=== PATIENT | female | born 1970 | race Caucasian/White ===

== ENCOUNTER 2016-11-02 14:28 | Outpatient (CLI) | payer OTHER ==
[2016-11-02 15:59] LABS: PROLACTIN 6.04 ng/mL
[2016-11-02 16:22] LABS: FOLLICLE STIMULATING HORMONE 4.46 mIU/mL
== END 2016-11-02 14:29 | disposition home or self-care (01) ==
LOC: LAB 14:28
PROVIDERS: ATTEND Obstetrics & Gynecology
DX: N64.3 Galactorrhea not associated with childbirth (principal)
CPT/HCPCS: 36415; 83001; 84146

== ENCOUNTER 2017-02-10 14:18 | Outpatient (CLI) | payer OTHER | END 2017-02-10 14:19 | disposition home or self-care (01) | LOC: LAB.R 14:18 | PROVIDERS: ATTEND Obstetrics & Gynecology | DX: N89.8 Other specified noninflammatory disorders of vagina (principal) | CPT/HCPCS: 87480; 87510; 87660 ==

== ENCOUNTER 2017-02-10 14:24 | Outpatient (CLI) | payer OTHER ==
[2017-02-10 14:45] LABS: BASOPHILS % (AUTO) 0.6 %; EOSINOPHILS # (AUTO) 0.2 10^3/uL (0.0-0.7); EOSINOPHILS % (AUTO) 3.3 %; HCT - HEMATOCRIT 40.3 % (37.0-47.0); HGB - HEMOGLOBIN 13.6 g/dL (12.0-16.0); LYMPHOCYTES # (AUTO) 1.7 10^3/uL (1.5-3.5); LYMPHOCYTES % (AUTO) 30.1 %; MEAN CORPUSCULAR HEMOGLOBIN 33.5 pg (27.0-31.0); MEAN CORPUSCULAR HGB CONC 33.8 g/dL (32.0-36.0); MONOCYTES # (AUTO) 0.4 10^3/uL (0.0-1.0); MONOCYTES % (AUTO) 6.8 %; NEUTROPHILS # (AUTO) 3.3 10^3/uL (1.5-6.6); NEUTROPHILS % (AUTO) 59.2 %; RED BLOOD COUNT 4.07 10^6/uL (4.20-5.40); RED CELL DISTRIBUTION WIDTH 13.5 % (12.0-15.0); UNCORRECTED WHITE BLOOD COUNT 5.6 x10^3/uL; WHITE BLOOD COUNT 5.6 x10^3/uL (4.8-10.8)
[2017-02-10 15:22] LABS: HEMOGLOBIN A1C 0.39 g/dL
== END 2017-02-10 14:25 | disposition home or self-care (01) ==
LOC: LAB 14:24
PROVIDERS: ATTEND Obstetrics & Gynecology
DX: Z13.0 Encounter for screening for diseases of the blood and blood-forming organs and certain disorders involving the immune mechanism (principal); O92.6 Galactorrhea; N89.8 Other specified noninflammatory disorders of vagina
CPT/HCPCS: 36415; 83036; 84146; 85025; 87480; 87510; 87660

== ENCOUNTER 2017-05-07 15:01 | Emergency (ER) | payer OTHER ==
[2017-05-07 17:43] VITALS: BP 122/65
[2017-05-07] MEDS ORDERED: DOXYCYCLINE 100 MG TABLET PO STA (18:10)
[2017-05-07] MEDS ORDERED: ACETAMINOPHEN 325 MG TABLET PO STA (18:10)
--- NOTE | 2017-05-07 18:16 | ED Physician Documentation ---
History of Present Illness - Stated complaint Stated Complaint: RIGHT SIDE PAIN - Chief complaint Chief Complaint: General - Additonal information Additional information: hx from pt and 47 female with recurrent mastitis s/p hyst per believed to be related to her menstrual cycles and she is due to have a oopeherectomy soon has had mammo CT and MRi breast this year Review of Systems Skin: reports: Other (R breast) PD PAST MEDICAL HISTORY - Past Medical History Cardiovascular: Hypertension Musculoskeletal: Chronic back pain - Past Surgical History Past Surgical History: Yes General: Cholecystectomy, 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 - Present Medications Home Medications: Ambulatory Orders Medication Instructions Recorded Confirmed Escitalopram Oxalate [Lexapro] 20 mg PO DAILY 12/31/14 01/18/17 [place] 450 mg PO DAILY 12/31/14 01/18/17 [place] 900 mg PO QPM 12/31/14 01/18/17 Ondansetron HCl [Zofran] 8 mg PO TID 12/31/14 01/18/17 Promethazine [Phenergan] 50 mg PO TID 12/31/14 01/18/17 Sumatriptan Succinate [Imitrex] 6 mg SQ DAILY PRN 12/31/14 01/18/17 Topiramate 100 mg PO BID 12/31/14 01/18/17 clonazePAM [KlonoPIN] 1 mg PO TID 12/31/14 01/18/17 lamoTRIgine [LaMICtal] 100 mg PO DAILY 12/31/14 01/18/17 lamoTRIgine [LaMICtal] 200 mg PO QPM 12/31/14 01/18/17 raNITIdine [Zantac] 150 mg PO BID 12/31/14 01/18/17 Prazosin [Minipress] 6 mg PO QPM 04/22/15 01/18/17 Lidocaine Ointment 5% [Xylocaine 5 each TOP QPM 07/22/15 01/18/17 Ointment 5%] Gabapentin 1,200 mg PO ONCE 01/20/16 01/18/17 Gabapentin 600 mg PO TID 01/20/16 01/18/17 Lidocaine Patch 5% [Lidoderm Patch] 1 each TOP ONCE PRN 01/20/16 01/18/17 cloNIDine [Catapres] 0.1 mg PO TID 03/04/16 01/18/17 Diphenoxylate/Atropine [Lomotil] 1 - 2 each PO Q6H PRN 07/28/16 01/18/17 Doxycycline Hyclate 100 mg PO BID #20 capsule 05/07/17 - Allergies Allergies/Adverse Reactions: Allergies Allergy/AdvReac Type Severity Reaction Status Date / Time pineapple Allergy Severe Edema Verified 01/10/15 15:25 diphenhydramine HCl * Allergy Intermediate Itching Verified 01/10/15 15:22 [From Benadryl] Cephalosporins AdvReac Severe Respiratory Verified 01/10/15 15:21 iron dextran complex AdvReac Intermediate Emesis Verified 01/10/15 15:24 prochlorperazine AdvReac Intermediate Emesis Verified 01/10/15 15:23 [From Compazine] prochlorperazine edisylate * AdvReac Intermediate Emesis Verified 01/10/15 15:23 [From Compazine] prochlorperazine maleate * AdvReac Intermediate Emesis Verified 01/10/15 15:23 [From Compazine] kiwi AdvReac Itching Verified 01/10/15 15:26 - Social History Does the pt smoke?: No Smoking Status: Never smoker PD ED PE NORMAL - Vitals Vital signs reviewed: Yes - Cardiac Cardiac: RRR - Respiratory Respiratory: No respiratory distress, Clear bilaterally, Other (R breast with sig erythema and TTP in lower medial quadrant, nipple peircing s infection, no nipple dc, small axillary adenopathy) Results - Vitals Vitals: Vital Signs - 24 hr 05/07/17 05/07/17 15:09 17:42 Temperature 36.3 C L 36.2 C L Heart Rate 76 62 Respiratory 18 16 Rate Blood Pressure 110/77 122/65 O2 Saturation 100 100 Oxygen O2 Source Room air PD MEDICAL DECISION MAKING - ED course ED course: pt states she has been on numerous diff ab for mastitis and doxy works the best Departure - Departure Disposition: Home, Self Care Clinical Impression: Mastitis Condition: Good Instructions: ED Breast Infec Follow-Up: Randolph Silva MD [Provider Admit Priv/Credential] - (Tuesday for a recheck ) Prescriptions: Doxycycline Hyclate 100 mg PO BID #20 capsule
== END 2017-05-07 18:24 | disposition home or self-care (01) ==
LOC: ED 15:01
DX: N61.0 Mastitis without abscess (principal); I10 Essential (primary) hypertension
CPT/HCPCS: 99283; A9270

== ENCOUNTER 2017-05-31 11:55 | Outpatient (CLI) | payer OTHER ==
[2017-05-31 12:35] LABS: BASOPHILS % (AUTO) 0.6 %; EOSINOPHILS # (AUTO) 0.2 10^3/uL (0.0-0.7); HGB - HEMOGLOBIN 13.3 g/dL (12.0-16.0); LYMPHOCYTES # (AUTO) 1.5 10^3/uL (1.5-3.5); LYMPHOCYTES % (AUTO) 33.8 %; MEAN CORPUSCULAR HEMOGLOBIN 33.8 pg (27.0-31.0); MEAN CORPUSCULAR HGB CONC 33.8 g/dL (32.0-36.0); MEAN CORPUSCULAR VOLUME 100.1 fL (81.0-99.0); MEAN PLATELET VOLUME 8.1 fL (7.9-10.8); MONOCYTES # (AUTO) 0.2 10^3/uL (0.0-1.0); MONOCYTES % (AUTO) 5.6 %; NEUTROPHILS # (AUTO) 2.4 10^3/uL (1.5-6.6); PLT - PLATELET COUNT 205 10^3/uL (130-450); RED BLOOD COUNT 3.93 10^6/uL (4.20-5.40); RED CELL DISTRIBUTION WIDTH 14.1 % (12.0-15.0); WHITE BLOOD COUNT 4.3 x10^3/uL (4.8-10.8)
[2017-05-31 13:01] LABS: CALCIUM 8.9 mg/dL (8.5-10.3); CREATININE 0.7 mg/dL (0.4-1.0)
== END 2017-05-31 11:56 | disposition home or self-care (01) ==
LOC: LAB 11:55
PROVIDERS: ATTEND Obstetrics & Gynecology
DX: Z01.812 Encounter for preprocedural laboratory examination (principal); N83.209 Unspecified ovarian cyst, unspecified side
CPT/HCPCS: 36415; 80048; 85025; 86850; 86900; 86901

== ENCOUNTER 2017-06-01 09:22 | Day surgery (SDC) | payer OTHER ==
--- NOTE | 2017-05-31 18:16 | PREOP HISTORY & PHYSICAL ---
DATE OF SERVICE: 06/01/2017 Physician: Randolph Silva MD PREOPERATIVE H & P ON 05/31/2017 FOR ANTICIPATED DATE [facility] 06/01/2017 IDENTIFICATION: Patient is a 47-year-old, G3, P2, AB1 female who is post hysterectomy, thus does not have any regular periods. CHIEF COMPLAINT: Recurrent ovarian cysts bilaterally. HISTORY OF PRESENT ILLNESS: Patient states over the last 18 months, she has had difficulty with ovarian cysts, which come and go. These can give her pain when they rupture and have become quite uncomfortable. She has been tried on OCP for suppression with out success. For this reason, she is requesting a laparoscopic removal. PAST MEDICAL HISTORY: Patient denies any hypertensive, diabetic, or cardiac disease. She does have some difficulty with bipolar. PAST SURGICAL HISTORY: Positive for hysterectomy, gastric bypass surgery, as well as abdominoplasty, arm plasty, and thigh plasty. ALLERGIES 1. BENADRYL. 2. CEFAZOLIN. 3. DOXYCYCLINE. 4. COMPAZINE. CURRENT MEDICATIONS 1. Prazosin 2 mg 4 capsules at bedtime. 2. Escitalopram 20 mg 1 tablet by mouth daily. 3. Topiramate 100 mg 1 tablet b.i.d. 4. [place] 450 mg 1 tablet in the morning and 2 tablets at bedtime. 5. Lamotrigine 100 mg 1 tablet in the morning and 2 tablets in the evening. 6. Gabapentin 600 mg 1 tablet t.i.d. 7. Clonidine 0.1 mg 1 tablet t.i.d. 8. Clonazepam 1 mg 1 tablet t.i.d. p.r.n. anxiety. 9. Promethazine 25 mg 1 tablet by mouth at bedtime. 10. Zofran 4 mg over a day. HABITS: Patient smokes 20 cigarettes per day. She has been counseled about this. Ethanol use, 1-2 drinks weekly, as well as MJ once every 2 weeks. SOCIAL HISTORY: Patient is and lives with spouse and daughter. She is retired at this time. PHYSICAL EXAMINATION GENERAL: Well-developed, well-nourished white female. She is in no acute distress. She is somewhat anxious about the upcoming surgery. VITAL SIGNS: Her blood pressure is 136/84. HEENT: Pupils round. Extraocular muscles are intact. Thyroid is not palpably enlarged. Mouth is clear. HEART: Regular rate and rhythm without murmurs. LUNGS: [place] are clear without rales or wheezes. ABDOMEN: Well-healed abdominoplasty. There are no masses. There is no tenderness. IMPRESSION: A 47-year-old G3, P2 female who has recurrent ovarian cysts. She is requesting removal of the ovaries. She is aware at this particular point when she has this performed that she will go into menopause. This can be treated with transdermal estrogen. PLAN: Laparoscopic BSO. Possible laparotomy. Risks and benefits have been explained to the patient including those, but not limited to bleeding, infection into the pelvic organs, which include the bowel, bladder and ureters as her uterus has been removed and her tubes and ovaries will be removed. She is aware of the potential for DVT, as well as PE, as well as postoperative adhesions, which could cause pain and bowel obstruction. TD: 05/31/2017 12:19 EMILY
[~2017-06-01 09:22] MED LIST: BUPIVACAINE 0.25%-EPI 1:200000 PF 30 ML VIAL SUBQ ONE
[2017-06-01] MEDS ORDERED: LACTATED RINGERS 1,000 ML IV ONE (09:28)
[2017-06-01] MEDS ORDERED: SCOPOLAMINE PATCH TOP ONE (10:06)
[2017-06-01] MEDS ORDERED: DEXAMETHASONE 4 MG/ML VIAL IVP ONE (10:30)
[2017-06-01] MEDS ORDERED: KETOROLAC 30 MG/ML VIAL IVP ONE (10:30)
[2017-06-01] MEDS ORDERED: ONDANSETRON 4 MG/2 ML VIAL IVP ONE (10:30)
[2017-06-01] MEDS ORDERED: MIDAZOLAM 2 MG/2 ML VIAL IVP ONE (10:30)
[2017-06-01] MEDS ORDERED: fentaNYL 100 MCG/2 ML VIAL IVP ONE (10:30)
[2017-06-01] MEDS ORDERED: ACETAMINOPHEN 1,000 MG/100 ML 100 ML IV ONE (10:30)
[2017-06-01] MEDS ORDERED: SUCCINYLCHOLINE 200 MG/10 ML VIAL IVP ONE (10:30)
[2017-06-01] MEDS ORDERED: ROCURONIUM 50 MG/5 ML VIAL IVP ONE (10:30)
[2017-06-01] MEDS ORDERED: GLYCOPYRROLATE 1 MG/5 ML VIAL IVP ONE (10:30)
[2017-06-01] MEDS ORDERED: PROPOFOL 200 MG/20 ML VIAL IVP ONE (10:30)
[2017-06-01] MEDS ORDERED: LIDOCAINE-MPF 2% 5 ML VIAL IM ONE (10:30)
[2017-06-01] MEDS ORDERED: NEOSTIGMINE 1 MG/1 ML 10 ML MDV IVP ONE (10:30)
[2017-06-01] MEDS ORDERED: CLINDAMYCIN 600 MG/50 ML 50 ML IV ONE (10:34)
[2017-06-01] MEDS: fentaNYL 100 MCG/2 ML VIAL ONE ×2 (11:55→12:00)
[2017-06-01] MEDS ORDERED: ONDANSETRON 4 MG/2 ML VIAL ONE (12:03)
[2017-06-01] MEDS ORDERED: HYDROmorphone 1 MG/ML SYRINGE ONE (12:19)
--- NOTE | 2017-06-01 12:35 | OPERATIVE REPORT ---
DATE OF SERVICE: 06/01/2017 Physician: Randolph Silva MD DATE OF SURGERY: 06/01/2017 PREOPERATIVE DIAGNOSIS: Recurrent ovarian cysts, failure of suppression with OCPs. POSTOPERATIVE DIAGNOSIS: Recurrent ovarian cysts, failure of suppression with OCPs. NAME OF PROCEDURE: Laparoscopic bilateral salpingo-oophorectomy. SURGEON: Randolph Silva MD PHYSICAL THERAPY PROFESSOR: Dr. Cony Burks DO. ANESTHESIA: General via endotracheal tube with LOIS Collier. FINDINGS: Upon entering the abdominal cavity, there was no evidence of any adhesions. She was status post hysterectomy. The appendix appeared to be normal as well as the edge of the liver. There was a small phlebolith, which was roughly 1 cm in diameter. The tubes and ovaries appeared to be free of disease. There was a cyst on the right ovary felt to be functional. PROCEDURE: Following adequate endotracheal anesthesia, the patient was placed in the dorsal lithotomy position in [facility]. At this point, she was prepped and draped in the usual fashion. A timeout was performed, at which time, the patient was identified, allergies identified as well as concerns. Because of an ALLERGY TO CEFOXITIN, she was given clindamycin 600 mg IV. At this point, a speculum was placed in vagina. The cervix was surgically absent. A sponge stick was placed for manipulation. The web press operator assistant's gloves were changed and following local anesthesia with 0.25% Marcaine with epinephrine, an incision was made in subumbilical region with a #11 blade. A 5 mm port was placed on the first pass. The abdominal cavity was entered. There was no evidence of injury at the site of entry. CO2 was then used to insufflate the abdominal cavity. The pelvis was inspected. There were no adhesions from her previous surgery. Two lower quadrant incisions, both were placed, both in the left and right side, following local anesthesia with 0.25% Marcaine, 5 mm incisions were made with a #11 blade and then 5 mm ports were then placed under direct visualization. The pelvis was inspected. The right tube and ovary were easily identified. The left tube and ovary took some time, but was eventually identified. There was a free phlebolith noted on the left side in the deep cul-de-sac. This was removed. At this point, the right tube and ovary were grasped and then the infundibulopelvic ligament was doubly cauterized and transected. Then, the mesovarium was cauterized, transected, and the tube was freed from its attachments. This was then placed in the cul-de-sac. The right tube and ovary were treated in the same fashion. At this point, the left tube and ovary were grasped and it was felt that this could not be removed through the port, so the right lower port was extended and a 1 cm port was placed under direct visualization. The ovary was then removed through the port. This was done after transection. The ovary appeared to be totally free of disease. The right tube and ovary were then placed in an Endopouch and then brought out through the incision without difficulty. The pelvis was inspected for bleeding, none was noted. At this point, a Vasyl-West was placed in the right lower port where the 10 mm port had been placed and the incision was closed deep with 0 Vicryl. The pelvis was then suctioned free of any fluid. This was to minimize for postop pain. The left lower quadrant port was then removed under direct visualization and following this, the subumbilical port was removed after allowing as much gas to escape as possible. The incisions were all closed using 4-0 Monocryl subcuticular. This was then dressed with Dermabond. The sponge stich was removed fro the vagina. The patient tolerated the procedure well and was taken to recovery in stable condition. Sponge and needle counts were correct. TD: 06/01/2017 13:34 EMILY
[2017-06-01 13:28] VITALS: BP 123/84
== END 2017-06-01 09:23 | disposition home or self-care (01) ==
LOC: SDS 09:22
PROVIDERS: ATTEND Obstetrics & Gynecology
PROC: 0UT74ZZ Resection of Bilateral Fallopian Tubes, Percutaneous Endoscopic Approach (ICD-10-PCS; 2017-06-01)
PROC: 0UT24ZZ Resection of Bilateral Ovaries, Percutaneous Endoscopic Approach (ICD-10-PCS; principal; 2017-06-01 10:30)
DX: N83.02 Follicular cyst of left ovary (principal); N83.01 Follicular cyst of right ovary; N70.11 Chronic salpingitis; N83.11 Corpus luteum cyst of right ovary; F17.210 Nicotine dependence, cigarettes, uncomplicated; F31.9 Bipolar disorder, unspecified
CPT/HCPCS: 58661; J0131; J1170; J3490; J7120

== ENCOUNTER 2017-07-26 08:00 | Outpatient (CLI) | payer OTHER | END 2017-07-26 08:01 | disposition home or self-care (01) | LOC: LAB.R 08:00 | PROVIDERS: ATTEND Obstetrics & Gynecology | DX: R82.99 Other abnormal findings in urine (principal) | CPT/HCPCS: 87086 ==

== ENCOUNTER 2017-09-09 17:51 | Emergency (ER) | payer OTHER ==
[2017-09-09] MEDS ORDERED: IOPAMIDOL-300 100 ML VIAL IVP ONE ×2 (17:52→20:46)
[2017-09-09] MEDS ORDERED: MORPHINE 2 MG/ML SYRINGE IVP STA ×3 (18:51→21:47)
--- NOTE | 2017-09-09 18:53 | ED Physician Documentation ---
History of Present Illness - Stated complaint Stated Complaint: LT SIDE SWELL/PX - Chief complaint Chief Complaint: General - History obtained from History obtained from: Patient - History of Present Illness Timing: Other (47-year-old woman without personal history of DVT or PE but with a strong family history of same and is also on estrogen therapy and smokes. She recently took a car trip to [place] and on her way back developed swollen left leg. 2 days ago she felt a pop or a burst in the left side of her chest and ever since then has been short of breath and has had chest pain which is terrible if she takes a deep breath and some numbness and tingling in the left arm. She also had a slight amount of hemoptysis today.) Review of Systems Ten Systems: 10 systems reviewed and negative Constitutional: denies: Fever, Chills Cardiac: reports: Chest pain / pressure, Pedal edema, Calf pain. 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 HEENT: Tonsil/Adenoidectomy - Present Medications Home Medications: Ambulatory Orders Medication Instructions Recorded Confirmed Escitalopram Oxalate [Lexapro] 20 mg PO DAILY 12/31/14 06/21/17 [place] 450 mg PO TID 12/31/14 06/21/17 Ondansetron HCl [Zofran] 8 mg PO TID 12/31/14 06/21/17 Promethazine [Phenergan] 75 mg PO TID 12/31/14 06/21/17 Sumatriptan Succinate [Imitrex] 6 mg SQ DAILY PRN 12/31/14 06/21/17 Topiramate 100 mg PO BID 12/31/14 06/21/17 clonazePAM [KlonoPIN] 1 mg PO TID 12/31/14 06/21/17 lamoTRIgine [LaMICtal] 100 mg PO TID 12/31/14 06/21/17 raNITIdine [Zantac] 150 mg PO BID 12/31/14 06/21/17 Prazosin [Minipress] 8 mg PO QPM 04/22/15 06/21/17 Gabapentin 1,200 mg PO ONCE 01/20/16 06/21/17 Gabapentin 600 mg PO TID 01/20/16 06/21/17 cloNIDine [Catapres] 0.1 mg PO TID 03/04/16 06/21/17 Estradiol [Vivelle-Dot] 0.075 patch TD Q7D 06/21/17 06/21/17 Oxycodone HCl/Acetaminophen 1 - 2 tab PO Q4H PRN #15 tablet 09/09/17 [Percocet 5-325 mg Tablet] Progesterone,Micronized 200 mg PO 09/09/17 [Progesterone] - Allergies Allergies/Adverse Reactions: Allergies Allergy/AdvReac Type Severity Reaction Status Date / Time pineapple Allergy Severe Edema Verified 05/31/17 13:52 diphenhydramine HCl * Allergy Intermediate Itching Verified 05/31/17 13:52 [From Benadryl] Cephalosporins AdvReac Severe Respiratory Verified 05/31/17 13:52 doxycycline AdvReac Intermediate Emesis Verified 05/31/17 13:52 iron dextran complex AdvReac Intermediate Emesis Verified 05/31/17 13:52 prochlorperazine AdvReac Intermediate Emesis Verified 05/31/17 13:52 [From Compazine] prochlorperazine edisylate * AdvReac Intermediate Emesis Verified 05/31/17 13:52 [From Compazine] prochlorperazine maleate * AdvReac Intermediate Emesis Verified 05/31/17 13:52 [From Compazine] kiwi AdvReac Itching Verified 09/09/17 18:04 - Social History Does the pt smoke?: Yes Smoking Status: Current every day smoker PD ED PE NORMAL - Vitals Vital signs reviewed: Yes - General General: Alert and oriented X 3, No acute distress - HEENT HEENT: PERRL, EOMI - Neck Neck: Supple, no meningeal sign, No bony TTP - Cardiac Cardiac: RRR, No murmur - Respiratory Respiratory: Other (She is really splinting her breath so I am not able to make much out with breath sounds, she is nonlabored otherwise.) - Abdomen Abdomen: Soft, Non tender - Back Back: No CVA TTP, No spinal TTP - Extremities Extremities: Other (No real edema but the left calf is tender.) - Neuro Neuro: Alert and oriented X 3, Normal speech - Psych Psych: Normal mood, Normal affect Results - Vitals Vitals: Vital Signs - 24 hr 09/09/17 09/09/17 09/09/17 18:00 21:00 21:47 Temperature 36.1 C L 36.3 C L Heart Rate 79 64 62 Respiratory 18 16 16 Rate Blood Pressure 120/85 H 125/76 141/90 H O2 Saturation 100 94 99 Oxygen O2 Source Room air - EKG (time done) 2003 Rate: Rate (enter#) (62) Rhythm: NSR [place]: Normal Intervals: Prolonged [place] (borderline = 220msec) QRS: Normal Ischemia: Non specific changes (flat Ts). No: ST elevation c/w ischemia Computer interpretation: Agree with computer - Labs Labs: Laboratory Tests 09/09/17 09/09/17 09/09/17 19:10 19:10 19:10 WBC 3.9 L RBC 4.17 L Hgb 13.8 Hct 43.0 MCV 103.1 H MCH 33.1 H MCHC 32.1 RDW 14.0 Plt Count 257 MPV 7.6 L Neut # 1.9 Lymph # 1.6 [place] # 0.2 Eos # 0.2 Baso # 0.0 Absolute Nucleated RBC 0.00 Nucleated RBC % 0.0 PT INR Sodium 139 Potassium 3.5 Chloride 106 Carbon Dioxide 25 Anion Gap 8.0 BUN 7 Creatinine 0.6 Estimated GFR (MDRD) 108 Glucose 87 Calcium 8.8 Total Bilirubin 0.7 AST 39 ALT 32 Alkaline Phosphatase 65 Troponin I Total Protein 6.8 Albumin 4.4 Globulin 2.4 Albumin/Globulin Ratio 1.8 Lipase 35 Last Dose Date UNKNOWN Last Dose Time UNKNOWN [place] 0.87 09/09/17 09/09/17 19:10 19:25 WBC RBC Hgb Hct MCV MCH MCHC RDW Plt Count MPV Neut # Lymph # [place] # Eos # Baso # Absolute Nucleated RBC Nucleated RBC % PT 11.0 INR 1.0 Sodium Potassium Chloride Carbon Dioxide Anion Gap BUN Creatinine Estimated GFR (MDRD) Glucose Calcium Total Bilirubin AST ALT Alkaline Phosphatase Troponin I < 0.04 Total Protein Albumin Globulin Albumin/Globulin Ratio Lipase Last Dose Date Last Dose Time [place] - Rads (name of study) CTA Chest Radiology: EMP read contemporaneously (neg) LLE DVT duples Radiology: EMP read contemporaneously (negative) PD MEDICAL DECISION MAKING - ED course ED course: 47-year-old woman with history and physical there is actually very concerning for DVT/PE. Workup for this negative for same and she admits to being under a lot of stress and having a lot of family drama making that more likely to be causative. Departure - Departure Disposition: 01 Home, Self Care Clinical Impression: Pleurisy without effusion, Leg pain, left Condition: Good Record reviewed to determine appropriate education?: Yes Instructions: ED Chest Pain Pleurisy Prescriptions: Oxycodone HCl/Acetaminophen [Percocet 5-325 mg Tablet] 1 - 2 tab PO Q4H PRN #15 tablet PRN Reason: Pain Comments: Call your doctor to arrange a follow-up appointment, make the next available appointment. In the interim, return anytime if worse or if new symptoms develop. Discharge Date/Time: 09/09/17 22:00
[2017-09-09 19:18] LABS: BASOPHILS % (AUTO) 0.7 %; EOSINOPHILS # (AUTO) 0.2 10^3/uL (0.0-0.7); EOSINOPHILS % (AUTO) 4.2 %; HGB - HEMOGLOBIN 13.8 g/dL (12.0-16.0); LYMPHOCYTES # (AUTO) 1.6 10^3/uL (1.5-3.5); LYMPHOCYTES % (AUTO) 41.7 %; MEAN CORPUSCULAR HEMOGLOBIN 33.1 pg (27.0-31.0); MEAN CORPUSCULAR HGB CONC 32.1 g/dL (32.0-36.0); MEAN CORPUSCULAR VOLUME 103.1 fL (81.0-99.0); MEAN PLATELET VOLUME 7.6 fL (7.9-10.8); MONOCYTES # (AUTO) 0.2 10^3/uL (0.0-1.0); MONOCYTES % (AUTO) 5.5 %; NEUTROPHILS # (AUTO) 1.9 10^3/uL (1.5-6.6); NEUTROPHILS % (AUTO) 47.9 %; PLT - PLATELET COUNT 257 10^3/uL (130-450); RED BLOOD COUNT 4.17 10^6/uL (4.20-5.40); WHITE BLOOD COUNT 3.9 x10^3/uL (4.8-10.8)
[2017-09-09] MEDS ORDERED: IOPAMIDOL-300 100 ML VIAL ONE (19:31)
[2017-09-09 19:34] LABS: ALBUMIN 4.4 g/dL (3.2-5.5); ALBUMIN/GLOBULIN RATIO 1.8 (1.0-2.2); BILIRUBIN,TOTAL 0.7 mg/dL (0.2-1.0); CALCIUM 8.8 mg/dL (8.5-10.3); CREATININE 0.6 mg/dL (0.4-1.0); TOTAL PROTEIN 6.8 g/dL (6.7-8.2)
[2017-09-09 20:20] LABS: LITHIUM 0.87 mmol/L
--- NOTE | 2017-09-09 20:49 | Ultrasound Report ---
EXAM: LEFT LOWER EXTREMITY VENOUS ULTRASOUND EXAM DATE: 09/09/2017 08:22 PM. CLINICAL HISTORY: Leg pain. COMPARISON: None. TECHNIQUE: Real-time sonographic vascular imaging was performed by the college basketball coach through the lower extremity utilizing both color-flow and Doppler spectral analysis. Multiple logistics service representative static christelle ges were saved for review. FINDINGS: Common Femoral Vein (CFV): Normal. CFV-GSV Junction: Normal. Profunda Femoral Vein (PFV): Normal. Femoral Vein (FV) Prox: Normal. Femoral Vein (FV) Mid: Normal. Femoral Vein (FV) Dist: Normal. Popliteal Vein: Normal. Posterior Tibial Veins: Normal. Peroneal Veins: Normal. Contralateral Side CFV: Normal. Other: None. IMPRESSION: No evidence for deep venous thrombosis. [facility] Referring Provider Line: [phone] SITE ID: [id number]
[2017-09-09] MEDS ORDERED: KETOROLAC 60 MG/2 ML VIAL IVP STA (20:50)
--- NOTE | 2017-09-09 21:26 | CT Preliminary Report ---
Exam: CT CHEST ANGIO (PE) IMPRESSION: Normal pulmonary CT angiogram. No pulmonary emboli. No acute pulmonary process. [facility] SITE ID: [id number]
[2017-09-09] MEDS ORDERED: oxyCODONE/ACET 5/325 Prepack 4 PO STA (21:28)
--- NOTE | 2017-09-09 21:35 | CT Report ---
EXAM: CT ANGIOGRAM CHEST EXAM DATE: 09/09/2017 08:49 PM. CLINICAL HISTORY: Chest pain. COMPARISON: None. TECHNIQUE: Routine helical imaging was performed through the chest in the pulmonary arterial phase. I V Contrast: 80 mL Isovue 300. Reconstructions: Coronal 3-D MIP reconstructions.Sagittal and coronal. In accordance with CT protocol optimization, one or more of the following dose reduction techniques w ere utilized for this exam: automated exposure control, adjustment of mA and/or KV based on patient s ize, or use of iterative reconstructive technique. FINDINGS: Pulmonary Arteries: Diagnostic quality: Adequate through the segmental arteries. No evidence for acute or chronic pulmona ry emboli. RV/LV is within normal limits. There is no interventricular septal bowing. There is mild reflux of co ntrast material in the IVC. Lungs/Pleura: No consolidation, nodules, or edema. No effusions or pneumothorax. Mild dependent atele ctasis is noted. Mediastinum: Normal. No cardiac enlargement or adenopathy. Thoracic Aorta: Unremarkable. Upper Abdomen: Status post gastric bypass procedure. Fluid is present in the mid to lower esophagus. Small esophageal hernia is noted. Coarse calcifications are noted in the liver dome. Other: Bilateral breast implants are noted. No thyroid nodule or mass noted. IMPRESSION: Normal pulmonary CT angiogram. No pulmonary emboli. No acute pulmonary process. [facility] Referring Provider Line: [phone] SITE ID: [id number]
[2017-09-09 21:47] VITALS: BP 141/90
== END 2017-09-09 22:00 | disposition home or self-care (01) ==
LOC: ED 17:51
DX: R09.1 Pleurisy (principal); M79.605 Pain in left leg; I10 Essential (primary) hypertension; F17.200 Nicotine dependence, unspecified, uncomplicated; Z79.818 Long term (current) use of other agents affecting estrogen receptors and estrogen levels
CPT/HCPCS: 36415; 71275; 80053; 80178; 83690; 84484; 85025; 85610; 93005; 93971; 96374; 96375; 96376; 99283; 99284; J2270; Q9967

== ENCOUNTER 2017-09-14 13:26 | Emergency (ER) | payer OTHER ==
[2017-09-14] MEDS ORDERED: KETOROLAC 60 MG/2 ML VIAL IVP STA (16:22)
--- NOTE | 2017-09-14 16:30 | ED Physician Documentation ---
History of Present Illness - Stated complaint Stated Complaint: PAIN - Chief complaint Chief Complaint: MHE - History obtained from History obtained from: Patient, Family - History of Present Illness Timing: How many weeks ago (1) Pain level max: 9 Pain level now: 8 Improved by: rest Worsened by: movement - Additonal information Additional information: Patient is a 47-year-old female who presents to the emergency department with left-sided chest pain that radiates up to the neck and down to her side. Worse with movement and palpation. Better with rest. Pain was controlled well with Percocet, but she ran out of this. Attempted to see her PCP but was unable to be seen that day. She is now out of the pain medication. States that the pain is worsening. Thinks she may have had fevers at home but is unsure. They state that she is having difficulty walking as well because of the pain. Is not taking anything for pain other than Percocet. Patient was seen here recently and had a negative CT pulmonary angiogram as well as a negative duplex ultrasound for similar symptoms. There was concern for pulmonary embolism and DVT after recent travel. Review of Systems Constitutional: reports: Fever (unsure) Ears: denies: Ear pain Nose: denies: Rhinorrhea / runny nose, Congestion Throat: denies: Sore throat Cardiac: denies: Chest pain / pressure Respiratory: reports: Cough (mild, dry) GI: denies: Nausea, Vomiting, Diarrhea : denies: Dysuria Skin: denies: Rash Musculoskeletal: reports: Neck pain (L sided neck pain, similar to may of this year). denies: Back pain, Extremity pain, Joint pain, Extremity swelling Neurologic: denies: Focal weakness, Numbness, Syncope, Seizure, Confused, Altered mental status, Headache, Head injury, LOC PD PAST MEDICAL HISTORY - Past Medical History Past Medical History: Yes Cardiovascular: Hypertension Respiratory: None Endocrine/Autoimmune: None GI: GERD, Chronic diarrhea, Cholelithiasis, Other : Other HEENT: Chronic vision loss Psych: Depression, Anxiety, Bipolar disorder, Panic attacks Musculoskeletal: Chronic back pain Derm: None - Past Surgical History Past Surgical History: Yes General: Cholecystectomy, Gastric surgery 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 HEENT: Tonsil/Adenoidectomy - Present Medications Home Medications: Ambulatory Orders Medication Instructions Recorded Confirmed Escitalopram Oxalate [Lexapro] 20 mg PO DAILY 12/31/14 06/21/17 [place] 450 mg PO TID 12/31/14 06/21/17 Ondansetron HCl [Zofran] 8 mg PO TID 12/31/14 06/21/17 Promethazine [Phenergan] 75 mg PO TID 12/31/14 06/21/17 Sumatriptan Succinate [Imitrex] 6 mg SQ DAILY PRN 12/31/14 06/21/17 Topiramate 100 mg PO BID 12/31/14 06/21/17 clonazePAM [KlonoPIN] 1 mg PO TID 12/31/14 06/21/17 lamoTRIgine [LaMICtal] 100 mg PO TID 12/31/14 06/21/17 raNITIdine [Zantac] 150 mg PO BID 12/31/14 06/21/17 Prazosin [Minipress] 8 mg PO QPM 04/22/15 06/21/17 Gabapentin 1,200 mg PO ONCE 01/20/16 06/21/17 Gabapentin 600 mg PO TID 01/20/16 06/21/17 cloNIDine [Catapres] 0.1 mg PO TID 03/04/16 06/21/17 Estradiol [Vivelle-Dot] 0.075 patch TD Q7D 06/21/17 06/21/17 Oxycodone HCl/Acetaminophen 1 - 2 tab PO Q4H PRN #15 tablet 09/09/17 [Percocet 5-325 mg Tablet] Progesterone,Micronized 200 mg PO 09/09/17 [Progesterone] Cyclobenzaprine [Flexeril] 10 mg PO TID PRN #20 tablet 09/14/17 Meloxicam [Mobic] 15 mg PO DAILY PRN #20 tablet 09/14/17 Oxycodone HCl/Acetaminophen 1 - 2 each PO Q6H PRN #20 tablet 09/14/17 [Percocet 5-325 mg Tablet] - Allergies Allergies/Adverse Reactions: Allergies Allergy/AdvReac Type Severity Reaction Status Date / Time pineapple Allergy Severe Edema Verified 05/31/17 13:52 diphenhydramine HCl * Allergy Intermediate Itching Verified 05/31/17 13:52 [From Benadryl] Cephalosporins AdvReac Severe Respiratory Verified 05/31/17 13:52 doxycycline AdvReac Intermediate Emesis Verified 05/31/17 13:52 iron dextran complex AdvReac Intermediate Emesis Verified 05/31/17 13:52 prochlorperazine AdvReac Intermediate Emesis Verified 05/31/17 13:52 [From Compazine] prochlorperazine edisylate * AdvReac Intermediate Emesis Verified 05/31/17 13:52 [From Compazine] prochlorperazine maleate * AdvReac Intermediate Emesis Verified 05/31/17 13:52 [From Compazine] kiwi AdvReac Itching Verified 09/09/17 18:04 - Social History Does the pt smoke?: Yes Smoking Status: Current every day smoker PD ED PE NORMAL - Vitals Vital signs reviewed: Yes - General General: Alert and oriented X 3, No acute distress - HEENT HEENT: Atraumatic, PERRL, Ears normal, Moist mucous membranes - Neck Neck: Supple, no meningeal sign, No bony TTP, No JVD, No bruit - Cardiac Cardiac: RRR, No murmur, Strong equal pulses - Respiratory Respiratory: No respiratory distress, Clear bilaterally - Abdomen Abdomen: Soft, Non tender, Non distended - Derm Derm: Warm and dry - Extremities Extremities: No edema, No calf tenderness / cord, Other (TTP across the L anterior chest wall and ribs on the L side. no crepitus. no redness, no swelling.) - Neuro Neuro: Alert and oriented X 3 - Psych Psych: Normal mood, Normal affect Results - Vitals Vitals: Vital Signs - 24 hr 09/14/17 09/14/17 09/14/17 13:52 18:10 18:21 Temperature 36.0 C L Heart Rate 75 61 61 Respiratory 16 14 20 Rate Blood Pressure 109/71 121/69 119/67 O2 Saturation 98 96 100 Oxygen O2 Source Room air - EKG (time done) 1651 Rate: Rate (enter#) (60) Rhythm: NSR [place]: Normal Intervals: Normal [place] QRS: Normal, LVH Ischemia: Normal ST segments - Labs Labs: Laboratory Tests 09/14/17 09/14/17 16:37 16:37 WBC 4.0 L RBC 4.08 L Hgb 13.8 Hct 42.3 MCV 103.7 H MCH 33.9 H MCHC 32.7 RDW 14.5 Plt Count 230 MPV 8.4 Neut # 2.2 Lymph # 1.5 [place] # 0.2 Eos # 0.2 Baso # 0.0 Absolute Nucleated RBC 0.00 Nucleated RBC % 0.0 Sodium 136 Potassium 4.0 Chloride 100 L Carbon Dioxide 26 Anion Gap 10.0 BUN 7 Creatinine 0.7 Estimated GFR (MDRD) 90 Glucose 86 Calcium 9.1 Total Bilirubin 0.7 AST 39 ALT 57 Alkaline Phosphatase 123 H Total Protein 7.1 Albumin 4.5 Globulin 2.6 Albumin/Globulin Ratio 1.7 Lipase 25 - Rads (name of study) cxr Radiology: Prelim report reviewed, EMP read contemporaneously, See rad report ( normal) PD MEDICAL DECISION MAKING - ED course Complexity details: reviewed old records, reviewed results, re-evaluated patient , considered differential, d/w patient, d/w family ED course: Patient is a 47-year-old female who presents to the emergency department with what appears to be musculoskeletal pain of the left chest wall. No lymphadenopathy in the axilla. Normal chest x-ray. No acute findings on EKG or laboratory testing. Pain well controlled in the emergency department. Will place on pain medication for home and follow-up closely with her doctor. Negative CT pulmonary angiogram and duplex ultrasound a few days ago. No hypoxia. No respiratory distress. Patient and family counseled regarding signs and symptoms for which I believe and urgent re-evaluation would be necessary. Patient with good understanding of and agreement to plan and is comfortable going home at this time This document was made in part using voice recognition software. While efforts are made to proofread this document, sound alike and grammatical errors may occur. Departure - Departure Disposition: 01 Home, Self Care Clinical Impression: Chest wall pain Condition: Good Instructions: ED Strain Chest Wall Follow-Up: SONG SIMON [Primary Care Provider] - Within 1 week Prescriptions: Cyclobenzaprine [Flexeril] 10 mg PO TID PRN #20 tablet PRN Reason: Spasms Meloxicam [Mobic] 15 mg PO DAILY PRN #20 tablet PRN Reason: pain Oxycodone HCl/Acetaminophen [Percocet 5-325 mg Tablet] 1 - 2 each PO Q6H PRN # 20 tablet PRN Reason: pain Comments: Return if you worsen. You can also try heating pads or ice packs at home. This should improve over the next week or so. Do not drink alcohol or drive while on narcotic pain medicine. Note that many narcotic pain relievers also contain tylenol/acetaminophen. Please ensure that your total dose of acetaminophen from all sources does not exceed 3 grams (3000mg) per day. You may constipated on this medication, take a stool softener such as "Colace" twice a day while you are on it. Also recommend a ptqq-cyc-[id number] laxative such as senna or MiraLAX any day that you do not have a bowel movement. If you received narcotic pain medication in the emergency department, do not drive or operate machinery for the next 24 hours. Discharge Date/Time: 09/14/17 18:21
[2017-09-14 16:55] LABS: BASOPHILS % (AUTO) 0.5 %; EOSINOPHILS # (AUTO) 0.2 10^3/uL (0.0-0.7); EOSINOPHILS % (AUTO) 3.9 %; HGB - HEMOGLOBIN 13.8 g/dL (12.0-16.0); LYMPHOCYTES # (AUTO) 1.5 10^3/uL (1.5-3.5); LYMPHOCYTES % (AUTO) 36.5 %; MEAN CORPUSCULAR HEMOGLOBIN 33.9 pg (27.0-31.0); MEAN CORPUSCULAR HGB CONC 32.7 g/dL (32.0-36.0); MEAN CORPUSCULAR VOLUME 103.7 fL (81.0-99.0); MEAN PLATELET VOLUME 8.4 fL (7.9-10.8); MONOCYTES # (AUTO) 0.2 10^3/uL (0.0-1.0); MONOCYTES % (AUTO) 5.5 %; NEUTROPHILS # (AUTO) 2.2 10^3/uL (1.5-6.6); NEUTROPHILS % (AUTO) 53.6 %; PLT - PLATELET COUNT 230 10^3/uL (130-450); RED BLOOD COUNT 4.08 10^6/uL (4.20-5.40); RED CELL DISTRIBUTION WIDTH 14.5 % (12.0-15.0)
[2017-09-14 17:11] LABS: ALBUMIN 4.5 g/dL (3.2-5.5); ALBUMIN/GLOBULIN RATIO 1.7 (1.0-2.2); BILIRUBIN,TOTAL 0.7 mg/dL (0.2-1.0); CALCIUM 9.1 mg/dL (8.5-10.3); CREATININE 0.7 mg/dL (0.4-1.0); TOTAL PROTEIN 7.1 g/dL (6.7-8.2)
[2017-09-14] MEDS ORDERED: oxyCOD/ACETAMIN 5 MG/325 MG TABLET PO STA (17:17)
--- NOTE | 2017-09-14 17:31 | XRAY Preliminary Report ---
Exam: XR CHEST 2 VIEW X-RAY IMPRESSION: Normal 2-view chest radiography. [facility] SITE ID: [id number]
--- NOTE | 2017-09-14 17:32 | XRAY Report ---
EXAM: CHEST RADIOGRAPHY EXAM DATE: 09/14/2017 05:10 PM. CLINICAL HISTORY: L sided chest pain. COMPARISON: 02/05/2018 chest x-ray. TECHNIQUE: 2 views. FINDINGS: Lungs/Pleura: No focal opacities evident. No pleural effusion. No pneumothorax. Normal volumes. Mediastinum: Heart and mediastinal contours are unremarkable. Other: None. IMPRESSION: Normal 2-view chest radiography. [facility] Referring Provider Line: [phone] SITE ID: [id number]
[2017-09-14 18:22] VITALS: BP 119/67
== END 2017-09-14 18:21 | disposition home or self-care (01) ==
LOC: ED 13:26
DX: R07.89 Other chest pain (principal); I10 Essential (primary) hypertension; K21.9 Gastro-esophageal reflux disease without esophagitis; F17.200 Nicotine dependence, unspecified, uncomplicated; F41.9 Anxiety disorder, unspecified; F32.9 Major depressive disorder, single episode, unspecified
CPT/HCPCS: 36415; 71046; 80053; 83690; 85025; 93005; 96374; 99283; 99284; A9270

== ENCOUNTER 2018-02-21 15:05 | Outpatient (CLI) | payer OTHER ==
[2018-02-21 15:29] LABS: BASOPHILS % (AUTO) 0.5 %; EOSINOPHILS # (AUTO) 0.1 10^3/uL (0.0-0.7); EOSINOPHILS % (AUTO) 2.3 %; HGB - HEMOGLOBIN 12.8 g/dL (12.0-16.0); LYMPHOCYTES # (AUTO) 1.7 10^3/uL (1.5-3.5); LYMPHOCYTES % (AUTO) 31.4 %; MEAN CORPUSCULAR HGB CONC 34.5 g/dL (32.0-36.0); MEAN CORPUSCULAR VOLUME 101.5 fL (81.0-99.0); MEAN PLATELET VOLUME 7.2 fL (7.9-10.8); MONOCYTES # (AUTO) 0.3 10^3/uL (0.0-1.0); NEUTROPHILS # (AUTO) 3.2 10^3/uL (1.5-6.6); NEUTROPHILS % (AUTO) 59.8 %; PLT - PLATELET COUNT 244 10^3/uL (130-450); RED BLOOD COUNT 3.65 10^6/uL (4.20-5.40); RED CELL DISTRIBUTION WIDTH 13.3 % (12.0-15.0); WHITE BLOOD COUNT 5.3 x10^3/uL (4.8-10.8)
[2018-02-21 15:39] LABS: ALBUMIN/GLOBULIN RATIO 1.5 (1.0-2.2); BILIRUBIN,TOTAL 0.7 mg/dL (0.2-1.0); CALCIUM 8.6 mg/dL (8.5-10.3); CREATININE 0.8 mg/dL (0.4-1.0); TOTAL PROTEIN 6.6 g/dL (6.7-8.2)
[2018-02-21 15:42] LABS: BILIRUBIN,URINE NEGATIVE (NEGATIVE); GLUCOSE, URINE (UA) NEGATIVE (NEGATIVE); KETONES,URINE (UA) NEGATIVE (NEGATIVE); LEUKOCYTE ESTERASE, URINE NEGATIVE (NEGATIVE); NITRITE,URINE NEGATIVE (NEGATIVE); OCCULT BLOOD,URINE NEGATIVE (NEGATIVE); PROTEIN,URINE NEGATIVE (NEGATIVE); UROBILINOGEN,URINE 0.2 (NORMAL) E.U./dL (NORMAL)
[2018-02-21 15:48] LABS: CLARITY,URINE CLEAR (CLEAR)
== END 2018-02-21 15:06 | disposition home or self-care (01) ==
LOC: LAB 15:05
PROVIDERS: ATTEND Specialist
DX: R11.2 Nausea with vomiting, unspecified (principal); R19.7 Diarrhea, unspecified
CPT/HCPCS: 36415; 80053; 81003; 82150; 83690; 85025

== ENCOUNTER 2018-03-09 12:54 | Emergency (ER) | payer OTHER ==
[2018-03-09 13:15] VITALS: BP 162/99
--- NOTE | 2018-03-09 13:59 | XRAY Report ---
Reason: pain since GLF Procedure Date: 03/09/2018 Accession Number: [id number] / [id number] Procedure: XR - Shoulder 3 View RT CPT Code: FULL RESULT: EXAM: RIGHT SHOULDER RADIOGRAPHY EXAM DATE: 03/09/2018 01:40 PM. CLINICAL HISTORY: Pain since GLF. COMPARISON: None. TECHNIQUE: 3 views. FINDINGS: Bones: No acute fracture. Joints: No dislocation or subluxation. Minimal spurring present at the acromioclavicular joint. Soft tissues: No focal soft tissue swelling demonstrated. No periarticular calcifications. Visualized portions of the right lung are clear. IMPRESSION: 1. No acute fracture or malalignment. 2. Minimal DJD at the right acromioclavicular joint. [facility]
--- NOTE | 2018-03-09 15:00 | ED Physician Documentation ---
PD HPI Fall - Stated complaint Stated Complaint: GLF - Chief complaint Chief Complaint: Ext Problem - History obtained from History obtained from: Patient - History of Present Illness Mechanism of injury: Tripped Fall distance: Standing position Where injury occurred: Home Timing - onset: Last night Injury(ies) location: Head, Right Upper Extremity (shoulder) Pain level max: 9 Pain level now: 9 Quality of pain: Pain, Throbbing, Aching Associated symptoms: No: LOC, AMS, Amnesia, Seizures, Ear drainage, Nasal drainage, Neck pain, Weakness, Paresthesias, Dyspnea, Nausea / vomiting, Hematemesis, Abdominal distension Symptoms improve with: Rest Worsens with: Movement, Palpation Contributing factors: No: Anticoagulated, Intoxicated Recently seen: Not recently seen - Additional information Additional information: pt is right handed Patient tripped and fell last night, landing on her right shoulder and striking the right forehead. No loss of consciousness. No vomiting. No nausea. Now has right shoulder pain today. Worse with movement and better with rest. States cannot take NSAIDs because of her gastric bypass. States Tylenol did not provide relief. Review of Systems Constitutional: denies: Fever GI: denies: Vomiting Skin: denies: Rash Musculoskeletal: denies: Neck pain Neurologic: denies: Focal weakness, Numbness, Syncope, Seizure, Confused, LOC PD PAST MEDICAL HISTORY - Past Medical History Cardiovascular: Hypertension Respiratory: None Endocrine/Autoimmune: None GI: GERD, Chronic diarrhea, Cholelithiasis, Other : Other HEENT: Chronic vision loss Psych: Depression, Anxiety, Bipolar disorder, Panic attacks Musculoskeletal: Chronic back pain Derm: None - Past Surgical History Past Surgical History: Yes General: Cholecystectomy, Gastric surgery 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 HEENT: Tonsil/Adenoidectomy - Present Medications Home Medications: Ambulatory Orders Medication Instructions Recorded Confirmed Escitalopram Oxalate [Lexapro] 20 mg PO DAILY 12/31/14 06/21/17 [place] 450 mg PO TID 12/31/14 06/21/17 Ondansetron HCl [Zofran] 8 mg PO TID 12/31/14 06/21/17 Promethazine [Phenergan] 75 mg PO TID 12/31/14 06/21/17 Sumatriptan Succinate [Imitrex] 6 mg SQ DAILY PRN 12/31/14 06/21/17 Topiramate 100 mg PO BID 12/31/14 06/21/17 clonazePAM [KlonoPIN] 1 mg PO TID 12/31/14 06/21/17 lamoTRIgine [LaMICtal] 100 mg PO TID 12/31/14 06/21/17 raNITIdine [Zantac] 150 mg PO BID 12/31/14 06/21/17 Prazosin [Minipress] 8 mg PO QPM 04/22/15 06/21/17 Gabapentin 1,200 mg PO ONCE 01/20/16 06/21/17 Gabapentin 600 mg PO TID 01/20/16 06/21/17 cloNIDine [Catapres] 0.1 mg PO TID 03/04/16 06/21/17 Estradiol [Vivelle-Dot] 0.075 patch TD Q7D 06/21/17 06/21/17 Oxycodone HCl/Acetaminophen 1 - 2 tab PO Q4H PRN #15 tablet 09/09/17 [Percocet 5-325 mg Tablet] Progesterone,Micronized 200 mg PO 09/09/17 [Progesterone] Cyclobenzaprine [Flexeril] 10 mg PO TID PRN #20 tablet 09/14/17 Meloxicam [Mobic] 15 mg PO DAILY PRN #20 tablet 09/14/17 Oxycodone HCl/Acetaminophen 1 - 2 each PO Q6H PRN #20 tablet 09/14/17 [Percocet 5-325 mg Tablet] Oxycodone HCl/Acetaminophen 1 - 2 each PO Q6H PRN #14 tablet 03/09/18 [Percocet 5-325 mg Tablet] - Allergies Allergies/Adverse Reactions: Allergies Allergy/AdvReac Type Severity Reaction Status Date / Time pineapple Allergy Severe Edema Verified 03/09/18 14:45 diphenhydramine HCl * Allergy Intermediate Itching Verified 03/09/18 14:45 [From Benadryl] Cephalosporins AdvReac Severe Respiratory Verified 03/09/18 14:45 doxycycline AdvReac Intermediate Emesis Verified 03/09/18 14:45 iron dextran complex AdvReac Intermediate Emesis Verified 03/09/18 14:45 prochlorperazine AdvReac Intermediate Emesis Verified 03/09/18 14:45 [From Compazine] prochlorperazine edisylate * AdvReac Intermediate Emesis Verified 03/09/18 14:45 [From Compazine] prochlorperazine maleate * AdvReac Intermediate Emesis Verified 03/09/18 14:45 [From Compazine] kiwi AdvReac Itching Verified 03/09/18 14:45 - Social History Does the pt smoke?: Yes Smoking Status: Current every day smoker PD ED PE NORMAL - Vitals Vital signs reviewed: Yes - General General: Alert and oriented X 3, No acute distress - HEENT HEENT: Atraumatic, PERRL, EOMI, Ears normal, Moist mucous membranes, Pharynx benign - Neck Neck: Supple, no meningeal sign, No bony TTP (No step-off or deformity) - Cardiac Cardiac: RRR, Strong equal pulses - Respiratory Respiratory: No respiratory distress, Clear bilaterally - Abdomen Abdomen: Soft, Non tender, Non distended - Back Back: No spinal TTP (No step-off or deformity) - Derm Derm: Warm and dry - Extremities Extremities: No deformity, Other (Tender to palpation diffusely around the right glenohumeral joint. No gross deformity. Limited range of motion secondary to pain.) - Neuro Neuro: Alert and oriented X 3 Results - Vitals Vitals: Vital Signs - 24 hr 03/09/18 13:13 Temperature 36.5 C Heart Rate 86 Respiratory 18 Rate Blood Pressure 162/99 H O2 Saturation 100 Oxygen O2 Source Room air - Rads (name of study) Right shoulder x-ray Radiology: Prelim report reviewed, EMP read contemporaneously, See rad report (No acute bony abnormality) PD MEDICAL DECISION MAKING - ED course Complexity details: reviewed results, re-evaluated patient, considered differential, d/w patient ED course: Patient is a 48-year-old female with a right shoulder contusion versus sprain. Will place on pain medication for home. No evidence of skull fracture or intracranial hemorrhage that would require repair. GCS 15. Head injury instructions given at bedside. Placed in a sling for comfort. Patient counseled regarding signs and symptoms for which I believe and urgent re- evaluation would be necessary. Patient with good understanding of and agreement to plan and is comfortable going home at this time This document was made in part using voice recognition software. While efforts are made to proofread this document, sound alike and grammatical errors may occur. Departure - Departure Disposition: 01 Home, Self Care Clinical Impression: Head injury Qualifiers: Encounter type: initial encounter Qualified Code(s): S09.90XA - Unspecified injury of head, initial encounter Sprain of shoulder, right Qualifiers: Encounter type: initial encounter Shoulder sprain type: unspecified sprain Qualified Code(s): S43.401A - Unspecified sprain of right shoulder joint, initial encounter Condition: Good Instructions: ED Head Injury Closed, ED Sprain Shoulder Follow-Up: SONG SIMON [Primary Care Provider] - Within 1 week Prescriptions: Oxycodone HCl/Acetaminophen [Percocet 5-325 mg Tablet] 1 - 2 each PO Q6H PRN #14 tablet PRN Reason: pain Comments: Use the medications as needed for pain. Return if you worsen. Wear the sling for the next 2-3 days to help heal your shoulder. Do not drink alcohol or drive while on narcotic pain medicine. Note that many narcotic pain relievers also contain tylenol/acetaminophen. Please ensure that your total dose of acetaminophen from all sources does not exceed 3 grams (3000mg) per day. You may constipated on this medication, take a stool softener such as "Colace" twice a day while you are on it. Also recommend a sntv-kwn-cdrvgac laxative such as senna or MiraLAX any day that you do not have a bowel movement. If you received narcotic pain medication in the emergency department, do not drive or operate machinery for the next 24 hours. Discharge Date/Time: 03/09/18 15:21
== END 2018-03-09 15:21 | disposition home or self-care (01) ==
LOC: ED 12:54
DX: S09.90XA Unspecified injury of head, initial encounter (principal); I10 Essential (primary) hypertension; F17.200 Nicotine dependence, unspecified, uncomplicated; S43.401A Unspecified sprain of right shoulder joint, initial encounter; W10.9XXA Fall (on) (from) unspecified stairs and steps, initial encounter; Y92.009 Unspecified place in unspecified non-institutional (private) residence as the place of occurrence of the external cause
CPT/HCPCS: 99283

== ENCOUNTER 2018-05-15 17:26 | Outpatient (CLI) | payer OTHER ==
--- NOTE | 2018-05-15 21:54 | XRAY Report ---
Reason: PNEUMONIA, UNSPECIFIED ORGANISM Procedure Date: 05/15/2018 Accession Number: [id number] / [id number] Procedure: XR - Chest 2 View X-Ray CPT Code: 21021 FULL RESULT: EXAM: CHEST RADIOGRAPHY EXAM DATE: 05/15/2018 05:59 PM. CLINICAL HISTORY: Productive cough and shortness of breath x5 days. Possible pneumonia. COMPARISON: 09/14/2017. TECHNIQUE: 2 views. FINDINGS: Lungs/Pleura: Interval patchy irregular opacities in the left base on the frontal view corresponds to opacities mainly in the region of the lingula on the lateral view. Otherwise clear upper left lung and right lung. No pneumothorax or pleural effusion. Mediastinum: Normal cardiomediastinal silhouette. Other: Relatively gassy visualized upper abdomen. Cholecystectomy clips. No fracture evident. IMPRESSION: 1. Consistent with left basilar pneumonia predominantly involving lingula. Follow-up recommended to ensure resolution. [facility] The call report notification system was initiated by Dr. Byron Oneal at 18:50 hrs on 05/15/18. The above findings were discussed with Dr. Randolph Sue by Dr. Byron Oneal at 21:52 hrs on 05/15/18.
== END 2018-05-15 17:27 | disposition home or self-care (01) ==
LOC: DI 17:26
PROVIDERS: ATTEND Specialist
DX: J18.9 Pneumonia, unspecified organism (principal)
CPT/HCPCS: 36415; 71046; 80048; 82728; 85025

== ENCOUNTER 2018-05-15 17:27 | Outpatient (CLI) | payer OTHER ==
[2018-05-15 17:54] LABS: BASOPHILS % (AUTO) 0.3 %; EOSINOPHILS # (AUTO) 0.1 10^3/uL (0.0-0.7); EOSINOPHILS % (AUTO) 1.6 %; HGB - HEMOGLOBIN 13.4 g/dL (12.0-16.0); LYMPHOCYTES # (AUTO) 0.7 10^3/uL (1.5-3.5); LYMPHOCYTES % (AUTO) 22.1 %; MEAN CORPUSCULAR HEMOGLOBIN 34.2 pg (27.0-31.0); MEAN CORPUSCULAR HGB CONC 33.3 g/dL (32.0-36.0); MEAN CORPUSCULAR VOLUME 102.8 fL (81.0-99.0); MEAN PLATELET VOLUME 8.5 fL (7.9-10.8); MONOCYTES # (AUTO) 0.1 10^3/uL (0.0-1.0); MONOCYTES % (AUTO) 4.3 %; NEUTROPHILS # (AUTO) 2.3 10^3/uL (1.5-6.6); NEUTROPHILS % (AUTO) 71.7 %; PLT - PLATELET COUNT 163 10^3/uL (130-450); RED BLOOD COUNT 3.91 10^6/uL (4.20-5.40); RED CELL DISTRIBUTION WIDTH 13.9 % (12.0-15.0); WHITE BLOOD COUNT 3.2 x10^3/uL (4.8-10.8)
[2018-05-15 18:10] LABS: CALCIUM 8.8 mg/dL (8.5-10.3); CREATININE 0.6 mg/dL (0.4-1.0)
== END 2018-05-15 17:28 | disposition home or self-care (01) ==
LOC: LAB 17:27
PROVIDERS: ATTEND Specialist
DX: J18.9 Pneumonia, unspecified organism (principal)
CPT/HCPCS: 36415; 80048; 82728; 85025

== ENCOUNTER 2018-05-30 12:58 | Outpatient (CLI) | payer OTHER ==
[2018-05-30 13:15] LABS: BASOPHILS % (AUTO) 0.8 %; EOSINOPHILS # (AUTO) 0.2 10^3/uL (0.0-0.7); EOSINOPHILS % (AUTO) 4.5 %; HGB - HEMOGLOBIN 12.7 g/dL (12.0-16.0); LYMPHOCYTES # (AUTO) 1.2 10^3/uL (1.5-3.5); LYMPHOCYTES % (AUTO) 30.6 %; MEAN CORPUSCULAR HEMOGLOBIN 34.5 pg (27.0-31.0); MEAN CORPUSCULAR HGB CONC 33.8 g/dL (32.0-36.0); MEAN PLATELET VOLUME 7.7 fL (7.9-10.8); MONOCYTES # (AUTO) 0.3 10^3/uL (0.0-1.0); NEUTROPHILS # (AUTO) 2.3 10^3/uL (1.5-6.6); NEUTROPHILS % (AUTO) 57.1 %; PLT - PLATELET COUNT 314 10^3/uL (130-450); RED CELL DISTRIBUTION WIDTH 14.1 % (12.0-15.0)
[2018-05-30 13:27] LABS: ALBUMIN 4.2 g/dL (3.2-5.5); ALBUMIN/GLOBULIN RATIO 1.4 (1.0-2.2); BILIRUBIN,TOTAL 0.5 mg/dL (0.2-1.0); CALCIUM 9.4 mg/dL (8.5-10.3); CREATININE 0.8 mg/dL (0.4-1.0); TOTAL PROTEIN 7.2 g/dL (6.7-8.2)
== END 2018-05-30 12:59 | disposition home or self-care (01) ==
LOC: LAB 12:58
PROVIDERS: ATTEND Specialist
DX: J18.9 Pneumonia, unspecified organism (principal)
CPT/HCPCS: 36415; 80053; 85025

== ENCOUNTER 2018-05-30 13:34 | Outpatient (CLI) | payer OTHER ==
--- NOTE | 2018-05-30 14:19 | XRAY Report ---
Reason: PNEUMONIA, UNSPECIFIED ORGANISM Procedure Date: 05/30/2018 Accession Number: [id number] / [id number] Procedure: XR - Chest 2 View X-Ray CPT Code: 67994 FULL RESULT: EXAM: CHEST RADIOGRAPHY EXAM DATE: 05/30/2018 02:03 PM. CLINICAL HISTORY: Pneumonia, unspecified organism. COMPARISON: Chest 2 view 05/15/2018 5:46 PM. TECHNIQUE: 2 views. FINDINGS: Lungs/Pleura: No focal opacities evident. No pleural effusion. No pneumothorax. Normal volumes. Mediastinum: Heart and mediastinal contours are unremarkable. Other: None. IMPRESSION: No pneumonia. [facility]
== END 2018-05-30 13:35 | disposition home or self-care (01) ==
LOC: DI 13:34
PROVIDERS: ATTEND Specialist
DX: J18.9 Pneumonia, unspecified organism (principal)
CPT/HCPCS: 36415; 71046; 80053; 85025

== ENCOUNTER 2018-11-07 19:33 | Emergency (ER) | payer OTHER ==
--- NOTE | 2018-11-07 20:10 | ED Physician Documentation ---
PD HPI ALTERED MENTAL STATUS - Stated complaint Stated Complaint: ALTERED/MHE - Chief complaint Chief Complaint: Neuro - History obtained from History obtained from: Patient, Family (spouse) - History of Present Illness Timing - onset: Today (tonight) Timing - details: Gradual onset Quality / character: Less responsive, Confused, Hallucinating Contributing factors: Intoxicated Basline status: Alert and oriented X 3, Ambulatory Recently seen: Not recently seen - Additional information Additional information: patient says daughter was recently released from [facility]; per patient, her daughter was being treated for psychiatric issue. Patient was upset about this, and then got into verbal argument with spouse. Because she was feeling upset about these issues, she then took 2 edibles. She then was using listerine and decided to swallow the listerine instead of spit it out, and then took three more "shots" of Listerine since there was no alcohol in the house. She denies SI. got patient into car to drive her to ED, but before the vehicle started moving, patient fell out of the vehicle and was trying to crawl away. She has left knee and right elbow pain due to hitting the ground but denies head injury or LOC. when she fell, the had briefly gone back into the house and so he did not witness the fall. Review of Systems Constitutional: reports: Reviewed and negative Eyes: reports: Reviewed and negative Cardiac: reports: Reviewed and negative Respiratory: reports: Reviewed and negative GI: reports: Reviewed and negative Musculoskeletal: reports: Extremity pain, Joint pain. denies: Neck pain, Back pain Neurologic: reports: Confused, Altered mental status. denies: Generalized weakness, Focal weakness, Numbness, Headache, Head injury, LOC Psychiatric: reports: Anxiety. 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 HEENT: Tonsil/Adenoidectomy - Present Medications Home Medications: Ambulatory Orders Medication Instructions Recorded Confirmed Escitalopram Oxalate [Lexapro] 20 mg PO DAILY 12/31/14 11/07/18 [place] 450 mg PO BID 12/31/14 11/07/18 Ondansetron HCl [Zofran] 8 mg PO TID 12/31/14 11/07/18 Promethazine [Phenergan] 75 mg PO TID 12/31/14 11/07/18 Sumatriptan Succinate [Imitrex] 6 mg SQ DAILY PRN 12/31/14 11/07/18 Topiramate 100 mg PO BID 12/31/14 11/07/18 clonazePAM [KlonoPIN] 1 mg PO TID 12/31/14 11/07/18 lamoTRIgine [LaMICtal] 2 tab PO BID 12/31/14 11/07/18 raNITIdine [Zantac] 2 tab PO BID 12/31/14 11/07/18 Prazosin [Minipress] 8 mg PO QPM 04/22/15 11/07/18 Gabapentin 1,200 mg PO ONCE 01/20/16 11/07/18 Gabapentin 600 mg PO TID 01/20/16 11/07/18 cloNIDine [Catapres] 0.1 mg PO TID 03/04/16 11/07/18 Progesterone,Micronized 200 mg PO DAILY 09/09/17 11/07/18 [Progesterone] Cyclobenzaprine [Flexeril] 10 mg PO TID PRN #20 tablet 09/14/17 11/07/18 Lamotrigine [Lamotrigine ER] 1 mg PO DAILY 03/28/18 11/07/18 Estradiol 2 mg PO DAILY 11/07/18 11/07/18 - Allergies Allergies/Adverse Reactions: Allergies Allergy/AdvReac Type Severity Reaction Status Date / Time pineapple Allergy Severe Edema Verified 11/07/18 15:08 diphenhydramine HCl * Allergy Intermediate Itching Verified 11/07/18 15:08 [From Benadryl] Cephalosporins AdvReac Severe Respiratory Verified 11/07/18 15:08 doxycycline AdvReac Intermediate Emesis Verified 11/07/18 15:08 iron dextran complex AdvReac Intermediate Emesis Verified 11/07/18 15:08 prochlorperazine AdvReac Intermediate Emesis Verified 11/07/18 15:08 [From Compazine] prochlorperazine edisylate * AdvReac Intermediate Emesis Verified 11/07/18 15:08 [From Compazine] prochlorperazine maleate * AdvReac Intermediate Emesis Verified 11/07/18 15:08 [From Compazine] kiwi AdvReac Itching Verified 11/07/18 15:08 - Social History Does the pt smoke?: Yes Smoking Status: Current every day smoker PD ED PE NORMAL - Vitals Vital signs reviewed: Yes - General General: Alert and oriented X 3, No acute distress, Well developed/nourished, Other (slurred speech (mild; she is intelligible and able to articulate and converse, although she is verbose at times)) - HEENT HEENT: Atraumatic, PERRL, EOMI - Neck Neck: No bony TTP - Cardiac Cardiac: RRR, No murmur - Respiratory Respiratory: No respiratory distress, Clear bilaterally - Abdomen Abdomen: Soft, Non tender - Back Back: No spinal TTP - Derm Derm: Normal color, Warm and dry - Extremities Extremities: Normal ROM s pain, No edema, Other (left knee abrasion without bony tenderness and with FROM; right elbow with faint echymosis posterior aspect (over olecranon) without bony tenderness and with FROM ) - Neuro Neuro: Alert and oriented X 3, 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, No motor deficit, No sensory deficit Eye Opening: Spontaneous Motor: Obeys Commands Verbal: Oriented GCS Score: 15 Results - Vitals Vitals: Vital Signs - 24 hr 11/07/18 11/07/18 11/07/18 19:35 20:04 22:03 Temperature 36.6 C 36.5 C Heart Rate 88 74 Respiratory 25 H 16 15 Rate Blood Pressure 137/92 H 127/89 H O2 Saturation 96 99 11/08/18 00:13 Temperature Heart Rate 77 Respiratory 16 Rate Blood Pressure 130/91 H O2 Saturation 99 Oxygen O2 Source Room air - Labs Labs: Laboratory Tests 11/07/18 11/07/18 11/07/18 20:09 20:22 20:22 WBC 5.6 RBC 3.66 L Hgb 12.5 Hct 38.4 MCV 104.9 H MCH 34.2 H MCHC 32.6 RDW 13.8 Plt Count 213 MPV 10.2 Neut # (Auto) 3.2 Lymph # (Auto) 1.8 [place] # (Auto) 0.4 Eos # (Auto) 0.2 Baso # (Auto) 0.0 Absolute Nucleated RBC 0.00 Nucleated RBC % 0.0 Sodium 138 Potassium 3.4 L Chloride 110 Carbon Dioxide 19 L Anion Gap 9.0 BUN 16 Creatinine 0.8 Estimated GFR (MDRD) 77 L Glucose 104 H Calcium 9.0 Total Bilirubin 0.4 AST 33 ALT 34 Alkaline Phosphatase 37 L Total Protein 6.5 L Albumin 3.9 Globulin 2.6 Albumin/Globulin Ratio 1.5 Lipase 37 TSH Urine Color YELLOW Urine Clarity CLEAR Urine pH 5.0 Ur Specific [place] 1.010 Urine Protein NEGATIVE Urine Glucose (UA) NEGATIVE Urine Ketones NEGATIVE Urine Occult Blood NEGATIVE Urine Nitrite NEGATIVE Urine Bilirubin NEGATIVE Urine Urobilinogen 0.2 (NORMAL) Ur Leukocyte Esterase NEGATIVE Ur Microscopic Review NOT INDICATED Urine Culture Comments NOT INDICATED Last Dose Date Last Dose Time Salicylates < 6.0 Urine Opiates Screen NEGATIVE Ur Oxycodone Screen NEGATIVE Urine Methadone Screen NEGATIVE Ur Propoxyphene Screen NEGATIVE Acetaminophen < 10 L Ur Barbiturates Screen NEGATIVE Ur Tricyclics Screen NEGATIVE Ur Phencyclidine Scrn NEGATIVE Ur Amphetamine Screen NEGATIVE U Methamphetamines Scrn NEGATIVE U Benzodiazepines Scrn POSITIVE H [place] Urine Cocaine Screen NEGATIVE U Cannabinoids Screen POSITIVE H Ethyl Alcohol 170.0 11/07/18 11/07/18 20:22 20:22 WBC RBC Hgb Hct MCV MCH MCHC RDW Plt Count MPV Neut # (Auto) Lymph # (Auto) [place] # (Auto) Eos # (Auto) Baso # (Auto) Absolute Nucleated RBC Nucleated RBC % Sodium Potassium Chloride Carbon Dioxide Anion Gap BUN Creatinine Estimated GFR (MDRD) Glucose Calcium Total Bilirubin AST ALT Alkaline Phosphatase Total Protein Albumin Globulin Albumin/Globulin Ratio Lipase TSH 1.82 Urine Color Urine Clarity Urine pH Ur Specific [place] Urine Protein Urine Glucose (UA) Urine Ketones Urine Occult Blood Urine Nitrite Urine Bilirubin Urine Urobilinogen Ur Leukocyte Esterase Ur Microscopic Review Urine Culture Comments Last Dose Date UNKNOWN Last Dose Time UNKNOWN Salicylates Urine Opiates Screen Ur Oxycodone Screen Urine Methadone Screen Ur Propoxyphene Screen Acetaminophen Ur Barbiturates Screen Ur Tricyclics Screen Ur Phencyclidine Scrn Ur Amphetamine Screen U Methamphetamines Scrn U Benzodiazepines Scrn [place] 0.46 Urine Cocaine Screen U Cannabinoids Screen Ethyl Alcohol - Rads (name of study) CT head Radiology: Prelim report reviewed, See rad report PD MEDICAL DECISION MAKING - ED course Complexity details: reviewed old records, reviewed results, re-evaluated patient, considered differential, d/w patient, d/w family ED course: On reevaluation, patient is awake, alert, NAD, clear speech. She denies SI and is comfortable with d/c home. Departure - Departure Disposition: 01 Home, Self Care Clinical Impression: Alcohol intoxication, Marijuana use Condition: Good Health Concerns: altered mental status, intoxication Plan of Treatment: return if worse; avoid drinking alcohol or alcohol-containing products including mouthwash Care Goals: prevention of symptom recurrence Assessment: see diagnoses Instructions: ED Stress React, ED Alcohol Intoxication Follow-Up: Tremayne Sharma DO [Primary Care Provider] - Discharge Date/Time: 11/08/18 00:17
[2018-11-07 20:15] LABS: MUDS CUTOFF CONCENTRATIONS CUTOFF CONC BELOW:
[2018-11-07 20:17] LABS: BILIRUBIN,URINE NEGATIVE (NEGATIVE); GLUCOSE, URINE (UA) NEGATIVE (NEGATIVE); KETONES,URINE (UA) NEGATIVE (NEGATIVE); LEUKOCYTE ESTERASE, URINE NEGATIVE (NEGATIVE); NITRITE,URINE NEGATIVE (NEGATIVE); OCCULT BLOOD,URINE NEGATIVE (NEGATIVE); PROTEIN,URINE NEGATIVE (NEGATIVE); UROBILINOGEN,URINE 0.2 (NORMAL) E.U./dL (NORMAL)
[2018-11-07 20:26] LABS: CLARITY,URINE CLEAR (CLEAR)
[2018-11-07 20:30] LABS: BASOPHILS % (AUTO) 0.7 %; EOSINOPHILS # (AUTO) 0.2 10^3/uL (0.0-0.7); EOSINOPHILS % (AUTO) 3.6 %; HGB - HEMOGLOBIN 12.5 g/dL (12.0-16.0); LYMPHOCYTES # (AUTO) 1.8 10^3/uL (1.5-3.5); LYMPHOCYTES % (AUTO) 32.3 %; MEAN CORPUSCULAR HEMOGLOBIN 34.2 pg (27.0-31.0); MEAN CORPUSCULAR HGB CONC 32.6 g/dL (32.0-36.0); MEAN CORPUSCULAR VOLUME 104.9 fL (81.0-99.0); MEAN PLATELET VOLUME 10.2 fL (7.9-10.8); MONOCYTES # (AUTO) 0.4 10^3/uL (0.0-1.0); MONOCYTES % (AUTO) 6.7 %; NEUTROPHILS # (AUTO) 3.2 10^3/uL (1.5-6.6); NEUTROPHILS % (AUTO) 56.3 %; PLT - PLATELET COUNT 213 10^3/uL (130-450); RED BLOOD COUNT 3.66 10^6/uL (4.20-5.40); RED CELL DISTRIBUTION WIDTH 13.8 % (12.0-15.0); WHITE BLOOD COUNT 5.6 x10^3/uL (4.8-10.8)
--- NOTE | 2018-11-07 20:31 | CT Report ---
Reason: ALOC Procedure Date: 11/07/2018 Accession Number: [id number] / [id number] Procedure: CT - HEAD WO CPT Code: FULL RESULT: EXAM: CT HEAD EXAM DATE: 11/07/2018 08:15 PM. CLINICAL HISTORY: Altered level of consciousness. COMPARISON: None. TECHNIQUE: Multiaxial CT images were obtained from the foramen magnum to the vertex. Reformats: Sagittal and coronal. IV contrast: None. In accordance with CT protocol optimization, one or more of the following dose reduction techniques were utilized for this exam: automated exposure control, adjustment of mA and/or KV based on patient size, or use of iterative reconstructive technique. FINDINGS: Parenchyma: No intraparenchymal hemorrhage. No evidence of mass, midline shift, or CT findings of infarction. Milligan-white differentiation is distinct. Extraaxial Spaces: Normal for age. No subdural or epidural collections identified. Ventricles: Normal in size and position. Sinuses and Orbits: Imaged paranasal sinuses, orbits, and mastoids show no significant abnormality. Bones: No evidence of fracture or calvarial defect. Other: None. IMPRESSION: Normal head CT. RADIA
[2018-11-07 20:33] LABS: AMPHETAMINE SCREEN,URINE NEGATIVE (NEGATIVE); BENZODIAZEPINES SCREEN, URINE POSITIVE (NEGATIVE); COCAINE SCREEN URINE NEGATIVE (NEGATIVE); METHADONE SCREEN, URINE NEGATIVE (NEGATIVE); METHAMPHETAMINES SCREEN, URINE NEGATIVE (NEGATIVE); OPIATE SCREEN, URINE NEGATIVE (NEGATIVE); OXYCODONE SCREEN, URINE NEGATIVE (NEGATIVE); PROPOXYPHENE SCREEN, URINE NEGATIVE (NEGATIVE); TRICYCLIC ANTIDEPRESSANT,URINE NEGATIVE (NEGATIVE)
[2018-11-07 20:46] LABS: ACETAMINOPHEN < 10 ug/mL (10-30); ALBUMIN 3.9 g/dL (3.2-5.5); ALBUMIN/GLOBULIN RATIO 1.5 (1.0-2.2); ALKALINE PHOSPHATASE 37 IU/L (42-121); ALT ALANINE AMINOTRANSFERASE 34 IU/L (10-60); AST ASPARTATE AMINOTRANSFERASE 33 IU/L (10-42); BILIRUBIN,TOTAL 0.4 mg/dL (0.2-1.0); BUN - BLOOD UREA NITROGEN 16 mg/dL (6-20); CARBON DIOXIDE - CO2 19 mmol/L (21-32); CHLORIDE 110 mmol/L (101-111); CREATININE 0.8 mg/dL (0.4-1.0); GFR - MDRD 77 (>89); GLUCOSE 104 mg/dL (70-100); LIPASE 37 U/L (22-51); SALICYLATE < 6.0 mg/dL; SODIUM 138 mmol/L (135-145); TOTAL PROTEIN 6.5 g/dL (6.7-8.2)
[2018-11-07 20:52] LABS: LITHIUM 0.46 mmol/L
[2018-11-07] MEDS ORDERED: TETANUS/DIPHTHERIA/PERTUSSIS 0.5 ML SYRINGE IM ONE (20:55)
[2018-11-08 00:14] VITALS: BP 130/91
== END 2018-11-08 00:17 | disposition home or self-care (01) ==
LOC: ED 19:33
DX: F10.129 Alcohol abuse with intoxication, unspecified (principal); F12.129 Cannabis abuse with intoxication, unspecified; S80.212A Abrasion, left knee, initial encounter; I10 Essential (primary) hypertension; F17.200 Nicotine dependence, unspecified, uncomplicated; W17.89XA Other fall from one level to another, initial encounter; Y92.009 Unspecified place in unspecified non-institutional (private) residence as the place of occurrence of the external cause
CPT/HCPCS: 70450; 80053; 80178; 80306; 80307; 80320; 80329; 81001; 81003; 83690; 84443; 85025; 87086; 99284

== ENCOUNTER 2018-11-21 16:44 | Outpatient (CLI) | payer OTHER ==
[2018-11-21 17:13] LABS: BASOPHILS % (AUTO) 0.7 %; EOSINOPHILS # (AUTO) 0.2 10^3/uL (0.0-0.7); EOSINOPHILS % (AUTO) 3.5 %; HGB - HEMOGLOBIN 12.8 g/dL (12.0-16.0); LYMPHOCYTES # (AUTO) 1.8 10^3/uL (1.5-3.5); LYMPHOCYTES % (AUTO) 38.5 %; MEAN CORPUSCULAR HEMOGLOBIN 33.8 pg (27.0-31.0); MEAN CORPUSCULAR HGB CONC 31.6 g/dL (32.0-36.0); MEAN CORPUSCULAR VOLUME 106.9 fL (81.0-99.0); MEAN PLATELET VOLUME 10.2 fL (7.9-10.8); MONOCYTES # (AUTO) 0.2 10^3/uL (0.0-1.0); MONOCYTES % (AUTO) 4.4 %; NEUTROPHILS # (AUTO) 2.4 10^3/uL (1.5-6.6); NEUTROPHILS % (AUTO) 52.5 %; PLT - PLATELET COUNT 210 10^3/uL (130-450); RED BLOOD COUNT 3.79 10^6/uL (4.20-5.40); RED CELL DISTRIBUTION WIDTH 13.1 % (12.0-15.0); WHITE BLOOD COUNT 4.5 x10^3/uL (4.8-10.8)
[2018-11-21 17:40] LABS: CRP - C-REACTIVE PROTEIN < 1.0 mg/dL (0-1.0); URIC ACID 4.1 mg/dL (2.6-7.2)
[2018-11-23 13:42] LABS: ANA SCREEN NEGATIVE (NEGATIVE)
== END 2018-11-21 16:45 | disposition home or self-care (01) ==
LOC: LAB 16:44
PROVIDERS: ATTEND Orthopaedic Surgery
DX: M19.90 Unspecified osteoarthritis, unspecified site (principal)
CPT/HCPCS: 36415; 81599; 84550; 85025; 85651; 86038; 86140

== ENCOUNTER 2018-11-21 16:47 | Outpatient (CLI) | payer OTHER ==
[2018-11-21 17:43] LABS: HB2 TOTAL 12.7 g/dL; HEMOGLOBIN A1C 0.42 g/dL; HEMOGLOBIN A1C % 5.2 % (4.6-6.2); THYROID STIMULATING HORMONE 3.78 uIU/mL (0.34-5.60)
[2018-11-21 17:44] LABS: FREE T4 (FREE THYROXINE) 0.75 ng/dL (0.58-1.64)
[2018-11-21 17:48] LABS: TOTAL T3 1.03 ng/mL (0.87-1.78)
== END 2018-11-21 16:48 | disposition home or self-care (01) ==
LOC: LAB 16:47
PROVIDERS: ATTEND Specialist
DX: F31.81 Bipolar II disorder (principal); Z13.1 Encounter for screening for diabetes mellitus
CPT/HCPCS: 36415; 83036; 84439; 84443; 84480; 84481

== ENCOUNTER 2018-12-15 13:58 | Emergency (ER) | payer OTHER ==
[2018-12-15 14:30] LABS: BILIRUBIN,URINE NEGATIVE (NEGATIVE); GLUCOSE, URINE (UA) NEGATIVE (NEGATIVE); KETONES,URINE (UA) NEGATIVE (NEGATIVE); LEUKOCYTE ESTERASE, URINE NEGATIVE (NEGATIVE); NITRITE,URINE NEGATIVE (NEGATIVE); OCCULT BLOOD,URINE NEGATIVE (NEGATIVE); PH,URINE 5.5 PH (5.0-7.5); PROTEIN,URINE NEGATIVE (NEGATIVE); UROBILINOGEN,URINE 0.2 (NORMAL) E.U./dL (NORMAL)
[2018-12-15 14:33] LABS: CLARITY,URINE CLEAR (CLEAR)
[2018-12-15 14:34] LABS: BASOPHILS % (AUTO) 0.8 %; EOSINOPHILS # (AUTO) 0.1 10^3/uL (0.0-0.7); EOSINOPHILS % (AUTO) 3.7 %; HGB - HEMOGLOBIN 12.4 g/dL (12.0-16.0); LYMPHOCYTES # (AUTO) 1.6 10^3/uL (1.5-3.5); LYMPHOCYTES % (AUTO) 41.9 %; MEAN CORPUSCULAR HEMOGLOBIN 33.3 pg (27.0-31.0); MEAN CORPUSCULAR VOLUME 107.5 fL (81.0-99.0); MEAN PLATELET VOLUME 10.1 fL (7.9-10.8); MONOCYTES # (AUTO) 0.3 10^3/uL (0.0-1.0); NEUTROPHILS # (AUTO) 1.7 10^3/uL (1.5-6.6); NEUTROPHILS % (AUTO) 44.6 %; PLT - PLATELET COUNT 179 10^3/uL (130-450); RED BLOOD COUNT 3.72 10^6/uL (4.20-5.40); RED CELL DISTRIBUTION WIDTH 12.8 % (12.0-15.0); WHITE BLOOD COUNT 3.8 x10^3/uL (4.8-10.8)
[2018-12-15 14:50] LABS: ALBUMIN/GLOBULIN RATIO 1.5 (1.0-2.2); BILIRUBIN,TOTAL 0.3 mg/dL (0.2-1.0); CALCIUM 9.1 mg/dL (8.5-10.3); TOTAL PROTEIN 6.6 g/dL (6.7-8.2)
--- NOTE | 2018-12-15 15:39 | ED Physician Documentation ---
PD HPI ABD PAIN - Stated complaint Stated Complaint: ABD PX - Chief complaint Chief Complaint: Abd Pain - History obtained from History obtained from: Patient, Family - History of Present Illness Timing - onset: How many days ago (3) Timing - duration: Days (3) Timing - details: Still present, Constant (But waxing and waning and progressively getting worse.) Pain level now: 9 Quality: Stabbing Location: RLQ Radiation: Right flank Associated symptoms: Nausea, Vomiting, Diarrhea (2 episodes today no blood in it.), Loss of appetite. No: Fever, Hematochezia, Dysuria, Hematuria, Chest pain, Dizzy, Near syncope / syncope Similar symptoms before: Has not had sx before Recently seen: Not recently seen - Additional information Additional information: Is a 48-year-old woman who presents with her complains that for the past 3 days she has had pain in her right lower quadrant that has been getting progressively worse and an hour ago ago it got "really bad". She is been vomiting but says she has not vomited today. She feels extremely nauseous. She said diarrhea to liquid episodes this morning with like a oily sheen on it but no blood. She felt warm but no obvious fever. She denies pain like this previously. It radiates into the right flank and she is rating it at a 9-1/2 out of 10. She has not taken any medications at home for it. Denies burning or hematuria and reports a history of kidney stone at age 7. She is status post hysterectomy oophorectomy and cholecystectomy. She complains of a headache but no dizziness. She has not eaten today. Review of Systems Unable to obtain: Other (Limited by pain) Constitutional: denies: Fever, Chills, Sweats Cardiac: denies: Chest pain / pressure Respiratory: denies: Dyspnea, Cough GI: reports: Abdominal Pain, Nausea, Vomiting, Diarrhea. denies: Hematemesis : reports: Hesitancy (Just in the bathroom here), 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. denies: Dysuria, Frequency, Hematuria, Vaginal bleeding Skin: denies: Rash Musculoskeletal: reports: Back pain Neurologic: reports: Headache. 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, Oophrectomy HEENT: Tonsil/Adenoidectomy - Present Medications Home Medications: Ambulatory Orders Medication Instructions Recorded Confirmed Escitalopram Oxalate [Lexapro] 20 mg PO DAILY 12/31/14 11/07/18 Ondansetron HCl [Zofran] 8 mg PO TID 12/31/14 11/07/18 Promethazine [Phenergan] 75 mg PO TID 12/31/14 11/07/18 RX: [place] 450 mg PO BID 12/31/14 11/07/18 RX: Topiramate 100 mg PO BID 12/31/14 11/07/18 Sumatriptan Succinate [Imitrex] 6 mg SQ DAILY PRN 12/31/14 11/07/18 clonazePAM [KlonoPIN] 1 mg PO TID 12/31/14 11/07/18 lamoTRIgine [LaMICtal] 2 tab PO BID 12/31/14 11/07/18 raNITIdine [Zantac] 2 tab PO BID 12/31/14 11/07/18 Prazosin [Minipress] 8 mg PO QPM 04/22/15 11/07/18 RX: Gabapentin 1,200 mg PO ONCE 01/20/16 11/07/18 RX: Gabapentin 600 mg PO TID 01/20/16 11/07/18 cloNIDine [Catapres] 0.1 mg PO TID 03/04/16 11/07/18 Progesterone, Micronized 200 mg PO DAILY 09/09/17 11/07/18 [Progesterone] Cyclobenzaprine [Flexeril] 10 mg PO TID PRN #20 tablet 09/14/17 11/07/18 Lamotrigine [Lamotrigine ER] 1 mg PO DAILY 03/28/18 11/07/18 RX: Estradiol 2 mg PO DAILY 11/07/18 11/07/18 - Allergies Allergies/Adverse Reactions: Allergies Allergy/AdvReac Type Severity Reaction Status Date / Time pineapple Allergy Severe Edema Verified 12/15/18 14:08 diphenhydramine HCl * Allergy Intermediate Itching Verified 12/15/18 14:08 [From Benadryl] Cephalosporins AdvReac Severe Respiratory Verified 12/15/18 14:08 doxycycline AdvReac Intermediate Emesis Verified 12/15/18 14:08 iron dextran complex AdvReac Intermediate Emesis Verified 12/15/18 14:08 prochlorperazine AdvReac Intermediate Emesis Verified 12/15/18 14:08 [From Compazine] prochlorperazine edisylate * AdvReac Intermediate Emesis Verified 12/15/18 14:08 [From Compazine] prochlorperazine maleate * AdvReac Intermediate Emesis Verified 12/15/18 14:08 [From Compazine] kiwi AdvReac Itching Verified 12/15/18 14:08 - Social History Does the pt smoke?: Yes Smoking Status: Current every day smoker Does the pt drink ETOH?: Yes PD ED PE NORMAL - Vitals Vital signs reviewed: Yes - General General: Alert and oriented X 3, Well developed/nourished, Other (She looks uncomfortable laying on her left side and rocking back and forth.) - HEENT HEENT: PERRL, Other (Mucous membranes are dry and she is chewing gum.) - Neck Neck: Thyroid normal - Cardiac Cardiac: RRR, No murmur, Strong equal pulses - Respiratory Respiratory: No respiratory distress, Clear bilaterally - Abdomen Abdomen: Normal bowel sounds, Soft, Other (Tender in the right lower and right upper quadrants.) - Back Back: Other (Right costovertebral angle tenderness) - Extremities Extremities: No edema - Neuro Neuro: Alert and oriented X 3, Other (No gross neurological deficits.) Results - Vitals Vitals: Oxygen O2 Source Room air - Labs Labs: Laboratory Tests 12/15/18 12/15/18 12/15/18 14:17 14:25 14:25 WBC 3.8 L RBC 3.72 L Hgb 12.4 Hct 40.0 MCV 107.5 H MCH 33.3 H MCHC 31.0 L RDW 12.8 Plt Count 179 MPV 10.1 Neut # (Auto) 1.7 Lymph # (Auto) 1.6 [place] # (Auto) 0.3 Eos # (Auto) 0.1 Baso # (Auto) 0.0 Absolute Nucleated RBC 0.00 Nucleated RBC % 0.0 Sodium 141 Potassium 3.4 L Chloride 112 H Carbon Dioxide 19 L Anion Gap 10.0 BUN 13 Creatinine 1.0 Estimated GFR (MDRD) 60 L Glucose 97 Calcium 9.1 Total Bilirubin 0.3 AST 15 ALT 19 Alkaline Phosphatase 38 L Total Protein 6.6 L Albumin 4.0 Globulin 2.6 Albumin/Globulin Ratio 1.5 Lipase 36 Urine Color YELLOW Urine Clarity CLEAR Urine pH 5.5 Ur Specific [place] <=1.005 Urine Protein NEGATIVE Urine Glucose (UA) NEGATIVE Urine Ketones NEGATIVE Urine Occult Blood NEGATIVE Urine Nitrite NEGATIVE Urine Bilirubin NEGATIVE Urine Urobilinogen 0.2 (NORMAL) Ur Leukocyte Esterase NEGATIVE Ur Microscopic Review NOT INDICATED Urine Culture Comments NOT INDICATED PD MEDICAL DECISION MAKING - ED course Complexity details: reviewed results, re-evaluated patient, d/w patient, d/w family ED course: Patient's white blood cell count is actually low at 3.8 hemoglobin of 12.4. Normal CMP and a urinalysis is negative. She received Dilaudid IV and on reevaluate and still had pain in the left lower quadrant with guarding. CT scan showed no evidence of appendicitis but there is some much stool volume in the rectum that it displacing the bladder. Results were discussed with her she was given Toradol and Recommendations to take MiraLAX to clear out stool. Follow-up if she has fever, increasing pain vomiting and cannot keep anything down. Departure - Departure Disposition: 01 Home, Self Care Clinical Impression: Abdominal pain, Constipation Condition: Good Instructions: ED Constipation Follow-Up: Tremayne Sharma DO [Primary Care Provider] - Comments: Use an enema tonight or take MiraLAX to relieve the constipation. May use Tylenol if needed for the pain. Follow-up with your primary care provider if your symptoms persist. Return if you develop a fever, you are vomiting and cannot keep anything down or other problems arise. Discharge Date/Time: 12/15/18 19:15
[2018-12-15] MEDS ORDERED: SODIUM CHLORIDE 0.9% 1,000 ML IV ONE (15:50)
[2018-12-15] MEDS ORDERED: ONDANSETRON 4 MG/2 ML VIAL IVP STA (15:50)
[2018-12-15] MEDS ORDERED: HYDROmorphone 1 MG/ML CARPUJECT IVP STA (15:50)
--- NOTE | 2018-12-15 16:23 | CT Report ---
Reason: RLQ pain to flank Procedure Date: 12/15/2018 Accession Number: [id number] / [id number] Procedure: CT - Abdomen/Pelvis WO CPT Code: FULL RESULT: EXAM: CT ABDOMEN AND PELVIS (CT KUB) EXAM DATE: 12/15/2018 04:07 PM. CLINICAL HISTORY: RLQ pain to flank. COMPARISONS: ABDOMEN/PELVIS W/ 03/15/2016 2:34 PM. TECHNIQUE: Routine axial helical CT imaging was performed through the abdomen and pelvis without IV contrast. Reconstructions: Coronal and sagittal. In accordance with CT protocol optimization, one or more of the following dose reduction techniques were utilized for this exam: automated exposure control, adjustment of mA and/or KV based on patient size, or use of iterative reconstructive technique. FINDINGS: Lung Bases: Unremarkable. Right Kidney/Ureter: No stones, hydronephrosis, or hydroureter. No perinephric fat stranding. Left Kidney/Ureter: No stones, hydronephrosis, or hydroureter. No perinephric fat stranding. Other Solid Organs: Small calcified granulomata in the subcapsular superior right hepatic lobe. The liver is mildly enlarged, as before. Liver density otherwise is normal on noncontrast CT. The pancreas, spleen, and adrenal glands are unremarkable. Gallbladder/Bile Ducts: Gallbladder is surgically absent, as before. Minimal intrahepatic and extra hepatic biliary ductal dilatation, as before. Peritoneal Cavity: Antecolic Hay[place]-en-Y gastric bypass, as before. No abnormal gaseous distention of stomach or bowel. The appendix is normal. There is a small amount of formed stool in the colon. There is no focal pericolonic fat stranding. There is no lymphadenopathy, ascites, or pneumoperitoneum. Pelvic Organs: The bladder is unremarkable. The uterus is surgically absent. No adnexal mass is identified. Vasculature: Unremarkable. Other: There are bilateral retroglandular breast implants. IMPRESSION: 1. No hydronephrosis or urolithiasis. 2. No clear findings to explain right-sided pain. 3. Minimal intrahepatic and hepatic biliary ductal dilatation as before which may be physiologic in the setting of prior cholecystectomy. 4. Antecolic [place]-en-Y gastric bypass, as before. RADIA
[2018-12-15] MEDS ORDERED: KETOROLAC 30 MG/ML VIAL IVP STA (18:11)
[2018-12-15 18:28] VITALS: BP 120/79
== END 2018-12-15 19:15 | disposition home or self-care (01) ==
LOC: ED 13:58
DX: R10.31 Right lower quadrant pain (principal); R10.11 Right upper quadrant pain; K59.00 Constipation, unspecified; I10 Essential (primary) hypertension; F17.200 Nicotine dependence, unspecified, uncomplicated
CPT/HCPCS: 36415; 74176; 80053; 81003; 83690; 85025; 96361; 96374; 96375; 99284; J1170; 81001; 87086

== ENCOUNTER 2019-02-26 13:18 | Emergency (ER) | payer OTHER ==
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
[2019-02-26 14:38] LABS: BASOPHILS % (AUTO) 0.8 %; EOSINOPHILS # (AUTO) 0.1 10^3/uL (0.0-0.7); EOSINOPHILS % (AUTO) 2.3 %; HGB - HEMOGLOBIN 12.4 g/dL (12.0-16.0); LYMPHOCYTES # (AUTO) 1.6 10^3/uL (1.5-3.5); LYMPHOCYTES % (AUTO) 41.3 %; MEAN CORPUSCULAR HEMOGLOBIN 33.6 pg (27.0-31.0); MEAN CORPUSCULAR HGB CONC 32.5 g/dL (32.0-36.0); MEAN CORPUSCULAR VOLUME 103.5 fL (81.0-99.0); MEAN PLATELET VOLUME 10.2 fL (7.9-10.8); MONOCYTES # (AUTO) 0.3 10^3/uL (0.0-1.0); MONOCYTES % (AUTO) 7.5 %; NEUTROPHILS # (AUTO) 1.9 10^3/uL (1.5-6.6); NEUTROPHILS % (AUTO) 47.8 %; PLT - PLATELET COUNT 192 10^3/uL (130-450); RED BLOOD COUNT 3.69 10^6/uL (4.20-5.40); RED CELL DISTRIBUTION WIDTH 12.8 % (12.0-15.0); WHITE BLOOD COUNT 3.9 x10^3/uL (4.8-10.8)
[2019-02-26 14:51] LABS: ALBUMIN 4.3 g/dL (3.2-5.5); ALKALINE PHOSPHATASE 51 IU/L (42-121); ALT ALANINE AMINOTRANSFERASE 20 IU/L (10-60); AST ASPARTATE AMINOTRANSFERASE 15 IU/L (10-42); BILIRUBIN,TOTAL 0.4 mg/dL (0.2-1.0); BUN - BLOOD UREA NITROGEN 6 mg/dL (6-20); CALCIUM 8.9 mg/dL (8.5-10.3); CARBON DIOXIDE - CO2 24 mmol/L (21-32); CHLORIDE 108 mmol/L (101-111); CREATININE 0.9 mg/dL (0.4-1.0); GFR - MDRD 67 (>89); GLUCOSE 98 mg/dL (70-100); LIPASE 29 U/L (22-51); SODIUM 143 mmol/L (135-145); TOTAL PROTEIN 6.5 g/dL (6.7-8.2)
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
[2019-02-26 15:09] LABS: LITHIUM 0.17 mmol/L
[2019-02-26 15:28] VITALS: BP 134/94
== END 2019-02-26 15:31 | disposition home or self-care (01) ==
LOC: ED 13:18
DX: S06.0X1A Concussion with loss of consciousness of 30 minutes or less, initial encounter (principal); V89.2XXA Person injured in unspecified motor-vehicle accident, traffic, initial encounter; Y92.410 Unspecified street and highway as the place of occurrence of the external cause; I10 Essential (primary) hypertension; F17.200 Nicotine dependence, unspecified, uncomplicated
CPT/HCPCS: 36415; 70450; 80053; 80178; 80320; 83690; 85025; 99284

== ENCOUNTER 2019-04-09 14:25 | Outpatient (CLI) | payer OTHER ==
--- NOTE | 2019-04-09 16:47 | Mammography Report ---
Reason: ROUTINE MAMMO Procedure Date: 04/09/2019 Accession Number: [id number] / [id number] Procedure: MGN - Screening Mammo Dig Bilat CPT Code: Final Report FULL RESULT: EXAM: Screening Mammo Dig Bilat DATE: 04/09/2019 3:07 PM CLINICAL HISTORY: The patient is an asymptomatic 49-year-old female presenting for screening mammography. Maternal history of breast cancer. TECHNIQUE: (B) - Bilateral CC and MLO views were obtained. Displaced views obtained. COMPARISON: 11/23/2016, 04/07/2016, 02/18/2015 PARENCHYMAL PATTERN: (D) - The breasts demonstrate heterogeneously dense fibroglandular parenchyma bilaterally. FINDINGS: Stable bilateral subpectoral silicone implants. The pattern of glandular asymmetry is stable given positional variation. Few scattered and loosely grouped calcifications are present. There are no developing suspicious masses, pleomorphic calcifications, or areas of distortion. IMPRESSION: Benign findings. BI-RADS category 2. RECOMMENDATION: (ANNUAL) - Recommend routine annual screening mammography. BI-RADS CATEGORY: (2) - Benign Findings. STANDARD QUALIFYING STATEMENTS: 1. This examination was not reviewed with the aid of Computer-Aided Detection (CAD). 2. A negative or benign imaging report should not preclude biopsy if clinically suspicious findings are present. 3. Dense breasts may obscure an underlying neoplasm.
== END 2019-04-09 14:26 | disposition home or self-care (01) ==
LOC: DI.N 14:25
DX: Z12.31 Encounter for screening mammogram for malignant neoplasm of breast (principal); Z80.3 Family history of malignant neoplasm of breast
CPT/HCPCS: 77067

== ENCOUNTER 2019-05-24 06:55 | Day surgery (SDC) | payer OTHER ==
[2019-05-24] MEDS ORDERED: LACTATED RINGERS 1,000 ML IV ONE ×2 (07:03→09:36)
[2019-05-24] MEDS ORDERED: SCOPOLAMINE PATCH TOP ONE (07:55)
[2019-05-24] MEDS ORDERED: LIDO GARGLE 30 ML BOTTLE ONE (08:27)
[2019-05-24] MEDS ORDERED: MIDAZOLAM 2 MG/2 ML VIAL IVP ONE (08:41)
[2019-05-24] MEDS ORDERED: fentaNYL 250 MCG/5 ML VIAL IVP ONE (08:41)
[2019-05-24] MEDS ORDERED: PROPOFOL 200 MG/20 ML VIAL IVP ONE (08:45)
[2019-05-24 09:58] VITALS: BP 123/86
== END 2019-05-24 06:56 | disposition home or self-care (01) ==
LOC: SDS 06:55
PROVIDERS: ATTEND Surgery
PROC: 0DB68ZX Excision of Stomach, Via Natural or Artificial Opening Endoscopic, Diagnostic (ICD-10-PCS; 2019-05-24)
PROC: 0DBP8ZZ Excision of Rectum, Via Natural or Artificial Opening Endoscopic (ICD-10-PCS; principal; 2019-05-24 08:15)
PROC: 0DB38ZX Excision of Lower Esophagus, Via Natural or Artificial Opening Endoscopic, Diagnostic (ICD-10-PCS; 2019-05-24 08:15)
DX: Z12.11 Encounter for screening for malignant neoplasm of colon (principal); K21.9 Gastro-esophageal reflux disease without esophagitis; K22.10 Ulcer of esophagus without bleeding; K29.70 Gastritis, unspecified, without bleeding; D12.8 Benign neoplasm of rectum; K57.30 Diverticulosis of large intestine without perforation or abscess without bleeding; K64.4 Residual hemorrhoidal skin tags; F41.0 Panic disorder [episodic paroxysmal anxiety]; F32.9 Major depressive disorder, single episode, unspecified; E78.5 Hyperlipidemia, unspecified; Z98.0 Intestinal bypass and anastomosis status; Z98.84 Bariatric surgery status; Z90.49 Acquired absence of other specified parts of digestive tract; Z90.710 Acquired absence of both cervix and uterus; Z98.82 Breast implant status
CPT/HCPCS: 43239; 45380; A9270; J3010; J3490; J7120

== ENCOUNTER 2019-06-04 13:38 | Outpatient (CLI) | payer OTHER ==
[2019-06-04] MEDS ORDERED: GADOBUTROL 7.5 MMOL/7.5 ML VIAL ONE (14:08)
[2019-06-04] MEDS ORDERED: GADOBUTROL 7.5 MMOL/7.5 ML VIAL IVP ONE (15:07)
--- NOTE | 2019-06-05 08:35 | MRI Report ---
Reason: FAMILY HISTORY BREAST CANCER Procedure Date: 06/04/2019 Accession Number: [id number] / [id number] Procedure: MRI - Breast W/WO Cont CPT Code: 89900 Final Report FULL RESULT: EXAM: Breast W/WO Cont DATE: 06/04/2019 4:18 PM CLINICAL HISTORY: Family history of breast cancer in the mother at the age of 44. Personal history of right breast biopsy in 2017, negative pathology. History of bilateral breast augmentation in 2008 with subpectoral saline implants. History of early menses. History of endometrial cancer. COMPARISON: Mammogram dated 04/09/2019 and breast MRI 03/10/2017. TECHNIQUE: Dedicated breast coil. 1.5 T Axial STIR, axial T1, isotropic steady-state imaging in multiple contrast phases as well as precontrast and diffusion-weighted imaging. CONTRAST USED: 6 mL Gadavist (gadolinium). POSTPROCESSING: Subtraction dynamic/curve analysis and multiplanar reformations with CAD stream FINDINGS: Chest: Unremarkable. Right breast: There is moderate background breast parenchymal enhancement. Intact subpectoral saline implant is redemonstrated. There is no suspicious focus of enhancement or suspicious mass. There is no suspicious nonmass enhancement. Left breast: There is moderate background breast parenchymal enhancement. Intact subpectoral saline implant is redemonstrated. There is no suspicious focus of enhancement or suspicious mass. There is no suspicious nonmass enhancement. IMPRESSION: BI-RADS Category 1: Negative. COMMENT: The literature indicates that a negative dynamic breast MRI has a high sensitivity and specificity for the detection of invasive carcinoma (to a threshold of 5 mm). MRI is not reliably sensitive for detecting ductal carcinoma in situ or large invasive neoplasms with only minimal enhancement (i.e. mucinous carcinoma). Normal-appearing lymph nodes on MRI may contain microscopic tumor. Appropriate clinical mammographic and sonographic followup should be performed if recommended. Negative MRI should not dissuade further evaluation of any suspicious mammographic calcifications and/or worrisome palpable masses.
== END 2019-06-04 13:39 | disposition home or self-care (01) ==
LOC: DI 13:38
PROVIDERS: ATTEND Surgery
DX: Z80.3 Family history of malignant neoplasm of breast (principal); Z98.82 Breast implant status; Z85.42 Personal history of malignant neoplasm of other parts of uterus
CPT/HCPCS: 77049; A9585

== ENCOUNTER 2020-01-18 17:44 | Outpatient (CLI) | payer OTHER ==
[2020-01-21 14:41] LABS: HOMOCYSTEINE 12.3 umol/L (<10.4)
== END 2020-01-18 17:45 | disposition home or self-care (01) ==
LOC: LAB 17:44
PROVIDERS: ATTEND Physical Medicine & Rehabilitation
DX: D51.9 Vitamin B12 deficiency anemia, unspecified (principal)
CPT/HCPCS: 36415; 83090; 83921

== ENCOUNTER 2020-05-27 19:35 | Outpatient (CLI) | payer OTHER | END 2020-05-27 19:36 | disposition home or self-care (01) | LOC: COV 19:35 | PROVIDERS: ATTEND Family Medicine | DX: Z20.822 Contact with and (suspected) exposure to COVID-19 (principal) ==

== ENCOUNTER 2020-06-12 08:06 | Outpatient (CLI) | payer OTHER ==
[2020-06-12] MEDS ORDERED: GADOBUTROL 7.5 MMOL/7.5 ML VIAL ONE (09:00)
[2020-06-12] MEDS ORDERED: GADOBUTROL 7.5 MMOL/7.5 ML VIAL IVP ONE (09:23)
--- NOTE | 2020-06-13 07:57 | MRI Report ---
SCREENING BREAST MRI OF BOTH BREASTS: 06/12/2020 CLINICAL: Routine screening. Comparison is made to exams dated: 11/23/2016 ultrasound, 11/23/2016 mammogram - [facility], 03/11 mammogram - [facility], 06/04/2019 breast MRI, and 03/10/2017 breast MRI - [facility]. Interpretation of this MRI was correlated with available mammograms and previous MRI scans. Informed consent was obtained from the patient. 6 cc of gadolinium contrast was injected. Axial T1, T2, sag ittal T1, and pre and post contrast T1 images were obtained with a dedicated breast coil. Evaluation is limited by absence of fat saturation on post-contrast sagittal images due to artifact from silicon e implants. Bilateral background breast enhancement is mild. Right breast: A subpectoral silicone implant appears intact. No discrete mass or suspicious enhance ment in the right breast to suggest malignancy. Left breast: A subpectoral silicone implant appears intact. No discrete mass or suspicious enhancem ent in the right breast to suggest malignancy. Miscellaneous: No evidence of axillary or internal mammary lymphadenopathy by size criteria. The vi sualized liver demonstrates a nonenhancing oval focus within the right hepatic dome which is incomple tely characterized but likely represents a cyst. IMPRESSION: NEGATIVE 1. No evidence of malignancy in the right or left breast. 2. Bilateral silicone implants appear intact. This exam was interpreted at Station ID: [id number]. Electronically Signed By: Andrew Freeman M.D. ddp/:06/12/2020 13:19:58 ACR BI-RADS Category 1: Negative 3341F BI-RADS CATEGORY: (1) - 1 Unspecified - other recall n/a LATERALITY: (B)
== END 2020-06-12 08:07 | disposition home or self-care (01) ==
LOC: DI 08:06
PROVIDERS: ATTEND Family Medicine
DX: Z12.39 Encounter for other screening for malignant neoplasm of breast (principal); Z98.82 Breast implant status; Z80.3 Family history of malignant neoplasm of breast
CPT/HCPCS: 77049; A9585

== ENCOUNTER 2020-06-25 10:07 | Outpatient (CLI) | payer OTHER ==
[2020-06-25 11:35] LABS: HIV RAPID SCREEN NEGATIVE (NEGATIVE)
[2020-06-26 12:39] LABS: HEPATITIS C ANTIBODY NON-REACTIVE (NON-REACTIVE)
== END 2020-06-25 10:08 | disposition home or self-care (01) ==
LOC: LAB 10:07
PROVIDERS: ATTEND Internal Medicine
DX: D50.9 Iron deficiency anemia, unspecified (principal); E53.8 Deficiency of other specified B group vitamins
CPT/HCPCS: 81599; 85240; 85245; 85246; 85730; 86317; 86703; 86708; 86803

== ENCOUNTER 2020-07-16 16:50 | Outpatient (CLI) | payer OTHER | END 2020-07-16 16:51 | disposition home or self-care (01) | LOC: LAB 16:50 | PROVIDERS: ATTEND Internal Medicine | DX: D50.9 Iron deficiency anemia, unspecified (principal) | CPT/HCPCS: 36415; 81599; 84155; 84165; 86334 ==

== ENCOUNTER 2020-07-18 12:44 | Outpatient (CLI) | payer OTHER ==
[2020-07-18] MEDS ORDERED: IOPAMIDOL-300 50 ML VIAL ONE (13:03)
[2020-07-18] MEDS ORDERED: IOVERSOL 320 100 ML VIAL IVP ONE ×2 (13:03→14:54)
[2020-07-18] MEDS ORDERED: IOPAMIDOL-300 50 ML VIAL PO ONE (14:55)
--- NOTE | 2020-07-18 16:47 | CT Report ---
PROCEDURE: CHEST W INDICATIONS: ENLARGED LYMPH NODES/ABD PAIN CONTRAST: IV CONTRAST: Optiray 320 ml: 100 PO CONTRAST: Isovue 300 ml50 TECHNIQUE: After the administration of intravenous contrast, 5 mm thick sections acquired from the pulmonary api lucy to the posterior costophrenic angles. 7 mm thick coronal MIP reformats were acquired. For radia tion dose reduction, the following was used: automated exposure control, adjustment of mA and/or kV according to patient size. COMPARISON: CT angiogram chest 09/09/2017. Chest x-ray 05/30/2018 FINDINGS: Image quality: Excellent. Lungs and pleura: No acute air space opacities. No pleural effusions or pneumothorax. Central and peripheral airways are patent and normal in caliber. 3 mm endobronchial nodule in the right distal m ain bronchus. Mediastinum: Heart size is normal. No pericardial effusion. No mediastinal or hilar adenopathy by size criteria. Thoracic aorta and central pulmonary arteries are normal in size. Esophagus is janay l in caliber. No hiatal hernia. Bones and chest wall: Intact subglandular saline breast implants. No suspicious bony lesions. No ve rtebral body compression fractures. No axillary or supraclavicular adenopathy by size criteria. Thy roid gland is only partially imaged.. Abdomen: Visualized upper abdominal solid organs appear normal. Upper abdominal bowel loops are nor mal in caliber. IMPRESSION: 1. No adenopathy in the chest. 2. Small right mainstem endobronchial nodule, new since the prior study, most likely small focus of m ucus, less likely a polyp. Follow-up in one to 3 months is recommended to determine stability. Reviewed by: Mandy Cantu MD on 07/18/2020 4:46 PM PST Approved by: Mandy Cantu MD on 07/18/2020 4:46 PM PST Station ID: [id number]
--- NOTE | 2020-07-18 16:55 | CT Report ---
PROCEDURE: Abdomen/Pelvis W INDICATIONS: ENLARGED LYMPH NODES/ABD PAIN CONTRAST: IV CONTRAST: Optiray 320 ml: 100 PO CONTRAST: Isovue 300 ml50 TECHNIQUE: After the administration of oral and IV contrast, 5 mm thick sections acquired from the diaphragms to the symphysis. 5 mm thick coronal and sagittal reformats were acquired. For radiation dose reducti on, the following was used: automated exposure control, adjustment of mA and/or kV according to ev ent size. COMPARISON: 12/15/2018 FINDINGS: Image quality: Excellent. ABDOMEN: Lung bases: Lung bases are clear. Heart size is normal. Solid organs: Liver is elongated measuring 21.3 cm in length and demonstrates mild diffuse biliary d ilatation. The extrahepatic common duct is also prominent up to 10 mm in caliber. The gallbladder james gically absent. There are a few coarse calcifications along the superior margin of the liver capsule, nonspecific. The spleen is normal size. No adrenal nodules. Normal pancreas and kidneys. Peritoneum and bowel: There are surgical changes of Haydee-en-Y gastric bypass. The excluded stomach c ontains a small amount of fluid, similar quantity compared to the prior study. Bowel loops demonstrat e normal wall thickness and caliber. The appendix was not identified. No focal inflammatory changes i n the peritoneal cavity. No free fluid or air. Nodes and vessels: No retroperitoneal or mesenteric adenopathy by size criteria. Aorta and inferior vena cava are normal in size. Miscellaneous: No ventral hernias. PELVIS: Genitourinary: Urinary bladder wall appears mildly thickened.. The uterus is absent. Miscellaneous: No inguinal hernias or adenopathy. Bones: No suspicious bony lesions. No vertebral body compression fractures. IMPRESSION: 1. Urinary bladder wall appears mildly thickened. Consider cystitis as cause of abdominal pain. 2. Chronic hepatomegaly and chronically prominent biliary tree, likely physiologic postcholecystectom y 3. Haydee-en-Y gastric bypass without evidence of obstruction or complication. 4. No visible adenopathy. Reviewed by: Mandy Cantu MD on 07/18/2020 4:53 PM PST Approved by: Mandy Cantu MD on 07/18/2020 4:53 PM PST Station ID: [id number]
--- NOTE | 2020-07-18 17:18 | CT Report ---
PROCEDURE: SOFT TISSUE NECK W INDICATIONS: ENLARGED LYMPH NODES/ABD PAIN CONTRAST: IV CONTRAST: Optiray 320 ml: 100 PO CONTRAST: Isovue 300 ml50 TECHNIQUE: After the administration of intravenous contrast, 3.0 mm axial sections acquired from the sella to th e aortic arch. Additional oblique axial 3.0 mm sections acquired through the pharynx. 3 mm thick co tyrese reformats were generated. For radiation dose reduction, the following was used: automated exp osure control, adjustment of mA and/or kV according to patient size. COMPARISON: None. FINDINGS: Image quality: Excellent. Lymph nodes: No enlarged lymph nodes seen throughout the neck. Vessels: Visualized vasculature appears patent. Neck spaces: There is indistinct soft tissue fullness within the inferior aspect of the posterior natacha pharynx extending to the level of the hyoid bone. Airway is markedly decreased in caliber. There is m ild appearance of increased prevertebral soft tissues at this level. Glands: The parotid and submandibular glands appear normal. The thyroid is normal in size. Miscellaneous: Visualized brain and orbits appear normal. Lung apices appear clear. Superficial so ft tissues appear normal. Bones: No suspicious bony lesions. Visualized sinuses and mastoids appear unremarkable. IMPRESSION: 1. Ill-defined appearance of isodense soft tissue fullness inferior to the oropharynx extending to th e hyoid bone. While no discrete lesion is identified, there is significant narrowing and obliteration of the airway. While this could represent an appearance such as diffuse edema, infection/inflammatio n, infiltrative disease cannot be definitively excluded. Further evaluation is recommended with direc t visualization by ENT. Reviewed by: Sharon Mclaughlin MD on 07/18/2020 5:17 PM PST Approved by: Sharon Mclaughlin MD on 07/18/2020 5:17 PM PST Station ID: [id number]
== END 2020-07-18 12:45 | disposition home or self-care (01) ==
LOC: DI 12:44
PROVIDERS: ATTEND Internal Medicine
DX: R91.1 Solitary pulmonary nodule (principal); R16.0 Hepatomegaly, not elsewhere classified; R93.41 Abnormal radiologic findings on diagnostic imaging of renal pelvis, ureter, or bladder; R93.3 Abnormal findings on diagnostic imaging of other parts of digestive tract
CPT/HCPCS: 70491; 71260; 74177; Q9967

== ENCOUNTER 2020-07-28 17:05 | Outpatient (CLI) | payer OTHER | END 2020-07-28 17:06 | disposition home or self-care (01) | LOC: COV 17:05 | PROVIDERS: ATTEND Surgery | DX: Z01.812 Encounter for preprocedural laboratory examination (principal); K21.9 Gastro-esophageal reflux disease without esophagitis; K22.10 Ulcer of esophagus without bleeding; Z92.83 Personal history of failed moderate sedation; Z20.822 Contact with and (suspected) exposure to COVID-19 ==

== ENCOUNTER 2020-07-31 10:16 | Day surgery (SDC) | payer OTHER ==
--- NOTE | 2020-07-31 10:24 | ANESTHESIA ---
Pre-Anesthesia VS, & Labs - Diagnosis GERD, Esophageal erosions - Procedure EGD Height: 5 ft 8 in - NPO >8 hours - Is Patient ?: No - Lab Results Lab results reviewed: Yes Home Medications and Allergies Escitalopram Oxalate [Lexapro] 20 mg PO QPM 12/31/14 Promethazine [Phenergan] 75 mg PO TID 12/31/14 Topiramate 100 mg PO BID 12/31/14 clonazePAM [KlonoPIN] 1 mg PO DAILY 12/31/14 ondansetron HCL [Zofran] 8 mg PO TID 12/31/14 Prazosin [Minipress] 8 mg PO QPM 04/22/15 Gabapentin 1,200 mg PO ONCE 01/20/16 Gabapentin 600 mg PO TID 01/20/16 cloNIDine [Catapres] 0.1 mg PO TID 03/04/16 Progesterone, Micronized [Progesterone] 200 mg PO DAILY 09/09/17 estradioL [Estradiol] 2 mg PO DAILY 11/07/18 Diphenoxylate/Atropine [Lomotil] 1 each PO QID PRN 06/04/20 Allergies/Adverse Reactions: Allergies Allergy/AdvReac Type Severity Reaction Status Date / Time pineapple Allergy Severe Edema Verified 07/16/20 16:08 diphenhydramine HCl * Allergy Intermediate Itching Verified 07/16/20 16:08 [From Benadryl] Cephalosporins AdvReac Severe Respiratory Verified 07/16/20 16:08 doxycycline AdvReac Intermediate Emesis Verified 07/16/20 16:08 iron dextran complex AdvReac Intermediate Emesis Verified 07/16/20 16:08 prochlorperazine AdvReac Intermediate Emesis Verified 07/16/20 16:08 [From Compazine] prochlorperazine edisylate * AdvReac Intermediate Emesis Verified 07/16/20 16:08 [From Compazine] prochlorperazine maleate * AdvReac Intermediate Emesis Verified 07/16/20 16:08 [From Compazine] kiwi AdvReac Itching Verified 07/16/20 16:08 NSAIDS (Non-Steroidal AdvReac Unknown Verified 07/16/20 16:08 Anti-Inflamma Anes History & Medical History - Anesthetic History Anesthesia Complications: reports: No previous complications Family history of Anesthesia Complications: Denies Family history of Malignant Hyperthermia: Denies - Medical History Cardiovascular: reports: Hypertension Pulmonary: reports: None, Other (new CT showing significant narrowing of airway, though not due to mass. Small mass seen at R main bronchus) Gastrointestinal: reports: GERD, Chronic diarrhea, Cholelithiasis, Other Urinary: reports: Other Musculoskeletal: reports: Chronic back pain Endocrine/Autoimmune: reports: None Skin: reports: None Smoking Status: Current every day smoker - Surgical History General: reports: Cholecystectomy, Gastric surgery Eyes Ears Nose Throat (EENT): reports: Tonsil/Adenoidectomy Gynecologic: reports: 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, Oophrectomy Orthopedic: reports: Rotator cuff repair Exam General: Alert, Oriented x3, Cooperative Dental: WNL Mouth Openin Fingerbreadth Neck Mobility: Normal Mallampati classification: II Thyromental Distance: 4-6 cm Respiratory: Lungs clear, Normal breath sounds, No respiratory distress Cardiovascular: Regular rate Neurological: Normal speech Mental/Cognitive Status: Alert/Oriented X3, Normal for patient Cognitive Status: Within normal limits Plan Anesthesia Type: Total IV Consent for Procedure(s) Verified and Reviewed: Yes Code Status: Attempt Resuscitation ASA classification: 2-Mild systemic disease Is this case an emergency?: No
[2020-07-31] MEDS ORDERED: LACTATED RINGERS 1,000 ML IV ONE (10:45)
[2020-07-31 10:52] LABS: HCG UR QUAL NEGATIVE
[2020-07-31] MEDS ORDERED: MIDAZOLAM 2 MG/2 ML VIAL ONE (11:32)
[2020-07-31] MEDS ORDERED: KETAMINE 500 MG/10 ML VIAL ONE (11:33)
[2020-07-31] MEDS ORDERED: PROPOFOL 200 MG/20 ML VIAL IVP ONE (11:34)
[2020-07-31] MEDS ORDERED: LIDOCAINE-MPF 2% 5 ML VIAL ONE (11:34)
[2020-07-31] MEDS ORDERED: LACTATED RINGERS 500 ML IV ONE (11:54)
[2020-07-31 12:08] VITALS: BP 108/73
--- NOTE | 2020-07-31 14:52 | ANESTHESIA POST OP EVALUATION ---
Anesthesia Post Eval - Post Anesthesia Eval Vitals: Last Vital Signs Temp 36.4 C L 07/31/20 12:07 Pulse 50 L 07/31/20 12:07 Resp 16 07/31/20 12:07 BP 108/73 07/31/20 12:07 Pulse Ox 99 07/31/20 12:07 CV Function Including HR & BP: positive: Stable Pain Control: positive: Satisfactory Nausea & Vomiting: positive: Negative Mental Status: positive: Baseline Respiratory Status: Airway Patent Hydration Status: Satisfactory Anesthesia Complications: positive: None
== END 2020-07-31 10:17 | disposition home or self-care (01) ==
LOC: SDS 10:16
PROVIDERS: ATTEND Surgery
PROC: 0DB68ZX Excision of Stomach, Via Natural or Artificial Opening Endoscopic, Diagnostic (ICD-10-PCS; 2020-07-31)
PROC: 0DBA8ZX Excision of Jejunum, Via Natural or Artificial Opening Endoscopic, Diagnostic (ICD-10-PCS; 2020-07-31)
PROC: 0DB58ZX Excision of Esophagus, Via Natural or Artificial Opening Endoscopic, Diagnostic (ICD-10-PCS; principal; 2020-07-31 11:15)
DX: K29.70 Gastritis, unspecified, without bleeding (principal); K21.9 Gastro-esophageal reflux disease without esophagitis; R13.10 Dysphagia, unspecified; R11.10 Vomiting, unspecified; R63.4 Abnormal weight loss; F41.0 Panic disorder [episodic paroxysmal anxiety]; F17.200 Nicotine dependence, unspecified, uncomplicated
CPT/HCPCS: 43239; 81025; J7120

== ENCOUNTER 2020-12-09 08:10 | Emergency (ER) | payer OTHER ==
[2020-12-09] MEDS ORDERED: SODIUM CHLORIDE 0.9% 1,000 ML IV STA (08:20)
[2020-12-09] MEDS ORDERED: PROMETHAZINE INJ 25 MG in SODIUM CHLORIDE 0.9% 50 ML IV STA (08:33)
[2020-12-09] MEDS ORDERED: HYDROmorphone 1 MG/ML CARPUJECT IVP STA ×2 (08:33→09:36)
[2020-12-09 08:34] LABS: BASOPHILS % (AUTO) 0.6 %; EOSINOPHILS # (AUTO) 0.3 10^3/uL (0.0-0.7); EOSINOPHILS % (AUTO) 3.7 %; HCT - HEMATOCRIT 43.4 % (37.0-47.0); HGB - HEMOGLOBIN 14.3 g/dL (12.0-16.0); LYMPHOCYTES # (AUTO) 2.4 10^3/uL (1.5-3.5); MEAN CORPUSCULAR HEMOGLOBIN 33.4 pg (27.0-31.0); MEAN CORPUSCULAR HGB CONC 32.9 g/dL (32.0-36.0); MEAN CORPUSCULAR VOLUME 101.4 fL (81.0-99.0); MEAN PLATELET VOLUME 9.8 fL (7.9-10.8); MONOCYTES # (AUTO) 0.5 10^3/uL (0.0-1.0); MONOCYTES % (AUTO) 7.1 %; NEUTROPHILS # (AUTO) 3.7 10^3/uL (1.5-6.6); NEUTROPHILS % (AUTO) 53.3 %; PLT - PLATELET COUNT 229 10^3/uL (130-450); RED BLOOD COUNT 4.28 10^6/uL (4.20-5.40); RED CELL DISTRIBUTION WIDTH 12.9 % (12.0-15.0)
--- NOTE | 2020-12-09 08:36 | ED Physician Documentation ---
PD HPI ABD PAIN - Stated complaint Stated Complaint: ABD PX - Chief complaint Chief Complaint: Abd Pain - History obtained from History obtained from: Patient - Additional information Additional information: Patient comes emergency department chief complaint of right lower quadrant abdominal pain that started about a week ago and has been episodic but always in the background. Patient states that she has had some more intense episodes but that this morning around 0200, she began to have worsening pain. She states it is in her right lower quadrant and points to and points to specific area around [place]Burney's point where she says it is hurting her. The patient states that she has also had nausea and vomiting, though this is also a common pain response for her, so she is not sure if this is distinctly related to the pain or its cause. She took 2 ODT Zofran, which she states have helped somewhat but not much with the nausea.The patient states that she had a temperature of 99.9 temporal but otherwise has not had a fever. No chills. No dysuria. Patient states she gets frequent UTIs and this does not feel like that. No history of urinary calculi. She still has her appendix. Patient is not known to be . She has had a cholecystectomy and a Haydee-en-Y gastric bypass. She denies history of bowel obstruction but has been states that the patient has had issues with constipatio n. However, she has not seemed to be constipated recently. No other complaints at this time. She rates her pain a 9 out of 10. She states that movement and certain positions make it worse. Review of Systems Ten Systems: 10 systems reviewed and negative Constitutional: reports: Reviewed and negative Eyes: reports: Reviewed and negative Ears: reports: Reviewed and negative Nose: reports: Reviewed and negative Throat: reports: Reviewed and negative Cardiac: reports: Reviewed and negative Respiratory: reports: Reviewed and negative GI: reports: Abdominal Pain, Nausea, Vomiting : reports: Reviewed and negative Skin: reports: Reviewed and negative Musculoskeletal: reports: Reviewed and negative Neurologic: reports: Reviewed and negative Psychiatric: reports: Reviewed and negative Endocrine: reports: Reviewed and negative Immunocompromised: reports: Reviewed and negative PD PAST MEDICAL HISTORY - Past Medical History Cardiovascular: Hypertension Respiratory: None, Other (new CT showing significant narrowing of airway, though not due to mass. 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: 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, Oophrectomy HEENT: Tonsil/Adenoidectomy - Present Medications Home Medications: Ambulatory Orders Medication Instructions Recorded Confirmed Escitalopram Oxalate [Lexapro] 20 mg PO QPM 12/31/14 12/09/20 Promethazine [Phenergan] 25 mg PO TID 12/31/14 12/09/20 Topiramate 100 mg PO BID 12/31/14 12/09/20 clonazePAM [KlonoPIN] 1 mg PO DAILY 12/31/14 12/09/20 ondansetron HCL [Zofran] 8 mg PO TID PRN 12/31/14 12/09/20 Prazosin [Minipress] 6 mg PO QPM 04/22/15 12/09/20 Gabapentin 1,200 mg PO DAILY PM 01/20/16 12/09/20 Gabapentin 600 mg PO TID 01/20/16 12/09/20 cloNIDine [Catapres] 0.1 mg PO TID 03/04/16 12/09/20 Progesterone, Micronized 200 mg PO DAILY 09/09/17 12/09/20 [Progesterone] estradioL [Estradiol] 2 mg PO DAILY 11/07/18 12/09/20 Omeprazole 20 mg PO QDBREAKFAST #30 tablet. 05/24/19 12/09/20 Diphenoxylate/Atropine [Lomotil] 1 each PO QID PRN 06/04/20 12/09/20 Amox/Clav 875/125 [Augmentin] 1 each PO Q12H #20 tablet 12/09/20 HYDROcod/ACETAM 5/325 [[place] 5/325] 1 - 2 tablet PO Q6H PRN #14 tablet 12/09/20 Rimegepant Sulfate [Nurtec Odt] 75 mg SL DAILY PRN 12/09/20 12/09/20 - Allergies Allergies/Adverse Reactions: Allergies Allergy/AdvReac Type Severity Reaction Status Date / Time pineapple Allergy Severe Edema Verified 12/09/20 08:12 diphenhydramine HCl * Allergy Intermediate Itching Verified 12/09/20 08:12 [From Benadryl] Cephalosporins AdvReac Severe Respiratory Verified 12/09/20 08:12 doxycycline AdvReac Intermediate Emesis Verified 12/09/20 08:12 iron dextran complex AdvReac Intermediate Emesis Verified 12/09/20 08:12 prochlorperazine AdvReac Intermediate Emesis Verified 12/09/20 08:12 [From Compazine] prochlorperazine edisylate * AdvReac Intermediate Emesis Verified 12/09/20 08:12 [From Compazine] prochlorperazine maleate * AdvReac Intermediate Emesis Verified 12/09/20 08:12 [From Compazine] kiwi AdvReac Itching Verified 12/09/20 08:12 NSAIDS (Non-Steroidal AdvReac Unknown Verified 12/09/20 08:12 Anti-Inflamma cephalosporin Allergy Anaphylaxis Uncoded 10/08/20 11:32 - Social History Does the pt smoke?: Yes Smoking Status: Current every day smoker Does the pt drink ETOH?: Yes PD ED PE NORMAL - Vitals Vital signs reviewed: Yes - General General: Alert and oriented X 3, Well developed/nourished, Other (Patient appears to be in pain, but no respiratory distress.) - HEENT HEENT: Atraumatic, PERRL, EOMI, Moist mucous membranes - Neck Neck: Supple, no meningeal sign - Cardiac Cardiac: RRR, No murmur - Respiratory Respiratory: Clear bilaterally - Abdomen Abdomen: Soft, Non distended, Other (Patient is grimacing and clutching her right lower quadrant. She is markedly tender in the right lower quadrant without rebound. No involuntary guarding.) - Derm Derm: Warm and dry - Extremities Extremities: No deformity - Neuro Neuro: Alert and oriented X 3 - Psych Psych: Normal mood, Normal affect Results - Vitals Vitals: Vital Signs - 24 hr 12/09/20 12/09/20 12/09/20 08:13 08:32 10:34 Temperature 36.5 C Heart Rate 69 63 57 L Respiratory 24 22 16 Rate Blood Pressure 108/67 119/68 91/46 L O2 Saturation 99 98 99 12/09/20 12:01 Temperature 36.2 C L Heart Rate 63 Respiratory 18 Rate Blood Pressure 102/57 L O2 Saturation 99 Oxygen O2 Source Room air - Labs Labs: Laboratory Tests 12/09/20 12/09/20 12/09/20 08:20 08:20 08:40 WBC 7.0 RBC 4.28 Hgb 14.3 Hct 43.4 MCV 101.4 H MCH 33.4 H MCHC 32.9 RDW 12.9 Plt Count 229 MPV 9.8 Neut # (Auto) 3.7 Lymph # (Auto) 2.4 [place] # (Auto) 0.5 Eos # (Auto) 0.3 Baso # (Auto) 0.0 Absolute Nucleated RBC 0.00 Nucleated RBC % 0.0 PT 11.0 INR 1.0 Sodium 136 Potassium 3.6 Chloride 102 Carbon Dioxide 24 Anion Gap 10.0 BUN 16 Creatinine 0.8 Estimated GFR (MDRD) 77 L Glucose 108 H Calcium 9.3 Total Bilirubin 0.4 AST 34 ALT 46 Alkaline Phosphatase 69 Total Protein 6.9 Albumin 4.5 Globulin 2.4 Albumin/Globulin Ratio 1.9 Lipase 40 Urine Color Urine Clarity Urine pH Ur Specific [place] Urine Protein Urine Glucose (UA) Urine Ketones Urine Occult Blood Urine Nitrite Urine Bilirubin Urine Urobilinogen Ur Leukocyte Esterase Ur Microscopic Review Urine Culture Comments Urine HCG, Qual 12/09/20 09:25 WBC RBC Hgb Hct MCV MCH MCHC RDW Plt Count MPV Neut # (Auto) Lymph # (Auto) [place] # (Auto) Eos # (Auto) Baso # (Auto) Absolute Nucleated RBC Nucleated RBC % PT INR Sodium Potassium Chloride Carbon Dioxide Anion Gap BUN Creatinine Estimated GFR (MDRD) Glucose Calcium Total Bilirubin AST ALT Alkaline Phosphatase Total Protein Albumin Globulin Albumin/Globulin Ratio Lipase Urine Color YELLOW Urine Clarity CLEAR Urine pH 6.0 Ur Specific [place] <=1.005 Urine Protein NEGATIVE Urine Glucose (UA) NEGATIVE Urine Ketones NEGATIVE Urine Occult Blood NEGATIVE Urine Nitrite NEGATIVE Urine Bilirubin NEGATIVE Urine Urobilinogen 0.2 (NORMAL) Ur Leukocyte Esterase NEGATIVE Ur Microscopic Review NOT INDICATED Urine Culture Comments NOT INDICATED Urine HCG, Qual NEGATIVE - Rads (name of study) ct abd/pelvis Radiology: Final report received, EMP read indepedently, See rad report (enteritis) PD MEDICAL DECISION MAKING - ED course Complexity details: reviewed results, re-evaluated patient, considered differential, d/w patient, d/w family ED course: The patient was worked up with labs and ultimately CT scan of the abdomen and pelvis, and treated symptomatically with IV fluids, Phenergan, and Dilaudid. CT scan was indicative of enteritis, and patient was started on Augmentin. We have discussed symptomatic management at home, and the usual indications for follow- up and return. Departure - Departure Disposition: Home, Self Care Clinical Impression: Enteritis Condition: Stable Instructions: ED Gastroenteritis Bacterial Prescriptions: Amox/Clav 875/125 [Augmentin] 1 each PO Q12H #20 tablet HYDROcod/ACETAM 5/325 [[place] 5/325] 1 - 2 tablet PO Q6H PRN #14 tablet PRN Reason: Pain Discharge Date/Time: 12/09/20 12:14
[2020-12-09 08:47] LABS: ALBUMIN 4.5 g/dL (3.2-5.5); ALBUMIN/GLOBULIN RATIO 1.9 (1.0-2.2); BILIRUBIN,TOTAL 0.4 mg/dL (0.2-1.0); CALCIUM 9.3 mg/dL (8.5-10.3); CREATININE 0.8 mg/dL (0.4-1.0); POTASSIUM 3.6 mmol/L (3.5-5.0); TOTAL PROTEIN 6.9 g/dL (6.7-8.2)
[2020-12-09] MEDS ORDERED: IOPAMIDOL-300 100 ML VIAL ONE (09:24)
[2020-12-09 09:36] LABS: BILIRUBIN,URINE NEGATIVE (NEGATIVE); GLUCOSE, URINE (UA) NEGATIVE (NEGATIVE); KETONES,URINE (UA) NEGATIVE (NEGATIVE); LEUKOCYTE ESTERASE, URINE NEGATIVE (NEGATIVE); NITRITE,URINE NEGATIVE (NEGATIVE); OCCULT BLOOD,URINE NEGATIVE (NEGATIVE); PROTEIN,URINE NEGATIVE (NEGATIVE); UROBILINOGEN,URINE 0.2 (NORMAL) E.U./dL (NORMAL)
[2020-12-09 09:37] LABS: CLARITY,URINE CLEAR (CLEAR)
[2020-12-09 09:39] LABS: HCG UR QUAL NEGATIVE
[2020-12-09] MEDS ORDERED: IOPAMIDOL-300 100 ML VIAL IVP ONE (10:14)
--- NOTE | 2020-12-09 10:54 | CT Report ---
PROCEDURE: Abdomen/Pelvis W INDICATIONS: Right lower quadrant pain, vomiting CONTRAST: IV CONTRAST: Isovue 300 ml: 100 PO CONTRAST: *NO PO CONTRAST TECHNIQUE: After the administration of intravenous contrast, 5 mm thick sections acquired from the diaphragms to the symphysis. 5 mm thick coronal and sagittal reformats were acquired. For radiation dose reducti on, the following was used: automated exposure control, adjustment of mA and/or kV according to ev ent size. COMPARISON: 07/18/2020 FINDINGS: Image quality: Excellent. ABDOMEN: Lung bases: Lung bases are clear. Heart size is normal. Solid organs: Liver and spleen are normal in size and enhancement. Gallbladder has been removed. Di lated intrahepatic and extrahepatic biliary ducts, similar to the prior study, likely a function of p ostcholecystectomy reservoir phenomenon. Pancreas enhances normally. No adrenal nodules. Kidneys d emonstrate normal size and enhancement, without hydronephrosis. Peritoneum and bowel: Surgical changes of Haydee-en-Y gastric bypass. The appendix contains air and is nondilated with no wall thickening or adjacent inflammatory change. There is no abnormally dilated or thickened loops of bowel. There are numerous areas of mild small bowel submucosal edema with mucosal hyperenhancement, nonspecific. Nodes and vessels: No retroperitoneal or mesenteric adenopathy by size criteria. Aorta and inferior vena cava are normal in size. Miscellaneous: No ventral hernias. PELVIS: Genitourinary: Bladder wall thickness is normal. Miscellaneous: No inguinal hernias or adenopathy. Bones: No suspicious bony lesions. No vertebral body compression fractures. IMPRESSION: Multifocal areas of small bowel submucosal edema and mucosal hyperenhancement. Findings would be cons istent with enteritis in the appropriate clinical setting. No findings of appendicitis. Post surgical changes of Haydee-en-Y gastric bypass and cholecystectomy. Reviewed by: Pavel Foley MD on 12/09/2020 10:53 AM PDT Approved by: Pavel Foley MD on 12/09/2020 10:53 AM PDT Station ID: [id number]
[2020-12-09] MEDS ORDERED: AMOX/CLAV 875 MG/125 MG TABLET PO STA (11:15)
[2020-12-09 12:03] VITALS: BP 102/57
== END 2020-12-09 12:14 | disposition home or self-care (01) ==
LOC: ED 08:10
DX: K52.9 Noninfective gastroenteritis and colitis, unspecified (principal); I10 Essential (primary) hypertension; Z98.84 Bariatric surgery status; Z90.49 Acquired absence of other specified parts of digestive tract; F17.200 Nicotine dependence, unspecified, uncomplicated
CPT/HCPCS: 36415; 74177; 80053; 81003; 81025; 83690; 85025; 85610; 96365; 96375; 96376; 99284; A9270; J1170; J7040; Q9967; 81001; 87086

== ENCOUNTER 2021-01-06 15:49 | Outpatient (CLI) | payer OTHER | END 2021-01-06 15:50 | disposition home or self-care (01) | LOC: LAB 15:49 | PROVIDERS: ATTEND Internal Medicine | DX: D50.9 Iron deficiency anemia, unspecified (principal) ==

== ENCOUNTER 2021-01-26 14:30 | Outpatient (CLI) | payer OTHER | END 2021-01-26 14:31 | disposition critical access hospital (66) | LOC: EMS 14:30 | DX: R10.9 Unspecified abdominal pain (principal); Z98.84 Bariatric surgery status | CPT/HCPCS: A0425; A0427 ==

== ENCOUNTER 2021-01-26 15:05 | Inpatient (IN) | payer OTHER ==
[2021-01-26 15:27] LABS: BASOPHILS % (AUTO) 0.7 %; HCT - HEMATOCRIT 45.4 % (37.0-47.0); HGB - HEMOGLOBIN 15.2 g/dL (12.0-16.0); LYMPHOCYTES % (AUTO) 8.9 %; MEAN CORPUSCULAR HEMOGLOBIN 32.8 pg (27.0-31.0); MEAN CORPUSCULAR HGB CONC 33.5 g/dL (32.0-36.0); MEAN CORPUSCULAR VOLUME 97.8 fL (81.0-99.0); MEAN PLATELET VOLUME 9.8 fL (7.9-10.8); NEUTROPHILS % (AUTO) 84.1 %; PLT - PLATELET COUNT 236 10^3/uL (130-450); RED BLOOD COUNT 4.64 10^6/uL (4.20-5.40); RED CELL DISTRIBUTION WIDTH 12.6 % (12.0-15.0); WHITE BLOOD COUNT 7.4 x10^3/uL (4.8-10.8)
[2021-01-26 15:29] LABS: ABNORMAL LYMPHS % (MANUAL) 0 %
[2021-01-26 15:50] LABS: ALBUMIN 3.5 g/dL (3.2-5.5); ALBUMIN/GLOBULIN RATIO 1.4 (1.0-2.2); BILIRUBIN,TOTAL 0.5 mg/dL (0.2-1.0); CALCIUM 8.6 mg/dL (8.5-10.3); POTASSIUM 3.7 mmol/L (3.5-5.0)
[2021-01-26] MEDS ORDERED: ONDANSETRON 4 MG/2 ML VIAL IVP STA (15:50)
[2021-01-26] MEDS ORDERED: HYDROmorphone 1 MG/ML CARPUJECT IVP STA (15:50)
[2021-01-26] MEDS ORDERED: IOPAMIDOL-300 100 ML VIAL ONE (15:56)
[2021-01-26] MEDS ORDERED: IOVERSOL 320 50 ML VIAL ONE (15:57)
[2021-01-26 15:58] LABS: BAND NEUTROPHILS % (MANUAL) 34 %; EOSINOPHILS # (MANUAL) 0.1 10^3/uL (0-0.7); LYMPHOCYTES # (MANUAL) 0.8 10^3/uL (1.5-3.5); LYMPHOCYTES % (MANUAL) 11 %; MONOCYTES # (MANUAL) 0.1 10^3/uL (0.0-1.0); NEUTROPHILS # (MANUAL) 6.4 10^3/uL (1.5-6.6); RBC MORPHOLOGY (MULTIPLE) NORMAL APPEARANCE (NORMAL)
[2021-01-26 15:59] LABS: DIFFERENTIAL COMMENT MANUAL DIFFERENTIAL; PLATELET ESTIMATE, MANUAL NORMAL (130-450,000) (NORMAL); PLATELET MORPHOLOGY NORMAL APPEARANCE (NORMAL)
[2021-01-26] MEDS ORDERED: PROMETHAZINE INJ 25 MG in SODIUM CHLORIDE 0.9% 50 ML IV STA (16:13)
[2021-01-26] MEDS ORDERED: SODIUM CHLORIDE 0.9% 1,000 ML IV STA (17:22)
--- NOTE | 2021-01-26 17:23 | ED Physician Documentation ---
PD HPI ABD PAIN - Stated complaint Stated Complaint: ABD PX - Chief complaint Chief Complaint: Abd Pain - History obtained from History obtained from: Patient - History of Present Illness Timing - onset: Yesterday Timing - duration: Days (2) Timing - details: Gradual onset Pain level max: 8 Pain level now: 6 Quality: Aching, Pain Location: All over / everywhere Radiation: No: Chest, , Lower back, Left flank, Left shoulder, Right flank, Right shoulder, Upper back Improved by: No: Eating, Laying still, Vomiting, BM, Position, Meds Worsened by: Eating, Moving, Palpation Associated symptoms: Nausea, Vomiting, Constipation. No: Fever, Hematemesis, Diarrhea, Melena, Hematochezia, Dysuria Recently seen: Not recently seen - Additional information Additional information: history of lance en Y Review of Systems Ten Systems: 10 systems reviewed and negative Constitutional: denies: Fever, Chills Cardiac: denies: Chest pain / pressure Respiratory: denies: Cough GI: reports: Abdominal Pain, Vomiting. denies: Hematemesis, Bloody / black stool : denies: Dysuria Skin: denies: Rash Musculoskeletal: denies: Neck pain, Back pain, Extremity pain Neurologic: denies: Headache PD PAST MEDICAL HISTORY - Past Medical History Cardiovascular: Hypertension Respiratory: None, Other (new CT showing significant narrowing of airway, though not due to mass. 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: 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, Oophrectomy HEENT: Tonsil/Adenoidectomy - Present Medications Home Medications: Ambulatory Orders Medication Instructions Recorded Confirmed Escitalopram Oxalate [Lexapro] 20 mg PO QPM 12/31/14 01/26/21 Promethazine [Phenergan] 75 mg PO QPM 12/31/14 01/27/21 Topiramate 100 mg PO BID 12/31/14 01/26/21 clonazePAM [KlonoPIN] 1 mg PO BID 12/31/14 01/27/21 ondansetron HCL [Zofran] 8 mg PO TID PRN 12/31/14 01/26/21 Prazosin [Minipress] 6 mg PO QPM 04/22/15 01/26/21 Gabapentin 1,200 mg PO QPM 01/20/16 01/27/21 Gabapentin 600 mg PO TID 01/20/16 01/26/21 cloNIDine [Catapres] 0.2 mg PO TID 03/04/16 01/27/21 Progesterone, Micronized 200 mg PO QPM 09/09/17 01/27/21 [Progesterone] estradioL [Estradiol] 2 mg PO DAILY 11/07/18 01/27/21 Rimegepant Sulfate [Nurtec Odt] 75 mg SL DAILY PRN 12/09/20 01/27/21 Diphenoxylate/Atropine [Lomotil] 1 each PO QID PRN #90 tablet 01/07/21 01/27/21 Riboflavin (Vitamin B2) 400 mg PO DAILY 01/07/21 01/27/21 [Riboflavin] ZOLMitriptan [Zolmitriptan] 1 spray NS DAILY PRN 01/07/21 01/27/21 Celecoxib [CeleBREX] 100 mg PO BID 01/27/21 01/27/21 Fluconazole [Diflucan] 200 mg PO DAILY PRN 01/27/21 01/27/21 Lidocaine/Prilocain 2.5% Cream 1 applic TOP TID PRN 01/27/21 01/27/21 [Emla 2.5% Cream] Nitrofurantoin [Macrobid] 100 mg PO DAILY PRN 01/27/21 01/27/21 Omeprazole Magnesium 20 mg PO BID 01/27/21 01/27/21 Phenazopyridine HCl [Pyridium] 200 mg PO BID PRN 01/27/21 01/27/21 Tizanidine HCl [Zanaflex] 8 mg PO TID PRN 01/27/21 01/27/21 traMADol [Ultram] 50 - 100 mg PO Q6H PRN 01/27/21 01/27/21 - Allergies Allergies/Adverse Reactions: Allergies Allergy/AdvReac Type Severity Reaction Status Date / Time pineapple Allergy Severe Edema Verified 01/26/21 15:17 diphenhydramine HCl * Allergy Intermediate Itching Verified 01/26/21 15:17 [From Benadryl] Cephalosporins AdvReac Severe Respiratory Verified 01/26/21 15:17 doxycycline AdvReac Intermediate Emesis Verified 01/26/21 15:17 iron dextran complex AdvReac Intermediate Emesis Verified 01/26/21 15:17 prochlorperazine AdvReac Intermediate Emesis Verified 01/26/21 15:17 [From Compazine] prochlorperazine edisylate * AdvReac Intermediate Emesis Verified 01/26/21 15:17 [From Compazine] prochlorperazine maleate * AdvReac Intermediate Emesis Verified 01/26/21 15:17 [From Compazine] kiwi AdvReac Itching Verified 01/26/21 15:17 NSAIDS (Non-Steroidal AdvReac Unknown Verified 01/26/21 15:17 Anti-Inflamma - Social History Does the pt smoke?: Yes Smoking Status: Current every day smoker Does the pt drink ETOH?: Yes Does the pt have substance abuse?: No - Immunizations Immunizations are current?: Yes PD ED PE NORMAL - Vitals Vital signs reviewed: Yes - General General: Alert and oriented X 3, Other (Appears uncomfortable and in pain) - HEENT HEENT: Moist mucous membranes - Neck Neck: Supple, no meningeal sign - Cardiac Cardiac: RRR, Strong equal pulses - Respiratory Respiratory: No respiratory distress, Clear bilaterally - Abdomen Abdomen: Other (Diffusely tender to palpation. Positive rebound and guarding) - Derm Derm: Warm and dry - Extremities Extremities: No edema - Neuro Neuro: Alert and oriented X 3 - Psych Psych: Normal mood, Normal affect Results - Vitals Vitals: Oxygen O2 Source Room air - Labs Labs: Laboratory Tests 01/26/21 01/26/21 01/26/21 15:20 15:20 18:20 WBC 7.4 RBC 4.64 Hgb 15.2 Hct 45.4 MCV 97.8 MCH 32.8 H MCHC 33.5 RDW 12.6 Plt Count 236 MPV 9.8 Neut # (Auto) Not Reportable Lymph # (Auto) Not Reportable [place] # (Auto) Not Reportable Eos # (Auto) Not Reportable Baso # (Auto) Not Reportable Absolute Nucleated RBC Not Reportable Total Counted 100 Band Neuts % (Manual) 34 H Abnorm Lymph % (Manual) 0 Nucleated RBC % Not Reportable Neutrophils # (Manual) 6.4 Lymphocytes # (Manual) 0.8 L Monocytes # (Manual) 0.1 Eosinophils # (Manual) 0.1 Basophils # (Manual) 0.0 Differential Comment MANUAL DIFFERENTIAL Platelet Estimate NORMAL (130-450,000) Platelet Morphology NORMAL APPEARANCE RBC Morph Micro Appear NORMAL APPEARANCE Sodium 136 Potassium 3.7 Chloride 104 Carbon Dioxide 22 Anion Gap 10.0 BUN 22 H Creatinine 1.0 Estimated GFR (MDRD) 59 L Glucose 134 H Calcium 8.6 Total Bilirubin 0.5 AST 18 ALT 25 Alkaline Phosphatase 43 Total Protein 6.0 L Albumin 3.5 Globulin 2.5 Albumin/Globulin Ratio 1.4 Lipase 23 Nasal Adenovirus (PCR) NOT DETECTED Nasal B. parapertussis DNA (PCR) NOT DETECTED Nasal Coronavir 229E PCR NOT DETECTED Nasal Coronavir HKU1 PCR NOT DETECTED Nasal Coronavir NL63 PCR NOT DETECTED Nasal Coronavir OC43 PCR NOT DETECTED Nasal Enterovir/Rhinovir PCR NOT DETECTED Nasal Influenza B PCR NOT DETECTED Nasal Influenza A PCR NOT DETECTED Nasal Parainfluen 1 PCR NOT DETECTED Nasal Parainfluen 2 PCR NOT DETECTED Nasal Parainfluen 3 PCR NOT DETECTED Nasal Parainfluen 4 PCR NOT DETECTED Nasal RSV (PCR) NOT DETECTED Nasal B.pertussis DNA PCR NOT DETECTED Nasal C.pneumoniae (PCR) NOT DETECTED Félix Human Metapneumo PCR NOT DETECTED Nasal M.pneumoniae (PCR) NOT DETECTED Nasal SARS-CoV-2 (PCR) NOT DETECTED - Rads (name of study) CT abd/pelvis Radiology: Final report received, EMP read contemporaneously, See rad report PD MEDICAL DECISION MAKING - ED course Complexity details: reviewed results, re-evaluated patient, considered differential, d/w patient, d/w web consultant ED course: Patient with a perforated abdominal viscus, discussed the case with inna Tee eneral surgery who will come and evaluate the patient and take to the OR. Started on IV abx. This document was made in part using voice recognition software. While efforts are made to proofread this document, sound alike and grammatical errors may occur. 1. Pneumoperitoneum and free fluid in the abdomen and pelvis, is most consistent with perforated bowel. No free enteric contrast 2. Small bowel mucosal edema and wall thickening without evidence of genesis obstruction may reflect enteritis, increased from the prior Departure - Departure Disposition: ED Transfer to [facility] Clinical Impression: Perforated abdominal viscus Condition: Stable Discharge Date/Time: 01/26/21 19:21
[2021-01-26] MEDS ORDERED: PIPERACILLIN/TAZOBACTAM 3.375 GM in SODIUM CHLORIDE 0.9% MINIBAG 100 ML IV STA (18:14)
--- NOTE | 2021-01-26 18:39 | CT Report ---
PROCEDURE: Abdomen/Pelvis W INDICATIONS: diffuse abd pain, vomiting, h/o lance en Y CONTRAST: IV CONTRAST: Isovue 300 ml: 100 PO CONTRAST: Optiray 320 ml50 TECHNIQUE: After the administration of IV and oral contrast, 5 mm thick sections acquired from the diaphragms to the symphysis. 5 mm thick coronal and sagittal reformats were acquired. For radiation dose reducti on, the following was used: automated exposure control, adjustment of mA and/or kV according to ev ent size. COMPARISON: December 09, 2020 FINDINGS: Image quality: Excellent. ABDOMEN: Lung bases: Bibasilar nonspecific atelectasis present. Hernia stable from prior. Bilateral breast pro sthesis present. Solid organs: Liver and spleen are normal in size and enhancement. Gallbladder surgically absent B iliary system is non dilated. Pancreas enhances normally. No adrenal nodules. Kidneys demonstrate normal size and enhancement, without hydronephrosis. Peritoneum and bowel: There is diffuse small bowel wall thickening noted throughout the exam, increas ed from the prior. Prior gastric surgery present. There is now free fluid in the pelvis as well as fr ee air. No free enteric contrast is present however. Nodes and vessels: No retroperitoneal or mesenteric adenopathy by size criteria. Aorta and inferior vena cava are normal in size. Miscellaneous: No ventral hernias. PELVIS: Genitourinary: Bladder wall thickness is normal. Miscellaneous: No inguinal hernias or adenopathy. Bones: No suspicious bony lesions. No vertebral body compression fractures. IMPRESSION: 1. Pneumoperitoneum and free fluid in the abdomen and pelvis, is most consistent with perforated osmani l. No free enteric contrast 2. Small bowel mucosal edema and wall thickening without evidence of genesis obstruction may reflect en teritis, increased from the prior Critical results were discussed with the patient's ER physician at 1736 hours [place] time 01/26/2021 Reviewed by: Primo Riggs MD on 01/26/2021 5:37 PM [facility] Approved by: Primo Riggs MD on 01/26/2021 5:37 PM [facility] Station ID: [id number]
--- NOTE | 2021-01-26 18:53 | HISTORY & PHYSICAL EXAMINATION ---
HPI - Admitted From Admitted from: ED - History Obtained From History obtained from: Patient Exam limitations: No limitations - History of Present Illness Pain/Problem Location Description: Epigastric abdominal pain for the last 2 days. Severity at the worst: reports: Severe Pain Quality: reports: Sharp, Aching, Cramping, Throbbing Context-Pain started w/: reports: Rest Timing: reports: Abrupt onset Duration: reports: Days: (2) Improved with: reports: Nothing Worsened by: reports: Exertion, Movement, Palpation Associated symptoms: reports: Nausea, Vomiting, General Weakness HPI Comment/Other: Komal is a unfortunate 50-year-old lady who is known to me from prior visits. She has a history of a Lance-en-Y gastric bypass as well as multiple other abdominal operations. She has suffered with chronic abdominal pain as well as nausea and vomiting since the time of her gastric bypass.I met her earlier this year when she underwent an upper endoscopy looking for reasons and solutions for her discomfort.She reports that her been out of town. She said she has had some pain in the right lower quadrant and in the entire upper abdomen.She denies any hematemesis. She says she is always constipated and she does not think she is had a bowel movement in 24 hours.No fever at home. PMH/PSH - Past Medical History Cardiovascular: positive: Hypertension Respiratory: positive: None, Other Neuro: positive: Migraines, Peripheral neuropathy Endocrine/Autoimmune: positive: None GI: positive: GERD, Chronic diarrhea, Cholelithiasis, Other ACLS SPECIALIST: positive: Ovarian cysts : positive: Other HEENT: positive: Chronic vision loss Psych: positive: Depression, Anxiety, Bipolar disorder, Panic attacks Musculoskeletal: positive: Chronic back pain Derm: positive: None MRSA Hx?: No - Past Surgical History General: positive: Cholecystectomy, Gastric surgery Ortho: positive: Rotator cuff repair /ACLS SPECIALIST: positive: 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, Oophrectomy HEENT: positive: Tonsil/Adenoidectomy Social & Family Hx - Social History Does the pt smoke?: Yes Smoking Status: Current every day smoker Does the pt drink ETOH?: Yes Does the pt have substance abuse?: No Meds/Allgy - Home Medications Home Medications: Ambulatory Orders Medication Instructions Recorded Confirmed Escitalopram Oxalate [Lexapro] 20 mg PO QPM 12/31/14 01/26/21 Promethazine [Phenergan] 25 mg PO TID 12/31/14 01/26/21 Topiramate 100 mg PO BID 12/31/14 01/26/21 clonazePAM [KlonoPIN] 1 mg PO DAILY 12/31/14 01/26/21 ondansetron HCL [Zofran] 8 mg PO TID PRN 12/31/14 01/26/21 Prazosin [Minipress] 6 mg PO QPM 04/22/15 01/26/21 Gabapentin 1,200 mg PO DAILY PM 01/20/16 12/09/20 Gabapentin 600 mg PO TID 01/20/16 01/26/21 cloNIDine [Catapres] 0.1 mg PO TID 03/04/16 01/26/21 Progesterone, Micronized 200 mg PO DAILY 09/09/17 01/26/21 [Progesterone] estradioL [Estradiol] 2 mg PO DAILY 11/07/18 12/09/20 Omeprazole 20 mg PO QDBREAKFAST #30 tablet. 05/24/19 01/26/21 Diphenoxylate/Atropine [Lomotil] 1 each PO QID PRN 06/04/20 12/09/20 Rimegepant Sulfate [Nurtec Odt] 75 mg SL DAILY PRN 12/09/20 12/09/20 Diphenoxylate/Atropine [Lomotil] 1 each PO QID PRN #90 tablet 01/07/21 Magnesium 500 mg PO DAILY 01/07/21 01/07/21 Riboflavin (Vitamin B2) 400 mg PO DAILY 01/07/21 01/07/21 [Riboflavin] ZOLMitriptan [Zolmitriptan] 1 spray NS DAILY 01/07/21 01/07/21 - Allergies Allergies/Adverse Reactions: Allergies Allergy/AdvReac Type Severity Reaction Status Date / Time pineapple Allergy Severe Edema Verified 01/26/21 15:17 diphenhydramine HCl * Allergy Intermediate Itching Verified 01/26/21 15:17 [From Benadryl] Cephalosporins AdvReac Severe Respiratory Verified 01/26/21 15:17 doxycycline AdvReac Intermediate Emesis Verified 01/26/21 15:17 iron dextran complex AdvReac Intermediate Emesis Verified 01/26/21 15:17 prochlorperazine AdvReac Intermediate Emesis Verified 01/26/21 15:17 [From Compazine] prochlorperazine edisylate * AdvReac Intermediate Emesis Verified 01/26/21 15:17 [From Compazine] prochlorperazine maleate * AdvReac Intermediate Emesis Verified 01/26/21 15:17 [From Compazine] kiwi AdvReac Itching Verified 01/26/21 15:17 NSAIDS (Non-Steroidal AdvReac Unknown Verified 01/26/21 15:17 Anti-Inflamma cephalosporin Allergy Anaphylaxis Uncoded 01/26/21 15:17 Review of Systems - Constitutional Constitutional: reports: Fatigue, Malaise - Gastrointestinal Gastrointestinal: reports: Abdominal pain, Abdominal distention, Constipation, Nausea, Vomiting - Genitourinary Genitourinary: denies: Dysuria - All Other Systems All Other Systems: reports: Reviewed and negative Exam - Vital Signs Reviewed Vital Signs: Yes Vital Signs: Vital Signs x48h Temp Pulse Resp BP Pulse Ox 01/26/21 18:47 81 17 96/66 96 01/26/21 17:50 74 13 100/60 95 01/26/21 17:44 75 16 90/59 L 97 01/26/21 17:36 74 13 94/60 97 01/26/21 17:25 78 16 89/56 L 97 01/26/21 17:13 57 L 16 218/74 H 01/26/21 16:32 77 16 92/55 L 97 01/26/21 16:30 84 16 92/55 L 98 01/26/21 15:07 37.0 C 86 16 103/63 100 - Physical Exam General Appearance: positive: Moderate distress Eyes Bilateral: positive: Normal inspection, PERRL, EOMI ENT: positive: ENT inspection nml, Pharynx nml, No signs of dehydration Neck: positive: Nml inspection, Thyroid nml, No JVD Respiratory: positive: Chest non-tender, No respiratory distress, Breath sounds nml Cardiovascular: positive: Regular rate & rhythm Peripheral Pulses: positive: 0 Abdomen: positive: Tenderness, Guarding, Rebound Back: positive: Nml inspection Skin: positive: Color nml Neurologic/Psychiatric: positive: Oriented x3 Results - Lab Results Fish Bones: 01/26/21 15:20 01/26/21 15:20 Other Lab Results: Lab Results x24hrs 01/26/21 01/26/21 Range/Units 15:20 15:20 WBC 7.4 (4.8-10.8) x10^3/uL RBC 4.64 (4.20-5.40) 10^6/uL Hgb 15.2 (12.0-16.0) g/dL Hct 45.4 (37.0-47.0) % MCV 97.8 (81.0-99.0) fL MCH 32.8 H (27.0-31.0) pg MCHC 33.5 (32.0-36.0) g/dL RDW 12.6 (12.0-15.0) % Plt Count 236 (130-450) 10^3/uL MPV 9.8 (7.9-10.8) fL Neut # (Auto) Not Reportable Lymph # (Auto) Not Reportable [place] # (Auto) Not Reportable Eos # (Auto) Not Reportable Baso # (Auto) Not Reportable Absolute Nucleated RBC Not Reportable Total Counted 100 Band Neuts % (Manual) 34 H (0 - 10) % Abnorm Lymph % (Manual) 0 % Nucleated RBC % Not Reportable Neutrophils # (Manual) 6.4 (1.5-6.6) 10^3/uL Lymphocytes # (Manual) 0.8 L (1.5-3.5) 10^3/uL Monocytes # (Manual) 0.1 (0.0-1.0) 10^3/uL Eosinophils # (Manual) 0.1 (0-0.7) 10^3/uL Basophils # (Manual) 0.0 (0-0.1) 10^3/uL Differential Comment MANUAL DIFFERENTIAL Platelet Estimate NORMAL (130-450,000) (NORMAL) Platelet Morphology NORMAL APPEARANCE (NORMAL) RBC Morph Micro Appear NORMAL APPEARANCE (NORMAL) Sodium 136 (135-145) mmol/L Potassium 3.7 (3.5-5.0) mmol/L Chloride 104 (101-111) mmol/L Carbon Dioxide 22 (21-32) mmol/L Anion Gap 10.0 (6-13) BUN 22 H (6-20) mg/dL Creatinine 1.0 (0.4-1.0) mg/dL Estimated GFR (MDRD) 59 L (>89) Glucose 134 H (70-100) mg/dL Calcium 8.6 (8.5-10.3) mg/dL Total Bilirubin 0.5 (0.2-1.0) mg/dL AST 18 (10-42) IU/L ALT 25 (10-60) IU/L Alkaline Phosphatase 43 (42-121) IU/L Total Protein 6.0 L (6.7-8.2) g/dL Albumin 3.5 (3.2-5.5) g/dL Globulin 2.5 (2.1-4.2) g/dL Albumin/Globulin Ratio 1.4 (1.0-2.2) Lipase 23 (22-51) U/L - Diagnostic Imaging Results Diagnostic Imaging Results: positive: Final report reviewed Diagnostic Imaging Results Comments: EXAM: [id number] CT/ABPEW ([id number]) PROCEDURE: Abdomen/Pelvis W INDICATIONS: diffuse abd pain, vomiting, h/o lance en Y CONTRAST: IV CONTRAST: Isovue 300 ml: 100 PO CONTRAST: Optiray 320 ml50 TECHNIQUE: After the administration of IV and oral contrast, 5 mm thick sections acquired from the diaphragms to the symphysis. 5 mm thick coronal and sagittal reformats were acquired. For radiation dose reduction, the following was used: automated exposure control, adjustment of mA and/or kV according to patient size. COMPARISON: December 09, 2020 FINDINGS: Image quality: Excellent. ABDOMEN: Lung bases: Bibasilar nonspecific atelectasis present. Hernia stable from prior. Bilateral breast prosthesis present. Solid organs: Liver and spleen are normal in size and enhancement. Gallbladder surgically absent Biliary system is non dilated. Pancreas enhances normally. No adrenal nodules. Kidneys demonstrate normal size and enhancement, without hydronephrosis. Peritoneum and bowel: There is diffuse small bowel wall thickening noted throughout the exam, increased from the prior. Prior gastric surgery present. There is now free fluid in the pelvis as well as free air. No free enteric contrast is present however. Nodes and vessels: No retroperitoneal or mesenteric adenopathy by size criteria. Aorta and inferior vena cava are normal in size. Miscellaneous: No ventral hernias. PELVIS: Genitourinary: Bladder wall thickness is normal. Miscellaneous: No inguinal hernias or adenopathy. Bones: No suspicious bony lesions. No vertebral body compression fractures. IMPRESSION: 1. Pneumoperitoneum and free fluid in the abdomen and pelvis, is most consistent with perforated bowel. No free enteric contrast 2. Small bowel mucosal edema and wall thickening without evidence of genesis obstruction may reflect enteritis, increased from the prior Critical results were discussed with the patient's ER physician at 1736 hours [place] time 01/26/2021 Reviewed by: Primo Riggs MD on 01/26/2021 5:37 PM [facility] Approved by: Primo Riggs MD on 01/26/2021 5:37 PM [facility] Impression/Plan - Problem List Problem List: Perforated viscus in the setting of a 50-year-old lady with a history of Lance-en-Y gastric bypass and multiple other abdominal operations. We have talked about the options here. I have recommended a laparotomy with indicated procedures. We are unable to localize a site of perforation in the abdomen as there is no extravasation of contrast. Clearly there is a perforation with the amount of free fluid and free air that is present. Komal is aware that she may have need of removal of a portion of her small bowel or abscess drainage or even possible colostomy. We have talked about all of the risks and benefits of the procedure and she is expressed a desire to proceed to the operating room tonight.
[2021-01-26] MEDS ORDERED: MIDAZOLAM 2 MG/2 ML VIAL ONE (18:56)
[2021-01-26] MEDS ORDERED: PHENYLEPHRINE 10 MG/ML VIAL ONE (18:57)
[2021-01-26] MEDS ORDERED: ROCURONIUM 50 MG/5 ML VIAL ONE ×2 (18:57→20:11)
[2021-01-26] MEDS ORDERED: fentaNYL 100 MCG/2 ML VIAL ONE ×3 (18:57→21:29)
[2021-01-26] MEDS ORDERED: LIDOCAINE-MPF 2% 5 ML VIAL ONE (18:58)
[2021-01-26] MEDS ORDERED: PROPOFOL 200 MG/20 ML VIAL IVP ONE (18:58)
--- NOTE | 2021-01-26 19:01 | ANESTHESIA ---
Pre-Anesthesia VS, & Labs - Diagnosis free fluid/air at CT abdomen, abd pain - Procedure exploratory laparotomy Vital Signs: Temp Pulse Resp BP Pulse Ox 37.0 C 81 17 96/66 96 01/26/21 15:07 01/26/21 18:47 01/26/21 18:47 01/26/21 18:47 01/26/21 18:47 Height: 5 ft 8 in Weight (kg): 63.503 kg Body Mass Index: 21.2 BMI Classification: Healthy weight - NPO >8 hours - Is Patient ?: No - Lab Results Current Lab Results: Laboratory Tests 01/26/21 15:20: Sodium 136, Potassium 3.7, Chloride 104, Carbon Dioxide 22, Anion Gap 10.0, BUN 22 H, Creatinine 1.0, Estimated GFR (MDRD) 59 L, Glucose 134 H, Calcium 8.6, Total Bilirubin 0.5, AST 18, ALT 25, Alkaline Phosphatase 43, Total Protein 6.0 L, Albumin 3.5, Globulin 2.5, Albumin/Globulin Ratio 1.4, Lipase 23 01/26/21 15:20: WBC 7.4, RBC 4.64, Hgb 15.2, Hct 45.4, MCV 97.8, MCH 32.8 H, MCHC 33.5, RDW 12.6, Plt Count 236, MPV 9.8, Neut # (Auto) Not Reportable, Lymph # (Auto) Not Reportable, [place] # (Auto) Not Reportable, Eos # (Auto) Not Reportable, Baso # (Auto) Not Reportable, Absolute Nucleated RBC Not Reportable, Total Counted 100, Band Neuts % (Manual) 34 H, Abnorm Lymph % (Manual) 0, Nucleated RBC % Not Reportable, Neutrophils # (Manual) 6.4, Lymphocytes # (Manual) 0.8 L, Monocytes # (Manual) 0.1, Eosinophils # (Manual) 0.1, Basophils # (Manual) 0.0, Differential Comment MANUAL DIFFERENTIAL, Platelet Estimate NORMAL (130-450,000), Platelet Morphology NORMAL APPEARANCE, RBC Morph Micro Appear NORMAL APPEARANCE Fish Bones: 01/26/21 15:20 01/26/21 15:20 Home Medications and Allergies Escitalopram Oxalate [Lexapro] 20 mg PO QPM 12/31/14 Promethazine [Phenergan] 25 mg PO TID 12/31/14 Topiramate 100 mg PO BID 12/31/14 clonazePAM [KlonoPIN] 1 mg PO DAILY 12/31/14 ondansetron HCL [Zofran] 8 mg PO TID PRN 12/31/14 Prazosin [Minipress] 6 mg PO QPM 04/22/15 Gabapentin 1,200 mg PO DAILY PM 01/20/16 Gabapentin 600 mg PO TID 01/20/16 cloNIDine [Catapres] 0.1 mg PO TID 03/04/16 Progesterone, Micronized [Progesterone] 200 mg PO DAILY 09/09/17 estradioL [Estradiol] 2 mg PO DAILY 11/07/18 Diphenoxylate/Atropine [Lomotil] 1 each PO QID PRN 06/04/20 Rimegepant Sulfate [Nurtec Odt] 75 mg SL DAILY PRN 12/09/20 Magnesium 500 mg PO DAILY 01/07/21 Riboflavin (Vitamin B2) [Riboflavin] 400 mg PO DAILY 01/07/21 ZOLMitriptan [Zolmitriptan] 1 spray NS DAILY 01/07/21 Allergies/Adverse Reactions: Allergies Allergy/AdvReac Type Severity Reaction Status Date / Time pineapple Allergy Severe Edema Verified 01/26/21 15:17 diphenhydramine HCl * Allergy Intermediate Itching Verified 01/26/21 15:17 [From Benadryl] Cephalosporins AdvReac Severe Respiratory Verified 01/26/21 15:17 doxycycline AdvReac Intermediate Emesis Verified 01/26/21 15:17 iron dextran complex AdvReac Intermediate Emesis Verified 01/26/21 15:17 prochlorperazine AdvReac Intermediate Emesis Verified 01/26/21 15:17 [From Compazine] prochlorperazine edisylate * AdvReac Intermediate Emesis Verified 01/26/21 15:17 [From Compazine] prochlorperazine maleate * AdvReac Intermediate Emesis Verified 01/26/21 15:17 [From Compazine] kiwi AdvReac Itching Verified 01/26/21 15:17 NSAIDS (Non-Steroidal AdvReac Unknown Verified 01/26/21 15:17 Anti-Inflamma cephalosporin Allergy Anaphylaxis Uncoded 01/26/21 15:17 Anes History & Medical History - Anesthetic History Anesthesia Complications: reports: No previous complications Family history of Anesthesia Complications: Denies Family history of Malignant Hyperthermia: Denies - Medical History Cardiovascular: reports: Hypertension Pulmonary: reports: None, Other Gastrointestinal: reports: GERD, Chronic diarrhea, Cholelithiasis, Other Urinary: reports: Other Neuro: reports: Migraines, Peripheral neuropathy Musculoskeletal: reports: Chronic back pain Endocrine/Autoimmune: reports: None Blood Disorders: reports: Anemia Skin: reports: None Smoking Status: Current every day smoker - Surgical History General: reports: Cholecystectomy, Gastric surgery Eyes Ears Nose Throat (EENT): reports: Tonsil/Adenoidectomy Gynecologic: reports: 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, Oophrectomy Orthopedic: reports: Rotator cuff repair Exam General: Alert, Oriented x3, Cooperative Dental: WNL Mouth Openin Fingerbreadth Neck Mobility: Normal Mallampati classification: II Thyromental Distance: 4-6 cm Respiratory: Lungs clear, Normal breath sounds, No respiratory distress Cardiovascular: Regular rate Neurological: Normal speech Mental/Cognitive Status: Alert/Oriented X3, Normal for patient Cognitive Status: Within normal limits Plan Anesthesia Type: General, Transverse Abdominis Plane (TAP) Block Regional Block: Per Surgeon's request for Post Op pain control Consent for Procedure(s) Verified and Reviewed: Yes Code Status: Attempt Resuscitation ASA classification: 2-Mild systemic disease Is this case an emergency?: Yes
[2021-01-26] MEDS ORDERED: ePHEDrine 50 MG/ML VIAL IVP PRN (19:02)
[2021-01-26] MEDS ORDERED: fentaNYL 100 MCG/2 ML VIAL IVP PRN (19:02)
[2021-01-26] MEDS ORDERED: HYDROmorphone 0.5 MG/0.5 ML SYRINGE IVP PRN (19:02)
[2021-01-26] MEDS ORDERED: ATROPINE ABBOJECT 1 MG/10 ML SYRINGE IVP PRN (19:02)
[2021-01-26] MEDS ORDERED: NALOXONE 0.4 MG/ML VIAL IVP PRN (19:02)
[2021-01-26] MEDS ORDERED: METOCLOPRAMIDE 10 MG/2 ML VIAL IVP PRN (19:02)
[2021-01-26] MEDS ORDERED: MORPHINE 2 MG/ML CARPUJECT IVP PRN (19:02)
[2021-01-26] MEDS ORDERED: ONDANSETRON 4 MG/2 ML VIAL IVP PRN (19:02)
[2021-01-26] MEDS ORDERED: BUPIVACAINE 0.5% PF 10 ML VIAL ONE ×2 (19:16→21:11)
[2021-01-26] MEDS ORDERED: LIDOCAINE 2%-EPI 1:100000 20 ML MDV ONE (19:16)
[2021-01-26 19:22] LABS: B. PARAPERTUSSIS- RESP PCR PAN NOT DETECTED; B. PERTUSSIS- RESP PCR PANEL NOT DETECTED; C. PNEUMONIAE- RESP PCR PANEL NOT DETECTED; CORONAVIRUS 229E-RESP PCR NOT DETECTED; CORONAVIRUS HKU1-RESP PCR NOT DETECTED; CORONAVIRUS NL63-RESP PCR NOT DETECTED; CORONAVIRUS OC43-RESP PCR NOT DETECTED; HUMAN METAPNEUMOVIRUS NOT DETECTED; INFLUENZA A- RESP PCR PANEL NOT DETECTED; INFLUENZA B - RESP PCR PANEL NOT DETECTED; PARAINFLUENZA VIRUS 1 NOT DETECTED; PARAINFLUENZA VIRUS 2 NOT DETECTED; PARAINFLUENZA VIRUS 3 NOT DETECTED; PARAINFLUENZA VIRUS 4 NOT DETECTED; RHINOVIRUS/ENTEROVIRUS NOT DETECTED; RSV- RESP PCR PANEL NOT DETECTED; SARS-CoV-2 -RESP PCR PANEL NOT DETECTED
[2021-01-26 19:23] LABS: M. PNEUMONIAE- RESP PCR PANEL NOT DETECTED
[2021-01-26] MEDS ORDERED: IOPAMIDOL-300 100 ML VIAL IVP ONE (19:32)
[2021-01-26] MEDS ORDERED: IOVERSOL 320 50 ML VIAL PO ONE (19:33)
[2021-01-26] MEDS ORDERED: LACTATED RINGERS 1,000 ML IV SCH (20:00)
[2021-01-26] MEDS ORDERED: DEXAMETHASONE 4 MG/ML VIAL ONE (20:09)
[2021-01-26] MEDS ORDERED: HYDROmorphone 1 MG/ML CARPUJECT ONE (20:20)
[2021-01-26] MEDS ORDERED: BUPIVACAINE 0.5% PF 10 ML VIAL SUBQ ONE (20:40)
[2021-01-26] MEDS ORDERED: LIDOCAINE 2%-EPI 1:100000 20 ML MDV SUBQ ONE (20:41)
[2021-01-26] MEDS ORDERED: SUGAMMADEX 200 MG/2 ML VIAL IVP ONE (21:07)
[2021-01-26] MEDS ORDERED: SODIUM CHLORIDE 0.9% 10 ML VIAL IVP ONE (21:11)
[2021-01-26] MEDS ORDERED: BENZOCAINE/TETRACAINE/BUTAMBEN 20 GM MM PRN (21:34)
[2021-01-26] MEDS ORDERED: LACTATED RINGERS 1,000 ML IV ONE (21:50)
--- NOTE | 2021-01-26 22:15 | ANESTHESIA POST OP EVALUATION ---
Anesthesia Post Eval - Post Anesthesia Eval Vitals: Last Vital Signs Temp 37 C 01/26/21 22:10 Pulse 90 01/26/21 22:10 Resp 22 01/26/21 22:10 BP 130/84 H 01/26/21 22:10 Pulse Ox 100 01/26/21 22:10 CV Function Including HR & BP: Stable Pain Control: Satisfactory (2/) Nausea & Vomiting: Negative Mental Status: Baseline (drowsy) Respiratory Status: Airway Patent Hydration Status: Satisfactory Anesthesia Complications: None
[2021-01-26] MEDS: NS W/20 MEQ KCL 1,000 ML IV SCH (22:45)
[2021-01-26] MEDS: PANTOPRAZOLE 40 MG VIAL IVP SCH (22:45)
--- NOTE | 2021-01-26 23:05 | CONSULTATION NOTE ---
Referring Provider Name of Referring Provider:: Lor Hammond MD Consult Date: 01/26/21 (Consultation was requested by the surgeon to assist with medication management in this patient who has complex background.) Chief Complaint - Chief Complaint Chief Complaint: Abdominal pain/perforated viscus History of Present Illness - Admitted From Admitted From:: Home - History Obtained From Records Reviewed: Per electronic medical record History obtained from: Patient, primary attending, medical record review Exam Limitations: Patient seen after surgery, somnolent - History of Present Illness HPI Comment/Other: The patient is a 50-year-old white female with past medical history of gastric bypass, bipolar disorder, headaches, mental health disease on multiple outp atient medications. As far as her surgical history she had multiple surgeries in the past which included lysis of adhesion. She presented to the ER on January 26 with severe abdominal pain, nausea, vomiting and not having a bowel movement for 2 days. She was found with perforated viscus/peritonitis, was urgently taken to the OR and admitted by the surgeon Dr. Hammond. Following the surgery medical consult was requested to review patient's complex medication list and to make recommendations, considering possibility of withdrawal and the fact that the patient is unable to take oral medications following abdominal/GI surgery. History - Past Medical History Cardiovascular: reports: Hypertension Respiratory: reports: None, Other Neuro: reports: Migraines, Peripheral neuropathy Endocrine/Autoimmune: reports: None GI: reports: GERD, Chronic diarrhea, Cholelithiasis, Other BOTTLE SORTER: reports: Ovarian cysts : reports: Other HEENT: reports: Chronic vision loss Psych: reports: Depression, Anxiety, Bipolar disorder, Panic attacks Musculoskeletal: reports: Chronic back pain Derm: reports: None MRSA Hx?: No - Past Surgical History General: reports: Cholecystectomy, Gastric surgery Ortho: reports: Rotator cuff repair /BOTTLE SORTER: reports: 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, Oophrectomy HEENT: reports: Tonsil/Adenoidectomy Meds/Allgy - Home Medications Home Medications: Ambulatory Orders Medication Instructions Recorded Confirmed Escitalopram Oxalate [Lexapro] 20 mg PO QPM 12/31/14 01/26/21 Promethazine [Phenergan] 25 mg PO TID 12/31/14 01/26/21 Topiramate 100 mg PO BID 12/31/14 01/26/21 clonazePAM [KlonoPIN] 1 mg PO DAILY 12/31/14 01/26/21 ondansetron HCL [Zofran] 8 mg PO TID PRN 12/31/14 01/26/21 Prazosin [Minipress] 6 mg PO QPM 04/22/15 01/26/21 Gabapentin 1,200 mg PO DAILY PM 01/20/16 12/09/20 Gabapentin 600 mg PO TID 01/20/16 01/26/21 cloNIDine [Catapres] 0.1 mg PO TID 03/04/16 01/26/21 Progesterone, Micronized 200 mg PO DAILY 09/09/17 01/26/21 [Progesterone] estradioL [Estradiol] 2 mg PO DAILY 11/07/18 12/09/20 Omeprazole 20 mg PO QDBREAKFAST #30 tablet. 05/24/19 01/26/21 Diphenoxylate/Atropine [Lomotil] 1 each PO QID PRN 06/04/20 12/09/20 Rimegepant Sulfate [Nurtec Odt] 75 mg SL DAILY PRN 12/09/20 12/09/20 Diphenoxylate/Atropine [Lomotil] 1 each PO QID PRN #90 tablet 01/07/21 Magnesium 500 mg PO DAILY 01/07/21 01/07/21 Riboflavin (Vitamin B2) 400 mg PO DAILY 01/07/21 01/07/21 [Riboflavin] ZOLMitriptan [Zolmitriptan] 1 spray NS DAILY 01/07/21 01/07/21 - Allergies Allergies/Adverse Reactions: Allergies Allergy/AdvReac Type Severity Reaction Status Date / Time pineapple Allergy Severe Edema Verified 01/26/21 15:17 diphenhydramine HCl * Allergy Intermediate Itching Verified 01/26/21 15:17 [From Benadryl] Cephalosporins AdvReac Severe Respiratory Verified 01/26/21 15:17 doxycycline AdvReac Intermediate Emesis Verified 01/26/21 15:17 iron dextran complex AdvReac Intermediate Emesis Verified 01/26/21 15:17 prochlorperazine AdvReac Intermediate Emesis Verified 01/26/21 15:17 [From Compazine] prochlorperazine edisylate * AdvReac Intermediate Emesis Verified 01/26/21 15:17 [From Compazine] prochlorperazine maleate * AdvReac Intermediate Emesis Verified 01/26/21 15:17 [From Compazine] kiwi AdvReac Itching Verified 01/26/21 15:17 NSAIDS (Non-Steroidal AdvReac Unknown Verified 01/26/21 15:17 Anti-Inflamma cephalosporin Allergy Anaphylaxis Uncoded 01/26/21 15:17 Review of Systems - Constitutional Constitutional: reports: Malaise - Gastrointestinal Gastrointestinal: reports: Abdominal pain, Abdominal distention, Constipation, Change in bowel habits, Nausea, Vomiting, Bloating Exam - Vital Signs Vital Signs: Vital Signs x48h Temp Pulse Pulse Resp BP BP Pulse Ox 01/26/21 22:30 86 13 120/78 96 01/26/21 22:21 94 12 127/87 H 95 01/26/21 22:15 90 19 124/83 H 96 01/26/21 22:10 37 C 90 22 130/84 H 100 01/26/21 22:05 90 19 124/77 100 01/26/21 22:00 87 83 11 L 125/78 125/78 100 01/26/21 21:55 80 83 11 L 118/65 116/69 100 01/26/21 21:50 36.9 C 84 86 10 L 113/71 113/71 99 01/26/21 18:47 81 17 96/66 96 01/26/21 17:50 74 13 100/60 95 01/26/21 17:44 75 16 90/59 L 97 01/26/21 17:36 74 13 94/60 97 01/26/21 17:25 78 16 89/56 L 97 01/26/21 17:13 57 L 16 218/74 H 01/26/21 16:32 77 16 92/55 L 97 01/26/21 16:30 84 16 92/55 L 98 01/26/21 15:07 37.0 C 86 16 103/63 100 - Physical Exam General Appearance: positive: No acute distress, Other (Well-developed young female who is seen after surgery, was drowsy and lethargic but easily arousable) Eyes Bilateral: positive: No scleral icterus ENT: positive: No signs of dehydration Neck: positive: Nml inspection Respiratory: positive: No respiratory distress, Breath sounds nml Cardiovascular: positive: Regular rate & rhythm Abdomen: positive: Other (Postsurgical abdomen with DMITRY drain) Skin: positive: Color nml, No rash, Warm Extremities: positive: No pedal edema Neurologic/Psychiatric: positive: Oriented x3 Conclusion/Plan - Problem List (1) Perforated abdominal viscus Conclusion/Plan: Perforated ulcer at gastric bypass anastomosis site/peritonitis/intra-abdominal abscess: -Management per surgery, currently n.p.o., receiving IV hydration -On appropriate IV antibiotic/zosyn plus on fluconazole, cultures pending (2) Mental health disorder Conclusion/Plan: History of bipolar disorder, migraine headaches, insomnia, anxiety /managed by neurology as outpatient. Notably the patient takes Topamax for headache not for seizure. She does not have history of seizure. She also reports no history of hypertension and takes medications such as alpha blockers for nightmares. To avoid withdrawal while the patient is n.p.o. we will use clonidine patch and continue Ativan as already ordered. When patient starts taking oral intake usual outpatient medications can be restarted. The medical service will follow and be available to adjust medications as needed. - Lab Results Fish Bones: 01/26/21 15:20 01/26/21 15:20 - Diagnostic Imaging Results Diagnostic Imaging Results: positive: Final report reviewed, See rad report - Other Other Results/Comments: Thank you Dr. Hammond to invite us to participate in the care of your patient. The medical service will follow. Time spent with consultation was 40 minutes.
[2021-01-26 23:28] LABS: BILIRUBIN,URINE NEGATIVE (NEGATIVE); GLUCOSE, URINE (UA) NEGATIVE (NEGATIVE); KETONES,URINE (UA) NEGATIVE (NEGATIVE); LEUKOCYTE ESTERASE, URINE NEGATIVE (NEGATIVE); NITRITE,URINE NEGATIVE (NEGATIVE); OCCULT BLOOD,URINE NEGATIVE (NEGATIVE); PH,URINE 5.5 PH (5.0-7.5); PROTEIN,URINE NEGATIVE (NEGATIVE); UROBILINOGEN,URINE 0.2 (NORMAL) E.U./dL (NORMAL)
[2021-01-26 23:30] LABS: CLARITY,URINE CLEAR (CLEAR)
[2021-01-26] MEDS ORDERED: cloNIDine 0.2 MG PATCH TOP SCH (23:45)
[2021-01-27] MEDS: ACETAMINOPHEN 1,000 MG/100 ML 100 ML IV SCH ×4 (00:10→18:06)
[2021-01-27] MEDS: SODIUM CHLORIDE FLUSH 0.9% 10 ML SYRINGE IVP SCH ×3 (03:17→17:56)
[2021-01-27] MEDS: LORazepam 2 MG/ML VIAL IVP PRN ×4 (03:22→20:13)
[2021-01-27 04:41] LABS: BASOPHILS % (AUTO) 0.4 %; EOSINOPHILS % (AUTO) 1.4 %; HCT - HEMATOCRIT 42.7 % (37.0-47.0); LYMPHOCYTES % (AUTO) 8.2 %; MEAN CORPUSCULAR HEMOGLOBIN 32.4 pg (27.0-31.0); MEAN CORPUSCULAR HGB CONC 32.8 g/dL (32.0-36.0); MEAN CORPUSCULAR VOLUME 98.8 fL (81.0-99.0); MEAN PLATELET VOLUME 10.4 fL (7.9-10.8); MONOCYTES % (AUTO) 3.2 %; NEUTROPHILS % (AUTO) 86.3 %; PLT - PLATELET COUNT 206 10^3/uL (130-450); RED BLOOD COUNT 4.32 10^6/uL (4.20-5.40); WHITE BLOOD COUNT 9.6 x10^3/uL (4.8-10.8)
[2021-01-27 04:44] LABS: ABNORMAL LYMPHS % (MANUAL) 0 %
[2021-01-27 04:55] LABS: ALBUMIN 2.9 g/dL (3.2-5.5); ALBUMIN/GLOBULIN RATIO 1.1 (1.0-2.2); BILIRUBIN,TOTAL 0.3 mg/dL (0.2-1.0); CREATININE 0.7 mg/dL (0.4-1.0); MAGNESIUM 1.6 mg/dL (1.7-2.8); PHOSPHORUS 2.9 mg/dL (2.5-4.6); POTASSIUM 3.9 mmol/L (3.5-5.0); TOTAL PROTEIN 5.5 g/dL (6.7-8.2)
[2021-01-27] MEDS: ONDANSETRON 4 MG/2 ML VIAL IVP PRN (05:00)
[2021-01-27] MEDS: MORPHINE 2 MG/ML CARPUJECT IVP PRN ×2 (05:21→07:49)
[2021-01-27 05:22] LABS: BAND NEUTROPHILS % (MANUAL) 15 %; DIFFERENTIAL COMMENT MANUAL DIFFERENTIAL; LYMPHOCYTES # (MANUAL) 1.2 10^3/uL (1.5-3.5); LYMPHOCYTES % (MANUAL) 12 %; MONOCYTES # (MANUAL) 0.5 10^3/uL (0.0-1.0); PLATELET ESTIMATE, MANUAL NORMAL (130-450,000) (NORMAL); RBC MORPHOLOGY (MULTIPLE) NORMAL APPEARANCE (NORMAL)
[2021-01-27] MEDS: PIPERACILLIN/TAZOBACTAM 3.375 GM in SODIUM CHLORIDE 0.9% MINIBAG 100 ML IV SCH ×3 (06:20→22:35)
[2021-01-27] MEDS ORDERED: TETRACAINE/BENZOCAINE/BUTAMBEN 5 GM BOTTLE MM PRN (06:55)
[2021-01-27] MEDS ORDERED: MAGNESIUM SULFATE 2 GRAM 2 GM/50 ML BAG IV ONE (08:11)
--- NOTE | 2021-01-27 08:14 | PROVIDER PROGRESS NOTE ---
Assessment/Plan - Problem List (1) Perforated abdominal viscus Assessment/Plan: Status post surgery. Postop day #1. Pain management with Dilaudid as needed. Patient receiving Phenergan and Zofran for nausea. Currently n.p.o. On tube feeds Patient has not had a bowel movement or pass gas yet. She is on empiric Zosyn General surgery is primary. (2) Hypomagnesemia Assessment/Plan: 2 mg IV of magnesium sulfate was administered x1. We will recheck with morning lab (3) Mental health disorder Assessment/Plan: Patient has history of bipolar disorder, anxiety, insomnia. She is on clonazepam, tramadol, Topamax, Rimegepant and zolmitriptan Will resume once appropriate to do so. - Current Meds Current Meds: Current Medications Generic Name Dose Route Start Last Admin Trade Name Freq PRN Reason Stop Dose Admin Clonidine HCl 1 patch 01/26/21 23:45 01/27/21 01:00 Clonidine 0.2 Mg Patch TOP 1 patch Q7D AMERICO Administration Potassium Chloride/Sodium Chloride 1,000 mls @ 120 mls/hr 01/26/21 22:00 01/26/21 22:45 Normal Saline 0.9% W/20 Meq Kcl IV 120 mls/hr .Q8H20M AMERICO Administration Piperacillin Sod/Tazobactam 100 mls @ 200 mls/hr 01/27/21 06:00 01/27/21 06:20 Sod 3.375 gm/ Sodium Chloride IV 200 mls/hr Q8HR AMERICO Administration Acetaminophen 100 mls @ 400 mls/hr 01/27/21 00:00 01/27/21 06:10 Ofirmev IV 01/28/21 23:59 Infused Q6HR AMERICO Infusion Lorazepam 0.5 mg 01/26/21 21:34 01/27/21 07:49 Lorazepam 2 Mg/Ml Vial IVP 0.5 mg Q1H PRN Administration Anxiety Morphine Sulfate 4 mg 01/27/21 04:59 01/27/21 07:49 Morphine 2 Mg/Ml Carpuject IVP 4 mg Q2HR PRN Administration PAIN Ondansetron HCl 4 mg 01/26/21 21:34 01/27/21 05:00 Ondansetron 4 Mg/2 Ml Vial IVP 4 mg Q6H PRN Administration Nausea / Vomiting Pantoprazole Sodium 40 mg 01/26/21 22:00 01/26/21 22:45 Pantoprazole 40 Mg Vial IVP 40 mg BID AMERICO Administration Sodium Chloride 10 ml 01/27/21 01:00 01/27/21 03:17 Sodium Chloride Flush 0.9% 10 Ml Syringe IVP 10 ml 0100,0900,1700 AMERICO Administration - Lab Result Fish Bone Diagrams: 01/28/21 04:29 01/28/21 04:29 - Additional Planning My Orders: My Active Orders 01/27/21 08:11 Magnesium Sulfate 2 Gram [Magnesium Sulfate] 2 gm in 50 ml IV ONCE Subjective - Subjective Patient Reports: Other (Patient was resting comfortably in bed at time of exam. However she rated her pain 10 out of 10. She denied chest pain or dyspnea. Percutaneous drainage tubes are in place draining serosanguineous fluid. NG tu be is in place with no significant output.) Objective Vital Signs: Vital Signs - 24 hr 01/26/21 01/26/21 01/26/21 15:07 16:30 16:32 Temperature 37.0 C Heart Rate 86 84 77 Heart Rate [ Monitoring electrodes] Respiratory 16 16 16 Rate Blood Pressure 103/63 92/55 L 92/55 L Blood Pressure [Left Brachial artery] O2 Saturation 100 98 97 01/26/21 01/26/21 01/26/21 17:13 17:25 17:36 Temperature Heart Rate 57 L 78 74 Heart Rate [ Monitoring electrodes] Respiratory 16 16 13 Rate Blood Pressure 218/74 H 89/56 L 94/60 Blood Pressure [Left Brachial artery] O2 Saturation 97 97 01/26/21 01/26/21 01/26/21 17:44 17:50 18:47 Temperature Heart Rate 75 74 81 Heart Rate [ Monitoring electrodes] Respiratory 16 13 17 Rate Blood Pressure 90/59 L 100/60 96/66 Blood Pressure [Left Brachial artery] O2 Saturation 97 95 96 01/26/21 01/26/21 01/26/21 21:50 21:55 22:00 Temperature 36.9 C Heart Rate 84 80 87 Heart Rate [ 86 83 83 Monitoring electrodes] Respiratory 10 L 11 L 11 L Rate Blood Pressure 113/71 118/65 125/78 Blood Pressure 113/71 116/69 125/78 [Left Brachial artery] O2 Saturation 99 100 100 01/26/21 01/26/21 01/26/21 22:05 22:10 22:15 Temperature 37 C Heart Rate 90 90 Heart Rate [ 90 Monitoring electrodes] Respiratory 19 22 19 Rate Blood Pressure 124/77 130/84 H Blood Pressure 124/83 H [Left Brachial artery] O2 Saturation 100 100 96 01/26/21 01/26/21 01/26/21 22:21 22:30 23:00 Temperature 36.8 C Heart Rate 94 Heart Rate [ 86 89 Monitoring electrodes] Respiratory 12 13 13 Rate Blood Pressure 127/87 H Blood Pressure 120/78 124/82 H [Left Brachial artery] O2 Saturation 95 96 94 01/27/21 01/27/21 01/27/21 00:00 02:04 05:00 Temperature 37.4 C Heart Rate Heart Rate [ 86 102 H 105 H Monitoring electrodes] Respiratory 13 20 16 Rate Blood Pressure Blood Pressure 125/84 H 132/79 H 136/94 H [Left Brachial artery] O2 Saturation 97 95 94 01/27/21 06:04 Temperature Heart Rate Heart Rate [ 104 H Monitoring electrodes] Respiratory 21 Rate Blood Pressure Blood Pressure 131/87 H [Left Brachial artery] O2 Saturation 95 Oxygen O2 Source Room air I&O (Last 24 Hrs): Intake and Output Totals x24h 01/25/21 01/26/21 01/27/21 23:59 23:59 23:59 Intake Total 1151 320 Output Total 106 980 Balance 1045 -660 General: Alert, Oriented x3, Moderate distress HEENT: PERRLA, EOMI Neck: Supple, No JVD Neuro: Alert, Non Focal, Oriented Times 3 Cardiovascular: Regular rate Abdomen: Normal bowel sounds, Soft, Other (Surgical site covered in bandage.) Extremities: No clubbing, No edema Skin: No rashes, No breakdown - Results Results: Laboratory Results WBC 9.6 x10^3/uL (4.8-10.8) 01/27/21 04:07 RBC 4.32 10^6/uL (4.20-5.40) 01/27/21 04:07 Hgb 14.0 g/dL (12.0-16.0) 01/27/21 04:07 Hct 42.7 % (37.0-47.0) 01/27/21 04:07 MCV 98.8 fL (81.0-99.0) 01/27/21 04:07 MCH 32.4 pg (27.0-31.0) H 01/27/21 04:07 MCHC 32.8 g/dL (32.0-36.0) 01/27/21 04:07 RDW 13.0 % (12.0-15.0) 01/27/21 04:07 Plt Count 206 10^3/uL (130-450) 01/27/21 04:07 MPV 10.4 fL (7.9-10.8) 01/27/21 04:07 Neut # (Auto) Not Reportable 01/27/21 04:07 Lymph # (Auto) Not Reportable 01/27/21 04:07 [place] # (Auto) Not Reportable 01/27/21 04:07 Eos # (Auto) Not Reportable 01/27/21 04:07 Baso # (Auto) Not Reportable 01/27/21 04:07 Absolute Nucleated RBC Not Reportable 01/27/21 04:07 Total Counted 100 01/27/21 04:07 Band Neuts % (Manual) 15 % (0-10) H 01/27/21 04:07 Abnorm Lymph % (Manual) 0 % 01/27/21 04:07 Nucleated RBC % Not Reportable 01/27/21 04:07 Neutrophils # (Manual) 8.0 10^3/uL (1.5-6.6) H 01/27/21 04:07 Lymphocytes # (Manual) 1.2 10^3/uL (1.5-3.5) L 01/27/21 04:07 Monocytes # (Manual) 0.5 10^3/uL (0.0-1.0) 01/27/21 04:07 Eosinophils # (Manual) 0.0 10^3/uL (0-0.7) 01/27/21 04:07 Basophils # (Manual) 0.0 10^3/uL (0-0.1) 01/27/21 04:07 Differential Comment MANUAL DIFFERENTIAL 01/27/21 04:07 Platelet Estimate NORMAL (130-450,000) (NORMAL) 01/27/21 04:07 Platelet Morphology NORMAL APPEARANCE (NORMAL) 01/26/21 15:20 RBC Morph Micro Appear NORMAL APPEARANCE (NORMAL) 01/27/21 04:07 Sodium 140 mmol/L (135-145) 01/27/21 04:07 Potassium 3.9 mmol/L (3.5-5.0) 01/27/21 04:07 Chloride 111 mmol/L (101-111) 01/27/21 04:07 Carbon Dioxide 20 mmol/L (21-32) L 01/27/21 04:07 Anion Gap 9.0 (6-13) 01/27/21 04:07 BUN 18 mg/dL (6-20) 01/27/21 04:07 Creatinine 0.7 mg/dL (0.4-1.0) 01/27/21 04:07 Estimated GFR (MDRD) 89 (>89) 01/27/21 04:07 Glucose 108 mg/dL (70-100) H 01/27/21 04:07 Calcium 8.0 mg/dL (8.5-10.3) L 01/27/21 04:07 Phosphorus 2.9 mg/dL (2.5-4.6) 01/27/21 04:07 Magnesium 1.6 mg/dL (1.7-2.8) L 01/27/21 04:07 Total Bilirubin 0.3 mg/dL (0.2-1.0) 01/27/21 04:07 AST 39 IU/L (10-42) 01/27/21 04:07 ALT 49 IU/L (10-60) 01/27/21 04:07 Alkaline Phosphatase 42 IU/L (42-121) 01/27/21 04:07 Total Protein 5.5 g/dL (6.7-8.2) L 01/27/21 04:07 Albumin 2.9 g/dL (3.2-5.5) L 01/27/21 04:07 Globulin 2.6 g/dL (2.1-4.2) 01/27/21 04:07 Albumin/Globulin Ratio 1.1 (1.0-2.2) 01/27/21 04:07 Lipase 23 U/L (22-51) 01/26/21 15:20 Urine Color YELLOW 01/26/21 23:10 Urine Clarity CLEAR (CLEAR) 01/26/21 23:10 Urine pH 5.5 PH (5.0-7.5) 01/26/21 23:10 Ur Specific [place] 1.020 (1.002-1.030) 01/26/21 23:10 Urine Protein NEGATIVE mg/dL (NEGATIVE) 01/26/21 23:10 Urine Glucose (UA) NEGATIVE mg/dL (NEGATIVE) 01/26/21 23:10 Urine Ketones NEGATIVE mg/dL (NEGATIVE) 01/26/21 23:10 Urine Occult Blood NEGATIVE (NEGATIVE) 01/26/21 23:10 Urine Nitrite NEGATIVE (NEGATIVE) 01/26/21 23:10 Urine Bilirubin NEGATIVE (NEGATIVE) 01/26/21 23:10 Urine Urobilinogen 0.2 (NORMAL) E.U./dL (NORMAL) 01/26/21 23:10 Ur Leukocyte Esterase NEGATIVE (NEGATIVE) 01/26/21 23:10 Ur Microscopic Review NOT INDICATED 01/26/21 23:10 Urine Culture Comments NOT INDICATED 01/26/21 23:10 Nasal Adenovirus (PCR) NOT DETECTED 01/26/21 18:20 Nasal B. parapertussis DNA (PCR) NOT DETECTED 01/26/21 18:20 Nasal Coronavir 229E PCR NOT DETECTED 01/26/21 18:20 Nasal Coronavir HKU1 PCR NOT DETECTED 01/26/21 18:20 Nasal Coronavir NL63 PCR NOT DETECTED 01/26/21 18:20 Nasal Coronavir OC43 PCR NOT DETECTED 01/26/21 18:20 Nasal Enterovir/Rhinovir PCR NOT DETECTED 01/26/21 18:20 Nasal Influenza B PCR NOT DETECTED 01/26/21 18:20 Nasal Influenza A PCR NOT DETECTED 01/26/21 18:20 Nasal Parainfluen 1 PCR NOT DETECTED 01/26/21 18:20 Nasal Parainfluen 2 PCR NOT DETECTED 01/26/21 18:20 Nasal Parainfluen 3 PCR NOT DETECTED 01/26/21 18:20 Nasal Parainfluen 4 PCR NOT DETECTED 01/26/21 18:20 Nasal RSV (PCR) NOT DETECTED 01/26/21 18:20 Nasal Screen MRSA (PCR) NEGATIVE (NEGATIVE) 01/26/21 21:50 Nasal B.pertussis DNA PCR NOT DETECTED 01/26/21 18:20 Nasal C.pneumoniae (PCR) NOT DETECTED 01/26/21 18:20 Félix Human Metapneumo PCR NOT DETECTED 01/26/21 18:20 Nasal M.pneumoniae (PCR) NOT DETECTED 01/26/21 18:20 Nasal SARS-CoV-2 (PCR) NOT DETECTED 01/26/21 18:20 - Procedures Procedures: Procedures EXCISION OF ESOPHAGUS, ENDO, DIAGN (07/31/20) EXCISION OF JEJUNUM, ENDO, DIAGN (07/31/20) EXCISION OF LOWER ESOPHAGUS, ENDO, DIAGN (05/24/19) EXCISION OF RECTUM, ENDO (05/24/19) EXCISION OF STOMACH, ENDO, DIAGN (07/31/20) RESECTION OF BILATERAL FALLOPIAN TUBES, PERC ENDO APPROACH (06/01/17) RESECTION OF BILATERAL OVARIES, PERC ENDO APPROACH (06/01/17) ABX Reporting Has patient been on IV antibiotics over the past 48 hours?: Yes
[2021-01-27] MEDS: FLUCONAZOLE 200 MG/100 ML 100 ML IV SCH (08:48)
[2021-01-27] MEDS: NS W/20 MEQ KCL 1,000 ML IV SCH ×2 (08:48→15:59)
[2021-01-27] MEDS: HYDROmorphone 1 MG/ML CARPUJECT IVP PRN ×6 (09:16→22:01)
[2021-01-27] MEDS: ENOXAPARIN 40 MG/0.4 ML SYRINGE SUBQ SCH (09:18)
[2021-01-27] MEDS: PROMETHAZINE INJ 25 MG in SODIUM CHLORIDE 0.9% 50 ML IV PRN (10:10)
[2021-01-27] MEDS: PANTOPRAZOLE 40 MG VIAL IVP SCH ×2 (11:07→21:12)
--- NOTE | 2021-01-27 12:46 | PHARMACY PROGRESS NOTE ---
- Best Possible Medication History Admit Date and Time: 01/26/212133 Processed by: Pharmacy Medication History completed: Yes Patient Interview: Completed Secondary Source(s): Pharmacy records, Insurance records As the person ultimately responsible for medication therapy, providers are able to order a medication from an existing home medication list in [facility] via the "Reconcile Routine" prior to Confirmation of that medication by clinical support specialist. Such practice is discouraged except when the physician, in their clinical judgment, deems that a medical need exists for a medication without regard to previous use.
[2021-01-27] MEDS ORDERED: HYDROmorphone PCA 20MG/100ML IV PRN (14:34)
[2021-01-27] MEDS: FOLIC ACID INJ 1 MG in SODIUM CHLORIDE 0.9% 50 ML IV SCH (14:40)
--- NOTE | 2021-01-27 14:52 | XRAY Report ---
PROCEDURE: Abdomen 1 View X-Ray INDICATIONS: Feeding tube placement TECHNIQUE: 1 view of the abdomen were acquired. COMPARISON: None FINDINGS: There is a weighted enteric tube present in the distal stomach. IMPRESSION: Distal tip of the weighted enteric tube is in the distal stomach. Reviewed by: Pavel Foley MD on 01/27/2021 2:51 PM PDT Approved by: Pavel Foley MD on 01/27/2021 2:51 PM PDT Station ID: [id number]
--- NOTE | 2021-01-27 15:05 | OPERATIVE REPORT ---
Operative Report - General Admit Date: 01/26/21 Procedure Date: 01/26/21 Planned Procedure: Exploratory laparotomy with indicated procedures Pre-Op Diagnosis: Perforated viscus Procedure Performed: Exploratory laparotomy with direct repair of perforated gastric ulcer, Magdaleno patch, appendectomy, evacuation of peritoneal abscess, drain placement, and feeding tube placement. Post Op Diagnosis: Perforated gastric ulcer with diffuse peritonitis - Procedure Note Primary Surgeon: Stephany Anesthesia Provider: LELO Munoz Anesthesia Technique: General ET tube, Local, Regional block Pathology: 1. Appendix to pathology in formalin 2. Aerobic culture of peritoneal fluid 3. Anaerobic culture of peritoneal fluid IV Fluids (mL): 2,300 Estimated Blood Loss (mL): 100 Drain/Tube Type: Gatito drain (1 19 [place] G[place] drain in the lesser sac - Exits the left upper quadrant 1 19 [place] drain in the pelvis - Its the right lower quadrant) Indications: Massive free air and free fluid on CT scan with physical examination evidence of peritonitis Findings: 2 cm perforation at the gastro jejunostomy with free peritoneal spillage of gastric contents and pelvic abscess Complications: None apparent - Other Other Information/Narrative: After obtaining informed consent, the patient is brought to the operating room and placed in the supine position on the operating table. Following successful induction of general endotracheal anesthesia, appropriate padding of all bony prominences, and placement of appropriate monitors, the abdomen was prepped and draped in the standard surgical fashion. A timeout was held per scope protocol. All elements of the surgical safety checklist were followed before, during, and after the procedure. We began the procedure by infiltrating a mixture of local anesthetics in the anterior abdominal wall. A midline incision was created and carried down through the skin and subcutaneous tissue. The abdomen was entered under direct vision. We immediately encountered a large volume of peritoneal fluid containing food particles and purulent material. Aerobic and anaerobic cultures were obtained. This fluid was aspirated from the peritoneal cavity and was approximately 2.2 L in all.Examination began following the areas of greatest staining to the lesser sac.The gastrojejunostomy was identified. There was gross contamination posterior to this anastomosis. A large perforation was identified which had partially sealed to the retroperitoneum.An NG tube was passed and under direct vision passed beyond the area of perforation. A weighted Dobbhoff feeding tube was passed in the opposite nare again beyond the area of perforation in 15 cm beyond the NG tube. Both of these were secured in place.The perforation was then addressed directly by closing it in 2 layers with interrupted 3-0 silk sutures. Once the edges had been well identified and insipidus exudate removed the tissue did appear to be well vascularized. A Magdaleno patch was created using a portion of the omentum of the transverse colon. This long strip was from the surrounding omentum without compromising its blood supply it was held into place over the repair. It is notable that the entire bowel and abdominal cavity were acutely inflamed the entire wall of the small bowel was thickened from the gastrojejunostomy all the way to the ileocecal valve. Once the ulcer had been repaired. The entire bowel was run from the ligament of Treitz to the ileocecal valve. The distal jejunojejunostomy was identified and was in good repair and widely patent. The colon was examined. It was found to be distended in the left upper quadrant. There was a large volume of abscess material in bilateral lower quadrants. I elected at this point to perform an appendectomy as the appendix was quite long and floating in this milia of infected material. This was done by ligating the appendiceal artery using clips and liberating the appendix from its attachment to the cecum using a 55 mm KAI stapling device. The appendix was passed from the table as a specimen. The abdomen was then irrigated copiously with approximately 5 L of warm saline solution and aspirated free of all fluid and particulate matter. A 19 [place] G[place] drain was placed on the surface of the Magdaleno patch and surrounding area in a circular fashion. It was brought through the abdomen in the left upper quadrant and sewn into place. A second 19 [place] G[place] drain was placed in the pelvis exiting the right lower quadrant. This was to prevent reaccumulation of fluid in this area of massive abscess. Once this had all been completed. The wound was checked once again for hemostasis. The abdominal incision was closed with 2 double stranded looped PDS sutures. Skin clips were applied in the skin and the wound was packed intermittently with Betadine soaked Nu Gauze. All sponge, needle, and instrument counts were correct at the conclusion of the case. The patient was allowed to wake from anesthesia without difficulty and taken to the intensive care unit in guarded condition.
--- NOTE | 2021-01-27 15:15 | PROVIDER PROGRESS NOTE ---
Subjective - General Admit Date: 01/26/21 Procedure Date: 01/26/21 Post Op Days: 1 Procedure Performed: Exploratory laparotomy with repair of gastric ulcer - Review of Systems Wound/Incisions: positive: Dressing dry and intact Drain Type: 19 [place] drains with serosanguineous fluid General: positive: Weakness HEENT: positive: No symptoms Pulmonary: positive: No symptoms Cardiovascular: positive: No symptoms Gastrointestinal: positive: Abdominal pain. negative: Nausea, Vomiting, Flatus, Constipation Genitourinary: positive: No symptoms All Other Systems: positive: Reviewed and negative Objective - Patient Data Reviewed Vital Signs: Yes Vital Signs: Vital Signs x48h Temp Pulse Resp BP Pulse Ox 01/27/21 10:04 37.7 C 103 H 20 142/90 H 95 01/27/21 09:00 108 H 24 146/95 H 95 01/27/21 08:00 108 H 17 151/95 H 96 Weight: Weight 01/25/21 01/26/21 01/27/21 23:59 23:59 23:59 Weight (kg) 62.5 kg 62.5 kg Intake & Output: Intake and Output Totals x24h 01/25/21 01/26/21 01/27/21 23:59 23:59 23:59 Intake Total 1151 2377 Output Total 106 1330 Balance 1045 1047 - Lab Results Lab Results: 01/27/21 04:07 01/27/21 04:07 Other Lab Results: Lab Results x24hrs 01/27/21 01/27/21 01/26/21 Range/Units 04:07 04:07 23:10 WBC 9.6 (4.8-10.8) x10^3/uL RBC 4.32 (4.20-5.40) 10^6/uL Hgb 14.0 (12.0-16.0) g/dL Hct 42.7 (37.0-47.0) % MCV 98.8 (81.0-99.0) fL MCH 32.4 H (27.0-31.0) pg MCHC 32.8 (32.0-36.0) g/dL RDW 13.0 (12.0-15.0) % Plt Count 206 (130-450) 10^3/uL MPV 10.4 (7.9-10.8) fL Neut # (Auto) Not Reportable Lymph # (Auto) Not Reportable [place] # (Auto) Not Reportable Eos # (Auto) Not Reportable Baso # (Auto) Not Reportable Absolute Nucleated RBC Not Reportable Total Counted 100 Band Neuts % (Manual) 15 H (0 - 10) % Abnorm Lymph % (Manual) 0 % Nucleated RBC % Not Reportable Neutrophils # (Manual) 8.0 H (1.5-6.6) 10^3/uL Lymphocytes # (Manual) 1.2 L (1.5-3.5) 10^3/uL Monocytes # (Manual) 0.5 (0.0-1.0) 10^3/uL Eosinophils # (Manual) 0.0 (0-0.7) 10^3/uL Basophils # (Manual) 0.0 (0-0.1) 10^3/uL Differential Comment MANUAL DIFFERENTIAL Platelet Estimate NORMAL (130-450,000) (NORMAL) Platelet Morphology (NORMAL) RBC Morph Micro Appear NORMAL APPEARANCE (NORMAL) Sodium 140 (135-145) mmol/L Potassium 3.9 (3.5-5.0) mmol/L Chloride 111 (101-111) mmol/L Carbon Dioxide 20 L (21-32) mmol/L Anion Gap 9.0 (6-13) BUN 18 (6-20) mg/dL Creatinine 0.7 (0.4-1.0) mg/dL Estimated GFR (MDRD) 89 (>89) Glucose 108 H (70-100) mg/dL Calcium 8.0 L (8.5-10.3) mg/dL Phosphorus 2.9 (2.5-4.6) mg/dL Magnesium 1.6 L (1.7-2.8) mg/dL Total Bilirubin 0.3 (0.2-1.0) mg/dL AST 39 (10-42) IU/L ALT 49 (10-60) IU/L Alkaline Phosphatase 42 (42-121) IU/L Total Protein 5.5 L (6.7-8.2) g/dL Albumin 2.9 L (3.2-5.5) g/dL Globulin 2.6 (2.1-4.2) g/dL Albumin/Globulin Ratio 1.1 (1.0-2.2) Lipase (22-51) U/L Urine Color YELLOW Urine Clarity CLEAR (CLEAR) Urine pH 5.5 (5.0-7.5) PH Ur Specific [place] 1.020 (1.002-1.030) Urine Protein NEGATIVE (NEGATIVE) mg/dL Urine Glucose (UA) NEGATIVE (NEGATIVE) mg/dL Urine Ketones NEGATIVE (NEGATIVE) mg/dL Urine Occult Blood NEGATIVE (NEGATIVE) Urine Nitrite NEGATIVE (NEGATIVE) Urine Bilirubin NEGATIVE (NEGATIVE) Urine Urobilinogen 0.2 (NORMAL) (NORMAL) E.U./dL Ur Leukocyte Esterase NEGATIVE (NEGATIVE) Ur Microscopic Review NOT INDICATED Urine Culture Comments NOT INDICATED Nasal Adenovirus (PCR) Nasal B. parapertussis DNA (PCR) Nasal Coronavir 229E PCR Nasal Coronavir HKU1 PCR Nasal Coronavir NL63 PCR Nasal Coronavir OC43 PCR Nasal Enterovir/Rhinovir PCR Nasal Influenza B PCR Nasal Influenza A PCR Nasal Parainfluen 1 PCR Nasal Parainfluen 2 PCR Nasal Parainfluen 3 PCR Nasal Parainfluen 4 PCR Nasal RSV (PCR) Nasal Screen MRSA (PCR) (NEGATIVE) Nasal B.pertussis DNA PCR Nasal C.pneumoniae (PCR) Félix Human Metapneumo PCR Nasal M.pneumoniae (PCR) Nasal SARS-CoV-2 (PCR) 01/26/21 01/26/21 01/26/21 Range/Units 21:50 18:20 15:20 WBC (4.8-10.8) x10^3/uL RBC (4.20-5.40) 10^6/uL Hgb (12.0-16.0) g/dL Hct (37.0-47.0) % MCV (81.0-99.0) fL MCH (27.0-31.0) pg MCHC (32.0-36.0) g/dL RDW (12.0-15.0) % Plt Count (130-450) 10^3/uL MPV (7.9-10.8) fL Neut # (Auto) Lymph # (Auto) [place] # (Auto) Eos # (Auto) Baso # (Auto) Absolute Nucleated RBC Total Counted Band Neuts % (Manual) (0 - 10) % Abnorm Lymph % (Manual) % Nucleated RBC % Neutrophils # (Manual) (1.5-6.6) 10^3/uL Lymphocytes # (Manual) (1.5-3.5) 10^3/uL Monocytes # (Manual) (0.0-1.0) 10^3/uL Eosinophils # (Manual) (0-0.7) 10^3/uL Basophils # (Manual) (0-0.1) 10^3/uL Differential Comment Platelet Estimate (NORMAL) Platelet Morphology (NORMAL) RBC Morph Micro Appear (NORMAL) Sodium 136 (135-145) mmol/L Potassium 3.7 (3.5-5.0) mmol/L Chloride 104 (101-111) mmol/L Carbon Dioxide 22 (21-32) mmol/L Anion Gap 10.0 (6-13) BUN 22 H (6-20) mg/dL Creatinine 1.0 (0.4-1.0) mg/dL Estimated GFR (MDRD) 59 L (>89) Glucose 134 H (70-100) mg/dL Calcium 8.6 (8.5-10.3) mg/dL Phosphorus (2.5-4.6) mg/dL Magnesium (1.7-2.8) mg/dL Total Bilirubin 0.5 (0.2-1.0) mg/dL AST 18 (10-42) IU/L ALT 25 (10-60) IU/L Alkaline Phosphatase 43 (42-121) IU/L Total Protein 6.0 L (6.7-8.2) g/dL Albumin 3.5 (3.2-5.5) g/dL Globulin 2.5 (2.1-4.2) g/dL Albumin/Globulin Ratio 1.4 (1.0-2.2) Lipase 23 (22-51) U/L Urine Color Urine Clarity (CLEAR) Urine pH (5.0-7.5) PH Ur Specific [place] (1.002-1.030) Urine Protein (NEGATIVE) mg/dL Urine Glucose (UA) (NEGATIVE) mg/dL Urine Ketones (NEGATIVE) mg/dL Urine Occult Blood (NEGATIVE) Urine Nitrite (NEGATIVE) Urine Bilirubin (NEGATIVE) Urine Urobilinogen (NORMAL) E.U./dL Ur Leukocyte Esterase (NEGATIVE) Ur Microscopic Review Urine Culture Comments Nasal Adenovirus (PCR) NOT DETECTED Nasal B. parapertussis DNA (PCR) NOT DETECTED Nasal Coronavir 229E PCR NOT DETECTED Nasal Coronavir HKU1 PCR NOT DETECTED Nasal Coronavir NL63 PCR NOT DETECTED Nasal Coronavir OC43 PCR NOT DETECTED Nasal Enterovir/Rhinovir PCR NOT DETECTED Nasal Influenza B PCR NOT DETECTED Nasal Influenza A PCR NOT DETECTED Nasal Parainfluen 1 PCR NOT DETECTED Nasal Parainfluen 2 PCR NOT DETECTED Nasal Parainfluen 3 PCR NOT DETECTED Nasal Parainfluen 4 PCR NOT DETECTED Nasal RSV (PCR) NOT DETECTED Nasal Screen MRSA (PCR) NEGATIVE (NEGATIVE) Nasal B.pertussis DNA PCR NOT DETECTED Nasal C.pneumoniae (PCR) NOT DETECTED Félix Human Metapneumo PCR NOT DETECTED Nasal M.pneumoniae (PCR) NOT DETECTED Nasal SARS-CoV-2 (PCR) NOT DETECTED 01/26/21 Range/Units 15:20 WBC 7.4 (4.8-10.8) x10^3/uL RBC 4.64 (4.20-5.40) 10^6/uL Hgb 15.2 (12.0-16.0) g/dL Hct 45.4 (37.0-47.0) % MCV 97.8 (81.0-99.0) fL MCH 32.8 H (27.0-31.0) pg MCHC 33.5 (32.0-36.0) g/dL RDW 12.6 (12.0-15.0) % Plt Count 236 (130-450) 10^3/uL MPV 9.8 (7.9-10.8) fL Neut # (Auto) Not Reportable Lymph # (Auto) Not Reportable [place] # (Auto) Not Reportable Eos # (Auto) Not Reportable Baso # (Auto) Not Reportable Absolute Nucleated RBC Not Reportable Total Counted 100 Band Neuts % (Manual) 34 H (0 - 10) % Abnorm Lymph % (Manual) 0 % Nucleated RBC % Not Reportable Neutrophils # (Manual) 6.4 (1.5-6.6) 10^3/uL Lymphocytes # (Manual) 0.8 L (1.5-3.5) 10^3/uL Monocytes # (Manual) 0.1 (0.0-1.0) 10^3/uL Eosinophils # (Manual) 0.1 (0-0.7) 10^3/uL Basophils # (Manual) 0.0 (0-0.1) 10^3/uL Differential Comment MANUAL DIFFERENTIAL Platelet Estimate NORMAL (130-450,000) (NORMAL) Platelet Morphology NORMAL APPEARANCE (NORMAL) RBC Morph Micro Appear NORMAL APPEARANCE (NORMAL) Sodium (135-145) mmol/L Potassium (3.5-5.0) mmol/L Chloride (101-111) mmol/L Carbon Dioxide (21-32) mmol/L Anion Gap (6-13) BUN (6-20) mg/dL Creatinine (0.4-1.0) mg/dL Estimated GFR (MDRD) (>89) Glucose (70-100) mg/dL Calcium (8.5-10.3) mg/dL Phosphorus (2.5-4.6) mg/dL Magnesium (1.7-2.8) mg/dL Total Bilirubin (0.2-1.0) mg/dL AST (10-42) IU/L ALT (10-60) IU/L Alkaline Phosphatase (42-121) IU/L Total Protein (6.7-8.2) g/dL Albumin (3.2-5.5) g/dL Globulin (2.1-4.2) g/dL Albumin/Globulin Ratio (1.0-2.2) Lipase (22-51) U/L Urine Color Urine Clarity (CLEAR) Urine pH (5.0-7.5) PH Ur Specific [place] (1.002-1.030) Urine Protein (NEGATIVE) mg/dL Urine Glucose (UA) (NEGATIVE) mg/dL Urine Ketones (NEGATIVE) mg/dL Urine Occult Blood (NEGATIVE) Urine Nitrite (NEGATIVE) Urine Bilirubin (NEGATIVE) Urine Urobilinogen (NORMAL) E.U./dL Ur Leukocyte Esterase (NEGATIVE) Ur Microscopic Review Urine Culture Comments Nasal Adenovirus (PCR) Nasal B. parapertussis DNA (PCR) Nasal Coronavir 229E PCR Nasal Coronavir HKU1 PCR Nasal Coronavir NL63 PCR Nasal Coronavir OC43 PCR Nasal Enterovir/Rhinovir PCR Nasal Influenza B PCR Nasal Influenza A PCR Nasal Parainfluen 1 PCR Nasal Parainfluen 2 PCR Nasal Parainfluen 3 PCR Nasal Parainfluen 4 PCR Nasal RSV (PCR) Nasal Screen MRSA (PCR) (NEGATIVE) Nasal B.pertussis DNA PCR Nasal C.pneumoniae (PCR) Félix Human Metapneumo PCR Nasal M.pneumoniae (PCR) Nasal SARS-CoV-2 (PCR) - Current Medications Current Medications: Current Medications Generic Name Dose Route Start Last Admin Trade Name Freq PRN Reason Stop Dose Admin Clonidine HCl 1 patch 01/26/21 23:45 01/27/21 01:00 Clonidine 0.2 Mg Patch TOP 1 patch Q7D AMERICO Administration Enoxaparin Sodium 40 mg 01/27/21 09:00 01/27/21 09:18 Enoxaparin 40 Mg/0.4 Ml Syringe SUBQ 40 mg DAILY AMERICO Administration Hydromorphone HCl 1 mg 01/27/21 08:58 01/27/21 12:10 Hydromorphone 1 Mg/Ml Carpuject IVP 1 mg Q3HR PRN Administration PAIN Potassium Chloride/Sodium Chloride 1,000 mls @ 120 mls/hr 01/26/21 22:00 01/27/21 14:41 Normal Saline 0.9% W/20 Meq Kcl IV 120 mls/hr .Q8H20M AMERICO Infusion Piperacillin Sod/Tazobactam 100 mls @ 200 mls/hr 01/27/21 06:00 01/27/21 07 :00 Sod 3.375 gm/ Sodium Chloride IV Infused Q8HR AMERICO Infusion Acetaminophen 100 mls @ 400 mls/hr 01/27/21 00:00 01/27/21 13:10 Ofirmev IV 01/28/21 23:59 Infused Q6HR AMERICO Infusion Fluconazole 100 mls @ 100 mls/hr 01/27/21 09:00 01/27/21 09:50 Diflucan 200 Mg/100 Ml IV Infused DAILY AMERICO Infusion Promethazine HCl 25 mg/ Sodium 51 mls @ 100 mls/hr 01/27/21 08:58 01/27/21 11:43 Chloride IV Infused Q6H PRN Infusion Nausea / Vomiting Folic Acid 1 mg/ Sodium 50.2 mls @ 100 mls/hr 01/27/21 13:30 01/27/21 14:40 Chloride IV 100 mls/hr DAILY AMERICO Administration Lorazepam 0.5 mg 01/26/21 21:34 01/27/21 12:08 Lorazepam 2 Mg/Ml Vial IVP 0.5 mg Q1H PRN Administration Anxiety Ondansetron HCl 4 mg 01/26/21 21:34 01/27/21 05:00 Ondansetron 4 Mg/2 Ml Vial IVP 4 mg Q6H PRN Administration Nausea / Vomiting Pantoprazole Sodium 40 mg 01/26/21 22:00 01/27/21 11:07 Pantoprazole 40 Mg Vial IVP 40 mg BID AMERICO Administration Sodium Chloride 10 ml 01/27/21 01:00 01/27/21 11:03 Sodium Chloride Flush 0.9% 10 Ml Syringe IVP 10 ml 0100,0900,1700 AMERICO Administration - Physical Exam Wound/Incisions: positive: Dressing dry and intact General Appearance: positive: Mild distress Eyes Bilateral: positive: Normal inspection, PERRL, EOMI Neck: positive: Nml inspection Respiratory: positive: No respiratory distress Cardiovascular: positive: Regular rate & rhythm Abdomen: positive: Tenderness, Guarding, Other (Quiet) Skin: positive: Color nml ABX Reporting Has patient been on IV antibiotics over the past 48 hours?: Yes Impression/Plan - Problem List Problem List: Perforated gastric ulcer with diffuse peritonitis. Feeding tube and NG are in place. Nutritional support is been consulted and will start tube feeds. Appreciate hospitalist help with medical issues. Pain is an issue. We will start WARE FINISHER with a basal rate. Nothing p.o.Will review placement x-ray.
[2021-01-27] MEDS: HYDROmorphone PCA 20MG/100ML IV PRN (22:25)
[2021-01-28] MEDS: LORazepam 2 MG/ML VIAL IVP PRN ×7 (00:06→23:12)
[2021-01-28] MEDS: ACETAMINOPHEN 1,000 MG/100 ML 100 ML IV SCH ×4 (00:55→18:10)
[2021-01-28] MEDS: NS W/20 MEQ KCL 1,000 ML IV SCH ×3 (04:36→14:56)
[2021-01-28] MEDS: SODIUM CHLORIDE FLUSH 0.9% 10 ML SYRINGE IVP SCH ×3 (04:37→18:09)
[2021-01-28 05:47] LABS: BASOPHILS % (AUTO) 0.4 %; EOSINOPHILS # (AUTO) 0.2 10^3/uL (0.0-0.7); EOSINOPHILS % (AUTO) 1.8 %; HCT - HEMATOCRIT 42.4 % (37.0-47.0); HGB - HEMOGLOBIN 13.7 g/dL (12.0-16.0); LYMPHOCYTES # (AUTO) 0.8 10^3/uL (1.5-3.5); LYMPHOCYTES % (AUTO) 9.4 %; MEAN CORPUSCULAR HEMOGLOBIN 32.2 pg (27.0-31.0); MEAN CORPUSCULAR HGB CONC 32.3 g/dL (32.0-36.0); MEAN CORPUSCULAR VOLUME 99.8 fL (81.0-99.0); MEAN PLATELET VOLUME 10.6 fL (7.9-10.8); MONOCYTES # (AUTO) 0.4 10^3/uL (0.0-1.0); NEUTROPHILS # (AUTO) 7.5 10^3/uL (1.5-6.6); PLT - PLATELET COUNT 258 10^3/uL (130-450); RED BLOOD COUNT 4.25 10^6/uL (4.20-5.40); RED CELL DISTRIBUTION WIDTH 13.2 % (12.0-15.0)
[2021-01-28 05:59] LABS: BILIRUBIN,TOTAL 0.4 mg/dL (0.2-1.0); CALCIUM 8.7 mg/dL (8.5-10.3); CREATININE 0.5 mg/dL (0.4-1.0); POTASSIUM 4.6 mmol/L (3.5-5.0); TOTAL PROTEIN 6.1 g/dL (6.7-8.2)
[2021-01-28 06:02] LABS: MAGNESIUM 2.1 mg/dL (1.7-2.8); PHOSPHORUS 1.6 mg/dL (2.5-4.6)
[2021-01-28] MEDS: PIPERACILLIN/TAZOBACTAM 3.375 GM in SODIUM CHLORIDE 0.9% MINIBAG 100 ML IV SCH ×3 (06:10→22:18)
--- NOTE | 2021-01-28 07:48 | PROVIDER PROGRESS NOTE ---
Assessment/Plan - Problem List (1) Perforated abdominal viscus Assessment/Plan: Status post surgery. Postop day #2. Pain management with Dilaudid AUDIOLOGY ASSISTANT. Patient receiving Phenergan and Zofran for nausea. Currently n.p.o. On tube feeds Patient has not had a bowel movement or passed gas yet. She is on empiric Zosyn General surgery is primary.Dr. Hammond will readdress Josefina which is currently not working (2) Hypomagnesemia Assessment/Plan: Resolved (3) Mental health disorder Assessment/Plan: Patient has history of bipolar disorder, anxiety, insomnia. She is on clonazepam, tramadol, Topamax, Rimegepant and zolmitriptan Will resume once appropriate to do so. - Current Meds Current Meds: Current Medications Generic Name Dose Route Start Last Admin Trade Name Freq PRN Reason Stop Dose Admin Clonidine HCl 1 patch 01/26/21 23:45 01/27/21 01:00 Clonidine 0.2 Mg Patch TOP 1 patch Q7D AMERICO Administration Enoxaparin Sodium 40 mg 01/27/21 09:00 01/27/21 09:18 Enoxaparin 40 Mg/0.4 Ml Syringe SUBQ 40 mg DAILY AMERICO Administration Hydromorphone HCl 20 mg 01/27/21 15:19 01/27/21 22:25 Hydromorphone Sap Project Manager 20mg/100ml IV 20 mg PRN PRN Administration Abdominal Pain Protocol Hydromorphone HCl 1 mg 01/27/21 15:25 01/27/21 22:01 Hydromorphone 1 Mg/Ml Carpuject IVP 1 mg Q2HR PRN Administration PAIN Potassium Chloride/Sodium Chloride 1,000 mls @ 120 mls/hr 01/26/21 22:00 04:36 Normal Saline 0.9% W/20 Meq Kcl IV 120 mls/hr .Q8H20M AMERICO Administration Piperacillin Sod/Tazobactam 100 mls @ 200 mls/hr 01/27/21 06:00 01/28/21 06:10 Sod 3.375 gm/ Sodium Chloride IV 200 mls/hr Q8HR AMERICO Administration Acetaminophen 100 mls @ 400 mls/hr 01/27/21 00:00 01/28/21 06:09 Ofirmev IV 01/28/21 23:59 400 mls/hr Q6HR AMERICO Administration Fluconazole 100 mls @ 100 mls/hr 01/27/21 09:00 01/27/21 09:50 Diflucan 200 Mg/100 Ml IV Infused DAILY AMERICO Infusion Promethazine HCl 25 mg/ Sodium 51 mls @ 100 mls/hr 01/27/21 08:58 01/27/21 11:43 Chloride IV Infused Q6H PRN Infusion Nausea / Vomiting Folic Acid 1 mg/ Sodium 50.2 mls @ 100 mls/hr 01/27/21 13:30 01/27/21 14:40 Chloride IV 100 mls/hr DAILY AMERICO Administration Lorazepam 0.5 mg 01/26/21 21:34 01/28/21 03:36 Lorazepam 2 Mg/Ml Vial IVP 0.5 mg Q1H PRN Administration Anxiety Ondansetron HCl 4 mg 01/26/21 21:34 01/27/21 05:00 Ondansetron 4 Mg/2 Ml Vial IVP 4 mg Q6H PRN Administration Nausea / Vomiting Pantoprazole Sodium 40 mg 01/26/21 22:00 01/27/21 21:12 Pantoprazole 40 Mg Vial IVP 40 mg BID AMERICO Administration Sodium Chloride 10 ml 01/27/21 01:00 01/28/21 04:37 Sodium Chloride Flush 0.9% 10 Ml Syringe IVP Not Given 0100,0900,1700 AMERICO - Lab Result Fish Bone Diagrams: 01/28/21 04:29 01/28/21 04:29 - Additional Planning My Orders: My Active Orders 01/27/21 08:58 Promethazine Inj [Phenergan Inj] 25 mg Sodium Chloride 0.9% [Normal Saline 0.9%] 50 ml IV Q6H 01/27/21 13:30 Folic Acid Inj [Folic Acid] 1 mg Sodium Chloride 0.9% [Normal Saline 0.9%] 50 ml IV DAILY 01/27/21 15:25 HYDROmorphone 1MG CARP [Dilaudid 1Mg Carp] 1 mg IVP Q2HR PRN Subjective - Subjective Patient Reports: Other (Patient was resting comfortably in bed at time of exam however she reports abdominal pain when asked. Last night she pulled out her NG tube. There is decreased output in percutaneous drainage tubes. No bowel movement or flatulence) Objective Vital Signs: Vital Signs - 24 hr 01/27/21 01/27/21 01/27/21 08:00 09:00 10:04 Temperature 37.7 C Heart Rate [ 108 H 108 H 103 H Monitoring electrodes] Respiratory 17 24 20 Rate Blood Pressure 151/95 H 146/95 H 142/90 H [Left Brachial artery] O2 Saturation 96 95 95 01/27/21 01/27/21 01/27/21 11:00 12:00 13:00 Temperature Heart Rate [ 102 H 106 H 102 H Monitoring electrodes] Respiratory 21 18 20 Rate Blood Pressure 140/100 H 141/88 H 141/82 H [Left Brachial artery] O2 Saturation 95 94 92 01/27/21 01/27/21 01/27/21 14:00 15:00 16:33 Temperature 37.6 C Heart Rate [ 100 96 100 Monitoring electrodes] Respiratory 20 22 20 Rate Blood Pressure 143/91 H 148/97 H 153/97 H [Left Brachial artery] O2 Saturation 95 96 95 01/27/21 01/27/21 01/27/21 17:13 18:00 19:00 Temperature 37.2 C Heart Rate [ 95 101 H 95 Monitoring electrodes] Respiratory 19 23 21 Rate Blood Pressure 151/94 H 159/99 H 148/97 H [Left Brachial artery] O2 Saturation 95 95 94 01/27/21 01/27/21 01/27/21 20:00 21:00 22:00 Temperature Heart Rate [ 99 97 92 Monitoring electrodes] Respiratory 24 20 16 Rate Blood Pressure 161/95 H 156/97 H 154/99 H [Left Brachial artery] O2 Saturation 99 95 96 01/27/21 01/28/21 01/28/21 23:00 00:00 00:57 Temperature 37.1 C Heart Rate [ 96 89 Monitoring electrodes] Respiratory 17 17 16 Rate Blood Pressure 152/99 H 166/104 H [Left Brachial artery] O2 Saturation 96 95 01/28/21 01/28/21 01/28/21 01:00 02:00 03:00 Temperature Heart Rate [ 88 82 85 Monitoring electrodes] Respiratory 18 18 19 Rate Blood Pressure 137/96 H 145/106 H 138/96 H [Left Brachial artery] O2 Saturation 95 95 95 01/28/21 01/28/21 01/28/21 04:00 05:31 06:00 Temperature 37.1 C Heart Rate [ 92 84 88 Monitoring electrodes] Respiratory 18 16 17 Rate Blood Pressure 151/93 H 144/100 H 141/92 H [Left Brachial artery] O2 Saturation 93 93 92 01/28/21 01/28/21 06:52 06:59 Temperature Heart Rate [ 85 Monitoring electrodes] Respiratory 14 15 Rate Blood Pressure 125/90 H [Left Brachial artery] O2 Saturation 90 L Oxygen O2 Source Room air I&O (Last 24 Hrs): Intake and Output Totals x24h 01/26/21 01/27/21 01/28/21 23:59 23:59 23:59 Intake Total 1151 3038.00 1327 Output Total 106 3890 1770 Balance 1045 -852.00 -443 General: Alert, Oriented x3, Moderate distress HEENT: PERRLA, EOMI Neck: Supple, No JVD Neuro: Alert, Non Focal, Oriented Times 3 Cardiovascular: Regular rate Respiratory: Chest non-tender, No respiratory distress, Breath sounds nml Abdomen: Soft, Other (Moderate tenderness, Decreased bowel sounds) Extremities: No clubbing, No cyanosis, No edema Skin: No rashes, No breakdown, No significant lesion - Results Results: Laboratory Results WBC 9.0 x10^3/uL (4.8-10.8) 01/28/21 04:29 RBC 4.25 10^6/uL (4.20-5.40) 01/28/21 04:29 Hgb 13.7 g/dL (12.0-16.0) 01/28/21 04:29 Hct 42.4 % (37.0-47.0) 01/28/21 04:29 MCV 99.8 fL (81.0-99.0) H 01/28/21 04:29 MCH 32.2 pg (27.0-31.0) H 01/28/21 04:29 MCHC 32.3 g/dL (32.0-36.0) 01/28/21 04:29 RDW 13.2 % (12.0-15.0) 01/28/21 04:29 Plt Count 258 10^3/uL (130-450) 01/28/21 04:29 MPV 10.6 fL (7.9-10.8) 01/28/21 04:29 Neut # (Auto) 7.5 10^3/uL (1.5-6.6) H 01/28/21 04:29 Lymph # (Auto) 0.8 10^3/uL (1.5-3.5) L 01/28/21 04:29 [place] # (Auto) 0.4 10^3/uL (0.0-1.0) 01/28/21 04:29 Eos # (Auto) 0.2 10^3/uL (0.0-0.7) 01/28/21 04:29 Baso # (Auto) 0.0 10^3/uL (0.0-0.1) 01/28/21 04:29 Absolute Nucleated RBC 0.00 x10^3/uL 01/28/21 04:29 Total Counted 100 01/27/21 04:07 Band Neuts % (Manual) 15 % (0-10) H 01/27/21 04:07 Abnorm Lymph % (Manual) 0 % 01/27/21 04:07 Nucleated RBC % 0.0 /100WBC 01/28/21 04:29 Neutrophils # (Manual) 8.0 10^3/uL (1.5-6.6) H 01/27/21 04:07 Lymphocytes # (Manual) 1.2 10^3/uL (1.5-3.5) L 01/27/21 04:07 Monocytes # (Manual) 0.5 10^3/uL (0.0-1.0) 01/27/21 04:07 Eosinophils # (Manual) 0.0 10^3/uL (0-0.7) 01/27/21 04:07 Basophils # (Manual) 0.0 10^3/uL (0-0.1) 01/27/21 04:07 Differential Comment MANUAL DIFFERENTIAL 01/27/21 04:07 Platelet Estimate NORMAL (130-450,000) (NORMAL) 01/27/21 04:07 Platelet Morphology NORMAL APPEARANCE (NORMAL) 01/26/21 15:20 RBC Morph Micro Appear NORMAL APPEARANCE (NORMAL) 01/27/21 04:07 Sodium 140 mmol/L (135-145) 01/28/21 04:29 Potassium 4.6 mmol/L (3.5-5.0) 01/28/21 04:29 Chloride 108 mmol/L (101-111) 01/28/21 04:29 Carbon Dioxide 24 mmol/L (21-32) 01/28/21 04:29 Anion Gap 8.0 (6-13) 01/28/21 04:29 BUN 9 mg/dL (6-20) 01/28/21 04:29 Creatinine 0.5 mg/dL (0.4-1.0) 01/28/21 04:29 Estimated GFR (MDRD) 132 (>89) 01/28/21 04:29 Glucose 93 mg/dL (70-100) 01/28/21 04:29 Calcium 8.7 mg/dL (8.5-10.3) 01/28/21 04:29 Phosphorus 1.6 mg/dL (2.5-4.6) L 01/28/21 04:29 Magnesium 2.1 mg/dL (1.7-2.8) 01/28/21 04:29 Total Bilirubin 0.4 mg/dL (0.2-1.0) 01/28/21 04:29 AST 17 IU/L (10-42) 01/28/21 04:29 ALT 31 IU/L (10-60) 01/28/21 04:29 Alkaline Phosphatase 61 IU/L (42-121) 01/28/21 04:29 Total Protein 6.1 g/dL (6.7-8.2) L 01/28/21 04:29 Albumin 3.0 g/dL (3.2-5.5) L 01/28/21 04:29 Globulin 3.1 g/dL (2.1-4.2) 01/28/21 04:29 Albumin/Globulin Ratio 1.0 (1.0-2.2) 01/28/21 04:29 Prealbumin 8 mg/dL (18-45) L 01/28/21 04:29 Lipase 23 U/L (22-51) 01/26/21 15:20 Urine Color YELLOW 01/26/21 23:10 Urine Clarity CLEAR (CLEAR) 01/26/21 23:10 Urine pH 5.5 PH (5.0-7.5) 01/26/21 23:10 Ur Specific [place] 1.020 (1.002-1.030) 01/26/21 23:10 Urine Protein NEGATIVE mg/dL (NEGATIVE) 01/26/21 23:10 Urine Glucose (UA) NEGATIVE mg/dL (NEGATIVE) 01/26/21 23:10 Urine Ketones NEGATIVE mg/dL (NEGATIVE) 01/26/21 23:10 Urine Occult Blood NEGATIVE (NEGATIVE) 01/26/21 23:10 Urine Nitrite NEGATIVE (NEGATIVE) 01/26/21 23:10 Urine Bilirubin NEGATIVE (NEGATIVE) 01/26/21 23:10 Urine Urobilinogen 0.2 (NORMAL) E.U./dL (NORMAL) 01/26/21 23:10 Ur Leukocyte Esterase NEGATIVE (NEGATIVE) 01/26/21 23:10 Ur Microscopic Review NOT INDICATED 01/26/21 23:10 Urine Culture Comments NOT INDICATED 01/26/21 23:10 Nasal Adenovirus (PCR) NOT DETECTED 01/26/21 18:20 Nasal B. parapertussis DNA (PCR) NOT DETECTED 01/26/21 18:20 Nasal Coronavir 229E PCR NOT DETECTED 01/26/21 18:20 Nasal Coronavir HKU1 PCR NOT DETECTED 01/26/21 18:20 Nasal Coronavir NL63 PCR NOT DETECTED 01/26/21 18:20 Nasal Coronavir OC43 PCR NOT DETECTED 01/26/21 18:20 Nasal Enterovir/Rhinovir PCR NOT DETECTED 01/26/21 18:20 Nasal Influenza B PCR NOT DETECTED 01/26/21 18:20 Nasal Influenza A PCR NOT DETECTED 01/26/21 18:20 Nasal Parainfluen 1 PCR NOT DETECTED 01/26/21 18:20 Nasal Parainfluen 2 PCR NOT DETECTED 01/26/21 18:20 Nasal Parainfluen 3 PCR NOT DETECTED 01/26/21 18:20 Nasal Parainfluen 4 PCR NOT DETECTED 01/26/21 18:20 Nasal RSV (PCR) NOT DETECTED 01/26/21 18:20 Nasal Screen MRSA (PCR) NEGATIVE (NEGATIVE) 01/26/21 21:50 Nasal B.pertussis DNA PCR NOT DETECTED 01/26/21 18:20 Nasal C.pneumoniae (PCR) NOT DETECTED 01/26/21 18:20 Félix Human Metapneumo PCR NOT DETECTED 01/26/21 18:20 Nasal M.pneumoniae (PCR) NOT DETECTED 01/26/21 18:20 Nasal SARS-CoV-2 (PCR) NOT DETECTED 01/26/21 18:20 - Procedures Procedures: Procedures EXCISION OF ESOPHAGUS, ENDO, DIAGN (07/31/20) EXCISION OF JEJUNUM, ENDO, DIAGN (07/31/20) EXCISION OF LOWER ESOPHAGUS, ENDO, DIAGN (05/24/19) EXCISION OF RECTUM, ENDO (05/24/19) EXCISION OF STOMACH, ENDO, DIAGN (07/31/20) RESECTION OF BILATERAL FALLOPIAN TUBES, PERC ENDO APPROACH (06/01/17) RESECTION OF BILATERAL OVARIES, PERC ENDO APPROACH (06/01/17) ABX Reporting Has patient been on IV antibiotics over the past 48 hours?: Yes
[2021-01-28] MEDS: ONDANSETRON 4 MG/2 ML VIAL IVP PRN ×2 (08:13→14:34)
--- NOTE | 2021-01-28 08:15 | XRAY Report ---
PROCEDURE: Abdomen 1 View X-Ray INDICATIONS: check NG and feeding tube placements TECHNIQUE: 1 view of the abdomen were acquired. COMPARISON: CT abdomen pelvis 01/26/2021 FINDINGS: Surgical changes and devices: Presumed nasogastric tube is present coiled overlying the proximal stom ach with retrograde extension into the distal esophagus. Presumed percutaneous drainage tubing noted overlying the mid abdomen. Cholecystectomy clips are present. Bowel: No pneumoperitoneum. The bowel gas pattern is normal. Soft tissues: No masses; visualized solid organ contours appear normal in size. No suspicious abdom inal calcifications. Bones: No suspicious bony abnormalities. IMPRESSION: 1. Nasogastric tube as above. Repositioning is recommended. The above findings are concordant with preliminary report. Reviewed by: Sharon Mclaughlin MD on 01/28/2021 8:13 AM PDT Approved by: Sharon Mclaughlin MD on 01/28/2021 8:13 AM PDT Station ID: [id number]
[2021-01-28] MEDS: ENOXAPARIN 40 MG/0.4 ML SYRINGE SUBQ SCH (09:07)
[2021-01-28] MEDS: FOLIC ACID INJ 1 MG in SODIUM CHLORIDE 0.9% 50 ML IV SCH (09:07)
[2021-01-28] MEDS: FLUCONAZOLE 200 MG/100 ML 100 ML IV SCH (09:08)
[2021-01-28] MEDS: SODIUM CHLORIDE FLUSH 0.9% 10 ML SYRINGE IVP PRN (09:19)
[2021-01-28] MEDS: PANTOPRAZOLE 40 MG VIAL IVP SCH ×2 (09:19→20:42)
[2021-01-28] MEDS ORDERED: SODIUM PHOSPHATE 15 MMOL in SODIUM CHLORIDE 0.9% 250 ML IV ONE (14:30)
--- NOTE | 2021-01-28 15:00 | PROVIDER PROGRESS NOTE ---
Subjective - General Admit Date: 01/26/21 Procedure Date: 01/26/21 Post Op Days: 2 Procedure Performed: Exploratory laparotomy with repair of gastric ulcer - Review of Systems Wound/Incisions: positive: Dressing dry and intact Drain Type: 19 English [place] drains with serosanguineous fluid General: positive: Weakness HEENT: positive: No symptoms Pulmonary: positive: No symptoms Cardiovascular: positive: No symptoms Gastrointestinal: positive: Abdominal pain. negative: Nausea, Vomiting, Flatus, Constipation Genitourinary: positive: No symptoms All Other Systems: positive: Reviewed and negative - Other Other Information/Narrative: Dobhoff and NGT both dislodged last evening. Attempt to replace the tubes were not successful. Tube feeds have been stopped and the tubes are removed. This is somewhat unfortunate since it was her source of nutritional support as well as anastomotic protection.That her pain is pretty well controlled.Having difficulty tolerating the stress of the situation. Objective - Patient Data Vital Signs: Vital Signs x48h Temp Pulse Resp BP Pulse Ox 01/28/21 14:00 85 17 153/94 H 93 01/28/21 13:00 37.2 C 88 16 153/94 H 95 01/28/21 12:00 86 19 150/102 H 92 01/28/21 11:00 84 20 129/84 H 91 L 01/28/21 10:00 79 18 131/96 H 91 L 01/28/21 09:00 37.1 C 86 13 133/86 H 93 01/28/21 08:00 79 16 127/85 H 93 01/28/21 06:59 85 15 125/90 H 90 L Weight: Weight 01/26/21 01/27/21 01/28/21 23:59 23:59 23:59 Weight (kg) 62.5 kg 62.5 kg Intake & Output: Intake and Output Totals x24h 01/26/21 01/27/21 01/28/21 23:59 23:59 23:59 Intake Total 1151 3138.20 2877.2 Output Total 106 3890 2715 Balance 1045 -751.80 162.2 - Lab Results Lab Results: 01/28/21 04:29 01/28/21 04:29 Other Lab Results: Lab Results x24hrs 01/28/21 01/28/21 01/28/21 Range/Units 04:29 04:29 04:29 WBC 9.0 (4.8-10.8) x10^3/uL RBC 4.25 (4.20-5.40) 10^6/uL Hgb 13.7 (12.0-16.0) g/dL Hct 42.4 (37.0-47.0) % MCV 99.8 H (81.0-99.0) fL MCH 32.2 H (27.0-31.0) pg MCHC 32.3 (32.0-36.0) g/dL RDW 13.2 (12.0-15.0) % Plt Count 258 (130-450) 10^3/uL MPV 10.6 (7.9-10.8) fL Neut # (Auto) 7.5 H (1.5-6.6) 10^3/uL Lymph # (Auto) 0.8 L (1.5-3.5) 10^3/uL [place] # (Auto) 0.4 (0.0-1.0) 10^3/uL Eos # (Auto) 0.2 (0.0-0.7) 10^3/uL Baso # (Auto) 0.0 (0.0-0.1) 10^3/uL Absolute Nucleated RBC 0.00 x10^3/uL Nucleated RBC % 0.0 /100WBC Sodium 140 (135-145) mmol/L Potassium 4.6 (3.5-5.0) mmol/L Chloride 108 (101-111) mmol/L Carbon Dioxide 24 (21-32) mmol/L Anion Gap 8.0 (6-13) BUN 9 (6-20) mg/dL Creatinine 0.5 (0.4-1.0) mg/dL Estimated GFR (MDRD) 132 (>89) Glucose 93 (70-100) mg/dL Calcium 8.7 (8.5-10.3) mg/dL Phosphorus 1.6 L (2.5-4.6) mg/dL Magnesium 2.1 (1.7-2.8) mg/dL Total Bilirubin 0.4 (0.2-1.0) mg/dL AST 17 (10-42) IU/L ALT 31 (10-60) IU/L Alkaline Phosphatase 61 (42-121) IU/L Total Protein 6.1 L (6.7-8.2) g/dL Albumin 3.0 L (3.2-5.5) g/dL Globulin 3.1 (2.1-4.2) g/dL Albumin/Globulin Ratio 1.0 (1.0-2.2) Prealbumin 8 L (18-45) mg/dL - Current Medications Current Medications: Current Medications Generic Name Dose Route Start Last Admin Trade Name Freq PRN Reason Stop Dose Admin Clonidine HCl 1 patch 01/26/21 23:45 01/27/21 01:00 Clonidine 0.2 Mg Patch TOP 1 patch Q7D AMERICO Administration Enoxaparin Sodium 40 mg 01/27/21 09:00 01/28/21 09:07 Enoxaparin 40 Mg/0.4 Ml Syringe SUBQ 40 mg DAILY AMERICO Administration Hydromorphone HCl 20 mg 01/27/21 15:19 01/27/21 22:25 Hydromorphone Finance Officer 20mg/100ml IV 20 mg PRN PRN Administration Abdominal Pain Protocol Potassium Chloride/Sodium Chloride 1,000 mls @ 120 mls/hr 01/26/21 22:00 01/28/21 14:56 Normal Saline 0.9% W/20 Meq Kcl IV 120 mls/hr .Q8H20M AMERICO Administration Piperacillin Sod/Tazobactam 100 mls @ 200 mls/hr 01/27/21 06:00 01/28/21 14:40 Sod 3.375 gm/ Sodium Chloride IV Infused Q8HR AMERICO Infusion Acetaminophen 100 mls @ 400 mls/hr 01/27/21 00:00 01/28/21 14:22 Ofirmev IV 01/28/21 23:59 Infused Q6HR AMERICO Infusion Fluconazole 100 mls @ 100 mls/hr 01/27/21 09:00 01/28/21 10:08 Diflucan 200 Mg/100 Ml IV Infused DAILY AMERICO Infusion Promethazine HCl 25 mg/ Sodium 51 mls @ 100 mls/hr 01/27/21 08:58 01/27/21 11:43 Chloride IV Infused Q6H PRN Infusion Nausea / Vomiting Folic Acid 1 mg/ Sodium 50.2 mls @ 100 mls/hr 01/27/21 13:30 01/28/21 09:38 Chloride IV Infused DAILY AMERICO Infusion Sodium Phosphate 15 mmol/ 255 mls @ 63.75 mls/hr 01/28/21 14:30 01/28/21 14:56 Sodium Chloride IV 01/28/21 18:29 63.75 mls/hr ONCE ONE Administration Protocol Lorazepam 0.5 mg 01/26/21 21:34 01/28/21 08:16 Lorazepam 2 Mg/Ml Vial IVP 0.5 mg Q1H PRN Administration Anxiety Ondansetron HCl 4 mg 01/26/21 21:34 01/28/21 14:34 Ondansetron 4 Mg/2 Ml Vial IVP 4 mg Q6H PRN Administration Nausea / Vomiting Pantoprazole Sodium 40 mg 01/26/21 22:00 01/28/21 09:19 Pantoprazole 40 Mg Vial IVP 40 mg BID AMERICO Administration Sodium Chloride 10 ml 01/27/21 01:00 01/28/21 09:08 Sodium Chloride Flush 0.9% 10 Ml Syringe IVP Not Given 0100,0900,1700 AMERICO Sodium Chloride 10 ml 01/26/21 21:34 01/28/21 09:19 Sodium Chloride Flush 0.9% 10 Ml Syringe IVP 10 ml PRN PRN Administration NEEDED PER PROVIDER ORDERS - Physical Exam Wound/Incisions: positive: Healing well General Appearance: positive: No acute distress, Lethargic Eyes Bilateral: positive: PERRL Respiratory: positive: No respiratory distress, Breath sounds nml Cardiovascular: positive: Regular rate & rhythm Abdomen: positive: Tenderness, Other (Active bowel sounds. Wound edges are well approximated. Will remove packing and cover with a dry dressing.) ABX Reporting Has patient been on IV antibiotics over the past 48 hours?: Yes Impression/Plan - Problem List Problem List: Ulcer with diffuse peritonitis. 1. Will hold on anything p.o. She is not had any nausea. Will consider Gastrografin swallow in the morning. 2. Cultures growing 2 separate gram-negative rods yet to be identified. We will continue Zosyn and Diflucan for now 3. Pain is controlled but we have no good IV replacements for her oral psychiatric meds. Would like to restart those as soon as it is safe. For now we will have to deal with symptoms using our current medication regimen. 4. Reluctant get it to get out of bed. Have consulted physical therapy for mobilization. We will get into a chair today and stay at least an hour. 5. Labs are so far reassuring. 6. Both drains draining only serosanguinous fluid. We will leave in place until the patient is eating.
[2021-01-28] MEDS: hydrALAZINE INJ 20 MG/ML VIAL IVP PRN (16:40)
[2021-01-28] MEDS: HYDROmorphone PCA 20MG/100ML IV PRN (20:07)
[2021-01-28] MEDS: PROMETHAZINE INJ 25 MG in SODIUM CHLORIDE 0.9% 50 ML IV PRN (20:42)
[2021-01-29] MEDS: NS W/20 MEQ KCL 1,000 ML IV SCH ×3 (01:28→22:01)
[2021-01-29] MEDS: SODIUM CHLORIDE FLUSH 0.9% 10 ML SYRINGE IVP SCH ×4 (04:12→19:30)
[2021-01-29 06:16] LABS: BASOPHILS % (AUTO) 0.4 %; EOSINOPHILS # (AUTO) 0.2 10^3/uL (0.0-0.7); HCT - HEMATOCRIT 41.6 % (37.0-47.0); HGB - HEMOGLOBIN 13.3 g/dL (12.0-16.0); LYMPHOCYTES # (AUTO) 0.5 10^3/uL (1.5-3.5); LYMPHOCYTES % (AUTO) 5.6 %; MEAN CORPUSCULAR HEMOGLOBIN 32.4 pg (27.0-31.0); MEAN CORPUSCULAR VOLUME 101.2 fL (81.0-99.0); MEAN PLATELET VOLUME 10.3 fL (7.9-10.8); MONOCYTES # (AUTO) 0.5 10^3/uL (0.0-1.0); MONOCYTES % (AUTO) 4.8 %; NEUTROPHILS # (AUTO) 8.4 10^3/uL (1.5-6.6); NEUTROPHILS % (AUTO) 86.8 %; PLT - PLATELET COUNT 296 10^3/uL (130-450); RED BLOOD COUNT 4.11 10^6/uL (4.20-5.40); RED CELL DISTRIBUTION WIDTH 13.2 % (12.0-15.0); WHITE BLOOD COUNT 9.6 x10^3/uL (4.8-10.8)
[2021-01-29] MEDS: hydrALAZINE INJ 20 MG/ML VIAL IVP PRN ×2 (06:22→16:10)
[2021-01-29] MEDS: PIPERACILLIN/TAZOBACTAM 3.375 GM in SODIUM CHLORIDE 0.9% MINIBAG 100 ML IV SCH ×3 (06:23→22:01)
[2021-01-29 06:30] LABS: ALBUMIN 2.9 g/dL (3.2-5.5); CALCIUM 8.3 mg/dL (8.5-10.3); CREATININE 0.5 mg/dL (0.4-1.0); POTASSIUM 3.9 mmol/L (3.5-5.0); TOTAL PROTEIN 5.8 g/dL (6.7-8.2)
[2021-01-29 07:24] LABS: CALCIUM, IONIZED 1.15 mmol/L (1.15-1.33); VBG PH 7.321 (7.31-7.41)
--- NOTE | 2021-01-29 07:25 | PROVIDER PROGRESS NOTE ---
Assessment/Plan - Problem List (1) Perforated abdominal viscus Assessment/Plan: Status post surgery. Postop day #3. Pain management with Dilaudid FARMHAND. Patient receiving Phenergan and Zofran for nausea. PICC line placed today for better IV access. Abdominal x-ray ordered. If normal patient will be placed on a full liquid diet. Will resume patient's oral medications once cleared by imaging. Patient has not had a bowel movement or passed gas yet. She is on empiric Zosyn. 2 different Gram-negative melisa organisms grew in the drainage from percutaneous tube General surgery is primary. and following (3) Mental health disorder Assessment/Plan: Patient has history of bipolar disorder, anxiety, insomnia. She is on clonazepam, tramadol, Topamax, Rimegepant and zolmitriptan Plan to resumeoral medications once appropriate to do so. - Current Meds Current Meds: Current Medications Generic Name Dose Route Start Last Admin Trade Name Freq PRN Reason Stop Dose Admin Clonidine HCl 1 patch 01/26/21 23:45 01/27/21 01:00 Clonidine 0.2 Mg Patch TOP 1 patch Q7D AMERICO Administration Enoxaparin Sodium 40 mg 01/27/21 09:00 01/28/21 09:07 Enoxaparin 40 Mg/0.4 Ml Syringe SUBQ 40 mg DAILY AMERICO Administration Hydralazine HCl 10 mg 01/28/21 16:00 01/29/21 06:22 Hydralazine Inj 20 Mg/Ml Vial IVP 10 mg Q6H PRN Administration PER PHYSICIAN ORDER Hydromorphone HCl 20 mg 01/27/21 15:19 01/28/21 20:07 Hydromorphone Crtt 20mg/100ml IV 20 mg PRN PRN Administration Abdominal Pain Protocol Potassium Chloride/Sodium Chloride 1,000 mls @ 120 mls/hr 01/26/21 22:00 01/29/21 01:28 Normal Saline 0.9% W/20 Meq Kcl IV 120 mls/hr .Q8H20M AMERICO Administration Piperacillin Sod/Tazobactam 100 mls @ 200 mls/hr 01/27/21 06:00 01/29/21 06:55 Sod 3.375 gm/ Sodium Chloride IV Infused Q8HR AMERICO Infusion Fluconazole 100 mls @ 100 mls/hr 01/27/21 09:00 01/28/21 10:08 Diflucan 200 Mg/100 Ml IV Infused DAILY AMERICO Infusion Promethazine HCl 25 mg/ Sodium 51 mls @ 100 mls/hr 01/27/21 08:58 01/28/21 21:15 Chloride IV Infused Q6H PRN Infusion Nausea / Vomiting Folic Acid 1 mg/ Sodium 50.2 mls @ 100 mls/hr 01/27/21 13:30 01/28/21 09:38 Chloride IV Infused DAILY AMERICO Infusion Lorazepam 0.5 mg 01/26/21 21:34 01/28/21 23:12 Lorazepam 2 Mg/Ml Vial IVP 0.5 mg Q1H PRN Administration Anxiety Ondansetron HCl 4 mg 01/26/21 21:34 01/28/21 14:34 Ondansetron 4 Mg/2 Ml Vial IVP 4 mg Q6H PRN Administration Nausea / Vomiting Pantoprazole Sodium 40 mg 01/26/21 22:00 01/28/21 20:42 Pantoprazole 40 Mg Vial IVP 40 mg BID AMERICO Administration Sodium Chloride 10 ml 01/27/21 01:00 01/29/21 04:12 Sodium Chloride Flush 0.9% 10 Ml Syringe IVP Not Given 0100,0900,1700 AMERICO Sodium Chloride 10 ml 01/26/21 21:34 01/28/21 09:19 Sodium Chloride Flush 0.9% 10 Ml Syringe IVP 10 ml PRN PRN Administration NEEDED PER PROVIDER ORDERS - Lab Result Fish Bone Diagrams: 01/29/21 05:14 01/29/21 05:14 - Additional Planning My Orders: My Active Orders 01/28/21 13:15 Initiate ICU Electrolyte Prot. [RC] QSHIFT 01/28/21 16:00 hydrALAZINE INJ [Apresoline Inj] 10 mg IVP Q6H PRN Subjective - Subjective Patient Reports: Other (Patient complains of significant abdominal pain. She Rated her pain 9 out of 10. She also complained of worsening migraines for which she requested the lights in the room to be off. She has not had a bowel movement or pass gas.) Objective Vital Signs: Vital Signs - 24 hr 01/28/21 01/28/21 01/28/21 08:00 08:40 09:00 Temperature 37.1 C Heart Rate 82 Heart Rate [ Activity] Heart Rate [ 79 86 Monitoring electrodes] Heart Rate [ Supine] Respiratory 16 12 13 Rate Blood Pressure Blood Pressure [Activity] Blood Pressure 127/85 H 133/86 H [Left Brachial artery] Blood Pressure [Supine] O2 Saturation 93 96 93 01/28/21 01/28/21 01/28/21 10:00 11:00 12:00 Temperature Heart Rate Heart Rate [ Activity] Heart Rate [ 79 84 86 Monitoring electrodes] Heart Rate [ Supine] Respiratory 18 20 19 Rate Blood Pressure Blood Pressure [Activity] Blood Pressure 131/96 H 129/84 H 150/102 H [Left Brachial artery] Blood Pressure [Supine] O2 Saturation 91 L 91 L 92 01/28/21 01/28/21 01/28/21 13:00 14:00 15:00 Temperature 37.2 C Heart Rate Heart Rate [ Activity] Heart Rate [ 88 85 91 Monitoring electrodes] Heart Rate [ Supine] Respiratory 16 17 20 Rate Blood Pressure Blood Pressure [Activity] Blood Pressure 153/94 H 153/94 H 139/88 H [Left Brachial artery] Blood Pressure [Supine] O2 Saturation 95 93 92 01/28/21 01/28/21 01/28/21 15:10 16:00 16:40 Temperature Heart Rate Heart Rate [ 102 H Activity] Heart Rate [ 87 Monitoring electrodes] Heart Rate [ 81 Supine] Respiratory 14 Rate Blood Pressure 152/95 H Blood Pressure 161/109 H [Activity] Blood Pressure 152/95 H [Left Brachial artery] Blood Pressure 139/88 H [Supine] O2 Saturation 92 01/28/21 01/28/21 01/28/21 17:00 17:10 18:00 Temperature 37.2 C Heart Rate Heart Rate [ Activity] Heart Rate [ 84 91 Monitoring electrodes] Heart Rate [ Supine] Respiratory 15 19 Rate Blood Pressure 144/89 H Blood Pressure [Activity] Blood Pressure 142/86 H 144/89 H [Left Brachial artery] Blood Pressure [Supine] O2 Saturation 95 95 01/28/21 01/28/21 01/28/21 18:57 20:00 20:56 Temperature 37.1 C Heart Rate Heart Rate [ Activity] Heart Rate [ 88 87 95 Monitoring electrodes] Heart Rate [ Supine] Respiratory 18 14 17 Rate Blood Pressure Blood Pressure [Activity] Blood Pressure 142/84 H 141/88 H 146/88 H [Left Brachial artery] Blood Pressure [Supine] O2 Saturation 95 94 95 0901/28/21 01/29/21 22:00 23:00 00:00 Temperature 37.0 C Heart Rate Heart Rate [ Activity] Heart Rate [ 79 82 81 Monitoring electrodes] Heart Rate [ Supine] Respiratory 14 13 18 Rate Blood Pressure Blood Pressure [Activity] Blood Pressure 141/81 H 144/86 H 149/97 H [Left Brachial artery] Blood Pressure [Supine] O2 Saturation 94 95 94 01/29/21 01/29/21 01/29/21 01:00 02:00 03:00 Temperature Heart Rate Heart Rate [ Activity] Heart Rate [ 89 85 78 Monitoring electrodes] Heart Rate [ Supine] Respiratory 15 12 13 Rate Blood Pressure Blood Pressure [Activity] Blood Pressure 151/83 H 147/85 H 145/87 H [Left Brachial artery] Blood Pressure [Supine] O2 Saturation 93 92 92 01/29/21 01/29/21 01/29/21 04:00 05:00 06:00 Temperature Heart Rate Heart Rate [ Activity] Heart Rate [ 84 88 86 Monitoring electrodes] Heart Rate [ Supine] Respiratory 18 19 13 Rate Blood Pressure Blood Pressure [Activity] Blood Pressure 142/87 H 136/84 H 145/93 H [Left Brachial artery] Blood Pressure [Supine] O2 Saturation 93 92 92 01/29/21 01/29/21 06:22 07:00 Temperature Heart Rate Heart Rate [ Activity] Heart Rate [ 88 Monitoring electrodes] Heart Rate [ Supine] Respiratory 14 Rate Blood Pressure 145/93 H Blood Pressure [Activity] Blood Pressure 151/9 H [Left Brachial artery] Blood Pressure [Supine] O2 Saturation 92 Oxygen O2 Source Room air I&O (Last 24 Hrs): Intake and Output Totals x24h 01/27/21 01/28/21 01/29/21 23:59 23:59 23:59 Intake Total 3138.20 4355.575 100 Output Total 3890 3335 1015 Balance -751.80 1020.575 -915 General: Alert, Oriented x3, Moderate distress HEENT: PERRLA, EOMI Neck: Supple, No JVD Neuro: Alert, Non Focal, Oriented Times 3 Respiratory: Chest non-tender, No respiratory distress, Breath sounds nml Abdomen: Soft, Other (Decreased but present bowel sounds. Percutaneous drainage tubes in place draining serosanguineous fluid. Mild to moderate tenderness to palpation.) - Results Results: Laboratory Results WBC 9.6 x10^3/uL (4.8-10.8) 01/29/21 05:14 RBC 4.11 10^6/uL (4.20-5.40) L 01/29/21 05:14 Hgb 13.3 g/dL (12.0-16.0) 01/29/21 05:14 Hct 41.6 % (37.0-47.0) 01/29/21 05:14 MCV 101.2 fL (81.0-99.0) H 01/29/21 05:14 MCH 32.4 pg (27.0-31.0) H 01/29/21 05:14 MCHC 32.0 g/dL (32.0-36.0) 01/29/21 05:14 RDW 13.2 % (12.0-15.0) 01/29/21 05:14 Plt Count 296 10^3/uL (130-450) 01/29/21 05:14 MPV 10.3 fL (7.9-10.8) 01/29/21 05:14 Neut # (Auto) 8.4 10^3/uL (1.5-6.6) H 01/29/21 05:14 Lymph # (Auto) 0.5 10^3/uL (1.5-3.5) L 01/29/21 05:14 [place] # (Auto) 0.5 10^3/uL (0.0-1.0) 01/29/21 05:14 Eos # (Auto) 0.2 10^3/uL (0.0-0.7) 01/29/21 05:14 Baso # (Auto) 0.0 10^3/uL (0.0-0.1) 01/29/21 05:14 Absolute Nucleated RBC 0.00 x10^3/uL 01/29/21 05:14 Total Counted 100 01/27/21 04:07 Band Neuts % (Manual) 15 % (0-10) H 01/27/21 04:07 Abnorm Lymph % (Manual) 0 % 01/27/21 04:07 Nucleated RBC % 0.0 /100WBC 01/29/21 05:14 Neutrophils # (Manual) 8.0 10^3/uL (1.5-6.6) H 01/27/21 04:07 Lymphocytes # (Manual) 1.2 10^3/uL (1.5-3.5) L 01/27/21 04:07 Monocytes # (Manual) 0.5 10^3/uL (0.0-1.0) 01/27/21 04:07 Eosinophils # (Manual) 0.0 10^3/uL (0-0.7) 01/27/21 04:07 Basophils # (Manual) 0.0 10^3/uL (0-0.1) 01/27/21 04:07 Differential Comment MANUAL DIFFERENTIAL 01/27/21 04:07 Platelet Estimate NORMAL (130-450,000) (NORMAL) 01/27/21 04:07 Platelet Morphology NORMAL APPEARANCE (NORMAL) 01/26/21 15:20 RBC Morph Micro Appear NORMAL APPEARANCE (NORMAL) 01/27/21 04:07 VBG pH 7.321 (7.31-7.41) 01/29/21 07:10 Ionized Calcium 1.15 mmol/L (1.15-1.33) 01/29/21 07:10 Sodium 140 mmol/L (135-145) 01/29/21 05:14 Potassium 3.9 mmol/L (3.5-5.0) 01/29/21 05:14 Chloride 109 mmol/L (101-111) 01/29/21 05:14 Carbon Dioxide 23 mmol/L (21-32) 01/29/21 05:14 Anion Gap 8.0 (6-13) 01/29/21 05:14 BUN 6 mg/dL (6-20) 01/29/21 05:14 Creatinine 0.5 mg/dL (0.4-1.0) 01/29/21 05:14 Estimated GFR (MDRD) 132 (>89) 01/29/21 05:14 Glucose 90 mg/dL (70-100) 01/29/21 05:14 Calcium 8.3 mg/dL (8.5-10.3) L 01/29/21 05:14 Phosphorus 2.6 mg/dL (2.5-4.6) 01/28/21 21:47 Magnesium 2.1 mg/dL (1.7-2.8) 01/28/21 04:29 Total Bilirubin 1.0 mg/dL (0.2-1.0) 01/29/21 05:14 AST 12 IU/L (10-42) 01/29/21 05:14 ALT 22 IU/L (10-60) 01/29/21 05:14 Alkaline Phosphatase 57 IU/L (42-121) 01/29/21 05:14 Total Protein 5.8 g/dL (6.7-8.2) L 01/29/21 05:14 Albumin 2.9 g/dL (3.2-5.5) L 01/29/21 05:14 Globulin 2.9 g/dL (2.1-4.2) 01/29/21 05:14 Albumin/Globulin Ratio 1.0 (1.0-2.2) 01/29/21 05:14 Prealbumin 8 mg/dL (18-45) L 01/28/21 04:29 Lipase 23 U/L (22-51) 01/26/21 15:20 Urine Color YELLOW 01/26/21 23:10 Urine Clarity CLEAR (CLEAR) 01/26/21 23:10 Urine pH 5.5 PH (5.0-7.5) 01/26/21 23:10 Ur Specific [place] 1.020 (1.002-1.030) 01/26/21 23:10 Urine Protein NEGATIVE mg/dL (NEGATIVE) 01/26/21 23:10 Urine Glucose (UA) NEGATIVE mg/dL (NEGATIVE) 01/26/21 23:10 Urine Ketones NEGATIVE mg/dL (NEGATIVE) 01/26/21 23:10 Urine Occult Blood NEGATIVE (NEGATIVE) 01/26/21 23:10 Urine Nitrite NEGATIVE (NEGATIVE) 01/26/21 23:10 Urine Bilirubin NEGATIVE (NEGATIVE) 01/26/21 23:10 Urine Urobilinogen 0.2 (NORMAL) E.U./dL (NORMAL) 01/26/21 23:10 Ur Leukocyte Esterase NEGATIVE (NEGATIVE) 01/26/21 23:10 Ur Microscopic Review NOT INDICATED 01/26/21 23:10 Urine Culture Comments NOT INDICATED 01/26/21 23:10 Nasal Adenovirus (PCR) NOT DETECTED 01/26/21 18:20 Nasal B. parapertussis DNA (PCR) NOT DETECTED 01/26/21 18:20 Nasal Coronavir 229E PCR NOT DETECTED 01/26/21 18:20 Nasal Coronavir HKU1 PCR NOT DETECTED 01/26/21 18:20 Nasal Coronavir NL63 PCR NOT DETECTED 01/26/21 18:20 Nasal Coronavir OC43 PCR NOT DETECTED 01/26/21 18:20 Nasal Enterovir/Rhinovir PCR NOT DETECTED 01/26/21 18:20 Nasal Influenza B PCR NOT DETECTED 01/26/21 18:20 Nasal Influenza A PCR NOT DETECTED 01/26/21 18:20 Nasal Parainfluen 1 PCR NOT DETECTED 01/26/21 18:20 Nasal Parainfluen 2 PCR NOT DETECTED 01/26/21 18:20 Nasal Parainfluen 3 PCR NOT DETECTED 01/26/21 18:20 Nasal Parainfluen 4 PCR NOT DETECTED 01/26/21 18:20 Nasal RSV (PCR) NOT DETECTED 01/26/21 18:20 Nasal Screen MRSA (PCR) NEGATIVE (NEGATIVE) 01/26/21 21:50 Nasal B.pertussis DNA PCR NOT DETECTED 01/26/21 18:20 Nasal C.pneumoniae (PCR) NOT DETECTED 01/26/21 18:20 Félix Human Metapneumo PCR NOT DETECTED 01/26/21 18:20 Nasal M.pneumoniae (PCR) NOT DETECTED 01/26/21 18:20 Nasal SARS-CoV-2 (PCR) NOT DETECTED 01/26/21 18:20 - Procedures Procedures: Procedures EXCISION OF ESOPHAGUS, ENDO, DIAGN (07/31/20) EXCISION OF JEJUNUM, ENDO, DIAGN (07/31/20) EXCISION OF LOWER ESOPHAGUS, ENDO, DIAGN (05/24/19) EXCISION OF RECTUM, ENDO (05/24/19) EXCISION OF STOMACH, ENDO, DIAGN (07/31/20) RESECTION OF BILATERAL FALLOPIAN TUBES, PERC ENDO APPROACH (06/01/17) RESECTION OF BILATERAL OVARIES, PERC ENDO APPROACH (06/01/17) ABX Reporting Has patient been on IV antibiotics over the past 48 hours?: Yes
[2021-01-29] MEDS: ONDANSETRON 4 MG/2 ML VIAL IVP PRN ×3 (07:56→20:17)
[2021-01-29] MEDS: LORazepam 2 MG/ML VIAL IVP PRN ×7 (07:59→22:02)
[2021-01-29] MEDS: PANTOPRAZOLE 40 MG VIAL IVP SCH ×2 (08:01→20:17)
[2021-01-29] MEDS: FLUCONAZOLE 200 MG/100 ML 100 ML IV SCH (09:10)
[2021-01-29] MEDS: ENOXAPARIN 40 MG/0.4 ML SYRINGE SUBQ SCH (09:14)
--- NOTE | 2021-01-29 11:15 | XRAY Report ---
PROCEDURE: Chest for Line Placement INDICATIONS: PIC TECHNIQUE: One view of the chest was acquired. COMPARISON: 05/30/2018 FINDINGS: Surgical changes and devices: New right-sided PICC line is present. The tip is in the expected locati on of the mid to distal SVC.. Lungs and pleura: No pneumothorax. Left base opacity and probable left pleural effusion. Mediastinum: Mediastinal contours appear normal. Heart size is normal. Bones and chest wall: No suspicious bony lesions. Overlying soft tissues appear unremarkable. IMPRESSION: 1. Satisfactory position of right-sided PICC line. 2. Left base opacity and effusion, partially imaged. Reviewed by: Mandy Cantu MD on 01/29/2021 11:14 AM PDT Approved by: Mandy Cantu MD on 01/29/2021 11:14 AM PDT Station ID: [id number]
--- NOTE | 2021-01-29 11:20 | ANESTHESIA PROCEDURE NOTE ---
Anesth Central Line Template - Central Line Central Line Preparation: Consent Obtained, Time out completed, Ultrasound used, Sterile prep and drape Central line location: Right Brachial Central line type: PICC Double Lumen Central line catheter tip site resides: Superior vena cava (SVC) Central line aftercare: Chlorhexidine disc placed, Secured, Placement confirmed, No pneumothorax, No complications, Bundle checklist complete, Pt tolerated well
[2021-01-29] MEDS: FOLIC ACID INJ 1 MG in SODIUM CHLORIDE 0.9% 50 ML IV SCH (11:55)
[2021-01-29] MEDS ORDERED: DIATRIZOATE MEGLU/DIATRIZO SOD 30 ML BOTTLE PO ONE (12:00)
--- NOTE | 2021-01-29 13:06 | PROVIDER PROGRESS NOTE ---
Subjective - General Admit Date: 01/26/21 Procedure Date: 01/26/21 Post Op Days: 3 Procedure Performed: Exploratory laparotomy with repair of gastric ulcer - Review of Systems Wound/Incisions: positive: Healing well Drain Type: 19 Swedish Gatito drains with serosanguineous fluid General: positive: Weakness HEENT: positive: No symptoms Pulmonary: positive: No symptoms Cardiovascular: positive: No symptoms Gastrointestinal: positive: Abdominal pain. negative: Nausea, Vomiting, Flatus, Constipation Genitourinary: positive: No symptoms All Other Systems: positive: Reviewed and negative - Other Other Information/Narrative: A little better each day. Cantu removed this AM. Not moving around much. Gastrograffin swallow shows no evidence of a leak. No nausea. Cultures grew Klepsiella and enterobacter sensitive to Zosyn. Objective - Patient Data Vital Signs: Vital Signs x48h Temp Pulse Pulse Pulse Resp BP BP 01/29/21 12:00 37.2 C 88 15 01/29/21 11:00 94 21 01/29/21 10:46 106 H 106 H 136/92 H 01/29/21 10:00 16 01/29/21 09:00 100 14 01/29/21 08:00 37.5 C 97 17 01/29/21 07:00 88 14 01/29/21 06:22 145/93 H 01/29/21 06:00 86 13 BP BP Pulse Ox 01/29/21 12:00 166/92 H 94 01/29/21 11:00 150/99 H 94 01/29/21 10:46 136/92 H 01/29/21 10:00 01/29/21 09:00 136/92 H 98 01/29/21 08:00 154/11 H 95 01/29/21 07:00 151/9 H 92 01/29/21 06:22 01/29/21 06:00 145/93 H 92 Weight: Weight 01/27/21 01/28/21 01/29/21 23:59 23:59 23:59 Weight (kg) 62.5 kg 63.7 kg Intake & Output: Intake and Output Totals x24h 01/27/21 01/28/21 01/29/21 23:59 23:59 23:59 Intake Total 3138.20 4355.575 1230 Output Total 3890 3335 1465 Balance -751.80 1020.575 -235 - Lab Results Lab Results: 01/29/21 05:14 01/29/21 05:14 Other Lab Results: Lab Results x24hrs 01/29/21 01/29/21 01/29/21 Range/Units 07:10 05:14 05:14 WBC 9.6 (4.8-10.8) x10^3/uL RBC 4.11 L (4.20-5.40) 10^6/uL Hgb 13.3 (12.0-16.0) g/dL Hct 41.6 (37.0-47.0) % MCV 101.2 H (81.0-99.0) fL MCH 32.4 H (27.0-31.0) pg MCHC 32.0 (32.0-36.0) g/dL RDW 13.2 (12.0-15.0) % Plt Count 296 (130-450) 10^3/uL MPV 10.3 (7.9-10.8) fL Neut # (Auto) 8.4 H (1.5-6.6) 10^3/uL Lymph # (Auto) 0.5 L (1.5-3.5) 10^3/uL Lucas # (Auto) 0.5 (0.0-1.0) 10^3/uL Eos # (Auto) 0.2 (0.0-0.7) 10^3/uL Baso # (Auto) 0.0 (0.0-0.1) 10^3/uL Absolute Nucleated RBC 0.00 x10^3/uL Nucleated RBC % 0.0 /100WBC VBG pH 7.321 (7.31-7.41) Ionized Calcium 1.15 (1.15-1.33) mmol/L Sodium 140 (135-145) mmol/L Potassium 3.9 (3.5-5.0) mmol/L Chloride 109 (101-111) mmol/L Carbon Dioxide 23 (21-32) mmol/L Anion Gap 8.0 (6-13) BUN 6 (6-20) mg/dL Creatinine 0.5 (0.4-1.0) mg/dL Estimated GFR (MDRD) 132 (>89) Glucose 90 (70-100) mg/dL Calcium 8.3 L (8.5-10.3) mg/dL Phosphorus (2.5-4.6) mg/dL Total Bilirubin 1.0 (0.2-1.0) mg/dL AST 12 (10-42) IU/L ALT 22 (10-60) IU/L Alkaline Phosphatase 57 (42-121) IU/L Total Protein 5.8 L (6.7-8.2) g/dL Albumin 2.9 L (3.2-5.5) g/dL Globulin 2.9 (2.1-4.2) g/dL Albumin/Globulin Ratio 1.0 (1.0-2.2) 01/28/21 Range/Units 21:47 WBC (4.8-10.8) x10^3/uL RBC (4.20-5.40) 10^6/uL Hgb (12.0-16.0) g/dL Hct (37.0-47.0) % MCV (81.0-99.0) fL MCH (27.0-31.0) pg MCHC (32.0-36.0) g/dL RDW (12.0-15.0) % Plt Count (130-450) 10^3/uL MPV (7.9-10.8) fL Neut # (Auto) (1.5-6.6) 10^3/uL Lymph # (Auto) (1.5-3.5) 10^3/uL Lucas # (Auto) (0.0-1.0) 10^3/uL Eos # (Auto) (0.0-0.7) 10^3/uL Baso # (Auto) (0.0-0.1) 10^3/uL Absolute Nucleated RBC x10^3/uL Nucleated RBC % /100WBC VBG pH (7.31-7.41) Ionized Calcium (1.15-1.33) mmol/L Sodium (135-145) mmol/L Potassium (3.5-5.0) mmol/L Chloride (101-111) mmol/L Carbon Dioxide (21-32) mmol/L Anion Gap (6-13) BUN (6-20) mg/dL Creatinine (0.4-1.0) mg/dL Estimated GFR (MDRD) (>89) Glucose (70-100) mg/dL Calcium (8.5-10.3) mg/dL Phosphorus 2.6 (2.5-4.6) mg/dL Total Bilirubin (0.2-1.0) mg/dL AST (10-42) IU/L ALT (10-60) IU/L Alkaline Phosphatase (42-121) IU/L Total Protein (6.7-8.2) g/dL Albumin (3.2-5.5) g/dL Globulin (2.1-4.2) g/dL Albumin/Globulin Ratio (1.0-2.2) - Current Medications Current Medications: Current Medications Generic Name Dose Route Start Last Admin Trade Name Freq PRN Reason Stop Dose Admin Enoxaparin Sodium 40 mg 01/27/21 09:00 01/29/21 09:14 Enoxaparin 40 Mg/0.4 Ml Syringe SUBQ 40 mg DAILY AMERICO Administration Hydralazine HCl 10 mg 01/28/21 16:00 01/29/21 06:22 Hydralazine Inj 20 Mg/Ml Vial IVP 10 mg Q6H PRN Administration PER PHYSICIAN ORDER Hydromorphone HCl 20 mg 01/27/21 15:19 01/28/21 20:07 Hydromorphone Communications Designer 20mg/100ml IV 20 mg PRN PRN Administration Abdominal Pain Protocol Potassium Chloride/Sodium Chloride 1,000 mls @ 120 mls/hr 01/26/21 22:00 01/29/21 12:00 Normal Saline 0.9% W/20 Meq Kcl IV 120 mls/hr .Q8H20M AMERICO Administration Piperacillin Sod/Tazobactam 100 mls @ 200 mls/hr 01/27/21 06:00 01/29/21 06:55 Sod 3.375 gm/ Sodium Chloride IV Infused Q8HR AMERICO Infusion Fluconazole 100 mls @ 100 mls/hr 01/27/21 09:00 01/29/21 10:10 Diflucan 200 Mg/100 Ml IV Infused DAILY AMERICO Infusion Promethazine HCl 25 mg/ Sodium 51 mls @ 100 mls/hr 01/27/21 08:58 01/28/21 21:15 Chloride IV Infused Q6H PRN Infusion Nausea / Vomiting Folic Acid 1 mg/ Sodium 50.2 mls @ 100 mls/hr 01/27/21 13:30 01/29/21 11:55 Chloride IV 100 mls/hr DAILY AMERICO Administration Lorazepam 0.5 mg 01/26/21 21:34 01/29/21 09:58 Lorazepam 2 Mg/Ml Vial IVP 0.5 mg Q1H PRN Administration Anxiety Ondansetron HCl 4 mg 01/26/21 21:34 01/29/21 07:56 Ondansetron 4 Mg/2 Ml Vial IVP 4 mg Q6H PRN Administration Nausea / Vomiting Pantoprazole Sodium 40 mg 01/26/21 22:00 01/29/21 08:01 Pantoprazole 40 Mg Vial IVP 40 mg BID AMERICO Administration Sodium Chloride 10 ml 01/27/21 01:00 01/29/21 09:58 Sodium Chloride Flush 0.9% 10 Ml Syringe IVP 10 ml 0100,0900,1700 AMERICO Administration Sodium Chloride 10 ml 01/26/21 21:34 01/28/21 09:19 Sodium Chloride Flush 0.9% 10 Ml Syringe IVP 10 ml PRN PRN Administration NEEDED PER PROVIDER ORDERS - Physical Exam Comments/Other: Wound is clean and without erythema or drainage. Both DMITRY drains are serosanguinous and scant. ABX Reporting Has patient been on IV antibiotics over the past 48 hours?: Yes Impression/Plan - Problem List Problem List: 1. Full liquid diet. 2. Leave draines in place 3. Resume most home meds 4. Transfer to med surg.
[2021-01-29] MEDS ORDERED: HYDROmorphone PCA 20MG/100ML IV PRN (13:13)
[2021-01-29] MEDS ORDERED: RIMEGEPANT SULFATE 75 MG SL PRN (13:13)
[2021-01-29] MEDS ORDERED: ZOLMITRIPTAN 5 MG NS PRN (13:13)
[2021-01-29] MEDS: tiZANidine 4 MG TABLET PO PRN (14:13)
[2021-01-29] MEDS: TOPIRAMATE 100 MG TABLET PO SCH ×2 (14:13→20:20)
--- NOTE | 2021-01-29 14:51 | XRAY Report ---
PROCEDURE: Abdomen 2 View X-Ray INDICATIONS: PEFORATED GASTRIC ULCER, leak? gastrog TECHNIQUE: 2 views of the abdomen were acquired. COMPARISON: None FINDINGS: Surgical changes and devices: None. Bowel: No pneumoperitoneum. Immediate images after ingestion of oral contrast demonstrate a small f ocus of contrast measuring approximately 3 mm near the presumed anastomotic site. This area persists on delayed images, with the last image acquired approximately 45 minutes later. Small bowel is mildly prominent. Soft tissues: No masses; visualized solid organ contours appear normal in size. No suspicious abdom inal calcifications. Bones: No suspicious bony abnormalities. IMPRESSION: 1. Mild prominence of small bowel suggestive of possible postoperative ileus. 2. Small focus of contrast near presumed anastomotic site suggestive, although not definitive for shadia k. The study is limited secondary to lack of real-time contrast visualization as well as ability for multiple projections. If this is of concern, CT is recommended with oral contrast for further evaluat ion. The above findings were discussed with Dr. Lor Hammond on 01/29/2021 at 2:45 PM. Reviewed by: Sharon Mclaughlin MD on 01/29/2021 2:50 PM PDT Approved by: Sharon Mclaughlin MD on 01/29/2021 2:50 PM PDT Station ID: [id number]
[2021-01-29] MEDS ORDERED: IOPAMIDOL-300 100 ML VIAL ONE (15:39)
[2021-01-29] MEDS ORDERED: IOVERSOL 320 50 ML VIAL ONE (15:40)
[2021-01-29] MEDS: HYDROmorphone 0.5 MG/0.5 ML SYRINGE IVP PRN ×4 (15:55→22:02)
[2021-01-29] MEDS ORDERED: SODIUM CHLORIDE 0.9% 50 ML IV ONE (16:57)
[2021-01-29] MEDS: PROMETHAZINE INJ 25 MG in SODIUM CHLORIDE 0.9% 50 ML IV PRN (17:09)
--- NOTE | 2021-01-29 17:17 | CT Report ---
PROCEDURE: ABDOMEN W INDICATIONS: Leak after gastric ulcer repair? CONTRAST: IV CONTRAST: Isovue 300 ml: 100 PO CONTRAST: Optiray 320 ml50 TECHNIQUE: After the administration of oral and intravenous contrast, 5 mm thick sections acquired from the diap hragms to the iliac crests. 5 mm thick coronal and sagittal reformats were acquired. For radiation dose reduction, the following was used: automated exposure control, adjustment of mA and/or kV accor ding to patient size. COMPARISON: 01/26/2021 FINDINGS: Image quality: Diagnostic. Lung bases: Small left pleural effusion. Associated compressive atelectasis of the left lung base. T race right pleural effusion with compressive atelectasis. Bilateral breast implants are present. Hear t size is normal. Solid organs: Liver and spleen are normal in size and enhancement. Gallbladder is surgically absent . Biliary system demonstrates stable minimal prominence. Pancreas enhances normally. No adrenal no dules. Kidneys are normal in size, without hydronephrosis. 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 Ora l contrast opacifies the distal esophagus and bypassed stomach with contrast extending into the small bowel limb of the gastric bypass procedure. There is no evidence for extraluminal oral contrast mate rial in the visualized portions of the abdomen. There is moderate distention of visualized small osmani l measuring up to 4.5 cm in diameter. Previously seen free fluid has decreased substantially. No evid ence for organized/rim-enhancing fluid collection. A few locules of free air compatible with recent s urgery. Vertical midline incision is noted with skin veda. Surgical drain is noted in the abdomen, entering in the left lateral abdomen and terminating near the midline upper abdomen. Nodes and vessels: No retroperitoneal or mesenteric adenopathy by size criteria. Aorta and inferior vena cava are normal in size. Bones: No suspicious bony lesions. No acute vertebral body compression fractures. IMPRESSION: 1. Interval postoperative changes of the ventral midline abdomen compatible with reported history of gastric ulcer repair. A few locules of free air in the antidependent portions of the abdomen as well as substantially decreased amount of free fluid likely related to recent surgery. No organized fluid collection. No evidence for extraluminal oral contrast. 2. Interval development of moderate small bowel distention without definite transition point. Patient may represent postoperative ileus with developing small bowel obstruction not excluded. Recommend co ntinued clinical and imaging surveillance. 3. Stable postsurgical changes from prior gastric bypass procedure. 4. Small left and trace right bilateral pleural effusions with associated compressive atelectasis. Reviewed by: Get Wellington MD on 01/29/2021 5:16 PM PDT Approved by: Get Wellington MD on 01/29/2021 5:16 PM PDT Station ID: [id number]
[2021-01-29] MEDS ORDERED: IOPAMIDOL-300 100 ML VIAL IVP ONE (17:30)
[2021-01-29] MEDS ORDERED: IOVERSOL 320 50 ML VIAL PO ONE (17:30)
[2021-01-29] MEDS: PRAZOSIN 1 MG CAPSULE PO SCH (20:17)
[2021-01-29] MEDS: cloNIDine 0.1 MG TABLET PO SCH ×3 (20:17→20:22)
[2021-01-29] MEDS: ESCITALOPRAM 10 MG TABLET PO SCH (20:18)
[2021-01-29] MEDS: clonazePAM 0.5 MG TABLET PO SCH (20:19)
[2021-01-29] MEDS: NICOTINE 14 MG PATCH TOP PRN (20:19)
[2021-01-29] MEDS: SODIUM CHLORIDE FLUSH 0.9% 10 ML SYRINGE IVP PRN ×2 (20:33→22:02)
[2021-01-30] MEDS: HYDROmorphone 0.5 MG/0.5 ML SYRINGE IVP PRN ×7 (02:14→21:25)
[2021-01-30] MEDS: LORazepam 2 MG/ML VIAL IVP PRN ×4 (02:14→21:25)
[2021-01-30] MEDS: PROMETHAZINE INJ 25 MG in SODIUM CHLORIDE 0.9% 50 ML IV PRN ×2 (02:14→21:24)
[2021-01-30] MEDS: SODIUM CHLORIDE FLUSH 0.9% 10 ML SYRINGE IVP PRN ×6 (02:16→21:23)
[2021-01-30] MEDS: NS W/20 MEQ KCL 1,000 ML IV SCH ×3 (02:25→17:26)
[2021-01-30] MEDS: cloNIDine 0.1 MG TABLET PO SCH ×3 (05:51→21:26)
[2021-01-30] MEDS: PIPERACILLIN/TAZOBACTAM 3.375 GM in SODIUM CHLORIDE 0.9% MINIBAG 100 ML IV SCH ×3 (05:53→21:30)
[2021-01-30 06:06] LABS: BASOPHILS % (AUTO) 0.3 %; EOSINOPHILS # (AUTO) 0.1 10^3/uL (0.0-0.7); EOSINOPHILS % (AUTO) 0.7 %; HGB - HEMOGLOBIN 11.8 g/dL (12.0-16.0); LYMPHOCYTES # (AUTO) 0.9 10^3/uL (1.5-3.5); LYMPHOCYTES % (AUTO) 13.8 %; MEAN CORPUSCULAR HEMOGLOBIN 32.6 pg (27.0-31.0); MEAN CORPUSCULAR HGB CONC 32.8 g/dL (32.0-36.0); MEAN CORPUSCULAR VOLUME 99.4 fL (81.0-99.0); MEAN PLATELET VOLUME 9.6 fL (7.9-10.8); MONOCYTES # (AUTO) 0.5 10^3/uL (0.0-1.0); MONOCYTES % (AUTO) 6.8 %; NEUTROPHILS # (AUTO) 5.3 10^3/uL (1.5-6.6); NEUTROPHILS % (AUTO) 77.4 %; PLT - PLATELET COUNT 275 10^3/uL (130-450); RED BLOOD COUNT 3.62 10^6/uL (4.20-5.40); RED CELL DISTRIBUTION WIDTH 13.2 % (12.0-15.0); WHITE BLOOD COUNT 6.8 x10^3/uL (4.8-10.8)
[2021-01-30 06:21] LABS: ALBUMIN 2.5 g/dL (3.2-5.5); ALBUMIN/GLOBULIN RATIO 0.8 (1.0-2.2); BILIRUBIN,TOTAL 0.7 mg/dL (0.2-1.0); CALCIUM 8.7 mg/dL (8.5-10.3); CREATININE 0.5 mg/dL (0.4-1.0); POTASSIUM 3.7 mmol/L (3.5-5.0); TOTAL PROTEIN 5.6 g/dL (6.7-8.2)
[2021-01-30 06:22] LABS: MAGNESIUM 1.8 mg/dL (1.7-2.8)
--- NOTE | 2021-01-30 07:46 | PROVIDER PROGRESS NOTE ---
Assessment/Plan - Problem List (1) Perforated abdominal viscus Assessment/Plan: Status post surgery. Postop day #4. Pain management with Dilaudid 0.5 q1hr prn. 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 On a full liquid diet. Top Dyeing Machine Tender to assit with her diet. Oral medications resumed. Patient reported flatulence but no bowel movement today. Encourage activity/ambulation She is on empiric Zosyn. Drainage from percutaneous tubes grew Klebsiella oxytoca and Enterobacter aerogenes General surgery is primary and following (3) Mental health disorder Assessment/Plan: Patient has history of bipolar disorder, anxiety, insomnia. Clonazepam, tramadol, Topamax, Rimegepant and zolmitriptan resumed - Current Meds Current Meds: Current Medications Generic Name Dose Route Start Last Admin Trade Name Freq PRN Reason Stop Dose Admin Clonazepam 1 mg 01/29/21 21:00 01/29/21 20:19 Clonazepam 0.5 Mg Tablet PO 1 mg BID AMERICO Administration Clonidine HCl 0.2 mg 01/29/21 21:00 01/30/21 05:51 Clonidine 0.1 Mg Tablet PO 0.2 mg TID AMERICO Administration Enoxaparin Sodium 40 mg 01/27/21 09:00 01/29/21 09:14 Enoxaparin 40 Mg/0.4 Ml Syringe SUBQ 40 mg DAILY AMERICO Administration Escitalopram Oxalate 20 mg 01/29/21 21:00 01/29/21 20:18 Escitalopram 10 Mg Tablet PO 20 mg QPM AMERICO Administration Hydralazine HCl 10 mg 01/28/21 16:00 01/29/21 16:10 Hydralazine Inj 20 Mg/Ml Vial IVP 10 mg Q6H PRN Administration PER PHYSICIAN ORDER Hydromorphone HCl 0.5 - 1 mg 01/29/21 15:45 01/30/21 05:52 Hydromorphone 0.5 Mg/0.5 Ml Syringe IVP 0.5 mg Q2H PRN Administration PAIN Potassium Chloride/Sodium Chloride 1,000 mls @ 120 mls/hr 01/26/21 22:00 01/30/21 02:25 Normal Saline 0.9% W/20 Meq Kcl IV Not Given .Q8H20M AMERICO Piperacillin Sod/Tazobactam 100 mls @ 200 mls/hr 01/27/21 06:00 01/30/21 06:40 Sod 3.375 gm/ Sodium Chloride IV Infused Q8HR AMERICO Infusion Fluconazole 100 mls @ 100 mls/hr 01/27/21 09:00 01/29/21 10:10 Diflucan 200 Mg/100 Ml IV Infused DAILY AMERICO Infusion Promethazine HCl 25 mg/ Sodium 51 mls @ 100 mls/hr 01/27/21 08:58 01/30/21 03:00 Chloride IV Infused Q6H PRN Infusion Nausea / Vomiting Folic Acid 1 mg/ Sodium 50.2 mls @ 100 mls/hr 01/27/21 13:30 01/29/21 12:20 Chloride IV 0 mls/hr DAILY AMERICO Infusion Lorazepam 0.5 mg 01/26/21 21:34 01/30/21 05:52 Lorazepam 2 Mg/Ml Vial IVP 0.5 mg Q1H PRN Administration Anxiety Nicotine 1 patch 01/26/21 23:38 01/29/21 20:19 Nicotine 14 Mg Patch TOP 1 patch DAILY PRN Administration NEEDED PER PROVIDER ORDERS Ondansetron HCl 4 mg 01/26/21 21:34 01/29/21 20:17 Ondansetron 4 Mg/2 Ml Vial IVP 4 mg Q6H PRN Administration Nausea / Vomiting Pantoprazole Sodium 40 mg 01/26/21 22:00 01/29/21 20:17 Pantoprazole 40 Mg Vial IVP 40 mg BID AMERICO Administration Prazosin HCl 6 mg 01/29/21 21:00 01/29/21 20:17 Prazosin 1 Mg Capsule PO 6 mg QPM AMERICO Administration Sodium Chloride 10 ml 01/27/21 01:00 01/29/21 19:30 Sodium Chloride Flush 0.9% 10 Ml Syringe IVP 10 ml 0100,0900,1700 AMERICO Administration Sodium Chloride 10 ml 01/26/21 21:34 01/30/21 05:54 Sodium Chloride Flush 0.9% 10 Ml Syringe IVP 20 ml PRN PRN Administration NEEDED PER PROVIDER ORDERS Tizanidine HCl 8 mg 01/29/21 13:07 01/29/21 14:13 Tizanidine 4 Mg Tablet PO 8 mg TID PRN Administration Spasms Topiramate 100 mg 01/29/21 14:00 01/29/21 20:20 Topiramate 100 Mg Tablet PO 100 mg BID AMERICO Administration - Lab Result Fish Bone Diagrams: 01/30/21 05:55 01/30/21 05:55 Subjective - Subjective Patient Reports: Other (Patient is feeling slightly better today. Her pain is rated 8 out of 10. She is tolerating some oral intake. She reported flatulence but no bowel movement. Patient's right percutaneous tube continues to drain significant serosanguineous fluid) Objective Vital Signs: Vital Signs - 24 hr 01/29/21 01/29/21 01/29/21 08:00 09:00 10:00 Temperature 37.5 C Heart Rate [ Activity] Heart Rate [ 97 100 Monitoring electrodes] Heart Rate [ Supine] Respiratory 17 14 16 Rate Blood Pressure Blood Pressure [Activity] Blood Pressure 154/11 H 136/92 H [Left Brachial artery] Blood Pressure [Left Radial artery] Blood Pressure [Supine] O2 Saturation 95 98 01/29/21 01/29/21 01/29/21 10:46 11:00 12:00 Temperature 37.2 C Heart Rate [ 106 H Activity] Heart Rate [ 94 88 Monitoring electrodes] Heart Rate [ 106 H Supine] Respiratory 21 15 Rate Blood Pressure Blood Pressure 136/92 H [Activity] Blood Pressure 150/99 H 166/92 H [Left Brachial artery] Blood Pressure [Left Radial artery] Blood Pressure 136/92 H [Supine] O2 Saturation 94 94 01/29/21 01/29/21 01/29/21 13:00 14:00 15:45 Temperature Heart Rate [ Activity] Heart Rate [ 89 97 Monitoring electrodes] Heart Rate [ Supine] Respiratory 13 18 17 Rate Blood Pressure Blood Pressure [Activity] Blood Pressure 180/95 H 164/95 H [Left Brachial artery] Blood Pressure [Left Radial artery] Blood Pressure [Supine] O2 Saturation 94 95 01/29/21 01/29/21 01/29/21 16:00 16:40 17:00 Temperature 37.0 C Heart Rate [ Activity] Heart Rate [ 15 L 90 Monitoring electrodes] Heart Rate [ Supine] Respiratory 17 18 Rate Blood Pressure 152/99 H Blood Pressure [Activity] Blood Pressure 157/102 H 158/104 H [Left Brachial artery] Blood Pressure [Left Radial artery] Blood Pressure [Supine] O2 Saturation 95 01/29/21 01/29/21 01/29/21 18:00 20:00 22:30 Temperature 37 C 37.5 C Heart Rate [ Activity] Heart Rate [ 102 H 89 Monitoring electrodes] Heart Rate [ Supine] Respiratory 17 18 21 Rate Blood Pressure Blood Pressure [Activity] Blood Pressure 159/99 H [Left Brachial artery] Blood Pressure 168/111 H 128/78 [Left Radial artery] Blood Pressure [Supine] O2 Saturation 95 97 96 01/30/21 01/30/21 02:20 06:20 Temperature 37.5 C 37.5 C Heart Rate [ Activity] Heart Rate [ 97 95 Monitoring electrodes] Heart Rate [ Supine] Respiratory 21 19 Rate Blood Pressure Blood Pressure [Activity] Blood Pressure [Left Brachial artery] Blood Pressure 145/84 H 147/95 H [Left Radial artery] Blood Pressure [Supine] O2 Saturation 93 93 Oxygen O2 Source Room air I&O (Last 24 Hrs): Intake and Output Totals x24h 01/28/21 01/29/21 01/30/21 23:59 23:59 23:59 Intake Total 4355.575 3952.667 351 Output Total 3335 2790 370 Balance 5920.984 0733.667 -19 General: Alert, Oriented x3, Moderate distress HEENT: PERRLA, EOMI Neck: Supple, No JVD Neuro: Alert, Non Focal, Oriented Times 3 Cardiovascular: Regular rate Respiratory: Chest non-tender, No respiratory distress, Breath sounds nml Abdomen: Normal bowel sounds, Soft Extremities: No clubbing, No cyanosis, No edema Skin: No rashes, No breakdown, No significant lesion - Results Results: Laboratory Results WBC 6.8 x10^3/uL (4.8-10.8) 01/30/21 05:55 RBC 3.62 10^6/uL (4.20-5.40) L 01/30/21 05:55 Hgb 11.8 g/dL (12.0-16.0) L 01/30/21 05:55 Hct 36.0 % (37.0-47.0) L 01/30/21 05:55 MCV 99.4 fL (81.0-99.0) H 01/30/21 05:55 MCH 32.6 pg (27.0-31.0) H 01/30/21 05:55 MCHC 32.8 g/dL (32.0-36.0) 01/30/21 05:55 RDW 13.2 % (12.0-15.0) 01/30/21 05:55 Plt Count 275 10^3/uL (130-450) 01/30/21 05:55 MPV 9.6 fL (7.9-10.8) 01/30/21 05:55 Neut # (Auto) 5.3 10^3/uL (1.5-6.6) 01/30/21 05:55 Lymph # (Auto) 0.9 10^3/uL (1.5-3.5) L 01/30/21 05:55 [place] # (Auto) 0.5 10^3/uL (0.0-1.0) 01/30/21 05:55 Eos # (Auto) 0.1 10^3/uL (0.0-0.7) 01/30/21 05:55 Baso # (Auto) 0.0 10^3/uL (0.0-0.1) 01/30/21 05:55 Absolute Nucleated RBC 0.00 x10^3/uL 01/30/21 05:55 Total Counted 100 01/27/21 04:07 Band Neuts % (Manual) 15 % (0-10) H 01/27/21 04:07 Abnorm Lymph % (Manual) 0 % 01/27/21 04:07 Nucleated RBC % 0.0 /100WBC 01/30/21 05:55 Neutrophils # (Manual) 8.0 10^3/uL (1.5-6.6) H 01/27/21 04:07 Lymphocytes # (Manual) 1.2 10^3/uL (1.5-3.5) L 01/27/21 04:07 Monocytes # (Manual) 0.5 10^3/uL (0.0-1.0) 01/27/21 04:07 Eosinophils # (Manual) 0.0 10^3/uL (0-0.7) 01/27/21 04:07 Basophils # (Manual) 0.0 10^3/uL (0-0.1) 01/27/21 04:07 Differential Comment MANUAL DIFFERENTIAL 01/27/21 04:07 Platelet Estimate NORMAL (130-450,000) (NORMAL) 01/27/21 04:07 Platelet Morphology NORMAL APPEARANCE (NORMAL) 01/26/21 15:20 RBC Morph Micro Appear NORMAL APPEARANCE (NORMAL) 01/27/21 04:07 VBG pH 7.321 (7.31-7.41) 01/29/21 07:10 Ionized Calcium 1.15 mmol/L (1.15-1.33) 01/29/21 07:10 Sodium 142 mmol/L (135-145) 01/30/21 05:55 Potassium 3.7 mmol/L (3.5-5.0) 01/30/21 05:55 Chloride 107 mmol/L (101-111) 01/30/21 05:55 Carbon Dioxide 23 mmol/L (21-32) 01/30/21 05:55 Anion Gap 12.0 (6-13) 01/30/21 05:55 BUN 9 mg/dL (6-20) 01/30/21 05:55 Creatinine 0.5 mg/dL (0.4-1.0) 01/30/21 05:55 Estimated GFR (MDRD) 132 (>89) 01/30/21 05:55 Glucose 92 mg/dL (70-100) 01/30/21 05:55 Calcium 8.7 mg/dL (8.5-10.3) 01/30/21 05:55 Phosphorus 2.6 mg/dL (2.5-4.6) 01/28/21 21:47 Magnesium 1.8 mg/dL (1.7-2.8) 01/30/21 05:55 Total Bilirubin 0.7 mg/dL (0.2-1.0) 01/30/21 05:55 AST 11 IU/L (10-42) 01/30/21 05:55 ALT 21 IU/L (10-60) 01/30/21 05:55 Alkaline Phosphatase 52 IU/L (42-121) 01/30/21 05:55 Total Protein 5.6 g/dL (6.7-8.2) L 01/30/21 05:55 Albumin 2.5 g/dL (3.2-5.5) L 01/30/21 05:55 Globulin 3.1 g/dL (2.1-4.2) 01/30/21 05:55 Albumin/Globulin Ratio 0.8 (1.0-2.2) L 01/30/21 05:55 Prealbumin 7 mg/dL (18-45) L 01/30/21 05:55 Lipase 23 U/L (22-51) 01/26/21 15:20 Urine Color YELLOW 01/26/21 23:10 Urine Clarity CLEAR (CLEAR) 01/26/21 23:10 Urine pH 5.5 PH (5.0-7.5) 01/26/21 23:10 Ur Specific [place] 1.020 (1.002-1.030) 01/26/21 23:10 Urine Protein NEGATIVE mg/dL (NEGATIVE) 01/26/21 23:10 Urine Glucose (UA) NEGATIVE mg/dL (NEGATIVE) 01/26/21 23:10 Urine Ketones NEGATIVE mg/dL (NEGATIVE) 01/26/21 23:10 Urine Occult Blood NEGATIVE (NEGATIVE) 01/26/21 23:10 Urine Nitrite NEGATIVE (NEGATIVE) 01/26/21 23:10 Urine Bilirubin NEGATIVE (NEGATIVE) 01/26/21 23:10 Urine Urobilinogen 0.2 (NORMAL) E.U./dL (NORMAL) 01/26/21 23:10 Ur Leukocyte Esterase NEGATIVE (NEGATIVE) 01/26/21 23:10 Ur Microscopic Review NOT INDICATED 01/26/21 23:10 Urine Culture Comments NOT INDICATED 01/26/21 23:10 Nasal Adenovirus (PCR) NOT DETECTED 01/26/21 18:20 Nasal B. parapertussis DNA (PCR) NOT DETECTED 01/26/21 18:20 Nasal Coronavir 229E PCR NOT DETECTED 01/26/21 18:20 Nasal Coronavir HKU1 PCR NOT DETECTED 01/26/21 18:20 Nasal Coronavir NL63 PCR NOT DETECTED 01/26/21 18:20 Nasal Coronavir OC43 PCR NOT DETECTED 01/26/21 18:20 Nasal Enterovir/Rhinovir PCR NOT DETECTED 01/26/21 18:20 Nasal Influenza B PCR NOT DETECTED 01/26/21 18:20 Nasal Influenza A PCR NOT DETECTED 01/26/21 18:20 Nasal Parainfluen 1 PCR NOT DETECTED 01/26/21 18:20 Nasal Parainfluen 2 PCR NOT DETECTED 01/26/21 18:20 Nasal Parainfluen 3 PCR NOT DETECTED 01/26/21 18:20 Nasal Parainfluen 4 PCR NOT DETECTED 01/26/21 18:20 Nasal RSV (PCR) NOT DETECTED 01/26/21 18:20 Nasal Screen MRSA (PCR) NEGATIVE (NEGATIVE) 01/26/21 21:50 Nasal B.pertussis DNA PCR NOT DETECTED 01/26/21 18:20 Nasal C.pneumoniae (PCR) NOT DETECTED 01/26/21 18:20 Félix Human Metapneumo PCR NOT DETECTED 01/26/21 18:20 Nasal M.pneumoniae (PCR) NOT DETECTED 01/26/21 18:20 Nasal SARS-CoV-2 (PCR) NOT DETECTED 01/26/21 18:20 - Procedures Procedures: Procedures EXCISION OF ESOPHAGUS, ENDO, DIAGN (07/31/20) EXCISION OF JEJUNUM, ENDO, DIAGN (07/31/20) EXCISION OF LOWER ESOPHAGUS, ENDO, DIAGN (05/24/19) EXCISION OF RECTUM, ENDO (05/24/19) EXCISION OF STOMACH, ENDO, DIAGN (07/31/20) RESECTION OF BILATERAL FALLOPIAN TUBES, PERC ENDO APPROACH (06/01/17) RESECTION OF BILATERAL OVARIES, PERC ENDO APPROACH (06/01/17) ABX Reporting Has patient been on IV antibiotics over the past 48 hours?: Yes
[2021-01-30] MEDS: FLUCONAZOLE 200 MG/100 ML 100 ML IV SCH (09:07)
[2021-01-30] MEDS: TOPIRAMATE 100 MG TABLET PO SCH ×2 (09:18→21:26)
[2021-01-30] MEDS: clonazePAM 0.5 MG TABLET PO SCH ×2 (09:18→21:26)
[2021-01-30] MEDS: PANTOPRAZOLE 40 MG VIAL IVP SCH ×2 (09:21→21:24)
[2021-01-30] MEDS: SODIUM CHLORIDE FLUSH 0.9% 10 ML SYRINGE IVP SCH ×3 (09:23→21:24)
[2021-01-30] MEDS: FOLIC ACID INJ 1 MG in SODIUM CHLORIDE 0.9% 50 ML IV SCH (10:21)
[2021-01-30] MEDS: ENOXAPARIN 40 MG/0.4 ML SYRINGE SUBQ SCH (10:32)
[2021-01-30] MEDS ORDERED: NEUTRA-PHOS 250 MG TABLET PO SCH (11:10)
--- NOTE | 2021-01-30 11:26 | PROVIDER PROGRESS NOTE ---
Subjective - General Admit Date: 01/26/21 Procedure Date: 01/26/21 Post Op Days: 4 Procedure Performed: Exploratory laparotomy with repair of gastric ulcer - Review of Systems Wound/Incisions: positive: Healing well Drain Type: 19 [place] drains with serosanguineous fluid General: positive: Weakness HEENT: positive: No symptoms Pulmonary: positive: No symptoms Cardiovascular: positive: No symptoms Gastrointestinal: positive: Abdominal pain. negative: Nausea, Vomiting, Flatus, Constipation Genitourinary: positive: No symptoms All Other Systems: positive: Reviewed and negative - Other Other Information/Narrative: Awake and alert and much more cooperative today. Afebrile. Passing flatus but no bowel movement yet. CT and Gastrograffin studies were both reassuring Objective - Patient Data Vital Signs: Vital Signs x48h Temp Pulse Resp BP BP Pulse Ox 01/30/21 09:47 83 20 149/95 H 98 01/30/21 09:03 37.2 C 01/30/21 06:20 37.5 C 95 19 147/95 H 93 Weight: Weight 01/28/21 01/29/21 01/30/21 23:59 23:59 23:59 Weight (kg) 63.7 kg Intake & Output: Intake and Output Totals x24h 01/28/21 01/29/21 01/30/21 23:59 23:59 23:59 Intake Total 4355.575 3952.667 1351 Output Total 3335 2790 620 Balance 4147.619 3192.667 731 - Lab Results Lab Results: 01/30/21 05:55 01/30/21 05:55 Other Lab Results: Lab Results x24hrs 01/30/21 01/30/21 01/30/21 Range/Units 08:34 08:34 05:55 WBC (4.8-10.8) x10^3/uL RBC (4.20-5.40) 10^6/uL Hgb (12.0-16.0) g/dL Hct (37.0-47.0) % MCV (81.0-99.0) fL MCH (27.0-31.0) pg MCHC (32.0-36.0) g/dL RDW (12.0-15.0) % Plt Count (130-450) 10^3/uL MPV (7.9-10.8) fL Neut # (Auto) (1.5-6.6) 10^3/uL Lymph # (Auto) (1.5-3.5) 10^3/uL [place] # (Auto) (0.0-1.0) 10^3/uL Eos # (Auto) (0.0-0.7) 10^3/uL Baso # (Auto) (0.0-0.1) 10^3/uL Absolute Nucleated RBC x10^3/uL Nucleated RBC % /100WBC Sodium (135-145) mmol/L Potassium (3.5-5.0) mmol/L Chloride (101-111) mmol/L Carbon Dioxide (21-32) mmol/L Anion Gap (6-13) BUN (6-20) mg/dL Creatinine (0.4-1.0) mg/dL Estimated GFR (MDRD) (>89) Glucose (70-100) mg/dL Calcium (8.5-10.3) mg/dL Phosphorus 2.4 L (2.5-4.6) mg/dL Magnesium 1.8 (1.7-2.8) mg/dL Total Bilirubin (0.2-1.0) mg/dL AST (10-42) IU/L ALT (10-60) IU/L Alkaline Phosphatase (42-121) IU/L Total Protein (6.7-8.2) g/dL Albumin (3.2-5.5) g/dL Globulin (2.1-4.2) g/dL Albumin/Globulin Ratio (1.0-2.2) Prealbumin 7 L (18-45) mg/dL Vitamin B12 1178 H (180-914) pg/mL 01/30/21 01/30/21 Range/Units 05:55 05:55 WBC 6.8 (4.8-10.8) x10^3/uL RBC 3.62 L (4.20-5.40) 10^6/uL Hgb 11.8 L (12.0-16.0) g/dL Hct 36.0 L (37.0-47.0) % MCV 99.4 H (81.0-99.0) fL MCH 32.6 H (27.0-31.0) pg MCHC 32.8 (32.0-36.0) g/dL RDW 13.2 (12.0-15.0) % Plt Count 275 (130-450) 10^3/uL MPV 9.6 (7.9-10.8) fL Neut # (Auto) 5.3 (1.5-6.6) 10^3/uL Lymph # (Auto) 0.9 L (1.5-3.5) 10^3/uL [place] # (Auto) 0.5 (0.0-1.0) 10^3/uL Eos # (Auto) 0.1 (0.0-0.7) 10^3/uL Baso # (Auto) 0.0 (0.0-0.1) 10^3/uL Absolute Nucleated RBC 0.00 x10^3/uL Nucleated RBC % 0.0 /100WBC Sodium 142 (135-145) mmol/L Potassium 3.7 (3.5-5.0) mmol/L Chloride 107 (101-111) mmol/L Carbon Dioxide 23 (21-32) mmol/L Anion Gap 12.0 (6-13) BUN 9 (6-20) mg/dL Creatinine 0.5 (0.4-1.0) mg/dL Estimated GFR (MDRD) 132 (>89) Glucose 92 (70-100) mg/dL Calcium 8.7 (8.5-10.3) mg/dL Phosphorus (2.5-4.6) mg/dL Magnesium (1.7-2.8) mg/dL Total Bilirubin 0.7 (0.2-1.0) mg/dL AST 11 (10-42) IU/L ALT 21 (10-60) IU/L Alkaline Phosphatase 52 (42-121) IU/L Total Protein 5.6 L (6.7-8.2) g/dL Albumin 2.5 L (3.2-5.5) g/dL Globulin 3.1 (2.1-4.2) g/dL Albumin/Globulin Ratio 0.8 L (1.0-2.2) Prealbumin (18-45) mg/dL Vitamin B12 (180-914) pg/mL - Current Medications Current Medications: Current Medications Generic Name Dose Route Start Last Admin Trade Name Freq PRN Reason Stop Dose Admin Clonazepam 1 mg 01/29/21 21:00 01/30/21 09:18 Clonazepam 0.5 Mg Tablet PO 1 mg BID AMERICO Administration Clonidine HCl 0.2 mg 01/29/21 21:00 01/30/21 05:51 Clonidine 0.1 Mg Tablet PO 0.2 mg TID AMERICO Administration Enoxaparin Sodium 40 mg 01/27/21 09:00 01/30/21 10:32 Enoxaparin 40 Mg/0.4 Ml Syringe SUBQ 40 mg DAILY AMERICO Administration Escitalopram Oxalate 20 mg 01/29/21 21:00 01/29/21 20:18 Escitalopram 10 Mg Tablet PO 20 mg QPM AMERICO Administration Hydralazine HCl 10 mg 01/28/21 16:00 01/29/21 16:10 Hydralazine Inj 20 Mg/Ml Vial IVP 10 mg Q6H PRN Administration PER PHYSICIAN ORDER Potassium Chloride/Sodium Chloride 1,000 mls @ 120 mls/hr 01/26/21 22:00 01/30/21 09:06 Normal Saline 0.9% W/20 Meq Kcl IV 120 mls/hr .Q8H20M AMERICO Administration Piperacillin Sod/Tazobactam 100 mls @ 200 mls/hr 01/27/21 06:00 01/30/21 06:40 Sod 3.375 gm/ Sodium Chloride IV Infused Q8HR AMERICO Infusion Fluconazole 100 mls @ 100 mls/hr 01/27/21 09:00 01/30/21 09:07 Diflucan 200 Mg/100 Ml IV 100 mls/hr DAILY AMERICO Administration Promethazine HCl 25 mg/ Sodium 51 mls @ 100 mls/hr 01/27/21 08:58 01/30/21 03:00 Chloride IV Infused Q6H PRN Infusion Nausea / Vomiting Folic Acid 1 mg/ Sodium 50.2 mls @ 100 mls/hr 01/27/21 13:30 01/30/21 10:21 Chloride IV 100 mls/hr DAILY AMERICO Administration Lorazepam 0.5 mg 01/26/21 21:34 01/30/21 10:13 Lorazepam 2 Mg/Ml Vial IVP 0.5 mg Q1H PRN Administration Anxiety Nicotine 1 patch 01/26/21 23:38 01/29/21 20:19 Nicotine 14 Mg Patch TOP 1 patch DAILY PRN Administration NEEDED PER PROVIDER ORDERS Ondansetron HCl 4 mg 01/26/21 21:34 01/29/21 20:17 Ondansetron 4 Mg/2 Ml Vial IVP 4 mg Q6H PRN Administration Nausea / Vomiting Pantoprazole Sodium 40 mg 01/26/21 22:00 01/30/21 09:21 Pantoprazole 40 Mg Vial IVP 40 mg BID AMERICO Administration Prazosin HCl 6 mg 01/29/21 21:00 01/29/21 20:17 Prazosin 1 Mg Capsule PO 6 mg QPM AMERICO Administration Sodium Chloride 10 ml 01/27/21 01:00 01/30/21 09:23 Sodium Chloride Flush 0.9% 10 Ml Syringe IVP 10 ml 0100,0900,1700 AMERICO Administration Sodium Chloride 10 ml 01/26/21 21:34 01/30/21 09:22 Sodium Chloride Flush 0.9% 10 Ml Syringe IVP 30 ml PRN PRN Administration NEEDED PER PROVIDER ORDERS Tizanidine HCl 8 mg 01/29/21 13:07 01/29/21 14:13 Tizanidine 4 Mg Tablet PO 8 mg TID PRN Administration Spasms Topiramate 100 mg 01/29/21 14:00 01/30/21 09:18 Topiramate 100 Mg Tablet PO 100 mg BID AMERICO Administration ABX Reporting Has patient been on IV antibiotics over the past 48 hours?: Yes Impression/Plan - Problem List Problem List: 1. Pureed diet so we can increase protein consumption. Will need to continue after discharge 2. Resume tylenol and gabapentin 3. Floor status 4. Pulmonary hygeine 5. Continue antibiotics 6. Plan to pull pelvic drain in the AM. 7. Start Oxycodone with pureed diet. 8. Continue PT and OT 9 Add reglan and stool softeners
[2021-01-30] MEDS: METOCLOPRAMIDE 10 MG/2 ML VIAL IVP SCH ×2 (11:39→17:28)
[2021-01-30] MEDS: DOCUSATE SODIUM 250 MG CAPSULE PO SCH (11:39)
[2021-01-30] MEDS: ACETAMINOPHEN 325 MG TABLET PO PRN ×2 (11:59→17:38)
[2021-01-30] MEDS: oxyCODONE 5 MG TABLET PO PRN ×2 (12:04→17:38)
[2021-01-30] MEDS: hydrALAZINE INJ 20 MG/ML VIAL IVP PRN (13:10)
[2021-01-30] MEDS: GABAPENTIN 300 MG CAPSULE PO SCH (14:33)
[2021-01-30] MEDS: tiZANidine 4 MG TABLET PO PRN (15:09)
[2021-01-30] MEDS ORDERED: SALINE ENEMA 133 ML BOTTLE RC ONE (16:00)
[2021-01-30] MEDS: SENNA 8.6 MG TABLET PO SCH (21:25)
[2021-01-30] MEDS: GABAPENTIN 400 MG CAPSULE PO SCH (21:25)
[2021-01-30] MEDS: ESCITALOPRAM 10 MG TABLET PO SCH (21:26)
[2021-01-30] MEDS: PRAZOSIN 1 MG CAPSULE PO SCH (21:26)
[2021-01-30] MEDS: NICOTINE 14 MG PATCH TOP PRN (21:41)
[2021-01-31] MEDS: METOCLOPRAMIDE 10 MG/2 ML VIAL IVP SCH ×4 (00:05→18:05)
[2021-01-31] MEDS: oxyCODONE 5 MG TABLET PO PRN ×3 (00:05→10:15)
[2021-01-31] MEDS: ACETAMINOPHEN 325 MG TABLET PO PRN ×4 (00:05→18:15)
[2021-01-31] MEDS: NS W/20 MEQ KCL 1,000 ML IV SCH (01:49)
[2021-01-31] MEDS: HYDROmorphone 0.5 MG/0.5 ML SYRINGE IVP PRN ×13 (04:18→22:02)
[2021-01-31] MEDS: LORazepam 2 MG/ML VIAL IVP PRN ×2 (04:18→10:15)
[2021-01-31] MEDS: SODIUM CHLORIDE FLUSH 0.9% 10 ML SYRINGE IVP PRN ×3 (04:19→22:02)
[2021-01-31 05:05] LABS: BASOPHILS % (AUTO) 0.3 %; EOSINOPHILS # (AUTO) 0.4 10^3/uL (0.0-0.7); EOSINOPHILS % (AUTO) 6.2 %; HCT - HEMATOCRIT 35.7 % (37.0-47.0); HGB - HEMOGLOBIN 11.7 g/dL (12.0-16.0); LYMPHOCYTES # (AUTO) 1.4 10^3/uL (1.5-3.5); LYMPHOCYTES % (AUTO) 19.4 %; MEAN CORPUSCULAR HEMOGLOBIN 32.4 pg (27.0-31.0); MEAN CORPUSCULAR HGB CONC 32.8 g/dL (32.0-36.0); MEAN CORPUSCULAR VOLUME 98.9 fL (81.0-99.0); MEAN PLATELET VOLUME 10.1 fL (7.9-10.8); MONOCYTES # (AUTO) 0.7 10^3/uL (0.0-1.0); MONOCYTES % (AUTO) 9.3 %; NEUTROPHILS # (AUTO) 4.4 10^3/uL (1.5-6.6); NEUTROPHILS % (AUTO) 63.5 %; PLT - PLATELET COUNT 297 10^3/uL (130-450); RED BLOOD COUNT 3.61 10^6/uL (4.20-5.40); RED CELL DISTRIBUTION WIDTH 13.3 % (12.0-15.0)
[2021-01-31 05:16] LABS: ALBUMIN 2.6 g/dL (3.2-5.5); ALBUMIN/GLOBULIN RATIO 0.9 (1.0-2.2); BILIRUBIN,TOTAL 0.6 mg/dL (0.2-1.0); CALCIUM 8.7 mg/dL (8.5-10.3); CREATININE 0.6 mg/dL (0.4-1.0); POTASSIUM 3.5 mmol/L (3.5-5.0); TOTAL PROTEIN 5.5 g/dL (6.7-8.2)
[2021-01-31] MEDS: cloNIDine 0.1 MG TABLET PO SCH ×3 (06:08→22:02)
[2021-01-31] MEDS: PIPERACILLIN/TAZOBACTAM 3.375 GM in SODIUM CHLORIDE 0.9% MINIBAG 100 ML IV SCH ×3 (06:09→22:03)
--- NOTE | 2021-01-31 07:58 | PROVIDER PROGRESS NOTE ---
Assessment/Plan - Problem List (1) Perforated abdominal viscus Assessment/Plan: Status post surgery. Postop day #5. Pain management with Dilaudid 0.5 q1hr prn. 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 Tolerating a soft diet. Head [employer] following. Oral medications resumed. Patient reported flatulence and bowel movement today. Encourage activity/ambulation She is on empiric Zosyn. Drainage from percutaneous tubes grew Klebsiella oxytoca and Enterobacter aerogenes General surgery is primary and following (3) Mental health disorder Assessment/Plan: Patient has history of bipolar disorder, anxiety, insomnia. Continue Clonazepam, tramadol, Topamax, Rimegepant and zolmitriptan. - Current Meds Current Meds: Current Medications Generic Name Dose Route Start Last Admin Trade Name Freq PRN Reason Stop Dose Admin Acetaminophen 650 mg 01/30/21 11:22 01/31/21 06:08 Acetaminophen 325 Mg Tablet PO 650 mg Q6H PRN Administration Pain or Fever > 38C (100.4F) Clonazepam 1 mg 01/29/21 21:00 01/30/21 21:26 Clonazepam 0.5 Mg Tablet PO 1 mg BID AMERICO Administration Clonidine HCl 0.2 mg 01/29/21 21:00 01/31/21 06:08 Clonidine 0.1 Mg Tablet PO 0.2 mg TID AMERICO Administration Docusate Sodium 250 mg 01/30/21 12:00 01/30/21 11:39 Docusate Sodium 250 Mg Capsule PO 250 mg DAILY AMERICO Administration Enoxaparin Sodium 40 mg 01/27/21 09:00 01/30/21 10:32 Enoxaparin 40 Mg/0.4 Ml Syringe SUBQ 40 mg DAILY AMERICO Administration Escitalopram Oxalate 20 mg 01/29/21 21:00 01/30/21 21:26 Escitalopram 10 Mg Tablet PO 20 mg QPM AMERICO Administration Gabapentin 600 mg 01/30/21 15:00 01/30/21 14:33 Gabapentin 300 Mg Capsule PO 600 mg 0900,1500 AMERICO Administration Gabapentin 1,200 mg 01/30/21 21:00 01/30/21 21:25 Gabapentin 400 Mg Capsule PO 1,200 mg QPM AMERICO Administration Hydralazine HCl 10 mg 01/28/21 16:00 01/30/21 13:10 Hydralazine Inj 20 Mg/Ml Vial IVP 10 mg Q6H PRN Administration PER PHYSICIAN ORDER Hydromorphone HCl 0.5 mg 01/30/21 10:42 01/31/21 04:18 Hydromorphone 0.5 Mg/0.5 Ml Syringe IVP 0.5 mg Q1H PRN Administration PAIN Piperacillin Sod/Tazobactam 100 mls @ 200 mls/hr 01/27/21 06:00 01/31/21 06:40 Sod 3.375 gm/ Sodium Chloride IV Infused Q8HR AMERICO Infusion Fluconazole 100 mls @ 100 mls/hr 01/27/21 09:00 01/30/21 10:10 Diflucan 200 Mg/100 Ml IV Infused DAILY AMERICO Infusion Promethazine HCl 25 mg/ Sodium 51 mls @ 100 mls/hr 01/27/21 08:58 01/30/21 22:00 Chloride IV Infused Q6H PRN Infusion Nausea / Vomiting Folic Acid 1 mg/ Sodium 50.2 mls @ 100 mls/hr 01/27/21 13:30 01/30/21 10:55 Chloride IV Infused DAILY AMERICO Infusion Lorazepam 0.5 mg 01/26/21 21:34 01/31/21 04:18 Lorazepam 2 Mg/Ml Vial IVP 0.5 mg Q1H PRN Administration Anxiety Metoclopramide HCl 5 mg 01/30/21 12:00 01/31/21 06:08 Metoclopramide 10 Mg/2 Ml Vial IVP 5 mg Q6HR AMERICO Administration Nicotine 1 patch 01/26/21 23:38 01/30/21 21:41 Nicotine 14 Mg Patch TOP 1 patch DAILY PRN Administration NEEDED PER PROVIDER ORDERS Ondansetron HCl 4 mg 01/26/21 21:34 01/29/21 20:17 Ondansetron 4 Mg/2 Ml Vial IVP 4 mg Q6H PRN Administration Nausea / Vomiting Oxycodone HCl 5 mg 01/30/21 11:21 01/31/21 06:08 Oxycodone 5 Mg Tablet PO 5 mg Q4HR PRN Administration PAIN Pantoprazole Sodium 40 mg 01/26/21 22:00 01/30/21 21:24 Pantoprazole 40 Mg Vial IVP 40 mg BID AMERICO Administration Prazosin HCl 6 mg 01/29/21 21:00 01/30/21 21:26 Prazosin 1 Mg Capsule PO 6 mg QPM AMERICO Administration Senna 8.6 - 17.2 mg 01/30/21 21:00 01/30/21 21:25 Senna 8.6 Mg Tablet PO 8.6 mg DAILY AMERICO Administration Sodium Chloride 10 ml 01/27/21 01:00 01/30/21 21:24 Sodium Chloride Flush 0.9% 10 Ml Syringe IVP 10 ml 0100,0900,1700 AMERICO Administration Sodium Chloride 10 ml 01/26/21 21:34 01/31/21 04:19 Sodium Chloride Flush 0.9% 10 Ml Syringe IVP 20 ml PRN PRN Administration NEEDED PER PROVIDER ORDERS Tizanidine HCl 8 mg 01/29/21 13:07 01/30/21 15:09 Tizanidine 4 Mg Tablet PO 8 mg TID PRN Administration Spasms Topiramate 100 mg 01/29/21 14:00 01/30/21 21:26 Topiramate 100 Mg Tablet PO 100 mg BID AMERICO Administration - Lab Result Fish Bone Diagrams: 01/31/21 04:18 01/31/21 04:18 - Additional Planning My Orders: My Active Orders 01/30/21 10:42 HYDROmorphone 0.5MG SYRINGE [Dilaudid 0.5MG Syringe] 0.5 mg IVP Q1H PRN 01/31/21 08:00 D5.45ns W/20 Meq KCl 1,000 ml IV 100 mls/hr Subjective - Subjective Patient Reports: Other (Resting comfortably in bed today. She appears sign ificantly improved clinically. She reported tolerating a soft diet. Reported flatulence and bowel movement. Percutaneous drainage tube is still putting out serosanguineous fluid.) Objective Vital Signs: Vital Signs - 24 hr 01/30/21 01/30/21 01/30/21 09:03 09:47 12:34 Temperature 37.2 C 37 C Heart Rate [ 83 Monitoring electrodes] Heart Rate [ 86 Radial] Respiratory 20 18 Rate Blood Pressure Blood Pressure 149/95 H 159/96 H [Right Radial artery] O2 Saturation 98 96 01/30/21 01/30/21 01/30/21 13:10 13:13 13:20 Temperature Heart Rate [ Monitoring electrodes] Heart Rate [ Radial] Respiratory Rate Blood Pressure 159/96 H Blood Pressure 155/91 H 147/91 H [Right Radial artery] O2 Saturation 01/30/21 01/30/21 01/30/21 13:31 13:45 14:00 Temperature Heart Rate [ Monitoring electrodes] Heart Rate [ Radial] Respiratory Rate Blood Pressure 146/89 H Blood Pressure 120/96 H 146/89 H [Right Radial artery] O2 Saturation 01/30/21 01/30/21 01/30/21 14:02 16:11 21:00 Temperature 37.1 C 37 C Heart Rate [ Monitoring electrodes] Heart Rate [ 61 85 Radial] Respiratory 22 21 Rate Blood Pressure Blood Pressure 141/88 H 139/87 H 146/92 H [Right Radial artery] O2 Saturation 97 96 01/31/21 01/31/21 00:13 04:30 Temperature 36.9 C 36.9 C Heart Rate [ Monitoring electrodes] Heart Rate [ 85 87 Radial] Respiratory 19 18 Rate Blood Pressure Blood Pressure 142/91 H 138/83 H [Right Radial artery] O2 Saturation 94 95 Oxygen O2 Source Room air I&O (Last 24 Hrs): Intake and Output Totals x24h 01/29/21 01/30/21 01/31/21 23:59 23:59 23:59 Intake Total 3952.667 4252.2 1400 Output Total 2790 2475 2180 Balance 4016.435 0381.2 -780 General: Alert, Oriented x3, No acute distress HEENT: PERRLA, EOMI Neck: Supple, No JVD Neuro: Alert, Non Focal, Oriented Times 3 Cardiovascular: Regular rate Respiratory: Chest non-tender, No respiratory distress, Breath sounds nml Abdomen: Soft, Other (bowel sounds present) Extremities: No clubbing, No cyanosis, No edema Skin: No rashes, No breakdown, No significant lesion - Results Results: Laboratory Results WBC 7.0 x10^3/uL (4.8-10.8) 01/31/21 04:18 RBC 3.61 10^6/uL (4.20-5.40) L 01/31/21 04:18 Hgb 11.7 g/dL (12.0-16.0) L 01/31/21 04:18 Hct 35.7 % (37.0-47.0) L 01/31/21 04:18 MCV 98.9 fL (81.0-99.0) 01/31/21 04:18 MCH 32.4 pg (27.0-31.0) H 01/31/21 04:18 MCHC 32.8 g/dL (32.0-36.0) 01/31/21 04:18 RDW 13.3 % (12.0-15.0) 01/31/21 04:18 Plt Count 297 10^3/uL (130-450) 01/31/21 04:18 MPV 10.1 fL (7.9-10.8) 01/31/21 04:18 Neut # (Auto) 4.4 10^3/uL (1.5-6.6) 01/31/21 04:18 Lymph # (Auto) 1.4 10^3/uL (1.5-3.5) L 01/31/21 04:18 [place] # (Auto) 0.7 10^3/uL (0.0-1.0) 01/31/21 04:18 Eos # (Auto) 0.4 10^3/uL (0.0-0.7) 01/31/21 04:18 Baso # (Auto) 0.0 10^3/uL (0.0-0.1) 01/31/21 04:18 Absolute Nucleated RBC 0.00 x10^3/uL 01/31/21 04:18 Total Counted 100 01/27/21 04:07 Band Neuts % (Manual) 15 % (0-10) H 01/27/21 04:07 Abnorm Lymph % (Manual) 0 % 01/27/21 04:07 Nucleated RBC % 0.0 /100WBC 01/31/21 04:18 Neutrophils # (Manual) 8.0 10^3/uL (1.5-6.6) H 01/27/21 04:07 Lymphocytes # (Manual) 1.2 10^3/uL (1.5-3.5) L 01/27/21 04:07 Monocytes # (Manual) 0.5 10^3/uL (0.0-1.0) 01/27/21 04:07 Eosinophils # (Manual) 0.0 10^3/uL (0-0.7) 01/27/21 04:07 Basophils # (Manual) 0.0 10^3/uL (0-0.1) 01/27/21 04:07 Differential Comment MANUAL DIFFERENTIAL 01/27/21 04:07 Platelet Estimate NORMAL (130-450,000) (NORMAL) 01/27/21 04:07 Platelet Morphology NORMAL APPEARANCE (NORMAL) 01/26/21 15:20 RBC Morph Micro Appear NORMAL APPEARANCE (NORMAL) 01/27/21 04:07 VBG pH 7.321 (7.31-7.41) 01/29/21 07:10 Ionized Calcium 1.15 mmol/L (1.15-1.33) 01/29/21 07:10 Sodium 146 mmol/L (135-145) H 01/31/21 04:18 Potassium 3.5 mmol/L (3.5-5.0) 01/31/21 04:18 Chloride 112 mmol/L (101-111) H 01/31/21 04:18 Carbon Dioxide 23 mmol/L (21-32) 01/31/21 04:18 Anion Gap 11.0 (6-13) 01/31/21 04:18 BUN 7 mg/dL (6-20) 01/31/21 04:18 Creatinine 0.6 mg/dL (0.4-1.0) 01/31/21 04:18 Estimated GFR (MDRD) 107 (>89) 01/31/21 04:18 Glucose 91 mg/dL (70-100) 01/31/21 04:18 Calcium 8.7 mg/dL (8.5-10.3) 01/31/21 04:18 Phosphorus 2.4 mg/dL (2.5-4.6) L 01/30/21 08:34 Magnesium 1.8 mg/dL (1.7-2.8) 01/30/21 05:55 Total Bilirubin 0.6 mg/dL (0.2-1.0) 01/31/21 04:18 AST 11 IU/L (10-42) 01/31/21 04:18 ALT 17 IU/L (10-60) 01/31/21 04:18 Alkaline Phosphatase 46 IU/L (42-121) 01/31/21 04:18 Total Protein 5.5 g/dL (6.7-8.2) L 01/31/21 04:18 Albumin 2.6 g/dL (3.2-5.5) L 01/31/21 04:18 Globulin 2.9 g/dL (2.1-4.2) 01/31/21 04:18 Albumin/Globulin Ratio 0.9 (1.0-2.2) L 01/31/21 04:18 Prealbumin 7 mg/dL (18-45) L 01/30/21 05:55 Lipase 23 U/L (22-51) 01/26/21 15:20 Vitamin B12 1178 pg/mL (180-914) H 01/30/21 08:34 25-OH Vitamin D Total 67 ng/mL (30-100) 01/26/21 15:20 Folate 4.47 ng/mL (5.90 - >24.8) L 01/30/21 05:55 Urine Color YELLOW 01/26/21 23:10 Urine Clarity CLEAR (CLEAR) 01/26/21 23:10 Urine pH 5.5 PH (5.0-7.5) 01/26/21 23:10 Ur Specific [place] 1.020 (1.002-1.030) 01/26/21 23:10 Urine Protein NEGATIVE mg/dL (NEGATIVE) 01/26/21 23:10 Urine Glucose (UA) NEGATIVE mg/dL (NEGATIVE) 01/26/21 23:10 Urine Ketones NEGATIVE mg/dL (NEGATIVE) 01/26/21 23:10 Urine Occult Blood NEGATIVE (NEGATIVE) 01/26/21 23:10 Urine Nitrite NEGATIVE (NEGATIVE) 01/26/21 23:10 Urine Bilirubin NEGATIVE (NEGATIVE) 01/26/21 23:10 Urine Urobilinogen 0.2 (NORMAL) E.U./dL (NORMAL) 01/26/21 23:10 Ur Leukocyte Esterase NEGATIVE (NEGATIVE) 01/26/21 23:10 Ur Microscopic Review NOT INDICATED 01/26/21 23:10 Urine Culture Comments NOT INDICATED 01/26/21 23:10 Nasal Adenovirus (PCR) NOT DETECTED 01/26/21 18:20 Nasal B. parapertussis DNA (PCR) NOT DETECTED 01/26/21 18:20 Nasal Coronavir 229E PCR NOT DETECTED 01/26/21 18:20 Nasal Coronavir HKU1 PCR NOT DETECTED 01/26/21 18:20 Nasal Coronavir NL63 PCR NOT DETECTED 01/26/21 18:20 Nasal Coronavir OC43 PCR NOT DETECTED 01/26/21 18:20 Nasal Enterovir/Rhinovir PCR NOT DETECTED 01/26/21 18:20 Nasal Influenza B PCR NOT DETECTED 01/26/21 18:20 Nasal Influenza A PCR NOT DETECTED 01/26/21 18:20 Nasal Parainfluen 1 PCR NOT DETECTED 01/26/21 18:20 Nasal Parainfluen 2 PCR NOT DETECTED 01/26/21 18:20 Nasal Parainfluen 3 PCR NOT DETECTED 01/26/21 18:20 Nasal Parainfluen 4 PCR NOT DETECTED 01/26/21 18:20 Nasal RSV (PCR) NOT DETECTED 01/26/21 18:20 Nasal Screen MRSA (PCR) NEGATIVE (NEGATIVE) 01/26/21 21:50 Nasal B.pertussis DNA PCR NOT DETECTED 01/26/21 18:20 Nasal C.pneumoniae (PCR) NOT DETECTED 01/26/21 18:20 [place]ix Human Metapneumo PCR NOT DETECTED 01/26/21 18:20 Nasal M.pneumoniae (PCR) NOT DETECTED 01/26/21 18:20 Nasal SARS-CoV-2 (PCR) NOT DETECTED 01/26/21 18:20 - Procedures Procedures: Procedures EXCISION OF ESOPHAGUS, ENDO, DIAGN (07/31/20) EXCISION OF JEJUNUM, ENDO, DIAGN (07/31/20) EXCISION OF LOWER ESOPHAGUS, ENDO, DIAGN (05/24/19) EXCISION OF RECTUM, ENDO (05/24/19) EXCISION OF STOMACH, ENDO, DIAGN (07/31/20) RESECTION OF BILATERAL FALLOPIAN TUBES, PERC ENDO APPROACH (06/01/17) RESECTION OF BILATERAL OVARIES, PERC ENDO APPROACH (06/01/17) ABX Reporting Has patient been on IV antibiotics over the past 48 hours?: Yes
[2021-01-31] MEDS: D5.45NS W/20 MEQ KCL 1,000 ML IV SCH ×2 (08:00→18:00)
[2021-01-31] MEDS: FLUCONAZOLE 200 MG/100 ML 100 ML IV SCH (08:35)
[2021-01-31] MEDS: PANTOPRAZOLE 40 MG VIAL IVP SCH ×2 (08:35→20:58)
[2021-01-31] MEDS: SODIUM CHLORIDE FLUSH 0.9% 10 ML SYRINGE IVP SCH ×3 (08:40→20:58)
[2021-01-31] MEDS: FOLIC ACID INJ 1 MG in SODIUM CHLORIDE 0.9% 50 ML IV SCH (10:00)
[2021-01-31] MEDS: clonazePAM 0.5 MG TABLET PO SCH ×2 (10:15→20:59)
[2021-01-31] MEDS: SENNA 8.6 MG TABLET PO SCH (10:15)
[2021-01-31] MEDS: DOCUSATE SODIUM 250 MG CAPSULE PO SCH (10:15)
[2021-01-31] MEDS: TOPIRAMATE 100 MG TABLET PO SCH ×2 (10:15→20:59)
[2021-01-31] MEDS: GABAPENTIN 300 MG CAPSULE PO SCH ×2 (10:15→15:59)
[2021-01-31] MEDS: ENOXAPARIN 40 MG/0.4 ML SYRINGE SUBQ SCH (10:15)
[2021-01-31] MEDS: LORazepam 0.5 MG TABLET PO PRN ×10 (11:15→22:02)
--- NOTE | 2021-01-31 13:21 | PROVIDER PROGRESS NOTE ---
Subjective - General Admit Date: 01/26/21 Procedure Date: 01/26/21 Post Op Days: 5 Procedure Performed: Exploratory laparotomy with repair of gastric ulcer - Review of Systems Wound/Incisions: positive: Healing well Drain Type: 19 Arabic [place]ito drains with serosanguineous fluid General: positive: Weakness HEENT: positive: No symptoms Pulmonary: positive: No symptoms Cardiovascular: positive: No symptoms Gastrointestinal: positive: Abdominal pain. negative: Nausea, Vomiting, Flatus, Constipation Genitourinary: positive: No symptoms All Other Systems: positive: Reviewed and negative - Other Other Information/Narrative: Lots of questions this AM. Much more awake and interactive. Afebrile. Pain is the primary issue today. She reports her baseline level is 8 or 9 and that she is not able to participate in PT OT etc because of the discomfort. Does not want to take Oxy. It has been an issue for her in the past and she does not wish to use it again. Was on Tramadol as outpatient and would prefer to try that. Would like to know what she can expect going home. Requesting continued enemas for constipation as she says this is what she uses at home and what works best for her Objective - Patient Data Reviewed Vital Signs: Yes Vital Signs: Vital Signs x48h Temp Pulse Resp BP Pulse Ox 01/31/21 09:00 37.3 C 80 12 137/97 H 96 Weight: Weight 01/29/21 01/30/21 01/31/21 23:59 23:59 23:59 Weight (kg) 63.7 kg 70 kg 68.5 kg Intake & Output: Intake and Output Totals x24h 01/29/21 01/30/21 01/31/21 23:59 23:59 23:59 Intake Total 3952.667 4252.2 3192.2 Output Total 2790 2475 3155 Balance 7843.145 8912.2 37.2 - Lab Results Lab Results: 01/31/21 04:18 01/31/21 04:18 Other Lab Results: Lab Results x24hrs 01/31/21 01/31/21 01/26/21 Range/Units 04:18 04:18 15:20 WBC 7.0 (4.8-10.8) x10^3/uL RBC 3.61 L (4.20-5.40) 10^6/uL Hgb 11.7 L (12.0-16.0) g/dL Hct 35.7 L (37.0-47.0) % MCV 98.9 (81.0-99.0) fL MCH 32.4 H (27.0-31.0) pg MCHC 32.8 (32.0-36.0) g/dL RDW 13.3 (12.0-15.0) % Plt Count 297 (130-450) 10^3/uL MPV 10.1 (7.9-10.8) fL Neut # (Auto) 4.4 (1.5-6.6) 10^3/uL Lymph # (Auto) 1.4 L (1.5-3.5) 10^3/uL [place] # (Auto) 0.7 (0.0-1.0) 10^3/uL Eos # (Auto) 0.4 (0.0-0.7) 10^3/uL Baso # (Auto) 0.0 (0.0-0.1) 10^3/uL Absolute Nucleated RBC 0.00 x10^3/uL Nucleated RBC % 0.0 /100WBC Sodium 146 H (135-145) mmol/L Potassium 3.5 (3.5-5.0) mmol/L Chloride 112 H (101-111) mmol/L Carbon Dioxide 23 (21-32) mmol/L Anion Gap 11.0 (6-13) BUN 7 (6-20) mg/dL Creatinine 0.6 (0.4-1.0) mg/dL Estimated GFR (MDRD) 107 (>89) Glucose 91 (70-100) mg/dL Calcium 8.7 (8.5-10.3) mg/dL Total Bilirubin 0.6 (0.2-1.0) mg/dL AST 11 (10-42) IU/L ALT 17 (10-60) IU/L Alkaline Phosphatase 46 (42-121) IU/L Total Protein 5.5 L (6.7-8.2) g/dL Albumin 2.6 L (3.2-5.5) g/dL Globulin 2.9 (2.1-4.2) g/dL Albumin/Globulin Ratio 0.9 L (1.0-2.2) 25-OH Vitamin D Total 67 (30-100) ng/mL - Current Medications Current Medications: Current Medications Generic Name Dose Route Start Last Admin Trade Name Freq PRN Reason Stop Dose Admin Acetaminophen 650 mg 01/30/21 11:22 01/31/21 12:10 Acetaminophen 325 Mg Tablet PO 650 mg Q6H PRN Administration Pain or Fever > 38C (100.4F) Clonazepam 1 mg 01/29/21 21:00 01/31/21 10:15 Clonazepam 0.5 Mg Tablet PO 1 mg BID AMERICO Administration Clonidine HCl 0.2 mg 01/29/21 21:00 01/31/21 06:08 Clonidine 0.1 Mg Tablet PO 0.2 mg TID AMERICO Administration Docusate Sodium 250 mg 01/30/21 12:00 01/31/21 10:15 Docusate Sodium 250 Mg Capsule PO 250 mg DAILY AMERICO Administration Enoxaparin Sodium 40 mg 01/27/21 09:00 01/31/21 10:15 Enoxaparin 40 Mg/0.4 Ml Syringe SUBQ 40 mg DAILY AMERICO Administration Escitalopram Oxalate 20 mg 01/29/21 21:00 01/30/21 21:26 Escitalopram 10 Mg Tablet PO 20 mg QPM AMERICO Administration Gabapentin 600 mg 01/30/21 15:00 01/31/21 10:15 Gabapentin 300 Mg Capsule PO 600 mg 0900,1500 AMERICO Administration Gabapentin 1,200 mg 01/30/21 21:00 01/30/21 21:25 Gabapentin 400 Mg Capsule PO 1,200 mg QPM AMERICO Administration Hydralazine HCl 10 mg 01/28/21 16:00 01/30/21 13:10 Hydralazine Inj 20 Mg/Ml Vial IVP 10 mg Q6H PRN Administration PER PHYSICIAN ORDER Hydromorphone HCl 0.5 mg 01/30/21 10:42 01/31/21 13:15 Hydromorphone 0.5 Mg/0.5 Ml Syringe IVP 0.5 mg Q1H PRN Administration PAIN Piperacillin Sod/Tazobactam 100 mls @ 200 mls/hr 01/27/21 06:00 01/31/21 06:40 Sod 3.375 gm/ Sodium Chloride IV Infused Q8HR AMERICO Infusion Fluconazole 100 mls @ 100 mls/hr 01/27/21 09:00 09/25/21 09:35 Diflucan 200 Mg/100 Ml IV Infused DAILY AMERICO Infusion Promethazine HCl 25 mg/ Sodium 51 mls @ 100 mls/hr 01/27/21 08:58 01/30/21 22:00 Chloride IV Infused Q6H PRN Infusion Nausea / Vomiting Folic Acid 1 mg/ Sodium 50.2 mls @ 100 mls/hr 01/27/21 13:30 01/31/21 10:31 Chloride IV Infused DAILY AMERICO Infusion Potassium Chloride/Dextrose/Sod Cl 1,000 mls @ 100 mls/hr 01/31/21 08:00 01/31/21 12:00 D5.45ns W/20 Meq Kcl IV 100 mls/hr .Q10H AMERICO Infusion Lorazepam 0.5 mg 01/31/21 10:47 01/31/21 13:15 Lorazepam 0.5 Mg Tablet PO 0.5 mg Q1H PRN Administration Anxiety Metoclopramide HCl 5 mg 01/30/21 12:00 01/31/21 12:04 Metoclopramide 10 Mg/2 Ml Vial IVP 5 mg Q6HR AMERICO Administration Nicotine 1 patch 01/26/21 23:38 01/30/21 21:41 Nicotine 14 Mg Patch TOP 1 patch DAILY PRN Administration NEEDED PER PROVIDER ORDERS Ondansetron HCl 4 mg 01/26/21 21:34 01/29/21 20:17 Ondansetron 4 Mg/2 Ml Vial IVP 4 mg Q6H PRN Administration Nausea / Vomiting Pantoprazole Sodium 40 mg 01/26/21 22:00 01/31/21 08:35 Pantoprazole 40 Mg Vial IVP 40 mg BID AMERICO Administration Prazosin HCl 6 mg 01/29/21 21:00 01/30/21 21:26 Prazosin 1 Mg Capsule PO 6 mg QPM AMERICO Administration Sodium Chloride 10 ml 01/27/21 01:00 01/31/21 08:40 Sodium Chloride Flush 0.9% 10 Ml Syringe IVP 10 ml 0100,0900,1700 AMERICO Administration Sodium Chloride 10 ml 01/26/21 21:34 01/31/21 04:19 Sodium Chloride Flush 0.9% 10 Ml Syringe IVP 20 ml PRN PRN Administration NEEDED PER PROVIDER ORDERS Tizanidine HCl 8 mg 01/29/21 13:07 01/30/21 15:09 Tizanidine 4 Mg Tablet PO 8 mg TID PRN Administration Spasms Topiramate 100 mg 01/29/21 14:00 01/31/21 10:15 Topiramate 100 Mg Tablet PO 100 mg BID AMERICO Administration - Physical Exam Wound/Incisions: positive: Healing well General Appearance: positive: No acute distress Eyes Bilateral: positive: Normal inspection Respiratory: positive: No respiratory distress, Breath sounds nml Cardiovascular: positive: Regular rate & rhythm Abdomen: positive: Nml bowel sounds, No distention, Tenderness Neurologic/Psychiatric: positive: Oriented x3 ABX Reporting Has patient been on IV antibiotics over the past 48 hours?: Yes Impression/Plan - Problem List Problem List: Perforated gastric ulcer with peritonitis. 1. Stop Oxy and start Tramadol 2. Fentanyl 25 mcg patch to provide baseline pain level of 5 3. Fleets saline enemas as desired up to twice daily. 4. Leave drain 1 more day. Output is increased but drainage remains clear. Likely due to po intake 5. Labs reassuring. 6. Hopefully improved pain control will help with activity
[2021-01-31] MEDS ORDERED: fentaNYL 25 MCG PATCH TOP SCH (14:00)
[2021-01-31] MEDS: traMADol 50 MG TABLET PO PRN ×2 (14:05→22:37)
[2021-01-31] MEDS: SALINE ENEMA 133 ML BOTTLE RC SCH ×2 (15:00→21:04)
[2021-01-31] MEDS: ESCITALOPRAM 10 MG TABLET PO SCH (20:59)
[2021-01-31] MEDS: GABAPENTIN 400 MG CAPSULE PO SCH (20:59)
[2021-01-31] MEDS: PRAZOSIN 1 MG CAPSULE PO SCH (20:59)
[2021-01-31] MEDS ORDERED: SENNA 8.6 MG TABLET PO SCH (21:00)
[2021-01-31] MEDS: PROMETHAZINE INJ 25 MG in SODIUM CHLORIDE 0.9% 50 ML IV PRN (22:37)
[2021-01-31] MEDS: NICOTINE 14 MG PATCH TOP PRN (22:37)
[2021-02-01] MEDS: SODIUM CHLORIDE FLUSH 0.9% 10 ML SYRINGE IVP PRN ×5 (00:04→19:19)
[2021-02-01] MEDS: HYDROmorphone 0.5 MG/0.5 ML SYRINGE IVP PRN ×8 (00:04→19:18)
[2021-02-01] MEDS: METOCLOPRAMIDE 10 MG/2 ML VIAL IVP SCH ×3 (00:04→11:31)
[2021-02-01] MEDS: LORazepam 0.5 MG TABLET PO PRN ×9 (00:04→16:15)
[2021-02-01] MEDS: D5.45NS W/20 MEQ KCL 1,000 ML IV SCH ×2 (04:14→14:15)
[2021-02-01] MEDS: ACETAMINOPHEN 325 MG TABLET PO PRN ×3 (04:14→21:07)
[2021-02-01] MEDS: PIPERACILLIN/TAZOBACTAM 3.375 GM in SODIUM CHLORIDE 0.9% MINIBAG 100 ML IV SCH ×3 (05:59→21:12)
[2021-02-01] MEDS: cloNIDine 0.1 MG TABLET PO SCH ×3 (06:00→20:51)
--- NOTE | 2021-02-01 07:27 | PROVIDER PROGRESS NOTE ---
Assessment/Plan - Problem List (1) Perforated abdominal viscus Assessment/Plan: Status post surgery. Postop day #6. Pain management with Dilaudid 0.5 q1hr prn. Patient receiving Phenergan and Zofran for nausea. Tolerating a soft diet. [employer] Production [employer] following. Oral medications resumed. Improved bowel movements Encourage activity/ambulation Decreased output from percutaneous drainage tubes Empiric Zosyn. Drainage from percutaneous tubes grew Klebsiella oxytoca and Enterobacter aerogenes General surgery is primary and following Anticipate discharge in 1-2 days (2) Hypomagnesemia Assessment/Plan: Resovled (3) Mental health disorder Assessment/Plan: Patient has history of bipolar disorder, anxiety, insomnia. Continue Clonazepam, tramadol, Topamax, Rimegepant and zolmitriptan. - Current Meds Current Meds: Current Medications Generic Name Dose Route Start Last Admin Trade Name Freq PRN Reason Stop Dose Admin Acetaminophen 650 mg 01/30/21 11:22 02/01/21 04:14 Acetaminophen 325 Mg Tablet PO 650 mg Q6H PRN Administration Pain or Fever > 38C (100.4F) Clonazepam 1 mg 01/29/21 21:00 01/31/21 20:59 Clonazepam 0.5 Mg Tablet PO 1 mg BID AMERICO Administration Clonidine HCl 0.2 mg 01/29/21 21:00 02/01/21 06:00 Clonidine 0.1 Mg Tablet PO 0.2 mg TID AMERICO Administration Docusate Sodium 250 mg 01/30/21 12:00 01/31/21 10:15 Docusate Sodium 250 Mg Capsule PO 250 mg DAILY AMERICO Administration Enoxaparin Sodium 40 mg 01/27/21 09:00 01/31/21 10:15 Enoxaparin 40 Mg/0.4 Ml Syringe SUBQ 40 mg DAILY AMERICO Administration Escitalopram Oxalate 20 mg 01/29/21 21:00 01/31/21 20:59 Escitalopram 10 Mg Tablet PO 20 mg QPM AMERICO Administration Fentanyl 1 patch 01/31/21 14:00 01/31/21 14:05 Fentanyl 25 Mcg Patch TOP 1 patch Q3D AMERICO Administration Gabapentin 600 mg 01/30/21 15:00 01/31/21 15:59 Gabapentin 300 Mg Capsule PO 600 mg 0900,1500 AMERICO Administration Gabapentin 1,200 mg 01/30/21 21:00 01/31/21 20:59 Gabapentin 400 Mg Capsule PO 1,200 mg QPM AMERICO Administration Hydralazine HCl 10 mg 01/28/21 16:00 01/30/21 13:10 Hydralazine Inj 20 Mg/Ml Vial IVP 10 mg Q6H PRN Administration PER PHYSICIAN ORDER Hydromorphone HCl 0.5 mg 01/30/21 10:42 02/01/21 06:00 Hydromorphone 0.5 Mg/0.5 Ml Syringe IVP 0.5 mg Q1H PRN Administration PAIN Piperacillin Sod/Tazobactam 100 mls @ 200 mls/hr 01/27/21 06:00 02/01/21 06:40 Sod 3.375 gm/ Sodium Chloride IV Infused Q8HR AMER[facility] Infusion Fluconazole 100 mls @ 100 mls/hr 01/27/21 09:00 01/31/21 09:35 Diflucan 200 Mg/100 Ml IV Infused DAILY AMER[facility] Infusion Promethazine HCl 25 mg/ Sodium 51 mls @ 100 mls/hr 01/27/21 08:58 01/31/21 23:11 Chloride IV Infused Q6H PRN Infusion Nausea / Vomiting Folic Acid 1 mg/ Sodium 50.2 mls @ 100 mls/hr 01/27/21 13:30 01/31/21 10:31 Chloride IV Infused DAILY AMERICO Infusion Potassium Chloride/Dextrose/Sod Cl 1,000 mls @ 100 mls/hr 01/31/21 08:00 02/01/21 07:00 D5.45ns W/20 Meq Kcl IV 100 mls/hr .Q10H AMERICO Infusion Lorazepam 0.5 mg 01/31/21 10:47 02/01/21 06:00 Lorazepam 0.5 Mg Tablet PO 0.5 mg Q1H PRN Administration Anxiety Metoclopramide HCl 5 mg 01/30/21 12:00 02/01/21 06:00 Metoclopramide 10 Mg/2 Ml Vial IVP 5 mg Q6HR AMERICO Administration Nicotine 1 patch 01/26/21 23:38 01/31/21 22:37 Nicotine 14 Mg Patch TOP 1 patch DAILY PRN Administration NEEDED PER PROVIDER ORDERS Ondansetron HCl 4 mg 01/26/21 21:34 01/29/21 20:17 Ondansetron 4 Mg/2 Ml Vial IVP 4 mg Q6H PRN Administration Nausea / Vomiting Pantoprazole Sodium 40 mg 01/26/21 22:00 01/31/21 20:58 Pantoprazole 40 Mg Vial IVP 40 mg BID AMERICO Administration Prazosin HCl 6 mg 01/29/21 21:00 01/31/21 20:59 Prazosin 1 Mg Capsule PO 6 mg QPM AMERICO Administration Sodium Biphosphate/Sodium Phosphate 133 ml 01/31/21 14:00 01/31/21 21:04 Saline Enema 133 Ml Bottle RC Not Given BID AMERICO Sodium Chloride 10 ml 01/27/21 01:00 01/31/21 20:58 Sodium Chloride Flush 0.9% 10 Ml Syringe IVP 10 ml 0100,0900,1700 AMERICO Administration Sodium Chloride 10 ml 01/26/21 21:34 02/01/21 06:04 Sodium Chloride Flush 0.9% 10 Ml Syringe IVP 10 ml PRN PRN Administration NEEDED PER PROVIDER ORDERS Tizanidine HCl 8 mg 01/29/21 13:07 01/30/21 15:09 Tizanidine 4 Mg Tablet PO 8 mg TID PRN Administration Spasms Topiramate 100 mg 01/29/21 14:00 01/31/21 20:59 Topiramate 100 Mg Tablet PO 100 mg BID AMERICO Administration Tramadol HCl 100 mg 01/31/21 13:16 01/31/21 22:37 Tramadol 50 Mg Tablet PO 100 mg Q8HR PRN Administration PAIN - Lab Result Fish Bone Diagrams: 02/01/21 07:43 02/01/21 07:43 - Additional Planning My Orders: My Active Orders 01/31/21 08:00 D5.45ns W/20 Meq KCl 1,000 ml IV 100 mls/hr 02/01/21 07:26 BMP - BASIC METABOLIC PANEL [CHEM] Routine CBC - COMP BLD CT W/AUTO DIFF [HEME] Routine 02/02/21 05:00 CBC - COMP BLD CT W/AUTO DIFF [HEME] DAILYLAB 02/03/21 05:00 CBC - COMP BLD CT W/AUTO DIFF [HEME] DAILYLAB 02/04/21 05:00 CBC - COMP BLD CT W/AUTO DIFF [HEME] DAILYLAB 02/05/21 05:00 CBC - COMP BLD CT W/AUTO DIFF [HEME] DAILYLAB 02/06/21 05:00 CBC - COMP BLD CT W/AUTO DIFF [HEME] DAILYLAB Subjective - Subjective Patient Reports: Other (Continues to improve clinically daily. Pain is improved. Reports more bowel movements. Decreased output in percutaneous drains.) Objective Vital Signs: Vital Signs - 24 hr 01/31/21 01/31/21 01/31/21 09:00 13:00 17:00 Temperature 37.3 C 37.3 C 37.0 C Heart Rate [ 80 83 80 Radial] Respiratory 12 14 14 Rate Blood Pressure 137/97 H 139/96 H 124/75 [Right Radial artery] O2 Saturation 96 95 96 01/31/21 02/01/21 02/01/21 20:00 00:00 04:28 Temperature 37 C 37 C 37 C Heart Rate [ 84 79 87 Radial] Respiratory 19 18 19 Rate Blood Pressure 132/89 H 111/72 132/82 H [Right Radial artery] O2 Saturation 95 95 98 Oxygen O2 Source Room air I&O (Last 24 Hrs): Intake and Output Totals x24h 01/30/21 01/31/21 02/01/21 23:59 23:59 23:59 Intake Total 4252.2 5013.2 1926.667 Output Total 2475 5475 1230 Balance 1777.2 -461.8 696.667 General: Alert, Oriented x3, Mild distress HEENT: Atraumatic, PERRLA, EOMI Neck: Supple, No JVD Neuro: Alert, Non Focal, Oriented Times 3 Cardiovascular: Regular rate Respiratory: Chest non-tender, No respiratory distress, Breath sounds nml Abdomen: Normal bowel sounds, Soft, Other Extremities: No clubbing, No edema Skin: No rashes Comments/Notes: mild oozing at abdominal surgical site - Results Results: Laboratory Results WBC 7.0 x10^3/uL (4.8-10.8) 01/31/21 04:18 RBC 3.61 10^6/uL (4.20-5.40) L 01/31/21 04:18 Hgb 11.7 g/dL (12.0-16.0) L 01/31/21 04:18 Hct 35.7 % (37.0-47.0) L 01/31/21 04:18 MCV 98.9 fL (81.0-99.0) 01/31/21 04:18 MCH 32.4 pg (27.0-31.0) H 01/31/21 04:18 MCHC 32.8 g/dL (32.0-36.0) 01/31/21 04:18 RDW 13.3 % (12.0-15.0) 01/31/21 04:18 Plt Count 297 10^3/uL (130-450) 01/31/21 04:18 MPV 10.1 fL (7.9-10.8) 01/31/21 04:18 Neut # (Auto) 4.4 10^3/uL (1.5-6.6) 01/31/21 04:18 Lymph # (Auto) 1.4 10^3/uL (1.5-3.5) L 01/31/21 04:18 [place] # (Auto) 0.7 10^3/uL (0.0-1.0) 01/31/21 04:18 Eos # (Auto) 0.4 10^3/uL (0.0-0.7) 01/31/21 04:18 Baso # (Auto) 0.0 10^3/uL (0.0-0.1) 01/31/21 04:18 Absolute Nucleated RBC 0.00 x10^3/uL 01/31/21 04:18 Total Counted 100 01/27/21 04:07 Band Neuts % (Manual) 15 % (0-10) H 01/27/21 04:07 Abnorm Lymph % (Manual) 0 % 01/27/21 04:07 Nucleated RBC % 0.0 /100WBC 01/31/21 04:18 Neutrophils # (Manual) 8.0 10^3/uL (1.5-6.6) H 01/27/21 04:07 Lymphocytes # (Manual) 1.2 10^3/uL (1.5-3.5) L 01/27/21 04:07 Monocytes # (Manual) 0.5 10^3/uL (0.0-1.0) 01/27/21 04:07 Eosinophils # (Manual) 0.0 10^3/uL (0-0.7) 01/27/21 04:07 Basophils # (Manual) 0.0 10^3/uL (0-0.1) 01/27/21 04:07 Differential Comment MANUAL DIFFERENTIAL 01/27/21 04:07 Platelet Estimate NORMAL (130-450,000) (NORMAL) 01/27/21 04:07 Platelet Morphology NORMAL APPEARANCE (NORMAL) 01/26/21 15:20 RBC Morph Micro Appear NORMAL APPEARANCE (NORMAL) 01/27/21 04:07 VBG pH 7.321 (7.31-7.41) 01/29/21 07:10 Ionized Calcium 1.15 mmol/L (1.15-1.33) 01/29/21 07:10 Sodium 146 mmol/L (135-145) H 01/31/21 04:18 Potassium 3.5 mmol/L (3.5-5.0) 01/31/21 04:18 Chloride 112 mmol/L (101-111) H 01/31/21 04:18 Carbon Dioxide 23 mmol/L (21-32) 01/31/21 04:18 Anion Gap 11.0 (6-13) 01/31/21 04:18 BUN 7 mg/dL (6-20) 01/31/21 04:18 Creatinine 0.6 mg/dL (0.4-1.0) 01/31/21 04:18 Estimated GFR (MDRD) 107 (>89) 01/31/21 04:18 Glucose 91 mg/dL (70-100) 01/31/21 04:18 Calcium 8.7 mg/dL (8.5-10.3) 01/31/21 04:18 Phosphorus 2.4 mg/dL (2.5-4.6) L 01/30/21 08:34 Magnesium 1.8 mg/dL (1.7-2.8) 01/30/21 05:55 Total Bilirubin 0.6 mg/dL (0.2-1.0) 01/31/21 04:18 AST 11 IU/L (10-42) 01/31/21 04:18 ALT 17 IU/L (10-60) 01/31/21 04:18 Alkaline Phosphatase 46 IU/L (42-121) 01/31/21 04:18 Total Protein 5.5 g/dL (6.7-8.2) L 01/31/21 04:18 Albumin 2.6 g/dL (3.2-5.5) L 01/31/21 04:18 Globulin 2.9 g/dL (2.1-4.2) 01/31/21 04:18 Albumin/Globulin Ratio 0.9 (1.0-2.2) L 01/31/21 04:18 Prealbumin 7 mg/dL (18-45) L 01/30/21 05:55 Lipase 23 U/L (22-51) 01/26/21 15:20 Vitamin B12 1178 pg/mL (180-914) H 01/30/21 08:34 25-OH Vitamin D Total 67 ng/mL (30-100) 01/26/21 15:20 Folate 4.47 ng/mL (5.90 - >24.8) L 01/30/21 05:55 Urine Color YELLOW 01/26/21 23:10 Urine Clarity CLEAR (CLEAR) 01/26/21 23:10 Urine pH 5.5 PH (5.0-7.5) 01/26/21 23:10 Ur Specific [place] 1.020 (1.002-1.030) 01/26/21 23:10 Urine Protein NEGATIVE mg/dL (NEGATIVE) 01/26/21 23:10 Urine Glucose (UA) NEGATIVE mg/dL (NEGATIVE) 01/26/21 23:10 Urine Ketones NEGATIVE mg/dL (NEGATIVE) 01/26/21 23:10 Urine Occult Blood NEGATIVE (NEGATIVE) 01/26/21 23:10 Urine Nitrite NEGATIVE (NEGATIVE) 01/26/21 23:10 Urine Bilirubin NEGATIVE (NEGATIVE) 01/26/21 23:10 Urine Urobilinogen 0.2 (NORMAL) E.U./dL (NORMAL) 01/26/21 23:10 Ur Leukocyte Esterase NEGATIVE (NEGATIVE) 01/26/21 23:10 Ur Microscopic Review NOT INDICATED 01/26/21 23:10 Urine Culture Comments NOT INDICATED 01/26/21 23:10 Nasal Adenovirus (PCR) NOT DETECTED 01/26/21 18:20 Nasal B. parapertussis DNA (PCR) NOT DETECTED 01/26/21 18:20 Nasal Coronavir 229E PCR NOT DETECTED 01/26/21 18:20 Nasal Coronavir HKU1 PCR NOT DETECTED 01/26/21 18:20 Nasal Coronavir NL63 PCR NOT DETECTED 01/26/21 18:20 Nasal Coronavir OC43 PCR NOT DETECTED 01/26/21 18:20 Nasal Enterovir/Rhinovir PCR NOT DETECTED 01/26/21 18:20 Nasal Influenza B PCR NOT DETECTED 01/26/21 18:20 Nasal Influenza A PCR NOT DETECTED 01/26/21 18:20 Nasal Parainfluen 1 PCR NOT DETECTED 01/26/21 18:20 Nasal Parainfluen 2 PCR NOT DETECTED 01/26/21 18:20 Nasal Parainfluen 3 PCR NOT DETECTED 01/26/21 18:20 Nasal Parainfluen 4 PCR NOT DETECTED 01/26/21 18:20 Nasal RSV (PCR) NOT DETECTED 01/26/21 18:20 Nasal Screen MRSA (PCR) NEGATIVE (NEGATIVE) 01/26/21 21:50 Nasal B.pertussis DNA PCR NOT DETECTED 01/26/21 18:20 Nasal C.pneumoniae (PCR) NOT DETECTED 01/26/21 18:20 Félix Human Metapneumo PCR NOT DETECTED 01/26/21 18:20 Nasal M.pneumoniae (PCR) NOT DETECTED 01/26/21 18:20 Nasal SARS-CoV-2 (PCR) NOT DETECTED 01/26/21 18:20 - Procedures Procedures: Procedures EXCISION OF ESOPHAGUS, ENDO, DIAGN (07/31/20) EXCISION OF JEJUNUM, ENDO, DIAGN (07/31/20) EXCISION OF LOWER ESOPHAGUS, ENDO, DIAGN (05/24/19) EXCISION OF RECTUM, ENDO (05/24/19) EXCISION OF STOMACH, ENDO, DIAGN (07/31/20) RESECTION OF BILATERAL FALLOPIAN TUBES, PERC ENDO APPROACH (06/01/17) RESECTION OF BILATERAL OVARIES, PERC ENDO APPROACH (06/01/17) ABX Reporting Has patient been on IV antibiotics over the past 48 hours?: Yes
[2021-02-01 07:50] LABS: BASOPHILS % (AUTO) 0.3 %; EOSINOPHILS # (AUTO) 0.5 10^3/uL (0.0-0.7); EOSINOPHILS % (AUTO) 5.9 %; HCT - HEMATOCRIT 33.9 % (37.0-47.0); HGB - HEMOGLOBIN 11.1 g/dL (12.0-16.0); LYMPHOCYTES # (AUTO) 1.1 10^3/uL (1.5-3.5); LYMPHOCYTES % (AUTO) 12.8 %; MEAN CORPUSCULAR HEMOGLOBIN 32.9 pg (27.0-31.0); MEAN CORPUSCULAR HGB CONC 32.7 g/dL (32.0-36.0); MEAN CORPUSCULAR VOLUME 100.6 fL (81.0-99.0); MEAN PLATELET VOLUME 9.6 fL (7.9-10.8); MONOCYTES # (AUTO) 0.8 10^3/uL (0.0-1.0); MONOCYTES % (AUTO) 9.5 %; NEUTROPHILS % (AUTO) 70.3 %; PLT - PLATELET COUNT 293 10^3/uL (130-450); RED BLOOD COUNT 3.37 10^6/uL (4.20-5.40); RED CELL DISTRIBUTION WIDTH 13.3 % (12.0-15.0); WHITE BLOOD COUNT 8.6 x10^3/uL (4.8-10.8)
[2021-02-01] MEDS: FLUCONAZOLE 200 MG/100 ML 100 ML IV SCH (07:50)
[2021-02-01 08:00] LABS: CALCIUM 8.3 mg/dL (8.5-10.3); CREATININE 0.5 mg/dL (0.4-1.0); POTASSIUM 3.7 mmol/L (3.5-5.0)
[2021-02-01] MEDS: PANTOPRAZOLE 40 MG VIAL IVP SCH ×2 (08:53→20:51)
[2021-02-01] MEDS: clonazePAM 0.5 MG TABLET PO SCH ×2 (08:55→20:50)
[2021-02-01] MEDS: ENOXAPARIN 40 MG/0.4 ML SYRINGE SUBQ SCH (08:55)
[2021-02-01] MEDS: DOCUSATE SODIUM 250 MG CAPSULE PO SCH (08:57)
[2021-02-01] MEDS: traMADol 50 MG TABLET PO PRN ×2 (09:00→21:07)
[2021-02-01] MEDS: GABAPENTIN 300 MG CAPSULE PO SCH ×2 (09:00→15:20)
[2021-02-01] MEDS: FOLIC ACID INJ 1 MG in SODIUM CHLORIDE 0.9% 50 ML IV SCH (09:00)
[2021-02-01] MEDS: TOPIRAMATE 100 MG TABLET PO SCH ×2 (09:01→20:51)
[2021-02-01] MEDS: SODIUM CHLORIDE FLUSH 0.9% 10 ML SYRINGE IVP SCH ×2 (09:01→20:48)
[2021-02-01] MEDS: SALINE ENEMA 133 ML BOTTLE RC SCH ×2 (10:00→20:52)
[2021-02-01] MEDS ORDERED: LORazepam 0.5 MG TABLET PO PRN (16:38)
--- NOTE | 2021-02-01 16:50 | PROVIDER PROGRESS NOTE ---
Subjective - General Admit Date: 01/26/21 Procedure Date: 01/26/21 Post Op Days: 6 Procedure Performed: Exploratory laparotomy with repair of gastric ulcer - Review of Systems Wound/Incisions: positive: Healing well Drain Type: 19 [place] drains with serosanguineous fluid General: positive: Weakness HEENT: positive: No symptoms Pulmonary: positive: No symptoms Cardiovascular: positive: No symptoms Gastrointestinal: positive: Abdominal pain. negative: Nausea, Vomiting, Flatus, Constipation Genitourinary: positive: No symptoms All Other Systems: positive: Reviewed and negative - Other Other Information/Narrative: Much brighter today and report pain is under much better control. Lots of questions about going home and acceptable activity. Worried about transfer to the [facility] surg floor Objective - Patient Data Vital Signs: Vital Signs x48h Temp Pulse Resp BP Pulse Ox 02/01/21 16:21 36.5 C 87 20 125/86 H 95 02/01/21 11:24 37.2 C 88 18 130/83 H 95 Weight: Weight 01/30/21 01/31/21 02/01/21 23:59 23:59 23:59 Weight (kg) 70 kg 68.5 kg 68.5 kg Intake & Output: Intake and Output Totals x24h 01/30/21 01/31/21 02/01/21 23:59 23:59 23:59 Intake Total 4252.2 5013.2 4770.200 Output Total 2475 5475 2880 Balance 1777.2 -461.8 1890.200 - Lab Results Lab Results: 02/01/21 07:43 02/01/21 07:43 Other Lab Results: Lab Results x24hrs 02/01/21 02/01/21 Range/Units 07:43 07:43 WBC 8.6 (4.8-10.8) x10^3/uL RBC 3.37 L (4.20-5.40) 10^6/uL Hgb 11.1 L (12.0-16.0) g/dL Hct 33.9 L (37.0-47.0) % MCV 100.6 H (81.0-99.0) fL MCH 32.9 H (27.0-31.0) pg MCHC 32.7 (32.0-36.0) g/dL RDW 13.3 (12.0-15.0) % Plt Count 293 (130-450) 10^3/uL MPV 9.6 (7.9-10.8) fL Neut # (Auto) 6.0 (1.5-6.6) 10^3/uL Lymph # (Auto) 1.1 L (1.5-3.5) 10^3/uL Weber # (Auto) 0.8 (0.0-1.0) 10^3/uL Eos # (Auto) 0.5 (0.0-0.7) 10^3/uL Baso # (Auto) 0.0 (0.0-0.1) 10^3/uL Absolute Nucleated RBC 0.00 x10^3/uL Nucleated RBC % 0.0 /100WBC Sodium 142 (135-145) mmol/L Potassium 3.7 (3.5-5.0) mmol/L Chloride 109 (101-111) mmol/L Carbon Dioxide 24 (21-32) mmol/L Anion Gap 9.0 (6-13) BUN 6 (6-20) mg/dL Creatinine 0.5 (0.4-1.0) mg/dL Estimated GFR (MDRD) 132 (>89) Glucose 109 H (70-100) mg/dL Calcium 8.3 L (8.5-10.3) mg/dL - Current Medications Current Medications: Current Medications Generic Name Dose Route Start Last Admin Trade Name Freq PRN Reason Stop Dose Admin Acetaminophen 650 mg 01/30/21 11:22 02/01/21 10:58 Acetaminophen 325 Mg Tablet PO 650 mg Q6H PRN Administration Pain or Fever > 38C (100.4F) Clonazepam 1 mg 01/29/21 21:00 02/01/21 08:55 Clonazepam 0.5 Mg Tablet PO 1 mg BID AMERICO Administration Clonidine HCl 0.2 mg 01/29/21 21:00 02/01/21 14:10 Clonidine 0.1 Mg Tablet PO 0.2 mg TID AMERICO Administration Docusate Sodium 250 mg 01/30/21 12:00 02/01/21 08:57 Docusate Sodium 250 Mg Capsule PO 250 mg DAILY AMERICO Administration Enoxaparin Sodium 40 mg 01/27/21 09:00 02/01/21 08:55 Enoxaparin 40 Mg/0.4 Ml Syringe SUBQ 40 mg DAILY AMERICO Administration Escitalopram Oxalate 20 mg 01/29/21 21:00 01/31/21 20:59 Escitalopram 10 Mg Tablet PO 20 mg QPM AMERICO Administration Fentanyl 1 patch 01/31/21 14:00 01/31/21 14:05 Fentanyl 25 Mcg Patch TOP 1 patch Q3D AMERICO Administration Gabapentin 600 mg 01/30/21 15:00 02/01/21 15:20 Gabapentin 300 Mg Capsule PO 600 mg 0900,1500 AMERICO Administration Gabapentin 1,200 mg 01/30/21 21:00 01/31/21 20:59 Gabapentin 400 Mg Capsule PO 1,200 mg QPM AMERICO Administration Piperacillin Sod/Tazobactam 100 mls @ 200 mls/hr 01/27/21 06:00 02/01/21 14:30 Sod 3.375 gm/ Sodium Chloride IV Infused Q8HR AMERICO Infusion Promethazine HCl 25 mg/ Sodium 51 mls @ 100 mls/hr 01/27/21 08:58 01/31/21 23:11 Chloride IV Infused Q6H PRN Infusion Nausea / Vomiting Nicotine 1 patch 01/26/21 23:38 01/31/21 22:37 Nicotine 14 Mg Patch TOP 1 patch DAILY PRN Administration NEEDED PER PROVIDER ORDERS Ondansetron HCl 4 mg 01/26/21 21:34 01/29/21 20:17 Ondansetron 4 Mg/2 Ml Vial IVP 4 mg Q6H PRN Administration Nausea / Vomiting Pantoprazole Sodium 40 mg 01/26/21 22:00 02/01/21 08:53 Pantoprazole 40 Mg Vial IVP 40 mg BID AMERICO Administration Prazosin HCl 6 mg 01/29/21 21:00 01/31/21 20:59 Prazosin 1 Mg Capsule PO 6 mg QPM AMERICO Administration Sodium Biphosphate/Sodium Phosphate 133 ml 01/31/21 14:00 02/01/21 10:00 Saline Enema 133 Ml Bottle RC 133 ml BID AMERICO Administration Sodium Chloride 10 ml 01/27/21 01:00 02/01/21 09:01 Sodium Chloride Flush 0.9% 10 Ml Syringe IVP 10 ml 0100,0900,1700 AMERICO Administration Sodium Chloride 10 ml 01/26/21 21:34 02/01/21 16:20 Sodium Chloride Flush 0.9% 10 Ml Syringe IVP 10 ml PRN PRN Administration NEEDED PER PROVIDER ORDERS Tizanidine HCl 8 mg 01/29/21 13:07 01/30/21 15:09 Tizanidine 4 Mg Tablet PO 8 mg TID PRN Administration Spasms Topiramate 100 mg 01/29/21 14:00 02/01/21 09:01 Topiramate 100 Mg Tablet PO 100 mg BID AMERICO Administration - Physical Exam Wound/Incisions: positive: Other (Purulent drainage from the incision line centrally. The area is probed with a q tip and then packed with gauze between the clips. Dry dressing applied. LUQ and pelvic drains both removed without difficulty) General Appearance: positive: No acute distress, Alert Eyes Bilateral: positive: Normal inspection, PERRL, EOMI Respiratory: positive: No respiratory distress, Breath sounds nml Cardiovascular: positive: Regular rate & rhythm Abdomen: positive: Other (Mild distension. Appropriately tender. Active bowel sounds) Skin: positive: Color nml Neurologic/Psychiatric: positive: Oriented x3, Mood/affect nml ABX Reporting Has patient been on IV antibiotics over the past 48 hours?: Yes Impression/Plan - Problem List Problem List: 1. Drains out 2. Wound with drainage since packing removed. Packing now replaced and will continue dressing changes 3. Convert all IV meds to po except Omeprazole. 4. Increase tramadol and decrease use of Hydromorphone. 5. Continue pureed diet 6. Will need antibiotic for 10 days. Can convert to po at discharge. 7. Continue Fentanyl patch 8. Tentatively plan home Tuesday if we can control pain with oral meds only
[2021-02-01] MEDS: GABAPENTIN 400 MG CAPSULE PO SCH (20:50)
[2021-02-01] MEDS: PRAZOSIN 1 MG CAPSULE PO SCH (20:50)
[2021-02-01] MEDS: ESCITALOPRAM 10 MG TABLET PO SCH (20:51)
[2021-02-01] MEDS: NICOTINE 14 MG PATCH TOP PRN (21:09)
[2021-02-01] MEDS: PROMETHAZINE INJ 25 MG in SODIUM CHLORIDE 0.9% 50 ML IV PRN (21:27)
[2021-02-02] MEDS: traMADol 50 MG TABLET PO PRN ×2 (02:59→09:13)
[2021-02-02] MEDS: SODIUM CHLORIDE FLUSH 0.9% 10 ML SYRINGE IVP SCH ×2 (04:51→09:05)
[2021-02-02] MEDS: HYDROmorphone 0.5 MG/0.5 ML SYRINGE IVP PRN (04:51)
[2021-02-02] MEDS: ACETAMINOPHEN 325 MG TABLET PO PRN ×2 (04:54→10:51)
[2021-02-02 05:10] LABS: BASOPHILS % (AUTO) 0.6 %; EOSINOPHILS # (AUTO) 0.5 10^3/uL (0.0-0.7); HCT - HEMATOCRIT 33.2 % (37.0-47.0); HGB - HEMOGLOBIN 10.6 g/dL (12.0-16.0); LYMPHOCYTES # (AUTO) 1.4 10^3/uL (1.5-3.5); LYMPHOCYTES % (AUTO) 19.4 %; MEAN CORPUSCULAR HEMOGLOBIN 32.2 pg (27.0-31.0); MEAN CORPUSCULAR HGB CONC 31.9 g/dL (32.0-36.0); MEAN CORPUSCULAR VOLUME 100.9 fL (81.0-99.0); MEAN PLATELET VOLUME 9.7 fL (7.9-10.8); MONOCYTES # (AUTO) 0.6 10^3/uL (0.0-1.0); MONOCYTES % (AUTO) 8.8 %; NEUTROPHILS # (AUTO) 4.6 10^3/uL (1.5-6.6); NEUTROPHILS % (AUTO) 62.8 %; PLT - PLATELET COUNT 361 10^3/uL (130-450); RED BLOOD COUNT 3.29 10^6/uL (4.20-5.40); RED CELL DISTRIBUTION WIDTH 13.2 % (12.0-15.0); WHITE BLOOD COUNT 7.3 x10^3/uL (4.8-10.8)
[2021-02-02 05:25] LABS: ALBUMIN 2.4 g/dL (3.2-5.5); ALBUMIN/GLOBULIN RATIO 0.9 (1.0-2.2); BILIRUBIN,TOTAL 0.7 mg/dL (0.2-1.0); CALCIUM 8.4 mg/dL (8.5-10.3); CREATININE 0.5 mg/dL (0.4-1.0); MAGNESIUM 1.9 mg/dL (1.7-2.8); PHOSPHORUS 3.6 mg/dL (2.5-4.6); POTASSIUM 3.7 mmol/L (3.5-5.0)
[2021-02-02] MEDS: cloNIDine 0.1 MG TABLET PO SCH (06:09)
[2021-02-02] MEDS: PIPERACILLIN/TAZOBACTAM 3.375 GM in SODIUM CHLORIDE 0.9% MINIBAG 100 ML IV SCH (06:10)
[2021-02-02] MEDS ORDERED: HYDROmorphone 0.5 MG/0.5 ML SYRINGE IVP PRN (06:46)
--- NOTE | 2021-02-02 07:40 | PROVIDER PROGRESS NOTE ---
Assessment/Plan - Problem List (1) Perforated abdominal viscus Assessment/Plan: Status post surgery. Postop day #7. Pain management with Dilaudid prn. Patient receiving Phenergan and Zofran for nausea. Tolerating a soft diet. Panel Fitter following. Oral medications resumed. Improved bowel movements Encourage activity/ambulation Percutaneous drainage tubes removed yesterday afternoon Empiric Zosyn switched to flagyl 500mg po bid for a total of 10 days of antibiotics. Drainage from percutaneous tubes grew Klebsiella oxytoca and Enterobacter aerogenes General surgery is primary and following. Discharged today. (3) Mental health disorder Assessment/Plan: Patient has history of bipolar disorder, anxiety, insomnia. Continue Clonazepam, tramadol, Topamax, Rimegepant and zolmitriptan. - Current Meds Current Meds: Current Medications Generic Name Dose Route Start Last Admin Trade Name Freq PRN Reason Stop Dose Admin Acetaminophen 650 mg 01/30/21 11:22 02/02/21 04:54 Acetaminophen 325 Mg Tablet PO 650 mg Q6H PRN Administration Pain or Fever > 38C (100.4F) Clonazepam 1 mg 01/29/21 21:00 02/01/21 20:50 Clonazepam 0.5 Mg Tablet PO 1 mg BID AMERICO Administration Clonidine HCl 0.2 mg 01/29/21 21:00 02/02/21 06:09 Clonidine 0.1 Mg Tablet PO 0.2 mg TID AMERICO Administration Docusate Sodium 250 mg 01/30/21 12:00 02/01/21 08:57 Docusate Sodium 250 Mg Capsule PO 250 mg DAILY AMERICO Administration Enoxaparin Sodium 40 mg 01/27/21 09:00 02/01/21 08:55 Enoxaparin 40 Mg/0.4 Ml Syringe SUBQ 40 mg DAILY AMERICO Administration Escitalopram Oxalate 20 mg 01/29/21 21:00 02/01/21 20:51 Escitalopram 10 Mg Tablet PO 20 mg QPM AMERICO Administration Fentanyl 1 patch 01/31/21 14:00 01/31/21 14:05 Fentanyl 25 Mcg Patch TOP 1 patch Q3D AMERICO Administration Gabapentin 600 mg 01/30/21 15:00 02/01/21 15:20 Gabapentin 300 Mg Capsule PO 600 mg 0900,1500 AMERICO Administration Gabapentin 1,200 mg 01/30/21 21:00 02/01/21 20:50 Gabapentin 400 Mg Capsule PO 1,200 mg QPM AMERICO Administration Piperacillin Sod/Tazobactam 100 mls @ 200 mls/hr 01/27/21 06:00 02/02/21 06: 40 Sod 3.375 gm/ Sodium Chloride IV Infused Q8HR AMERICO Infusion Promethazine HCl 25 mg/ Sodium 51 mls @ 100 mls/hr 01/27/21 08:58 02/01/21 21:58 Chloride IV Infused Q6H PRN Infusion Nausea / Vomiting Nicotine 1 patch 01/26/21 23:38 02/01/21 21:09 Nicotine 14 Mg Patch TOP 1 patch DAILY PRN Administration NEEDED PER PROVIDER ORDERS Ondansetron HCl 4 mg 01/26/21 21:34 01/29/21 20:17 Ondansetron 4 Mg/2 Ml Vial IVP 4 mg Q6H PRN Administration Nausea / Vomiting Pantoprazole Sodium 40 mg 01/26/21 22:00 02/01/21 20:51 Pantoprazole 40 Mg Vial IVP 40 mg BID AMERICO Administration Prazosin HCl 6 mg 01/29/21 21:00 02/01/21 20:50 Prazosin 1 Mg Capsule PO 6 mg QPM AMERICO Administration Sodium Biphosphate/Sodium Phosphate 133 ml 01/31/21 14:00 02/01/21 20:52 Saline Enema 133 Ml Bottle RC Not Given BID AMERICO Sodium Chloride 10 ml 01/27/21 01:00 02/02/21 04:51 Sodium Chloride Flush 0.9% 10 Ml Syringe IVP 10 ml 0100,0900,1700 AMERICO Administration Sodium Chloride 10 ml 01/26/21 21:34 02/01/21 19:19 Sodium Chloride Flush 0.9% 10 Ml Syringe IVP 10 ml PRN PRN Administration NEEDED PER PROVIDER ORDERS Tizanidine HCl 8 mg 01/29/21 13:07 01/30/21 15:09 Tizanidine 4 Mg Tablet PO 8 mg TID PRN Administration Spasms Topiramate 100 mg 01/29/21 14:00 02/01/21 20:51 Topiramate 100 Mg Tablet PO 100 mg BID AMERICO Administration Tramadol HCl 100 mg 02/01/21 16:38 02/02/21 02:59 Tramadol 50 Mg Tablet PO 100 mg Q4HR PRN Administration PAIN - Lab Result Fish Bone Diagrams: 02/02/21 04:55 02/02/21 04:55 - Additional Planning My Orders: My Active Orders 02/03/21 05:00 CBC - COMP BLD CT W/AUTO DIFF [HEME] DAILYLAB 02/04/21 05:00 CBC - COMP BLD CT W/AUTO DIFF [HEME] DAILYLAB 02/05/21 05:00 CBC - COMP BLD CT W/AUTO DIFF [HEME] DAILYLAB 02/06/21 05:00 CBC - COMP BLD CT W/AUTO DIFF [HEME] DAILYLAB Subjective - Subjective Patient Reports: Other (She was resting comfortably in bed. She denied any new complaints. She has been tolerating her diet with no difficulties. Bowel movements are more regular. Percutaneous drainage tubes were removed yesterday.) Objective Vital Signs: Vital Signs - 24 hr 02/01/21 02/01/21 02/01/21 07:44 11:24 16:21 Temperature 37.4 C 37.2 C 36.5 C Heart Rate [ Brachial] Heart Rate [ 80 88 87 Radial] Respiratory 16 18 20 Rate Blood Pressure [Left Brachial artery] Blood Pressure [Left Radial artery] Blood Pressure 114/70 130/83 H 125/86 H [Right Radial artery] O2 Saturation 94 95 95 02/01/21 02/01/21 02/01/21 20:02 20:46 23:58 Temperature 37.7 C 37.3 C Heart Rate [ Brachial] Heart Rate [ 84 80 71 Radial] Respiratory 20 14 Rate Blood Pressure [Left Brachial artery] Blood Pressure 114/69 [Left Radial artery] Blood Pressure 105/67 122/55 L [Right Radial artery] O2 Saturation 95 93 02/02/21 04:37 Temperature 37.2 C Heart Rate [ 77 Brachial] Heart Rate [ Radial] Respiratory 16 Rate Blood Pressure 118/73 [Left Brachial artery] Blood Pressure [Left Radial artery] Blood Pressure [Right Radial artery] O2 Saturation 92 Oxygen O2 Source Room air I&O (Last 24 Hrs): Intake and Output Totals x24h 01/31/21 02/01/21 02/02/21 23:59 23:59 23:59 Intake Total 5013.2 5411.200 400 Output Total 5475 2880 Balance -461.8 2531.200 400 General: Alert, Oriented x3, No acute distress HEENT: PERRLA, EOMI Neck: Supple, No JVD Neuro: Alert, Non Focal, Oriented Times 3 Cardiovascular: Regular rate, No murmurs Respiratory: Chest non-tender, No respiratory distress, Breath sounds nml Abdomen: Normal bowel sounds, Soft, No tenderness, No masses Extremities: No clubbing, No edema, No tenderness/swelling Skin: No rashes, No breakdown, No significant lesion - Results Results: Laboratory Results WBC 7.3 x10^3/uL (4.8-10.8) 02/02/21 04:55 RBC 3.29 10^6/uL (4.20-5.40) L 02/02/21 04:55 Hgb 10.6 g/dL (12.0-16.0) L 02/02/21 04:55 Hct 33.2 % (37.0-47.0) L 02/02/21 04:55 MCV 100.9 fL (81.0-99.0) H 02/02/21 04:55 MCH 32.2 pg (27.0-31.0) H 02/02/21 04:55 MCHC 31.9 g/dL (32.0-36.0) L 02/02/21 04:55 RDW 13.2 % (12.0-15.0) 02/02/21 04:55 Plt Count 361 10^3/uL (130-450) 02/02/21 04:55 MPV 9.7 fL (7.9-10.8) 02/02/21 04:55 Neut # (Auto) 4.6 10^3/uL (1.5-6.6) 02/02/21 04:55 Lymph # (Auto) 1.4 10^3/uL (1.5-3.5) L 02/02/21 04:55 [place] # (Auto) 0.6 10^3/uL (0.0-1.0) 02/02/21 04:55 Eos # (Auto) 0.5 10^3/uL (0.0-0.7) 02/02/21 04:55 Baso # (Auto) 0.0 10^3/uL (0.0-0.1) 02/02/21 04:55 Absolute Nucleated RBC 0.00 x10^3/uL 02/02/21 04:55 Total Counted 100 01/27/21 04:07 Band Neuts % (Manual) 15 % (0-10) H 01/27/21 04:07 Abnorm Lymph % (Manual) 0 % 01/27/21 04:07 Nucleated RBC % 0.0 /100WBC 02/02/21 04:55 Neutrophils # (Manual) 8.0 10^3/uL (1.5-6.6) H 01/27/21 04:07 Lymphocytes # (Manual) 1.2 10^3/uL (1.5-3.5) L 01/27/21 04:07 Monocytes # (Manual) 0.5 10^3/uL (0.0-1.0) 01/27/21 04:07 Eosinophils # (Manual) 0.0 10^3/uL (0-0.7) 01/27/21 04:07 Basophils # (Manual) 0.0 10^3/uL (0-0.1) 01/27/21 04:07 Differential Comment MANUAL DIFFERENTIAL 01/27/21 04:07 Platelet Estimate NORMAL (130-450,000) (NORMAL) 01/27/21 04:07 Platelet Morphology NORMAL APPEARANCE (NORMAL) 01/26/21 15:20 RBC Morph Micro Appear NORMAL APPEARANCE (NORMAL) 01/27/21 04:07 VBG pH 7.321 (7.31-7.41) 01/29/21 07:10 Ionized Calcium 1.15 mmol/L (1.15-1.33) 01/29/21 07:10 Sodium 145 mmol/L (135-145) 02/02/21 04:55 Potassium 3.7 mmol/L (3.5-5.0) 02/02/21 04:55 Chloride 108 mmol/L (101-111) 02/02/21 04:55 Carbon Dioxide 25 mmol/L (21-32) 02/02/21 04:55 Anion Gap 12.0 (6-13) 02/02/21 04:55 BUN 6 mg/dL (6-20) 02/02/21 04:55 Creatinine 0.5 mg/dL (0.4-1.0) 02/02/21 04:55 Estimated GFR (MDRD) 132 (>89) 02/02/21 04:55 Glucose 86 mg/dL (70-100) 02/02/21 04:55 Calcium 8.4 mg/dL (8.5-10.3) L 02/02/21 04:55 Phosphorus 3.6 mg/dL (2.5-4.6) 02/02/21 04:55 Magnesium 1.9 mg/dL (1.7-2.8) 02/02/21 04:55 Total Bilirubin 0.7 mg/dL (0.2-1.0) 02/02/21 04:55 AST 16 IU/L (10-42) 02/02/21 04:55 ALT 21 IU/L (10-60) 02/02/21 04:55 Alkaline Phosphatase 55 IU/L (42-121) 02/02/21 04:55 Total Protein 5.0 g/dL (6.7-8.2) L 02/02/21 04:55 Albumin 2.4 g/dL (3.2-5.5) L 02/02/21 04:55 Globulin 2.6 g/dL (2.1-4.2) 02/02/21 04:55 Albumin/Globulin Ratio 0.9 (1.0-2.2) L 02/02/21 04:55 Prealbumin 9 mg/dL (18-45) L 02/02/21 04:55 Lipase 23 U/L (22-51) 01/26/21 15:20 Vitamin B12 1178 pg/mL (180-914) H 01/30/21 08:34 25-OH Vitamin D Total 67 ng/mL (30-100) 01/26/21 15:20 Folate 4.47 ng/mL (5.90 - >24.8) L 01/30/21 05:55 Urine Color YELLOW 01/26/21 23:10 Urine Clarity CLEAR (CLEAR) 01/26/21 23:10 Urine pH 5.5 PH (5.0-7.5) 01/26/21 23:10 Ur Specific [place] 1.020 (1.002-1.030) 01/26/21 23:10 Urine Protein NEGATIVE mg/dL (NEGATIVE) 01/26/21 23:10 Urine Glucose (UA) NEGATIVE mg/dL (NEGATIVE) 01/26/21 23:10 Urine Ketones NEGATIVE mg/dL (NEGATIVE) 01/26/21 23:10 Urine Occult Blood NEGATIVE (NEGATIVE) 01/26/21 23:10 Urine Nitrite NEGATIVE (NEGATIVE) 01/26/21 23:10 Urine Bilirubin NEGATIVE (NEGATIVE) 01/26/21 23:10 Urine Urobilinogen 0.2 (NORMAL) E.U./dL (NORMAL) 01/26/21 23:10 Ur Leukocyte Esterase NEGATIVE (NEGATIVE) 01/26/21 23:10 Ur Microscopic Review NOT INDICATED 01/26/21 23:10 Urine Culture Comments NOT INDICATED 01/26/21 23:10 Nasal Adenovirus (PCR) NOT DETECTED 01/26/21 18:20 Nasal B. parapertussis DNA (PCR) NOT DETECTED 01/26/21 18:20 Nasal Coronavir 229E PCR NOT DETECTED 01/26/21 18:20 Nasal Coronavir HKU1 PCR NOT DETECTED 01/26/21 18:20 Nasal Coronavir NL63 PCR NOT DETECTED 01/26/21 18:20 Nasal Coronavir OC43 PCR NOT DETECTED 01/26/21 18:20 Nasal Enterovir/Rhinovir PCR NOT DETECTED 01/26/21 18:20 Nasal Influenza B PCR NOT DETECTED 01/26/21 18:20 Nasal Influenza A PCR NOT DETECTED 01/26/21 18:20 Nasal Parainfluen 1 PCR NOT DETECTED 01/26/21 18:20 Nasal Parainfluen 2 PCR NOT DETECTED 01/26/21 18:20 Nasal Parainfluen 3 PCR NOT DETECTED 01/26/21 18:20 Nasal Parainfluen 4 PCR NOT DETECTED 01/26/21 18:20 Nasal RSV (PCR) NOT DETECTED 01/26/21 18:20 Nasal Screen MRSA (PCR) NEGATIVE (NEGATIVE) 01/26/21 21:50 Nasal B.pertussis DNA PCR NOT DETECTED 01/26/21 18:20 Nasal C.pneumoniae (PCR) NOT DETECTED 01/26/21 18:20 Félix Human Metapneumo PCR NOT DETECTED 01/26/21 18:20 Nasal M.pneumoniae (PCR) NOT DETECTED 01/26/21 18:20 Nasal SARS-CoV-2 (PCR) NOT DETECTED 01/26/21 18:20 - Procedures Procedures: Procedures EXCISION OF ESOPHAGUS, ENDO, DIAGN (07/31/20) EXCISION OF JEJUNUM, ENDO, DIAGN (07/31/20) EXCISION OF LOWER ESOPHAGUS, ENDO, DIAGN (05/24/19) EXCISION OF RECTUM, ENDO (05/24/19) EXCISION OF STOMACH, ENDO, DIAGN (07/31/20) RESECTION OF BILATERAL FALLOPIAN TUBES, PERC ENDO APPROACH (06/01/17) RESECTION OF BILATERAL OVARIES, PERC ENDO APPROACH (06/01/17) ABX Reporting Has patient been on IV antibiotics over the past 48 hours?: Yes
[2021-02-02] MEDS: ENOXAPARIN 40 MG/0.4 ML SYRINGE SUBQ SCH (08:57)
[2021-02-02] MEDS: GABAPENTIN 300 MG CAPSULE PO SCH (08:59)
[2021-02-02] MEDS: clonazePAM 0.5 MG TABLET PO SCH (08:59)
[2021-02-02] MEDS ORDERED: FLUCONAZOLE 100 MG TABLET PO SCH (09:00)
[2021-02-02] MEDS: DOCUSATE SODIUM 250 MG CAPSULE PO SCH (09:00)
[2021-02-02] MEDS ORDERED: FOLIC ACID 1 MG TABLET PO SCH (09:00)
[2021-02-02] MEDS: SODIUM CHLORIDE FLUSH 0.9% 10 ML SYRINGE IVP PRN ×3 (09:06→13:40)
[2021-02-02] MEDS ORDERED: PANTOPRAZOLE 40 MG TABLET PO SCH (10:00)
[2021-02-02] MEDS: TOPIRAMATE 100 MG TABLET PO SCH (10:51)
[2021-02-02] MEDS: tiZANidine 4 MG TABLET PO PRN (10:57)
[2021-02-02] MEDS: SALINE ENEMA 133 ML BOTTLE RC SCH (10:58)
[2021-02-02 11:11] VITALS: BP 130/77
[2021-02-02] MEDS ORDERED: PROMETHAZINE 25 MG TABLET PO PRN (11:55)
--- NOTE | 2021-02-02 12:16 | Discharge Plan ---
Discharge Plan Problem Reviewed?: Yes Disposition: Home, Self Care Condition: Stable Prescriptions: Amox/Clav 875/125 [Augmentin 875/125 Tab] 1 tablet PO Q12H 10 Days #6 tablet Fluconazole [Diflucan] 200 mg PO DAILY #3 tablet fentaNYL 25 MCG PATCH [Duragesic 25mcg] 1 patch TOP Q3D #5 patch metroNIDAZOLE [Flagyl] 500 mg PO BID #6 tablet Pantoprazole [Protonix] 40 mg PO BID #30 tablet Diet: Soft (Pureed diet only) Activity Restrictions: Additional Comments (6 pound lifting limit) Shower Restrictions: No Driving Restrictions: Yes (will reassess at follow up) Assessment: Perforated gastric ulcer - resolving No Smoking: If you smoke, Please STOP! Call for help. Follow-up with: Tremayne Sharma DO [Primary Care Provider] - Beltran Hammond MD [Provider Admit Priv/Credential] -
--- NOTE | 2021-02-02 12:22 | DISCHARGE SUMMARY ---
"Discharge Summary Condition at Discharge: Stable Discharge Disposition: 01 Home, Self Care - DIAGNOSES Admission Diagnoses: Perforated gastric ulcer Discharge Diagnoses with Status of Each Condition: Improved - HPI History of Present Illness: Komal is a unfortunate 50-year-old lady who is known to me from prior visits. She has a history of a Haydee-en-Y gastric bypass as well as multiple other abdominal operations. She has suffered with chronic abdominal pain as well as nausea and vomiting since the time of her gastric bypass.I met her earlier this year when she underwent an upper endoscopy looking for reasons and solutions for her discomfort.She reports that her been out of town. She said she has had some pain in the right lower quadrant and in the entire upper abdomen.She denies any hematemesis. She says she is always constipated and she does not think she is had a bowel movement in 24 hours.No fever at home. - CONSULTS | PROCEDURES Consultations: Hospitalist Service, Anesthesia for PICC Procedures: Exploratory laparotomy with direct repair of perforated ulcer, appendectomy lysis of adhesions and feeding tube placement PICC line placement - HOSPITAL COURSE Hospital Course: Deborah was admitted through the ED and taken directly to the OR for surgical intervention. She was admitted to the intensive care unit postoperatively. Pain control was an issue immediately and throughout her stay. We attempted trophic tube feeds initially but the patient managed to dislodge both her NG tube and her feeding tube on the second postoperative night.A PICC line was placed.Gastrografin swallow showed she had swelling at the site of repair but no leak. Full liquid diet and then pured foods were started following that.Her recovery continued on a steady trajectory. Our continued problem was pain control.At the present time, her pain is managed at a 6 which she says is reasonable for her. She has asked to be discharged to her home in the care of her so that she can manage her own pain medications at home with the addition of the fentanyl patch that she will be provided from here. She has had 7 days of antibiotics with a goal of 10 days total so she will be discharged with Augmentin and Flagyl and Diflucan.She has a 6 pound lifting limit since this is the size of her shoe always. She is not to drive until after her follow-up visit. She has a small portion of her wound that has remained open to allow for drainage. This is about a 3 cm area right around the umbilicus. She has been taught to packet with Betadine ointment soaked Nu Gauze. She is afebrile and her labs are reassuring. - ALLERGIES Allergies/Adverse Reactions: Allergies Allergy/AdvReac Type Severity Reaction Status Date / Time pineapple Allergy Severe Edema Verified 01/26/21 15:17 diphenhydramine HCl * Allergy Intermediate Itching Verified 01/26/21 15:17 [From Benadryl] Cephalosporins AdvReac Severe Respiratory Verified 01/26/21 15:17 doxycycline AdvReac Intermediate Emesis Verified 01/26/21 15:17 iron dextran complex AdvReac Intermediate Emesis Verified 01/26/21 15:17 prochlorperazine AdvReac Intermediate Emesis Verified 01/26/21 15:17 [From Compazine] prochlorperazine edisylate * AdvReac Intermediate Emesis Verified 01/26/21 15:17 [From Compazine] prochlorperazine maleate * AdvReac Intermediate Emesis Verified 01/26/21 15:17 [From Compazine] kiwi AdvReac Itching Verified 01/26/21 15:17 NSAIDS (Non-Steroidal AdvReac Unknown Verified 01/26/21 15:17 Anti-Inflamma - MEDICATIONS Home Medications: Ambulatory Orders Medication Instructions Recorded Confirmed Escitalopram Oxalate [Lexapro] 20 mg PO QPM 12/31/14 01/26/21 Promethazine [Phenergan] 75 mg PO QPM 12/31/14 01/27/21 Topiramate 100 mg PO BID 12/31/14 01/26/21 clonazePAM [KlonoPIN] 1 mg PO BID 12/31/14 01/27/21 ondansetron HCL [Zofran] 8 mg PO TID PRN 12/31/14 01/26/21 Prazosin [Minipress] 6 mg PO QPM 04/22/15 01/26/21 Gabapentin 1,200 mg PO QPM 01/20/16 01/27/21 Gabapentin 600 mg PO TID 01/20/16 01/26/21 cloNIDine [Catapres] 0.2 mg PO TID 03/04/16 01/27/21 Progesterone, Micronized 200 mg PO QPM 09/09/17 01/27/21 [Progesterone] estradioL [Estradiol] 2 mg PO DAILY 11/07/18 01/27/21 Rimegepant Sulfate [Nurtec Odt] 75 mg SL DAILY PRN 12/09/20 01/27/21 Riboflavin (Vitamin B2) 400 mg PO DAILY 01/07/21 01/27/21 [Riboflavin] ZOLMitriptan [Zolmitriptan] 1 spray NS DAILY PRN 01/07/21 01/27/21 Lidocaine/Prilocain 2.5% Cream 1 applic TOP TID PRN 01/27/21 01/27/21 [Emla 2.5% Cream] Nitrofurantoin [Macrobid] 100 mg PO DAILY PRN 01/27/21 01/27/21 Phenazopyridine HCl [Pyridium] 200 mg PO BID PRN 01/27/21 01/27/21 Tizanidine HCl [Zanaflex] 8 mg PO TID PRN 01/27/21 01/27/21 Acetaminophen [Tylenol] 650 mg PO Q6H PRN tablet 02/02/21 Amox/Clav 875/125 [Augmentin 1 tablet PO Q12H 10 Days #6 tablet 02/02/21 875/125 Tab] Fluconazole [Diflucan] 200 mg PO DAILY #3 tablet 02/02/21 Pantoprazole [Protonix] 40 mg PO BID #30 tablet 02/02/21 Saline Enema [Fleets Saline Enema] 133 ml RC BID bottle 02/02/21 fentaNYL 25 MCG PATCH [Duragesic 1 patch TOP Q3D #5 patch 02/02/21 25mcg] metroNIDAZOLE [Flagyl] 500 mg PO BID #6 tablet 02/02/21 traMADol [Ultram] 100 mg PO Q4HR PRN tablet 02/02/21 - PHYSICAL EXAM AT DISCHARGE General Appearance: positive: No acute distress, Alert Eyes Bilateral: positive: Normal inspection, PERRL, EOMI ENT: positive: ENT inspection nml Neck: positive: Nml inspection Respiratory: positive: No respiratory distress, Breath sounds nml Cardiovascular: positive: Regular rate & rhythm Abdomen: positive: Nml bowel sounds, Tenderness. negative: Guarding, Rebound Skin: positive: Color nml Neurologic/Psychiatric: positive: Oriented x3 - LABS Result Diagrams: 02/02/21 04:55 02/02/21 04:55 - QUALITY (Female Hip Fx Only) Was patient sent home on osteoporosis medication?: No - FOLLOW UP Follow Up: [address] Hammond or Cyr[place] - TIME SPENT Time Spent in Discharge (Minutes): 30"
--- NOTE | 2021-02-02 12:26 | DISCHARGE SUMMARY ---
Discharge Summary Admit Date: 01/26/21 Discharge Date: 02/02/21 Discharging Provider: Stephany Primary Care Provider: Edith Code Status: Attempt Resuscitation Condition at Discharge: Stable Discharge Disposition: 01 Home, Self Care - DIAGNOSES Admission Diagnoses: Perforated gastric ulcer Discharge Diagnoses with Status of Each Condition: Improved - ALLERGIES Allergies/Adverse Reactions: Allergies Allergy/AdvReac Type Severity Reaction Status Date / Time pineapple Allergy Severe Edema Verified 01/26/21 15:17 diphenhydramine HCl * Allergy Intermediate Itching Verified 01/26/21 15:17 [From Benadryl] Cephalosporins AdvReac Severe Respiratory Verified 01/26/21 15:17 doxycycline AdvReac Intermediate Emesis Verified 01/26/21 15:17 iron dextran complex AdvReac Intermediate Emesis Verified 01/26/21 15:17 prochlorperazine AdvReac Intermediate Emesis Verified 01/26/21 15:17 [From Compazine] prochlorperazine edisylate * AdvReac Intermediate Emesis Verified 01/26/21 15:17 [From Compazine] prochlorperazine maleate * AdvReac Intermediate Emesis Verified 01/26/21 15:17 [From Compazine] kiwi AdvReac Itching Verified 01/26/21 15:17 NSAIDS (Non-Steroidal AdvReac Unknown Verified 01/26/21 15:17 Anti-Inflamma - MEDICATIONS Home Medications: Ambulatory Orders Medication Instructions Recorded Confirmed Escitalopram Oxalate [Lexapro] 20 mg PO QPM 12/31/14 01/26/21 Promethazine [Phenergan] 75 mg PO QPM 12/31/14 01/27/21 Topiramate 100 mg PO BID 12/31/14 01/26/21 clonazePAM [KlonoPIN] 1 mg PO BID 12/31/14 01/27/21 ondansetron HCL [Zofran] 8 mg PO TID PRN 12/31/14 01/26/21 Prazosin [Minipress] 6 mg PO QPM 04/22/15 01/26/21 Gabapentin 1,200 mg PO QPM 01/20/16 01/27/21 Gabapentin 600 mg PO TID 01/20/16 01/26/21 cloNIDine [Catapres] 0.2 mg PO TID 03/04/16 01/27/21 Progesterone, Micronized 200 mg PO QPM 09/09/17 01/27/21 [Progesterone] estradioL [Estradiol] 2 mg PO DAILY 11/07/18 01/27/21 Rimegepant Sulfate [Nurtec Odt] 75 mg SL DAILY PRN 12/09/20 01/27/21 Riboflavin (Vitamin B2) 400 mg PO DAILY 01/07/21 01/27/21 [Riboflavin] ZOLMitriptan [Zolmitriptan] 1 spray NS DAILY PRN 01/07/21 01/27/21 Lidocaine/Prilocain 2.5% Cream 1 applic TOP TID PRN 01/27/21 01/27/21 [Emla 2.5% Cream] Nitrofurantoin [Macrobid] 100 mg PO DAILY PRN 01/27/21 01/27/21 Phenazopyridine HCl [Pyridium] 200 mg PO BID PRN 01/27/21 01/27/21 Tizanidine HCl [Zanaflex] 8 mg PO TID PRN 01/27/21 01/27/21 Acetaminophen [Tylenol] 650 mg PO Q6H PRN tablet 02/02/21 Amox/Clav 875/125 [Augmentin 1 tablet PO Q12H 10 Days #6 tablet 02/02/21 875/125 Tab] Fluconazole [Diflucan] 200 mg PO DAILY #3 tablet 02/02/21 Pantoprazole [Protonix] 40 mg PO BID #30 tablet 02/02/21 Saline Enema [Fleets Saline Enema] 133 ml RC BID bottle 02/02/21 fentaNYL 25 MCG PATCH [Duragesic 1 patch TOP Q3D #5 patch 02/02/21 25mcg] metroNIDAZOLE [Flagyl] 500 mg PO BID #6 tablet 02/02/21 traMADol [Ultram] 100 mg PO Q4HR PRN tablet 02/02/21 - LABS Result Diagrams: 02/02/21 04:55 02/02/21 04:55
== END 2021-02-02 14:01 | disposition home or self-care (01) | DRG 326 ==
LOC: EDUNIT# → ED 15:05 → SDS 18:44 → ICU 21:34 → MS2 02-01 16:04
PROVIDERS: ADMIT Surgery; ATTEND Surgery
PROC: 0DU607Z Supplement Stomach with Autologous Tissue Substitute, Open Approach (ICD-10-PCS; principal; 2021-01-27)
PROC: 0W9G00Z Drainage of Peritoneal Cavity with Drainage Device, Open Approach (ICD-10-PCS; 2021-01-27)
PROC: 0DH67UZ Insertion of Feeding Device into Stomach, Via Natural or Artificial Opening (ICD-10-PCS; 2021-01-27)
PROC: 02HV33Z Insertion of Infusion Device into Superior Vena Cava, Percutaneous Approach (ICD-10-PCS; 2021-01-29)
PROC: B548ZZA Ultrasonography of Superior Vena Cava, Guidance (ICD-10-PCS; 2021-01-29)
DX: K25.5 Chronic or unspecified gastric ulcer with perforation (principal); K65.1 Peritoneal abscess; B96.89 Other specified bacterial agents as the cause of diseases classified elsewhere; F31.9 Bipolar disorder, unspecified; F41.9 Anxiety disorder, unspecified; E83.42 Hypomagnesemia; F41.0 Panic disorder [episodic paroxysmal anxiety]; K21.9 Gastro-esophageal reflux disease without esophagitis; F17.200 Nicotine dependence, unspecified, uncomplicated; G47.00 Insomnia, unspecified; K59.00 Constipation, unspecified; G62.9 Polyneuropathy, unspecified; G89.29 Other chronic pain; M54.9 Dorsalgia, unspecified; G43.909 Migraine, unspecified, not intractable, without status migrainosus; Z20.822 Contact with and (suspected) exposure to COVID-19; Z98.84 Bariatric surgery status; Z79.899 Other long term (current) drug therapy; Z90.49 Acquired absence of other specified parts of digestive tract; Z90.710 Acquired absence of both cervix and uterus; Z90.722 Acquired absence of ovaries, bilateral
CPT/HCPCS: 0202U; 36415; 71045; 74018; 74019; 74160; 74177; 80048; 80053; 81003; 82306; 82330; 82607; 82746; 83690; 83735; 84100; 84134; 85025; 87070; 87077; 87150; 87181; 87205; 96361; 96365; 96367; 96375; 97116; 97161; 97166; 97535; 99285; A9270; J0131; J1170; J1650; J2060; J2765; J7040; J7120; Q9963; Q9967; 81001; 87086

== ENCOUNTER 2022-03-13 00:14 | Emergency (ER) | payer OTHER ==
[2022-03-13 00:45] VITALS: BP 148/92
[2022-03-13 01:07] LABS: RAPID STREP SCREEN Negative (Negative)
--- NOTE | 2022-03-13 02:44 | ED Physician Documentation ---
PD HPI HEENT - Stated complaint Stated Complaint: SORE THROAT - Chief complaint Chief Complaint: Heent - History obtained from History obtained from: Patient - History of Present Illness Timing - onset: How many days ago (2) Timing - details: Gradual onset Pain level now: 7 Location: Throat Improves: Nothing Worsens: Swalllowing Associated symptoms: No: Fever, Congestion, Unable to swallow, Cough Review of Systems Constitutional: denies: Fever Throat: reports: Sore throat Cardiac: reports: Reviewed and negative Respiratory: reports: Reviewed and negative GI: reports: Reviewed and negative PD PAST MEDICAL HISTORY - Past Medical History Past Medical History: Yes Cardiovascular: Hypertension Respiratory: None, Other Neuro: Migraines, Peripheral neuropathy Endocrine/Autoimmune: None GI: GERD, Chronic diarrhea, Cholelithiasis, 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: Ovarian cysts : Other HEENT: Chronic vision loss Psych: Depression, Anxiety, Bipolar disorder, Panic attacks Musculoskeletal: Chronic back pain Derm: None - Past Surgical History Past Surgical History: Yes General: Bowel surgery, Gastric surgery, EGD Ortho: Rotator cuff repair /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: 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, Oophrectomy HEENT: Tonsil/Adenoidectomy - Present Medications Home Medications: Ambulatory Orders Medication Instructions Recorded Confirmed Escitalopram Oxalate [Lexapro] 20 mg PO QPM 12/31/14 03/10/22 Promethazine [Phenergan] 75 mg PO QPM 12/31/14 03/10/22 Topiramate 100 mg PO BID 12/31/14 03/10/22 clonazePAM [KlonoPIN] 1 mg PO BID 12/31/14 03/10/22 ondansetron HCL [Zofran] 8 mg PO TID PRN 12/31/14 03/10/22 Gabapentin 1,200 mg PO QPM 01/20/16 03/10/22 Gabapentin 600 mg PO TID 01/20/16 03/10/22 Progesterone, Micronized 200 mg PO QPM 09/09/17 03/10/22 [Progesterone] estradioL [Estradiol] 2 mg PO DAILY 11/07/18 03/10/22 Rimegepant Sulfate [Nurtec Odt] 75 mg SL DAILY PRN 12/09/20 03/10/22 ZOLMitriptan [Zolmitriptan] 1 spray NS DAILY PRN 01/07/21 03/10/22 Lidocaine/Prilocain 2.5% Cream 1 applic TOP TID PRN 01/27/21 03/10/22 [Emla 2.5% Cream] Tizanidine HCl [Zanaflex] 8 mg PO TID PRN 01/27/21 03/10/22 Acetaminophen [Tylenol] 650 mg PO Q6H PRN tablet 02/02/21 03/10/22 traMADol [Ultram] 100 mg PO Q4HR PRN tablet 02/02/21 03/10/22 Melatonin/Pyridoxine [Melatonin 5 5 mg PO DAILY 11/13/21 03/10/22 mg Tablet] Omeprazole 40 mg PO DAILY 11/13/21 03/10/22 Vit D3/Vit K2/Calc Frutoborate 5,000 intlu PO DAILY 11/13/21 03/10/22 [Move Free [id number]] fentaNYL [Fentanyl 75mcg patch] 75 mcg Q3D 11/13/21 03/10/22 Diphenoxylate/Atropine [Lomotil] 1 each PO DAILY PRN #45 tablet 02/03/22 03/10/22 oxyCODONE ER [OxyCONTIN] 10 mg PO DAILY PM 02/04/22 03/10/22 Clotrimazole Will [Clotrimazole] 10 mg MM 5XD #20 lozenge 03/13/22 - Allergies Allergies/Adverse Reactions: Allergies Allergy/AdvReac Type Severity Reaction Status Date / Time pineapple Allergy Severe Edema Verified 03/13/22 00:45 diphenhydramine HCl * Allergy Intermediate Itching Verified 03/13/22 00:45 [From Benadryl] Cephalosporins AdvReac Severe Respiratory Verified 03/13/22 00:45 iron dextran complex AdvReac Intermediate Emesis Verified 03/13/22 00:45 prochlorperazine AdvReac Intermediate Emesis Verified 03/13/22 00:45 [From Compazine] prochlorperazine edisylate * AdvReac Intermediate Emesis Verified 03/13/22 00:45 [From Compazine] prochlorperazine maleate * AdvReac Intermediate Emesis Verified 03/13/22 00:45 [From Compazine] kiwi AdvReac Itching Verified 03/13/22 00:45 NSAIDS (Non-Steroidal AdvReac Unknown Verified 03/13/22 00:45 Anti-Inflamma - Social History Does the pt smoke?: Yes Smoking Status: Current every day smoker Does the pt drink ETOH?: Yes Does the pt have substance abuse?: No - Immunizations Immunizations are current?: Yes - POLST Patient has POLST: No PD ED PE NORMAL - Vitals Vital signs reviewed: Yes - General General: Alert and oriented X 3, No acute distress, Well developed/nourished - HEENT HEENT: Moist mucous membranes PD ED PE EXPANDED - HEENT HEENT: Pharyngeal erythema (mild posterior oropharyngeal erythema without edema), Other (white coating of tongue ) Results - Vitals Vitals: Vital Signs - 24 hr 03/13/22 00:30 Temperature 36.9 C Heart Rate 85 Respiratory 16 Rate Blood Pressure 148/92 H O2 Saturation 99 Oxygen O2 Source Room air - Labs Labs: Laboratory Tests 03/13/22 00:40 Group A Strep Rapid Negative PD MEDICAL DECISION MAKING - ED course Complexity details: reviewed results, considered differential, d/w patient ED course: c/o sore throat, odynophagia. rapid strep test is negative. She says the white coating on her tongue is new as of 2 days ago and is quite worried this is thrush. I explained that this would be an atypical appearance for thrush, she can try clotrimazole troches to see if this helps and she is quite interested in trying this. Rx for clotrimazole troches is submitted to her pharmacy of choice Departure - Departure Disposition: 01 Home, Self Care Clinical Impression: Pharyngitis Qualifiers: Pharyngitis/tonsillitis etiology: unspecified etiology Qualified Code(s): J02.9 - Acute pharyngitis, unspecified Condition: Good Instructions: ED Pharyngitis Viral Report Pending Follow-Up: Tremayne Sharma DO [Primary Care Provider] - Prescriptions: Clotrimazole Will [Clotrimazole] 10 mg MM 5XD #20 lozenge Comments: The strep test was negative; a culture will next be performed on the sample. If it is positive for strep (the rapid strep occasionally misses strep, and there are other types of strep that are not detected on the rapid test), you will get a call from the ER and an antibiotic can be prescribed to your pharmacy. Culture results are typically available within 2 days. A prescription for clotrimazole troches has been electronically submitted to [facility] pharmacy in [place]. Discharge Date/Time: 03/13/22 01:50
== END 2022-03-13 01:50 | disposition home or self-care (01) ==
LOC: ED 00:14
DX: J02.9 Acute pharyngitis, unspecified (principal); F17.200 Nicotine dependence, unspecified, uncomplicated
CPT/HCPCS: 87070; 87430; 99281; 99283

== ENCOUNTER 2022-03-14 15:33 | Emergency (ER) | payer OTHER ==
[2022-03-14 16:22] VITALS: BP 99/63
[2022-03-14] MEDS ORDERED: AMOX/CLAV 875 MG/125 MG TABLET PO STA (18:46)
[2022-03-14] MEDS ORDERED: NYSTATIN 500000 UNITS/5 ML UDC PO STA (18:46)
--- NOTE | 2022-03-14 18:48 | ED Physician Documentation ---
History of Present Illness - Stated complaint Stated Complaint: ALLERGIC REACTION - Chief complaint Chief Complaint: Allergic Rx - History obtained from History obtained from: Patient - Additonal information Additional information: 52-year-old woman with history of sepsis, perforated ulcer, bone marrow failure was seen by my partner and prescribed clotrimazole lozenges for apparent thrush. Since then she developed a fever last night up to 101 with severe facial pain and congestion. And each time she is tried to take the clotrimazole she immediately throws up and feels like her throat is more inflamed. 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: Ovarian cysts : Other HEENT: Chronic vision loss Psych: Depression, Anxiety, Bipolar disorder, Panic attacks Musculoskeletal: Chronic back pain Derm: None - Past Surgical History Past Surgical History: Yes General: Bowel surgery, Gastric surgery, EGD Ortho: Rotator cuff repair /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: 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, Oophrectomy HEENT: Tonsil/Adenoidectomy - Present Medications Home Medications: Ambulatory Orders Medication Instructions Recorded Confirmed Escitalopram Oxalate [Lexapro] 20 mg PO QPM 12/31/14 03/10/22 Promethazine [Phenergan] 75 mg PO QPM 12/31/14 03/10/22 Topiramate 100 mg PO BID 12/31/14 03/10/22 clonazePAM [KlonoPIN] 1 mg PO BID 12/31/14 03/10/22 ondansetron HCL [Zofran] 8 mg PO TID PRN 12/31/14 03/10/22 Gabapentin 1,200 mg PO QPM 01/20/16 03/10/22 Gabapentin 600 mg PO TID 01/20/16 03/10/22 Progesterone, Micronized 200 mg PO QPM 09/09/17 03/10/22 [Progesterone] estradioL [Estradiol] 2 mg PO DAILY 11/07/18 03/10/22 Rimegepant Sulfate [Nurtec Odt] 75 mg SL DAILY PRN 12/09/20 03/10/22 ZOLMitriptan [Zolmitriptan] 1 spray NS DAILY PRN 01/07/21 03/10/22 Lidocaine/Prilocain 2.5% Cream 1 applic TOP TID PRN 01/27/21 03/10/22 [Emla 2.5% Cream] Tizanidine HCl [Zanaflex] 8 mg PO TID PRN 01/27/21 03/10/22 Acetaminophen [Tylenol] 650 mg PO Q6H PRN tablet 02/02/21 03/10/22 traMADol [Ultram] 100 mg PO Q4HR PRN tablet 02/02/21 03/10/22 Melatonin/Pyridoxine [Melatonin 5 5 mg PO DAILY 11/13/21 03/10/22 mg Tablet] Omeprazole 40 mg PO DAILY 11/13/21 03/10/22 Vit D3/Vit K2/Calc Frutoborate 5,000 intlu PO DAILY 11/13/21 03/10/22 [Move Free [id number]-Lghlav-K4-D3] fentaNYL [Fentanyl 75mcg patch] 75 mcg Q3D 11/13/21 03/10/22 Diphenoxylate/Atropine [Lomotil] 1 each PO DAILY PRN #45 tablet 02/03/22 03/10/22 oxyCODONE ER [OxyCONTIN] 10 mg PO DAILY PM 02/04/22 03/10/22 Clotrimazole Will [Clotrimazole] 10 mg MM 5XD #20 lozenge 03/13/22 Amox/Clav 875/125 [Augmentin] 1 each PO Q12H #20 tablet 03/14/22 Nystatin [Mycostatin] 5 ml PO QID #200 ml 03/14/22 - Allergies Allergies/Adverse Reactions: Allergies Allergy/AdvReac Type Severity Reaction Status Date / Time pineapple Allergy Severe Edema Verified 03/14/22 16:14 diphenhydramine HCl * Allergy Intermediate Itching Verified 03/14/22 16:14 [From Benadryl] Cephalosporins AdvReac Severe Respiratory Verified 03/14/22 16:14 iron dextran complex AdvReac Intermediate Emesis Verified 03/14/22 16:14 prochlorperazine AdvReac Intermediate Emesis Verified 03/14/22 16:14 [From Compazine] prochlorperazine edisylate * AdvReac Intermediate Emesis Verified 03/14/22 16:14 [From Compazine] prochlorperazine maleate * AdvReac Intermediate Emesis Verified 03/14/22 16:14 [From Compazine] kiwi AdvReac Itching Verified 03/14/22 16:14 NSAIDS (Non-Steroidal AdvReac Unknown Verified 03/14/22 16:14 Anti-Inflamma prednisone AdvReac Unknown Verified 03/14/22 16:14 - Social History Does the pt smoke?: Yes Smoking Status: Current every day smoker Does the pt drink ETOH?: Yes Does the pt have substance abuse?: No - Immunizations Immunizations are current?: Yes - POLST Patient has POLST: No PD ED PE NORMAL - Vitals Vital signs reviewed: Yes - General General: Alert and oriented X 3, No acute distress - HEENT HEENT: Ears normal, Other (Mildly edematous and erythematous uvula, TMs are normal) - Neck Neck: Supple, no meningeal sign, No bony TTP - Cardiac Cardiac: RRR, No murmur - Respiratory Respiratory: No respiratory distress, Clear bilaterally - Abdomen Abdomen: Non tender - Derm Derm: Normal color, Warm and dry, No rash - Extremities Extremities: No edema, No calf tenderness / cord - Neuro Neuro: Alert and oriented X 3, Normal speech Results - Vitals Vitals: Vital Signs - 24 hr 03/14/22 16:17 Temperature 36.4 C L Heart Rate 70 Respiratory 20 Rate Blood Pressure 99/63 O2 Saturation 97 Oxygen O2 Source Room air PD MEDICAL DECISION MAKING - ED course ED course: 52-year-old woman with history of bone marrow failure, Diagnosis of thrush and has not tolerated or is allergic to the clotrimazole. She has symptoms of sinusitis and given her above history will treat with antibiotics for same and switch her over to nystatin. Departure - Departure Disposition: 01 Home, Self Care Clinical Impression: Oral thrush Sinusitis Qualifiers: Sinusitis location: maxillary Chronicity: acute Recurrence: non-recurrent Qualified Code(s): J01.00 - Acute maxillary sinusitis, unspecified Condition: Good Record reviewed to determine appropriate education?: Yes Instructions: ED Sinusitis Abx Tx Prescriptions: Amox/Clav 875/125 [Augmentin] 1 each PO Q12H #20 tablet Nystatin [Mycostatin] 5 ml PO QID #200 ml Comments: I sent your prescriptions electronically to [facility] in [place]. You are seen today for a sinus infection, and it seems like the clotrimazole is not reacting well with you, I am switching you to nystatin, this is another anti fungal medication which is unrelated to the clotrimazole. And starting Augmentin for an apparent sinus infection. Return for new or worsening symptoms. Follow-up with your primary care physician, next available appointment.
== END 2022-03-14 18:52 | disposition home or self-care (01) ==
LOC: ED 15:33
DX: B37.0 Candidal stomatitis (principal); J01.00 Acute maxillary sinusitis, unspecified; F17.200 Nicotine dependence, unspecified, uncomplicated
CPT/HCPCS: 99282; 99284; A9270

== ENCOUNTER 2022-10-07 14:22 | Outpatient (CLI) | payer OTHER ==
--- NOTE | 2022-10-07 15:21 | CT Report ---
PROCEDURE: SINUS SCREENING WO INDICATIONS: PERSISTENT PANSINUSITIS TECHNIQUE: Noncontrast 3.0 mm axial images acquired from the frontal sinuses to the mid-sella, with coronal and sagittal reformats. For radiation dose reduction, the following was used: automated exposure control , adjustment of mA and/or kV according to patient size. COMPARISON: None. FINDINGS: Image quality: Excellent. Sinuses: Minimal pansinus mucosal thickening is present. No mucous retention cysts/polyps. No fluid l evels. Ostiomeatal Complexes: Ostiomeatal complexes are patent. No Celso cells. Miscellaneous: Visualized intra-orbital contents are normal. No fely bullosa. No paradoxical turb inates. Mild rightward nasal septal deviation. The sella is widened. IMPRESSION: Minimal mucosal thickening without fluid levels. There is widening of the osseous sella. No priors are available for comparison. MRI pituitary exam is recommended for further evaluation of potential he and the sella versus pituitary mass. Reviewed by: Sharon Mclaughlin MD on 10/07/2022 3:20 PM PDT Approved by: Sharon Mclaughlin MD on 10/07/2022 3:20 PM PDT Station ID: [id number]
== END 2022-10-07 14:23 | disposition home or self-care (01) ==
LOC: DI 14:22
PROVIDERS: ATTEND Family Medicine
DX: J32.4 Chronic pansinusitis (principal)

== ENCOUNTER 2022-10-21 15:44 | Outpatient (CLI) | payer OTHER ==
[~2022-10-21 15:44] MED LIST changes: -BUPIVACAINE 0.25%-EPI 1:200000 PF 30 ML VIAL SUBQ ONE; +GADOBUTROL 7.5 MMOL/7.5 ML VIAL ONE
[2022-10-21] MEDS ORDERED: GADOBUTROL 7.5 MMOL/7.5 ML VIAL IVP ONE (16:55)
--- NOTE | 2022-10-22 20:47 | MRI Report ---
PROCEDURE: BRAIN W/WO INDICATIONS: WIDENED SELLA TURCICA CONTRAST: GADAVIST 7.5 ML TECHNIQUE: Noncontrast axial T1 spin echo, axial T2 fast spin echo, sagittal and axial FLAIR, coronal T2 fast sp in echo, axial gradient echo, axial diffusion and ADC through the brain. After the administration of contrast, axial and coronal T1 spin echo with fat saturation through the brain. COMPARISON: CT neck 07/18/2020, CT head 02/26/2019 FINDINGS: Image quality: Excellent. CSF spaces: Basal cisterns are patent. No extra-axial fluid collections. Ventricles are normal in size and shape. Brain: No midline shift. No intracranial bleeds or masses. No abnormal intracranial enhancement. There is cerebral volume loss for age. There is periventricular white matter chronic small vessel is chemic change. The brainstem appears normal. Diffusion-weighted images demonstrate no acute ischemi c insults. No chronic ischemic insults. Normal intravascular flow voids are present. Pituitary gla nd is normal in size. Infundibulum is midline. There is a slight widened appearance of the sella, con sistent with normal variation. It is stable. No areas of mass lesion, abnormal or delayed enhancement . Skull and face: Calvarial marrow is normal in signal. Orbits appear normal. Sinuses: Sinuses and mastoids appear clear. IMPRESSION: Pituitary gland is normal. 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 Reviewed by: Sharon Mclaughlin MD on 10/22/2022 8:46 PM PDT Approved by: Sharon Mclaughlin MD on 10/22/2022 8:46 PM PDT Station ID: [id number]
== END 2022-10-21 15:45 | disposition home or self-care (01) ==
LOC: DI 15:44
PROVIDERS: ATTEND Family Medicine
DX: R93.7 Abnormal findings on diagnostic imaging of other parts of musculoskeletal system (principal)
CPT/HCPCS: 70553; A9585

== ENCOUNTER 2023-03-15 16:40 | Outpatient (CLI) | payer OTHER | END 2023-03-15 16:41 | disposition home or self-care (01) | LOC: LAB 16:40 | PROVIDERS: ATTEND Internal Medicine | DX: Z53.9 Procedure and treatment not carried out, unspecified reason (principal) ==

== ENCOUNTER 2023-07-14 21:13 | Emergency (ER) | payer OTHER ==
[2023-07-14 22:16] LABS: BASOPHILS % (AUTO) 0.7 %; EOSINOPHILS # (AUTO) 0.1 10^3/uL (0.0-0.7); EOSINOPHILS % (AUTO) 1.3 %; HCT - HEMATOCRIT 42.4 % (37.0-47.0); HGB - HEMOGLOBIN 13.3 g/dL (12.0-16.0); LYMPHOCYTES # (AUTO) 2.1 10^3/uL (1.5-3.5); MEAN CORPUSCULAR HEMOGLOBIN 31.1 pg (27.0-31.0); MEAN CORPUSCULAR HGB CONC 31.4 g/dL (32.0-36.0); MEAN CORPUSCULAR VOLUME 99.1 fL (81.0-99.0); MEAN PLATELET VOLUME 9.6 fL (7.9-10.8); MONOCYTES # (AUTO) 0.6 10^3/uL (0.0-1.0); NEUTROPHILS # (AUTO) 3.4 10^3/uL (1.5-6.6); NEUTROPHILS % (AUTO) 54.7 %; PLT - PLATELET COUNT 455 10^3/uL (130-450); RED BLOOD COUNT 4.28 10^6/uL (4.20-5.40); RED CELL DISTRIBUTION WIDTH 13.4 % (12.0-15.0); WHITE BLOOD COUNT 6.1 x10^3/uL (4.8-10.8)
[2023-07-14] MEDS: OLANZapine ODT 5 MG TABLET TL ONE (22:30)
[2023-07-14 22:31] LABS: ALBUMIN 4.4 g/dL (3.2-5.5); ALBUMIN/GLOBULIN RATIO 1.6 (1.0-2.2); BILIRUBIN,TOTAL 0.3 mg/dL (0.2-1.0); CREATININE 1.1 mg/dL (0.6-1.3); POTASSIUM 4.4 mmol/L (3.5-4.5); TOTAL PROTEIN 7.2 g/dL (6.4-8.9)
[2023-07-14 22:41] LABS: THYROID STIMULATING HORMONE 6.63 uIU/mL (0.34-5.60)
[2023-07-14 23:53] LABS: AMPHETAMINE SCREEN,URINE NEGATIVE (NEGATIVE); BARBITURATE SCREEN,UR NEGATIVE (NEGATIVE); BENZODIAZEPINES SCREEN, URINE POSITIVE (NEGATIVE); BUPRENORPHINE SCREEN, URINE NEGATIVE (NEGATIVE); COCAINE SCREEN URINE NEGATIVE (NEGATIVE); METHADONE SCREEN, URINE NEGATIVE (NEGATIVE); METHAMPHETAMINES SCREEN, URINE NEGATIVE (NEGATIVE); OPIATE SCREEN, URINE NEGATIVE (NEGATIVE); OXYCODONE SCREEN, URINE NEGATIVE (NEGATIVE); THC CANNABINOID SCREEN, URINE POSITIVE (NEGATIVE); TRICYCLIC ANTIDEPRESSANT,URINE NEGATIVE (NEGATIVE)
--- NOTE | 2023-07-15 01:20 | ED Physician Documentation ---
History of Present Illness - Stated complaint Stated Complaint: MHE - Chief complaint Chief Complaint: MHE - History obtained from History obtained from: Patient - Additonal information Additional information: 53yF presents for MHE due to florid karen. patient has bipolar I and 10 years ago was inpatient hospitalized for mental health in [place]. states she had issues with fentanyl use in the past after septicemia due to ruptured bowels and was subsequently placed on methadone. patient stopped taking methadone 8 weeks ago and experienced hallucinations that have since stopped. denies si/hi/avh. currently on lexapro 20mg daily as well as tizanidine, gabapentin, clonazepam, among other meds. PD PAST MEDICAL HISTORY - Past Medical History Cardiovascular: Hypertension Respiratory: None, Other Neuro: Migraines, Peripheral neuropathy Endocrine/Autoimmune: None GI: GERD, Chronic diarrhea, Cholelithiasis, Other SHOVELER: Ovarian cysts : Other HEENT: Chronic vision loss Psych: Depression, Anxiety, Bipolar disorder, Panic attacks Musculoskeletal: Chronic back pain Derm: None - Past Surgical History Past Surgical History: Yes General: Bowel surgery, Gastric surgery, EGD Ortho: Rotator cuff repair /SHOVELER: 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, Oophrectomy HEENT: Tonsil/Adenoidectomy - Present Medications Home Medications: Ambulatory Orders Medication Instructions Recorded Confirmed Escitalopram Oxalate [Lexapro] 20 mg PO QPM 12/31/14 07/13/23 Promethazine [Phenergan] 50 mg PO PRN PRN 12/31/14 07/13/23 Topiramate 100 mg PO BID 12/31/14 07/13/23 clonazePAM [KlonoPIN] 1 mg PO BID 12/31/14 07/13/23 ondansetron HCL [Zofran] 8 mg PO BID 12/31/14 07/13/23 Gabapentin 2,400 mg PO QPM 01/20/16 07/13/23 Gabapentin 600 mg PO BID 01/20/16 07/13/23 Progesterone, Micronized 200 mg PO QPM 09/09/17 07/13/23 [Progesterone] estradioL [Estradiol] 2 mg PO DAILY 11/07/18 07/13/23 Rimegepant Sulfate [Nurtec Odt] 75 mg SL DAILY PRN 12/09/20 07/13/23 ZOLMitriptan [Zolmitriptan] 1 spray NS DAILY PRN 01/07/21 07/13/23 Lidocaine/Prilocain 2.5% Cream 1 applic TOP QID 01/27/21 07/13/23 [Emla 2.5% Cream] Tizanidine HCl [Zanaflex] 6 mg PO TID PRN 01/27/21 07/13/23 Acetaminophen [Tylenol] 650 mg PO Q6H PRN tablet 02/02/21 07/13/23 Melatonin/Pyridoxine [Melatonin 5 5 mg PO DAILY 11/13/21 07/13/23 mg Tablet] Omeprazole 40 mg PO BID 11/13/21 07/13/23 Vit D3/Vit K2/Calc Frutoborate 5,000 intlu PO DAILY 11/13/21 07/13/23 [Move Free [id number]] Methadone HCl [Methadose] 90 mg PO UD 04/07/22 07/13/23 Dicyclomine HCl 20 mg PO UD 06/16/22 07/13/23 Cyanocobalamin [Vitamin B-12] 1,000 mcg IM UD 12/22/22 07/13/23 Fluticasone Propionate [Flovent 50 mcg IH UD 12/22/22 07/13/23 Diskus] Galcanezumab-Gnlm [Emgality 120 mg SQ UD 12/22/22 07/13/23 Syringe] Naloxone [Narcan] 0.4 mg IVP PRN PRN 12/22/22 07/13/23 Phenazopyridine [Pyridium] 200 mg PO TID 12/22/22 07/13/23 - Allergies Allergies/Adverse Reactions: Allergies Allergy/AdvReac Type Severity Reaction Status Date / Time pineapple Allergy Severe Edema Verified 07/14/23 21:33 diphenhydramine HCl * Allergy Intermediate Itching Verified 07/14/23 21:33 [From Benadryl] clotrimazole Allergy Respiratory Verified 07/14/23 21:33 Cephalosporins AdvReac Severe Respiratory Verified 07/14/23 21:33 iron dextran complex AdvReac Intermediate Emesis Verified 07/14/23 21:33 prochlorperazine AdvReac Intermediate Emesis Verified 07/14/23 21:33 [From Compazine] prochlorperazine edisylate * AdvReac Intermediate Emesis Verified 07/14/23 21:33 [From Compazine] prochlorperazine maleate * AdvReac Intermediate Emesis Verified 07/14/23 21:33 [From Compazine] kiwi AdvReac Itching Verified 07/14/23 21:33 NSAIDS (Non-Steroidal AdvReac Unknown Verified 07/14/23 21:33 Anti-Inflamma prednisone AdvReac Unknown Verified 03/14/22 16:14 - Social History Does the pt smoke?: Yes Smoking Status: Current every day smoker Does the pt drink ETOH?: Yes Does the pt have substance abuse?: No - Immunizations Immunizations are current?: Yes - POLST Patient has POLST: No PD ED PE NORMAL - Vitals Vital signs reviewed: Yes - General General: Alert and oriented X 3, No acute distress, Well developed/nourished, Other (bizarre affect) - HEENT HEENT: Atraumatic, PERRL, EOMI - Neck Neck: Supple, no meningeal sign - Cardiac Cardiac: RRR - Respiratory Respiratory: No respiratory distress, Clear bilaterally - Derm Derm: Normal color, Warm and dry - Psych Psych: Other (denies SI/HI/AVH. effusive manner. meandering speech, requiring repeated redirection) Results - Vitals Vitals: Vital Signs - 24 hr 07/14/23 21:14 Temperature 37.1 C Heart Rate 111 H Respiratory 20 Rate Blood Pressure 170/111 H O2 Saturation 98 Oxygen O2 Source Room air - EKG (time done) 0138 EKG releavant findings:: EKG personally interpreted by author of this note. Relevant findings are: Rate: Rate (enter#) (85) Rhythm: NSR [place]: Normal Intervals: Normal TN QRS: Normal Ischemia: Normal ST segments - Labs Labs: Laboratory Tests 07/14/23 07/14/23 07/14/23 21:44 21:44 21:44 WBC 6.1 RBC 4.28 Hgb 13.3 Hct 42.4 MCV 99.1 H MCH 31.1 H MCHC 31.4 L RDW 13.4 Plt Count 455 H MPV 9.6 Neut # (Auto) 3.4 Lymph # (Auto) 2.1 [place] # (Auto) 0.6 Eos # (Auto) 0.1 Baso # (Auto) 0.0 Absolute Nucleated RBC 0.00 Nucleated RBC % 0.0 Sodium 139 Potassium 4.4 Chloride 106 Carbon Dioxide 24 Anion Gap 9.0 BUN 6 Creatinine 1.1 Estimated GFR (MDRD) 52 L Glucose 112 H Calcium 10.0 Total Bilirubin 0.3 AST 18 ALT 18 Alkaline Phosphatase 73 Total Protein 7.2 Albumin 4.4 Globulin 2.8 Albumin/Globulin Ratio 1.6 Lipase 20 TSH 6.63 H Free T4 Direct Thyroxine (T4) Free T3 pg/mL Total T3 T3 Uptake Urine Opiates Screen Ur Buprenorphine Scrn Ur Oxycodone Screen Urine Methadone Screen Ur Barbiturates Screen Ur Tricyclics Screen Ur Phencyclidine Scrn Ur Amphetamine Screen U Methamphetamines Scrn U Benzodiazepines Scrn Urine Cocaine Screen U Cannabinoids Screen Ur Drug Screen Comment Ethyl Alcohol < 10.0 SARS-CoV-2 (PCR) 07/14/23 07/15/23 07/15/23 23:24 00:08 01:38 WBC RBC Hgb Hct MCV MCH MCHC RDW Plt Count MPV Neut # (Auto) Lymph # (Auto) [place] # (Auto) Eos # (Auto) Baso # (Auto) Absolute Nucleated RBC Nucleated RBC % Sodium Potassium Chloride Carbon Dioxide Anion Gap BUN Creatinine Estimated GFR (MDRD) Glucose Calcium Total Bilirubin AST ALT Alkaline Phosphatase Total Protein Albumin Globulin Albumin/Globulin Ratio Lipase TSH Free T4 Direct 1.13 Thyroxine (T4) 11.2 Free T3 pg/mL 3.58 Total T3 1.31 T3 Uptake 46 Urine Opiates Screen NEGATIVE Ur Buprenorphine Scrn NEGATIVE Ur Oxycodone Screen NEGATIVE Urine Methadone Screen NEGATIVE Ur Barbiturates Screen NEGATIVE Ur Tricyclics Screen NEGATIVE Ur Phencyclidine Scrn NEGATIVE Ur Amphetamine Screen NEGATIVE U Methamphetamines Scrn NEGATIVE U Benzodiazepines Scrn POSITIVE H Urine Cocaine Screen NEGATIVE U Cannabinoids Screen POSITIVE H Ur Drug Screen Comment CUTOFF CONC BELOW: Ethyl Alcohol SARS-CoV-2 (PCR) NOT DETECTED PD Medical Decision Making - ED course ED course: 53yF presents for MHE in setting of acute karen 2/2 bipolar. voluntary for treatment. Medically cleared at this time. Telepsych consult placed and awaiting recs. Update: telepsych unavailable overnight. plan to endorse to incoming daytime ED MD at 7am shift change awaiting social work. Departure - Departure Clinical Impression: Bipolar 1 disorder Forms: PCP List
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
[2023-07-15] MEDS: PANTOPRAZOLE 40 MG TABLET PO STA (07:16)
[2023-07-15] MEDS: OLANZapine ODT 5 MG TABLET TL ONE (07:17)
[2023-07-15 08:42] VITALS: O2SAT 100
--- NOTE | 2023-07-15 10:12 | ED Physician Documentation ---
ED Addendum - Addendum Addendum: 07/15/23 10:11 [facility] in [place] is considering the patient but is requesting a urine , magnesium level and CK level. These tests have been ordered. 07/15/23 10:59 Urine , magnesium and CK levels obtained without any significant abnormalities. Patient has already been medically cleared. She has been calm and cooperative this morning. Awaiting placement. 07/15/23 11:51 Patient has been accepted to [facility] in [place]. CYNTHIARA signed. Departure - Departure Disposition: 65 Psych Hosp/Unit DC/Xfer Clinical Impression: Bipolar 1 disorder, Psychiatric symptoms Condition: Stable Forms: PCP List
[2023-07-15 10:26] LABS: HCG UR QUAL NEGATIVE
[2023-07-15 10:43] LABS: MAGNESIUM 2.1 mg/dL (1.7-2.3)
[2023-07-15] MEDS: NICOTINE 21 MG PATCH TOP STA (14:13)
[2023-07-15 15:23] VITALS: BP 109/79
== END 2023-07-15 15:20 ==
LOC: ED 21:13
DX: F31.9 Bipolar disorder, unspecified (principal); I10 Essential (primary) hypertension; F17.210 Nicotine dependence, cigarettes, uncomplicated; Z79.899 Other long term (current) drug therapy; Z81.8 Family history of other mental and behavioral disorders
CPT/HCPCS: 36415; 80053; 80306; 81025; 82077; 82550; 83690; 83735; 84436; 84439; 84443; 84479; 84480; 84481; 84482; 85025; 87635; 93005; 99285; A9270; G0425; Q3014

== ENCOUNTER 2023-08-01 13:47 | Outpatient (CLI) | payer OTHER ==
[2023-08-01 14:02] LABS: BASOPHILS % (AUTO) 0.6 %; EOSINOPHILS # (AUTO) 0.1 10^3/uL (0.0-0.7); EOSINOPHILS % (AUTO) 1.2 %; HCT - HEMATOCRIT 39.3 % (37.0-47.0); HGB - HEMOGLOBIN 11.9 g/dL (12.0-16.0); LYMPHOCYTES # (AUTO) 1.5 10^3/uL (1.5-3.5); LYMPHOCYTES % (AUTO) 30.1 %; MEAN CORPUSCULAR HEMOGLOBIN 30.7 pg (27.0-31.0); MEAN CORPUSCULAR HGB CONC 30.3 g/dL (32.0-36.0); MEAN CORPUSCULAR VOLUME 101.6 fL (81.0-99.0); MEAN PLATELET VOLUME 9.7 fL (7.9-10.8); MONOCYTES # (AUTO) 0.4 10^3/uL (0.0-1.0); MONOCYTES % (AUTO) 7.8 %; NEUTROPHILS # (AUTO) 3.1 10^3/uL (1.5-6.6); NEUTROPHILS % (AUTO) 59.9 %; PLT - PLATELET COUNT 467 10^3/uL (130-450); RED BLOOD COUNT 3.87 10^6/uL (4.20-5.40); RED CELL DISTRIBUTION WIDTH 13.9 % (12.0-15.0); WHITE BLOOD COUNT 5.1 x10^3/uL (4.8-10.8)
[2023-08-01 14:15] LABS: % IRON SATURATION 27 % (20-50); ALBUMIN 4.1 g/dL (3.2-5.5); ALBUMIN/GLOBULIN RATIO 1.7 (1.0-2.2); ALKALINE PHOSPHATASE 74 IU/L (42-121); ALT ALANINE AMINOTRANSFERASE 20 IU/L (10-60); AST ASPARTATE AMINOTRANSFERASE 16 IU/L (10-42); BILIRUBIN,TOTAL 0.2 mg/dL (0.2-1.0); BUN - BLOOD UREA NITROGEN 3 mg/dL (6-20); CALCIUM 8.7 mg/dL (8.5-10.3); CARBON DIOXIDE - CO2 28 mmol/L (21-32); CHLORIDE 108 mmol/L (101-111); CHOL/HDL RATIO 3.6 (<4.4); CHOLESTEROL 209 mg/dL; CREATININE 0.6 mg/dL (0.6-1.3); GFR - MDRD 105 (>89); GLUCOSE 90 mg/dL (74-104); HDL CHOLESTEROL 58 mg/dL; IRON 85 ug/dL (50-212); LDL CHOLESTEROL,CALCULATED 126 mg/dL; LDL/HDL RATIO 2.2 (<4.4); POTASSIUM 3.7 mmol/L (3.5-4.5); SODIUM 141 mmol/L (135-145); TOTAL IRON BINDING CAPACITY 319 ug/dL (250-450); TOTAL PROTEIN 6.5 g/dL (6.4-8.9); TRANSFERRIN 228 mg/dL (203-362); TRIGLYCERIDES 125 mg/dL (48-352); VLDL CHOLESTEROL 25 mg/dL
[2023-08-01 16:05] LABS: THYROID STIMULATING HORMONE 0.82 uIU/mL (0.34-5.60)
[2023-08-01 16:12] LABS: FERRITIN 95.8 ng/mL (11.0-306.8)
== END 2023-08-01 13:48 | disposition home or self-care (01) ==
LOC: LAB 13:47
PROVIDERS: ATTEND Family Medicine
DX: D64.9 Anemia, unspecified (principal); R45.1 Restlessness and agitation; Z98.84 Bariatric surgery status; R79.9 Abnormal finding of blood chemistry, unspecified; I10 Essential (primary) hypertension; E11.9 Type 2 diabetes mellitus without complications; Z79.899 Other long term (current) drug therapy
CPT/HCPCS: 36415; 80053; 80061; 82607; 82728; 82746; 83540; 83721; 84443; 84466; 85025

== ENCOUNTER 2023-08-01 19:18 | Outpatient (CLI) | payer OTHER | END 2023-08-01 23:59 | disposition critical access hospital (66) | LOC: EMS 19:18 | DX: R46.89 Other symptoms and signs involving appearance and behavior (principal); R47.81 Slurred speech | CPT/HCPCS: A0425; A0429 ==

== ENCOUNTER 2023-08-01 19:28 | Emergency (ER) | payer OTHER ==
[2023-08-01 19:48] LABS: BASOPHILS % (AUTO) 0.5 %; EOSINOPHILS # (AUTO) 0.1 10^3/uL (0.0-0.7); EOSINOPHILS % (AUTO) 1.4 %; HCT - HEMATOCRIT 37.5 % (37.0-47.0); HGB - HEMOGLOBIN 11.4 g/dL (12.0-16.0); LYMPHOCYTES # (AUTO) 2.4 10^3/uL (1.5-3.5); LYMPHOCYTES % (AUTO) 28.2 %; MEAN CORPUSCULAR HEMOGLOBIN 31.3 pg (27.0-31.0); MEAN CORPUSCULAR HGB CONC 30.4 g/dL (32.0-36.0); MEAN PLATELET VOLUME 9.6 fL (7.9-10.8); MONOCYTES # (AUTO) 0.8 10^3/uL (0.0-1.0); MONOCYTES % (AUTO) 9.6 %; NEUTROPHILS # (AUTO) 5.1 10^3/uL (1.5-6.6); NEUTROPHILS % (AUTO) 60.1 %; PLT - PLATELET COUNT 434 10^3/uL (130-450); RED BLOOD COUNT 3.64 10^6/uL (4.20-5.40); RED CELL DISTRIBUTION WIDTH 13.9 % (12.0-15.0); WHITE BLOOD COUNT 8.5 x10^3/uL (4.8-10.8)
[2023-08-01 20:06] LABS: ACETAMINOPHEN 0.3 ug/mL; ALBUMIN/GLOBULIN RATIO 1.7 (1.0-2.2); ALKALINE PHOSPHATASE 116 IU/L (42-121); ALT ALANINE AMINOTRANSFERASE 131 IU/L (10-60); AST ASPARTATE AMINOTRANSFERASE 404 IU/L (10-42); BILIRUBIN,TOTAL 0.4 mg/dL (0.2-1.0); BUN - BLOOD UREA NITROGEN 4 mg/dL (6-20); CALCIUM 8.7 mg/dL (8.5-10.3); CARBON DIOXIDE - CO2 28 mmol/L (21-32); CHLORIDE 108 mmol/L (101-111); CK- CREATINE KINASE 87 IU/L (30-223); CREATININE 0.7 mg/dL (0.6-1.3); ETOH - ETHANOL < 10.0 mg/dL; GFR - MDRD 88 (>89); GLUCOSE 92 mg/dL (74-104); LIPASE 16 U/L (11-82); MAGNESIUM 1.9 mg/dL (1.7-2.3); POTASSIUM 3.9 mmol/L (3.5-4.5); SALICYLATE < 1.5 mg/dL; SODIUM 140 mmol/L (135-145); TOTAL PROTEIN 6.3 g/dL (6.4-8.9)
[2023-08-01 20:21] LABS: THYROID STIMULATING HORMONE 5.41 uIU/mL (0.34-5.60)
--- NOTE | 2023-08-01 20:23 | ED Physician Documentation ---
PD HPI MHE - Stated complaint Stated Complaint: AMS, COMBATIVE, ? ETOH - Chief complaint Chief Complaint: MHE - History obtained from History obtained from: Patient, Other (ICOM) - Additional information Additional information: Patient is a 53-year-old female with a history of bipolar disorder presenting to the emergency department for evaluation of erratic behavior. Per who is accompanied patient to the emergency department under an KYLE, law enforcement has been in contact with the patient all day including [facility] health professional that is attached to law enforcement. Per KYLE paperwork, patient texted a friend that she was going to kill herself because she feels pathetic. She sent a picture of her gun stating goodbye.Patient has recently been going through a difficult divorce and prolonged for cement was served with restraining order paperwork today. Patient was reportedly prescribed oxycodone earlier today.Patient was found unresponsive on the side of the road.Law enforcement found the patient awake and conversant but would easily drift off to sleep. Patient at this time is not able to provide any significant history. Does recall being here earlier this month [facility] [place] Review of Systems Unable to obtain: Confused, Other (Quickly drifts off to sleep but not able to fully answer questions) PD PAST MEDICAL HISTORY - Past Medical History Cardiovascular: Hypertension Respiratory: None, Other Neuro: Migraines, Peripheral neuropathy Endocrine/Autoimmune: None GI: GERD, Chronic diarrhea, Cholelithiasis, Other [employer]: Ovarian cysts : Other HEENT: Chronic vision loss Psych: Depression, Anxiety, Bipolar disorder, Panic attacks Musculoskeletal: Chronic back pain Derm: None - Past Surgical History Past Surgical History: Yes General: Bowel surgery, Gastric surgery, EGD Ortho: Rotator cuff repair /[employer]: 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, Oophrectomy HEENT: Tonsil/Adenoidectomy - Present Medications Home Medications: Ambulatory Orders Medication Instructions Recorded Confirmed Escitalopram Oxalate [Lexapro] 20 mg PO QPM 12/31/14 07/15/23 Promethazine [Phenergan] 50 mg PO PRN PRN 12/31/14 07/15/23 Topiramate 100 mg PO BID 12/31/14 07/15/23 clonazePAM [KlonoPIN] 1 mg PO QID 12/31/14 07/15/23 ondansetron HCL [Zofran] 8 mg PO DAILY 12/31/14 07/15/23 Gabapentin 2,400 mg PO QPM 01/20/16 07/15/23 Gabapentin 600 mg PO BID 01/20/16 07/15/23 Progesterone, Micronized 200 mg PO QPM 09/09/17 07/15/23 [Progesterone] estradioL [Estradiol] 2 mg PO DAILY 11/07/18 07/15/23 Rimegepant Sulfate [Nurtec Odt] 75 mg SL PRN PRN 12/09/20 07/15/23 ZOLMitriptan [Zolmitriptan] 1 spray NS PRN PRN 01/07/21 07/15/23 Lidocaine/Prilocain 2.5% Cream 1 applic TOP QID 01/27/21 07/15/23 [Emla 2.5% Cream] Tizanidine HCl [Zanaflex] 8 mg PO QID 01/27/21 07/15/23 Acetaminophen [Tylenol] 650 mg PO Q6H PRN tablet 02/02/21 07/15/23 Melatonin/Pyridoxine [Melatonin 5 15 mg PO HS 11/13/21 07/15/23 mg Tablet] Omeprazole 40 mg PO BID 11/13/21 07/15/23 Vit D3/Vit K2/Calc Frutoborate 5,000 intlu PO HS 11/13/21 07/15/23 [Move Free [id number]-Z3-D3] Dicyclomine HCl 20 mg PO UD 06/16/22 07/15/23 Cyanocobalamin [Vitamin B-12] 1,000 mcg IM UD 12/22/22 07/15/23 Fluticasone Propionate [Flovent 50 mcg IH UD 12/22/22 07/15/23 Diskus] Galcanezumab-Gnlm [Emgality 120 mg SQ UD 12/22/22 07/15/23 Syringe] Phenazopyridine [Pyridium] 200 mg PO TID 12/22/22 07/15/23 Magnesium Hydroxide [Milk of 30 ml PO DAILY 07/15/23 07/15/23 Magnesia] - Allergies Allergies/Adverse Reactions: Allergies Allergy/AdvReac Type Severity Reaction Status Date / Time pineapple Allergy Severe Edema Verified 07/15/23 08:51 diphenhydramine HCl * Allergy Intermediate Itching Verified 07/15/23 08:51 [From Benadryl] clotrimazole Allergy Respiratory Verified 07/15/23 08:51 Cephalosporins AdvReac Severe Respiratory Verified 07/15/23 08:51 iron dextran complex AdvReac Intermediate Emesis Verified 07/15/23 08:51 prochlorperazine AdvReac Intermediate Emesis Verified 07/15/23 08:51 [From Compazine] prochlorperazine edisylate * AdvReac Intermediate Emesis Verified 07/15/23 08:51 [From Compazine] prochlorperazine maleate * AdvReac Intermediate Emesis Verified 07/15/23 08:51 [From Compazine] kiwi AdvReac Itching Verified 07/15/23 08:51 NSAIDS (Non-Steroidal AdvReac Unknown Verified 07/15/23 08:51 Anti-Inflamma prednisone AdvReac Unknown Verified 07/15/23 08:51 - Social History Does the pt smoke?: Yes Smoking Status: Current every day smoker Does the pt drink ETOH?: Yes Does the pt have substance abuse?: No - Immunizations Immunizations are current?: Yes - POLST Patient has POLST: No PD ED PE NORMAL - General General: No acute distress, Well developed/nourished, Other (Drowsy but oriented x 3) - HEENT HEENT: Atraumatic, PERRL, Moist mucous membranes, Pharynx benign - Neck Neck: Supple, no meningeal sign - Cardiac Cardiac: RRR, Strong equal pulses - Respiratory Respiratory: No respiratory distress, Clear bilaterally - Abdomen Abdomen: Normal bowel sounds, Soft, Non tender, Non distended - Derm Derm: Warm and dry - Neuro Neuro: Alert and oriented X 3, No motor deficit Results - Vitals Vitals: Vital Signs - 24 hr 08/01/23 08/02/23 08/02/23 19:56 00:27 01:00 Temperature 36.5 C Heart Rate 74 80 74 Respiratory 20 14 16 Rate Blood Pressure 125/79 102/63 104/64 O2 Saturation 99 94 98 08/02/23 08/02/23 01:58 03:07 Temperature Heart Rate 65 84 Respiratory 20 15 Rate Blood Pressure 94/62 138/87 H O2 Saturation 94 95 Oxygen O2 Source Room air - EKG (time done) 2143 EKG releavant findings:: EKG personally interpreted by author of this note. Relevant findings are: Rate 74, normal sinus rhythm, no STEMI, QTc 461 - Labs Labs: Laboratory Tests 08/01/23 08/01/23 08/01/23 19:43 19:43 23:00 WBC 8.5 RBC 3.64 L Hgb 11.4 L Hct 37.5 MCV 103.0 H MCH 31.3 H MCHC 30.4 L RDW 13.9 Plt Count 434 MPV 9.6 Neut # (Auto) 5.1 Lymph # (Auto) 2.4 Ada # (Auto) 0.8 Eos # (Auto) 0.1 Baso # (Auto) 0.0 Absolute Nucleated RBC 0.00 Nucleated RBC % 0.0 Sodium 140 Potassium 3.9 Chloride 108 Carbon Dioxide 28 Anion Gap 4.0 L BUN 4 L Creatinine 0.7 Estimated GFR (MDRD) 88 L Glucose 92 Calcium 8.7 Magnesium 1.9 Total Bilirubin 0.4 AST 404 H ALT 131 H Alkaline Phosphatase 116 Total Creatine Kinase 87 Total Protein 6.3 L Albumin 4.0 Globulin 2.3 Albumin/Globulin Ratio 1.7 Lipase 16 TSH 5.41 Urine Color YELLOW Urine Clarity CLEAR Urine pH 6.5 Ur Specific [place] 1.010 Urine Protein NEGATIVE Urine Glucose (UA) NEGATIVE Urine Ketones NEGATIVE Urine Occult Blood NEGATIVE Urine Nitrite NEGATIVE Urine Bilirubin NEGATIVE Urine Urobilinogen 0.2 (NORMAL) Ur Leukocyte Esterase NEGATIVE Ur Microscopic Review NOT INDICATED Urine Culture Comments NOT INDICATED Urine HCG, Qual NEGATIVE Salicylates < 1.5 Urine Opiates Screen NEGATIVE Ur Buprenorphine Scrn NEGATIVE Ur Oxycodone Screen POSITIVE H Urine Methadone Screen NEGATIVE Acetaminophen 0.3 Ur Barbiturates Screen POSITIVE H Ur Tricyclics Screen NEGATIVE Ur Phencyclidine Scrn NEGATIVE Ur Amphetamine Screen NEGATIVE U Methamphetamines Scrn NEGATIVE U Benzodiazepines Scrn POSITIVE H Urine Cocaine Screen NEGATIVE U Cannabinoids Screen POSITIVE H Ur Drug Screen Comment CUTOFF CONC BELOW: Ethyl Alcohol < 10.0 SARS-CoV-2 (PCR) 08/01/23 23:10 WBC RBC Hgb Hct MCV MCH MCHC RDW Plt Count MPV Neut # (Auto) Lymph # (Auto) Ada # (Auto) Eos # (Auto) Baso # (Auto) Absolute Nucleated RBC Nucleated RBC % Sodium Potassium Chloride Carbon Dioxide Anion Gap BUN Creatinine Estimated GFR (MDRD) Glucose Calcium Magnesium Total Bilirubin AST ALT Alkaline Phosphatase Total Creatine Kinase Total Protein Albumin Globulin Albumin/Globulin Ratio Lipase TSH Urine Color Urine Clarity Urine pH Ur Specific [place] Urine Protein Urine Glucose (UA) Urine Ketones Urine Occult Blood Urine Nitrite Urine Bilirubin Urine Urobilinogen Ur Leukocyte Esterase Ur Microscopic Review Urine Culture Comments Urine HCG, Qual Salicylates Urine Opiates Screen Ur Buprenorphine Scrn Ur Oxycodone Screen Urine Methadone Screen Acetaminophen Ur Barbiturates Screen Ur Tricyclics Screen Ur Phencyclidine Scrn Ur Amphetamine Screen U Methamphetamines Scrn U Benzodiazepines Scrn Urine Cocaine Screen U Cannabinoids Screen Ur Drug Screen Comment Ethyl Alcohol SARS-CoV-2 (PCR) NOT DETECTED PD Medical Decision Making - ED course Complexity details: reviewed results, re-evaluated patient, d/w patient ED course: Patient is a 53-year-old female brought in as an KYLE after making suicidal statements today and acting erratic. There is concerns that she may have ingested some of her medications as she has been drowsy. On arrival she is quick to fall asleep but does answer some questions. Denies taking too much of any of her medications. Mental health screening labs were obtained and reviewed. Incidentally she also had had a labs done this morning by her PCP. On review of labs that we obtained in the ED she does have slight elevation in AST and ALT. However she does not have any abdominal tenderness. Baseline anemia which is unchanged. She was monitored for several hours as she was quite drowsy but did improve from this and became much more responsive. She was able to ambulate to the bathroom on her own and after this she was quite disruptive. Screaming at numerous staff members, Speaking very loudly despite attempts to quiet her down. She was difficult to redirect and was becoming quite disruptive. Offered p.o. olanzapine which she refused. ICOM was also called as she was becoming increasingly disruptive. Due to her agitation and somewhat aggressive statements felt it was appropriate to administer chemical sedation as she was refusing other options would given her. She was given IM olanzapine. Physical restraints were also ordered but patient actually did not need this and was able to get back into her bed. DCR did evaluate the patient and is planning to pursue involuntary detainment. She has been medically cleared. 0421 - Patient has been accepted to [facility]. Departure - Departure Disposition: [facility] Hosp/Unit DC/Xfer Clinical Impression: Psychiatric symptoms, Bipolar disease, manic Condition: Good Forms: PCP List
[2023-08-01 23:15] LABS: BILIRUBIN,URINE NEGATIVE (NEGATIVE); GLUCOSE, URINE (UA) NEGATIVE (NEGATIVE); KETONES,URINE (UA) NEGATIVE (NEGATIVE); LEUKOCYTE ESTERASE, URINE NEGATIVE (NEGATIVE); NITRITE,URINE NEGATIVE (NEGATIVE); OCCULT BLOOD,URINE NEGATIVE (NEGATIVE); PH,URINE 6.5 PH (5.0-7.5); PROTEIN,URINE NEGATIVE (NEGATIVE); UROBILINOGEN,URINE 0.2 (NORMAL) E.U./dL (NORMAL)
[2023-08-01 23:19] LABS: CLARITY,URINE CLEAR (CLEAR); HCG UR QUAL NEGATIVE
[2023-08-01 23:28] LABS: AMPHETAMINE SCREEN,URINE NEGATIVE (NEGATIVE); BARBITURATE SCREEN,UR POSITIVE (NEGATIVE); BENZODIAZEPINES SCREEN, URINE POSITIVE (NEGATIVE); BUPRENORPHINE SCREEN, URINE NEGATIVE (NEGATIVE); COCAINE SCREEN URINE NEGATIVE (NEGATIVE); METHADONE SCREEN, URINE NEGATIVE (NEGATIVE); METHAMPHETAMINES SCREEN, URINE NEGATIVE (NEGATIVE); OPIATE SCREEN, URINE NEGATIVE (NEGATIVE); OXYCODONE SCREEN, URINE POSITIVE (NEGATIVE); THC CANNABINOID SCREEN, URINE POSITIVE (NEGATIVE); TRICYCLIC ANTIDEPRESSANT,URINE NEGATIVE (NEGATIVE)
[2023-08-02] MEDS: OLANZapine ODT 5 MG TABLET TL ONE ×2 (00:05→08:00)
[2023-08-02] MEDS: OLANZapine 10 MG VIAL IM ONE (00:12)
--- NOTE | 2023-08-02 00:13 | ED Physician Documentation ---
Restraint [id number]-im-Itht - Immediate Situation Face to Face Evaluation Date: 08/02/23 Face to Face Evaluation Time: 00:11 Restraint Classification: Violent, chemical - Patient's Reaction & Behaviors Safety: Physically unsafe, Non-compliant Verbal: Screaming/Yelling Harm: Potential harm to self, Potential harm to others Physical: Aggressive behavior - Behavioral Condition Attitude: Indifferent Behavior: Belligerent, Agitated Orientation: Person, Place, Time Mood: Angry - Evaluation Pertinent History/Illicit Drugs/Medications/Results: Bipolar
--- NOTE | 2023-08-02 07:44 | ED Physician Documentation ---
ED Addendum - Addendum Addendum: 08/02/23 07:42 The patient is awake and conversant. She does have some pressured speech but is just verbal without any physical excitability. She was given a p.o. Zyprexa ordered just before shift change. She does take daily medications that would be good to provide at least the [place] ones prior to her being transferred as OB unlikely should get morning medicines until afternoon at this point at the receiving end. I wrote for her [place] daily medications. Otherwise expect transportation in about 45 minutes or so. Disposition: The patient is transferred to psychiatric facility in stable condition. Diagnoses: Acute schizoaffective karen.
[2023-08-02] MEDS: GABAPENTIN 300 MG CAPSULE PO STA (07:55)
[2023-08-02] MEDS: clonazePAM 0.5 MG TABLET PO STA (07:59)
[2023-08-02] MEDS: PANTOPRAZOLE 40 MG TABLET PO STA (07:59)
[2023-08-02] MEDS: tiZANidine 4 MG TABLET PO STA (08:03)
[2023-08-02] MEDS: ESCITALOPRAM 10 MG TABLET PO STA (08:03)
[2023-08-02] MEDS: TOPIRAMATE 100 MG TABLET PO STA (08:03)
[2023-08-02 08:33] VITALS: BP 141/101; O2SAT 96
== END 2023-08-02 08:21 ==
LOC: EDUNIT# → ED 19:28
DX: F31.9 Bipolar disorder, unspecified (principal); F17.200 Nicotine dependence, unspecified, uncomplicated; D64.9 Anemia, unspecified; R45.1 Restlessness and agitation; Z98.84 Bariatric surgery status; R79.9 Abnormal finding of blood chemistry, unspecified; I10 Essential (primary) hypertension; E11.9 Type 2 diabetes mellitus without complications; Z79.899 Other long term (current) drug therapy
CPT/HCPCS: 36415; 80053; 80061; 80143; 80179; 80306; 81003; 81025; 82077; 82550; 82607; 82728; 82746; 83540; 83690; 83735; 84443; 84466; 85025; 87635; 93005; 96372; 99285; A9270; 81001; 83721; 87086

== ENCOUNTER 2023-09-02 09:48 | Outpatient (CLI) | payer OTHER ==
--- NOTE | 2023-09-05 08:09 | Mammography Report ---
BILATERAL DIGITAL DIAGNOSTIC MAMMOGRAM 3D/2D WITH AUGMENTATION: 09/02/2023 CLINICAL: Complication of right breast implant. Due for bilateral exam. Comparison is made to exams dated: 06/12/2020 breast MRI, 06/04/2019 breast MRI, 03/10/2017 breast MRI, and 04/09/2019 mammogram - [facility]. Both breasts are heterogeneously dense, which may obscure small masses (category c / 51-75% glandular tissue). Bilateral breast implants are stable. No significant masses, calcifications, or other findings are seen in either breast. There has been no significant interval change. IMPRESSION: NEGATIVE There is no mammographic evidence of malignancy. A 1 year screening mammogram is recommended. Based on Tyrer-Cuzick model (a risk assessment model), the patient's lifetime risk is 24.9% and her 1 0 year risk is 6.7%. If a patient has an elevated risk, a more comprehensive evaluation should be con sidered and/or a referral to a genetic counselor. The [place] [employer], [employer] [employer], and NCCN Guidelines advise the consideration of Breast MRI as an adjunct to screening mammog mary in patients whose "Lifetime risk to develop breast cancer" is 20% or higher. This exam was interpreted at Station ID: [id number]. NOTE: For mammograms, a report in lay terms will be sent to the patient. Approximately 15% of breast malignancies will not be visualized mammographically. In the management of a palpable breast mass, a negative mammogram must not discourage biopsy of a clinically suspicious lesion. Electronically Signed By: Lor sloan/devi:09/02/2023 10:34:24 letter sent: No_Letter ACR BI-RADS Category 1: Negative 3341F PARENCHYMAL PATTERN: (D) - The breast(s) demonstrate(s) heterogeneously dense fibroglandular parambery shashank. BI-RADS CATEGORY: (1) - 1 RECOMMENDATION: (ANNUAL) - Recommend routine annual screening mammography. [id number] 1 year screening LATERALITY: (B)
== END 2023-09-02 09:49 | disposition home or self-care (01) ==
LOC: DI 09:48
PROVIDERS: ATTEND Nurse Practitioner Obstetrics & Gynecology
DX: N63.13 Unspecified lump in the right breast, lower outer quadrant (principal); Z98.82 Breast implant status; R92.333 Mammographic heterogeneous density, bilateral breasts

== ENCOUNTER 2023-10-20 13:43 | Outpatient (CLI) | payer OTHER ==
[~2023-10-20 13:43] MED LIST changes: -GADOBUTROL 7.5 MMOL/7.5 ML VIAL ONE; +GADOTERATE MEGLUMINE 7.5 MMOL/15 ML VIAL ONE
[2023-10-20] MEDS: GADOTERATE MEGLUMINE 7.5 MMOL/15 ML VIAL IVP ONE (14:36)
--- NOTE | 2023-10-21 10:57 | MRI Report ---
BREAST MRI OF BOTH BREASTS: 10/20/2023 PROCEDURE: Breast BL W/WO INDICATIONS: ELEVATED RISK FOR BREAST CA CONTRAST: CLARISCAN 13.4 ML TECHNIQUE: The patient was placed prone in a dedicated breast imaging coil. Precontrast axial STIR and 3D spoil ed GE without fat saturation sequences were obtained. Both before and after bolus injection of contr ast, sequential 1-minute axial 3D spoiled GE with fat saturation sequences for 3 time points, with ricci btraction images and maximum intensity projections (MIP's) generated. Delayed sagittal spoiled GE im ages with fat saturation were also obtained. Computer-aided detection, including computer algorithm analysis of MRI image data for lesion detectio n and characterization, pharmacokinetic analysis, with further physician review for interpretation, w as performed. COMPARISON: Comparison is made to exams dated: 09/02/2023 mammogram, 06/12/2020 breast MRI, 06/04/2019 breast MRI, 04/09/2019 mammogram - [facility], and 11/23/2016 ultrasound - [facility]. FINDINGS: Image quality: Excellent. There is mild background parenchymal enhancement. Right breast: Breast implant is intact. No mass or suspicious enhancement. Left breast: Breast implant is intact. No mass or suspicious enhancement. Miscellaneous: No enlarged lymph nodes. IMPRESSION: BENIGN No mass or suspicious enhancement. No enlarged lymph nodes. Implants are intact. BIRADS 2 A 1 year screening mammogram is recommended. 09/02/2024 Recommend continued breast MRI screening. COMMENT: The imaging literature indicates that a negative contrast breast MRI examination has a high sensitivity and a moderate specificity for detecting and excluding invasive carcinomas to a detection threshold of 3-5 mm; nonetheless, appropriate clinical and mammographic follow-up are recommended. MRI is not sensitive for detecting DCIS (ductal carcinoma in situ) and may not detect large invasive neoplasms that show only minimal enhancement such as mucinous carcinoma. If there are suspicious idalia cifications or clinically worrisome palpable masses, then biopsy should still be considered. Invasiv e neoplasms can be hidden by co-existent and benign enhancement caused by mastitis, hormone therapy e ffects, radiation therapy, , and recent biopsy or surgery. False positive examinations can occur in a number of circumstances, including breasts that have recently been subject to invasive pro cedures and those that contain atypical ductal hyperplasia, hormonally stimulated glandular tissue, f at necrosis, or radial scars. This exam was interpreted at Station ID: [id number]. Electronically Signed By: Emir Sommer M.D. slc/:10/20/2023 21:09:21 ACR BI-RADS Category 2: Benign Finding(s) 3342F BI-RADS CATEGORY: (2) - 2 RECOMMENDATION: (ANNUAL) - Recommend routine annual screening mammography. [id number] 1 year screening LATERALITY: (B)
== END 2023-10-20 13:44 | disposition home or self-care (01) ==
LOC: DI 13:43
PROVIDERS: ATTEND Nurse Practitioner Obstetrics & Gynecology
DX: Z12.39 Encounter for other screening for malignant neoplasm of breast (principal); Z15.01 Genetic susceptibility to malignant neoplasm of breast; Z98.82 Breast implant status